=== PATIENT | female | born 1950 | race Caucasian/White ===

== ENCOUNTER 2017-01-04 05:42 | Outpatient (CLI) | payer MEDICARE, MEDICAID ==
[~2017-01-04] VITALS: Ht 167.6 cm; Wt 113.4 kg
[2017-01-04] MEDS ORDERED: LEVO100T7 PO (10:17)
[2017-01-04] MEDS ORDERED: LOSA50TA36 PO (10:17)
[2017-01-04] MEDS ORDERED: ASPI-586 PO (10:17)
[2017-01-04] MEDS ORDERED: PANT40TA3 PO (10:17)
[2017-01-04] MEDS ORDERED: DICL75TA2 PO (10:17)
[2017-01-04] MEDS ORDERED: ATOR20TA66 PO (10:17)
[2017-01-04] MEDS ORDERED: LACT1CAP62 PO (10:17)
[2017-01-04] MEDS ORDERED: CITA40TA11 PO (10:17)
== END 2017-01-04 10:34 ==
LOC: PREOP 05:42
PROVIDERS: ATTEND Surgery
DX: Z01.818 Encounter for other preprocedural examination (principal); K92.1 Melena

== ENCOUNTER 2017-01-05 08:06 | Day surgery (SDC) | payer MEDICARE, MEDICAID ==
[~2017-01-05] VITALS: Ht 167.6 cm; Wt 113.4 kg
[~2017-01-05 08:06] MED LIST: ASPI-586 PO; ATOR20TA66 PO; CITA40TA11 PO; DICL75TA2 PO; LACT1CAP62 PO; LEVO100T7 PO; LOSA50TA36 PO; PANT40TA3 PO
[2017-01-05] MEDS ORDERED: LACTATED RINGERS 1,000 ML IV STA (08:12)
[2017-01-05 08:25] VITALS: BP 151/73
[2017-01-05] MEDS ORDERED: PROPOFOL INJECTION 50 ML IV ONE (09:14)
[2017-01-05] MEDS ORDERED: LIDOCAINE PF 2% 5 ML (XYLOCAINE) VIAL ONE (09:15)
[2017-01-05] MEDS ORDERED: HURRICAINE EXT TUBE (BENZOCAINE) ONE (09:54)
[2017-01-05] MEDS ORDERED: HURRICAINE EXT TUBE (BENZOCAINE) XX ONE (10:00)
--- NOTE | 2017-01-05 10:12 | Progress Note-Post Operative ---
Post-Operative Progess Note Surgeon (s)/Double End Sewer (s) Surgeon KAL MCCRAY DO Double End Sewer: na Pre-Operative Diagnosis ruq abdominal pain, blood in stool Post-Operative Diagnosis small hiatal hernia, colon polyps Procedure & Operative Findings Date of Procedure 01/05/17 Procedure Performed/Findings egd, colonoscopy with hot bx polypectomy x 4 Anesthesia Type per motion picture director Estimated Blood Loss Estimated blood loss (mL): none Specimens/Packing Specimens Removed colon polyps x 4 KAL MCCRAY DO Jan 05, 2017 10:12
--- NOTE | 2017-01-05 10:15 | Discharge Inst-Simple/Standard ---
Discharge Inst-Standard Patient Instructions/Follow Up Plan of Care/Instructions/FU: Follow up with Dr. Torres in 2 weeks Hold aspirin for 3 days Repeat colonoscopy in 1 year Activity as Tolerated: Yes Discharge Diet: No Restrictions ANDREW CORRAL APRN Jan 05, 2017 10:15
[2017-01-05 10:20] VITALS: BP 161/72
[2017-01-05 10:50] VITALS: BP 167/83
--- NOTE | 2017-01-05 10:52 | OPERATIVE REPORT ---
DATE OF SERVICE: 01/05/2017 PREOPERATIVE DIAGNOSIS: 1. Right upper quadrant abdominal pain. 2. Blood in stool. POSTOPERATIVE DIAGNOSIS: 1. Small hiatal hernia. 2. Colon polyps. PROCEDURE: 1. EGD. 2. Colonoscopy with hot biopsy polypectomy times four. SURGEON: Kal Torres DO ANESTHESIA: Per CAR WRECKER. ESTIMATED BLOOD LOSS: None. COMPLICATIONS: None. INDICATIONS: The patient is a 66-year-old female with bright red blood per stool and right upper quadrant abdominal pain. She understands risks and benefits of procedure and wished to proceed with procedure. Consent was signed and in the chart. PROCEDURE: The patient was taken to the endoscopy suite, placed in left lateral recumbent position. Timeout was performed. Scope was inserted in mouth, down the esophagus, stomach and into the duodenum without difficulty. There were no polyps, mass or ulcerations within the duodenum. The scope was slowly retracted back into the stomach where it was further insufflated. There were no polyps, mass or ulcerations are erythematous changes present. Scope was retroflexed noting a small hiatal hernia. Scope was then returned to its normal position, slowly withdrawn back into the distal esophagus which demonstrated no polyps, masses or ulcerations or erythematous changes. Scope was slowly retracted back until completely removed, noting no other pathology. Digital rectal exam was performed and there were no palpable polyps, masses or ulcerations. Scope was inserted in the rectum and advanced all the way to the cecum with minimal difficulty. Prep was adequate. Scope was then slowly retracted back. There were no polyps, masses or ulcerations in the cecum, ascending colon. In the transverse colon at the hepatic flexure, a small polyp was present, which hot biopsy polypectomy was performed. Scope was continued slowly retracted back. In the transverse colon the second polyp was present, which hot biopsy polypectomy was performed. Scope was continued slowly retracted back and at the splenic flexure a third small polyp was present, which hot biopsy polypectomy was performed. Scope was continued slowly retracted back and a fourth polyp was in the descending colon, which hot biopsy polypectomy was performed. Scope was continuously retracted back. There were no other polyps, masses or ulcerations in the sigmoid and rectum. The scope was also retroflexed in the rectum, noting a little bit of slight hemorrhoidal disease. Scope was returned to its normal position, slowly withdrawn until completely removed. The patient tolerated procedure well without any complications. She was taken to recovery room in stable condition. RECOMMENDATIONS: The patient will follow up in office in two weeks to discuss pathology. Due to the number of polyps, would recommend repeat colonoscopy in approximately one year for reevaluation. If she has any problems prior to that, she should be reevaluated at that time. Job ID: [id number] DocumentID: [id number] Dictated Date: 01/05/2017 10:15:50 Strategic Marketing Manager Date: 01/05/2017 10:51:57 Dictated By: KAL TORRES DO
== END 2017-01-05 11:00 | disposition home or self-care (01) ==
LOC: ENDO 08:06
PROVIDERS: ATTEND Surgery
DX: K92.1 Melena (principal); D12.3 Benign neoplasm of transverse colon; D12.4 Benign neoplasm of descending colon; K44.9 Diaphragmatic hernia without obstruction or gangrene; I10 Essential (primary) hypertension; R01.1 Cardiac murmur, unspecified; M19.91 Primary osteoarthritis, unspecified site; E66.01 Morbid (severe) obesity due to excess calories; Z68.41 Body mass index [BMI] 40.0-44.9, adult; Z86.73 Personal history of transient ischemic attack (TIA), and cerebral infarction without residual deficits; Z79.899 Other long term (current) drug therapy

== ENCOUNTER → 2017-04-14 | Outpatient (CLI) | payer MEDICARE, MEDICAID ==
--- NOTE | 2017-04-14 20:03 | Diagnostic Imaging Report ---
Bilateral diagnostic mammogram with tomography. The current study was also evaluated with a Computer Aided Detection (CAD) system. INDICATION: Lump in the outer aspect of the right breast. No prior studies are available for comparison. FINDINGS: The breasts are composed of scattered fibroglandular densities. Area of lump is marked on the right MLO and true lateral views with no underlying mammographic abnormality seen. There are benign-appearing calcifications noted. IMPRESSION: No mammographic evidence of malignancy. Ultrasound evaluation pending. ACR BI-RADS Category 0: Incomplete. (Needs additional imaging evaluation). Result letter will be mailed to the patient. Note: At least 10% of breast cancer is not imaged by mammography. Dictated by: Dictated on workstation # [id number]
--- NOTE | 2017-04-15 22:11 | Diagnostic Imaging Report ---
Right breast ultrasound. INDICATION: Right breast lump. FINDINGS: The area of lump around 9 o'clock zone is scanned with no underlying abnormality seen. IMPRESSION: Negative study. Clinical followup of the palpable area is recommended. ACR BI-RADS Category 1: Negative. Dictated by: Dictated on workstation # [id number]
== END ==
LOC: RAD 13:51
PROVIDERS: ATTEND Family Medicine
DX: N63.10 Unspecified lump in the right breast, unspecified quadrant (principal)
CPT/HCPCS: 77066

== ENCOUNTER → 2017-11-17 | Outpatient (CLI) | payer MEDICARE, MEDICAID ==
[~2017-11-17] MED LIST changes: +ASPI-983 PO
== END ==
LOC: CARD 07:41
PROVIDERS: ATTEND Nurse Practitioner Family
DX: R00.2 Palpitations (principal); R07.9 Chest pain, unspecified; R06.02 Shortness of breath; I36.1 Nonrheumatic tricuspid (valve) insufficiency; Z68.41 Body mass index [BMI] 40.0-44.9, adult
CPT/HCPCS: 93225; 93226

== ENCOUNTER → 2017-12-17 | Outpatient (CLI) | payer MEDICARE, MEDICAID | LOC: CARD 07:08 | PROVIDERS: ATTEND Nurse Practitioner Family | DX: R07.9 Chest pain, unspecified (principal); R06.02 Shortness of breath; R00.2 Palpitations; I36.1 Nonrheumatic tricuspid (valve) insufficiency; Z68.41 Body mass index [BMI] 40.0-44.9, adult; Z86.73 Personal history of transient ischemic attack (TIA), and cerebral infarction without residual deficits | CPT/HCPCS: 93306 ==

== ENCOUNTER → 2019-02-15 | Outpatient (CLI) | payer MEDICARE, MEDICAID ==
[~2019-02-15] MED LIST changes: +CITA20TA9 PO; -LOSA50TA36 PO; +LOSA50TA63 PO
== END ==
LOC: CARD 12:35
PROVIDERS: ATTEND Internal Medicine Cardiovascular Disease
DX: I05.8 Other rheumatic mitral valve diseases (principal); I35.8 Other nonrheumatic aortic valve disorders; I10 Essential (primary) hypertension; E78.5 Hyperlipidemia, unspecified; Z86.79 Personal history of other diseases of the circulatory system
CPT/HCPCS: 93306

== ENCOUNTER 2019-06-14 14:57 | Observation (INO) | payer MEDICARE, MEDICAID ==
[~2019-06-14] VITALS: Ht 167.7 cm; Wt 112.8 kg
--- NOTE | 2019-06-14 15:28 | ED Abdominal Pain ---
General Chief Complaint: Abdominal/GI Problems Stated Complaint: ABD PAIN; BLACK STOOL Source of Information: Patient Exam Limitations: No Limitations History of Present Illness Date Seen by Provider: Jun 14, 2019 Time Seen by Provider: 15:26 Initial Comments This 68-year-old white female presents with a history of transverse upper ab dominal pain for the past several days. The patient noted black and tarry stools in the last 48 hours. Patient denies similar episodes in the past. She has been taking no new medications. She denies fever, chill, associated vomiting, dysuria or frequen cy. Allergies and Home Medications Allergies Coded Allergies: No Known Drug Allergies (Unverified , 01/04/17) Home Medications Aspirin 81 Mg Tablet.dr, 81 MG PO DAILY, (Reported) Atorvastatin Calcium 20 Mg Tablet, 20 MG PO DAILY, (Reported) Citalopram Hydrobromide 20 Mg Tablet, 20 MG PO HS, (Reported) Diclofenac Sodium 75 Mg Tablet.dr, 75 MG PO BID, (Reported) Lactobacillus Acidophilus 1 Each Capsule, 1 EACH PO DAILY, (Reported) Levothyroxine Sodium 100 Mcg Tablet, 100 MCG PO DAILY, (Reported) Losartan Potassium 50 Mg Tablet, 50 MG PO DAILY, (Reported) Pantoprazole Sodium 40 Mg Tablet.dr, 40 MG PO DAILY, (Reported) Patient Home Medication List Home Medication List Reviewed: Yes Review of Systems Review of Systems Constitutional: No chills, No fever; malaise, weakness EENTM: No Symptoms Reported Respiratory: Denies Cough Cardiovascular: No Symptoms Reported, Chest Pain Gastrointestinal: See HPI, Nausea, Rectal Bleeding Genitourinary: No Symptoms Reported Musculoskeletal: no symptoms reported Skin: no symptoms reported Psychiatric/Neurological: No Symptoms Reported Endocrine: No Symptoms Reported Hematologic/Lymphatic: No Symptoms Reported Past Yswiahi-Yqkria-Ebqzxf Hx Past Med/Social Hx: Reviewed Nursing Past Med/Soc Hx Patient Social History Recent Foreign Travel: No Recent Hopitalizations: No Immunizations Up To Date Date of Pneumonia Vaccine: Mar 02, 2016 Seasonal Allergies Seasonal Allergies: No Past Medical History Gallbladder, Thyroidectomy Heart Murmur, Hypertension Stroke Arthritis Physical Exam Vital Signs Vital Signs - First Documented 06/14/19 14:57 Temp 36.9 Pulse 87 Resp 16 B/P (MAP) 111/64 (80) Pulse Ox 95 O2 Delivery Room Air Capillary Refill : Height/Weight/BMI Height: 5'6.00" Weight: 266lbs. 0.0oz. [id number]; 42.9 BMI Method: General Appearance: WD/WN, no apparent distress, obese HEENT: normal ENT inspection Neck: supple, normal inspection Respiratory: lungs clear, normal breath sounds Cardiovascular: regular rate, rhythm, no murmur Gastrointestinal: normal bowel sounds, non tender, soft Rectal: heme positive stool Extremities: normal inspection Back: normal inspection Neurologic/Psychiatric: no motor/sensory deficits, alert, normal mood/affect Skin: normal color, warm/dry Progress/Results/Core Measures Results/Orders Lab Results Laboratory Tests Test 06/14/19 15:13 Range/Units White Blood Count 8.9 4.3-11.0 10^3/uL Red Blood Count 4.81 4.35-5.85 10^6/uL Hemoglobin 14.5 11.5-16.0 G/DL Hematocrit 44 35-52 % Mean Corpuscular Volume 92 80-99 FL Mean Corpuscular Hemoglobin 30 25-34 PG Mean Corpuscular Hemoglobin Concent 33 32-36 G/DL Red Cell Distribution Width 13.2 10.0-14.5 % Platelet Count 244 130-400 10^3/uL Mean Platelet Volume 12.0 H 7.4-10.4 FL Neutrophils (%) (Auto) 55 42-75 % Lymphocytes (%) (Auto) 33 12-44 % Monocytes (%) (Auto) 9 0-12 % Eosinophils (%) (Auto) 2 0-10 % Basophils (%) (Auto) 1 0-10 % Neutrophils # (Auto) 4.9 1.8-7.8 X 10^3 Lymphocytes # (Auto) 2.9 1.0-4.0 X 10^3 Monocytes # (Auto) 0.8 0.0-1.0 X 10^3 Eosinophils # (Auto) 0.2 0.0-0.3 10^3/uL Basophils # (Auto) 0.1 0.0-0.1 10^3/uL Sodium Level 141 135-145 MMOL/L Potassium Level 4.3 3.6-5.0 MMOL/L Chloride Level 103 98-107 MMOL/L Carbon Dioxide Level 23 21-32 MMOL/L Anion Gap 15 H 5-14 MMOL/L Blood Urea Nitrogen 22 H 7-18 MG/DL Creatinine 1.42 H 0.60-1.30 MG/DL Estimat Glomerular Filtration Rate 37 BUN/Creatinine Ratio 15 Glucose Level 112 H 70-105 MG/DL Calcium Level 9.2 8.5-10.1 MG/DL Corrected Calcium 9.2 8.5-10.1 MG/DL Total Bilirubin 0.3 0.1-1.0 MG/DL Aspartate Amino Transf (AST/SGOT) 17 5-34 U/L Alanine Aminotransferase (ALT/SGPT) 18 0-55 U/L Alkaline Phosphatase 87 40-136 U/L Total Protein 7.3 6.4-8.2 GM/DL Albumin 4.0 3.2-4.5 GM/DL Lipase 25 8-78 U/L My Orders Orders - MEREDITH BELLO MD Cbc With Automated Diff (06/14/19 15:24) Comprehensive Metabolic Panel (06/14/19 15:24) Lipase (06/14/19 15:24) Ct Abdomen/Pelvis Wo (06/14/19 15:24) Ns Iv 1000 Ml (Sodium Chloride 0.9%) (06/14/19 15:30) Ondansetron Injection (Zofran Injectio (06/14/19 15:30) Fentanyl Injection (Sublimaze Injection (06/14/19 15:45) Fecal Occult Bedside (06/14/19 16:29) Ns Iv 1000 Ml (Sodium Chloride 0.9%) (06/14/19 17:00) Medications Given in ED Current Medications Medications Dose Ordered Sig/Latisha Route Start Time Stop Time Status Last Admin Dose Admin Fentanyl Citrate 50 mcg ONCE ONCE IVP 06/14/19 15:45 06/14/19 15:46 DC 06/14/19 15:59 50 MCG Ondansetron HCl 4 mg ONCE ONCE IVP 06/14/19 15:30 06/14/19 15:31 DC 06/14/19 15:59 4 MG Vital Signs/I&O 06/14/19 14:57 Temp 36.9 Pulse 87 Resp 16 B/P (MAP) 111/64 (80) Pulse Ox 95 O2 Delivery Room Air Progress Progress Note : Time: 17:39 Progress Note The patient's abdominal pain was improved with IV fentanyl. Her nausea responded to IV Zofran. The patient's CT of the abdomen and pelvis demonstrated findings for a possible small bowel obstruction. The patient responded to IV fluids. Telephone call Konstantin Zamora was undertaken. She was kind enough to accept the patient in transfer for hospitalization Elbert to a medicine bed. Dr. Lopez was consulate who will see the patient as well. Departure Communication (Admissions) Time/Spoke to Admitting Phy: 17:41 Dr. Moore Time/Spoke to Consulting Phy: 17:41 Dr. Lopez Impression Primary Impression: GI bleed Qualified Codes: K92.2 - Gastrointestinal hemorrhage, unspecified Disposition: 09 ADMITTED INPATIENT Condition: Improved Admissions Decision to Admit Reason: Admit from ER (General) Decision to Admit/Date: Jun 14, 2019 Time/Decision to Admit Time: 17:42 Departure-Patient Inst. Referrals: NO,LOCAL PHYSICIAN (PCP/Family) Primary Care Physician MEREDITH BELLO MD Jun 14, 2019 15:28
[2019-06-14] MEDS ORDERED: NS IV 1000 ML 1,000 ML IV SCH ×2 (15:30→17:00)
[2019-06-14] MEDS ORDERED: ONDANSETRON 4 MG/2 ML (SDV) Z0FRAN IVP ONE (15:30)
[2019-06-14 15:34] LABS: HEMATOCRIT 44 % (35-52); HEMOGLOBIN 14.5 G/DL (11.5-16.0); MEAN CORPUSCULAR HEMOGLOBIN 30 PG (25-34); MEAN CORPUSCULAR HGB CONC 33 G/DL (32-36); MEAN CORPUSCULAR VOLUME 92 FL (80-99); PLATELET COUNT 244 10^3/uL (130-400); RED CELL DISTRIBUTION WIDTH 13.2 % (10.0-14.5); WHITE BLOOD COUNT 8.9 10^3/uL (4.3-11.0)
[2019-06-14 15:35] LABS: BASOPHILS # (AUTO) 0.1 10^3/uL (0.0-0.1); BASOPHILS % (AUTO) 1 % (0-10); EOSINOPHILS # (AUTO) 0.2 10^3/uL (0.0-0.3); EOSINOPHILS % (AUTO) 2 % (0-10); LYMPHOCYTES # (AUTO) 2.9 X 10^3 (1.0-4.0); LYMPHOCYTES % (AUTO) 33 % (12-44); MONOCYTES # (AUTO) 0.8 X 10^3 (0.0-1.0); MONOCYTES % (AUTO) 9 % (0-12); NEUTROPHILS # (AUTO) 4.9 X 10^3 (1.8-7.8); NEUTROPHILS % (AUTO) 55 % (42-75)
[2019-06-14] MEDS ORDERED: fentaNYL INJECTION 100 MCG/2 ML AMP IVP ONE (15:45)
[2019-06-14 15:54] LABS: POTASSIUM 4.3 MMOL/L (3.6-5.0)
[2019-06-14 15:55] LABS: BILIRUBIN,TOTAL 0.3 MG/DL (0.1-1.0); CALCIUM 9.2 MG/DL (8.5-10.1); CREATININE SERUM 1.42 MG/DL (0.60-1.30); TOTAL PROTEIN 7.3 GM/DL (6.4-8.2)
--- NOTE | 2019-06-14 16:05 | Diagnostic Imaging Report ---
PROCEDURE: CT abdomen and pelvis without contrast. TECHNIQUE: Multiple contiguous axial images were obtained through the abdomen and pelvis without the use of intravenous contrast. Auto Exposure Controls were utilized during the CT exam to meet ALARA standards for radiation dose reduction. INDICATION: Mid abdominal pain for one week. COMPARISON: No prior studies are available for comparison. FINDINGS: The lung bases are clear. The liver is unremarkable. Gallbladder is surgically absent. No biliary ductal dilatation is identified. Pancreas and spleen are unremarkable. No adrenal mass is detected. Left kidney contains an 18 mm low density in the lower pole, most likely a small cyst. There is a larger low density in upper right kidney measuring 6.8 cm, suggestive of a cyst. No renal calculi are detected. There is no hydronephrosis. Aorta is nonaneurysmal. There are some mildly dilated and thick-walled small bowel loops in the left abdomen. There is some adjacent inflammatory stranding present. Normal-caliber bowel loops are noted more distally in the right abdomen. The possibility of bowel obstruction cannot be excluded. The colon is decompressed. There is no free fluid or fluid collection identified. Uterus is unremarkable. Bladder is decompressed. IMPRESSION: 1. There is some skhx-ie-ihtpbebt small bowel distention in the left abdomen with associated wall thickening and adjacent inflammatory stranding. There is transition distally and possibility of at least partial small bowel obstruction cannot be entirely excluded. Small bowel study may be useful for further evaluation. There is no free air or abscess formation. 2. Bilateral renal cysts. Dictated by: Dictated on workstation # [id number]
[2019-06-14 19:23] VITALS: BP 103/66
[2019-06-14] MEDS ORDERED: CATHETER FLUSH 10 ML SYR IV PRN (19:45)
[2019-06-14] MEDS: fentaNYL INJECTION 100 MCG/2 ML AMP IV PRN (20:49)
[2019-06-14] MEDS: ONDANSETRON 4 MG/2 ML (SDV) Z0FRAN IV PRN (20:50)
[2019-06-14] MEDS: NS IV 1000 ML 1,000 ML IV SCH (20:50)
--- NOTE | 2019-06-14 21:58 | Consultation - Surgery ---
NAKULZEESHAN,MED STUDENT 06/14/19 2158: History of Present Illness History of Present Illness Patient Consulted On(mykel/time) 06/14/19 21:52 Date Seen by Provider: Jun 14, 2019 Time Seen by Provider: 21:29 History of Present Illness Surgery was consulted on this case regarding the patients abdominal pain and acute onset of melena Patient states that she has been having worsening abdominal pain that radiates into her ribs an back for about a week. She describes it has a sharp pain all across the top of her abdomen, and can get as bad as 10/10 at its worse. She states it hurts worse when she strains to have bowel movements. She believes her bowel movements have been regular, but admits to having black tarry stools for the past 3 days. Denies any blood in her stool. She has also had some vomiting. Denies blood in vomit. She thinks her last colonoscopy was within the last 5 years, but she is not sure. She has also had an EGD at the same time. Allergies and Home Medications Allergies Coded Allergies: No Known Drug Allergies (Unverified , 01/04/17) Home Medications Aspirin 81 Mg Tablet.dr, 81 MG PO DAILY, (Reported) Atorvastatin Calcium 20 Mg Tablet, 20 MG PO DAILY, (Reported) Citalopram Hydrobromide 20 Mg Tablet, 20 MG PO HS, (Reported) Diclofenac Sodium 75 Mg Tablet.dr, 75 MG PO BID, (Reported) Lactobacillus Acidophilus 1 Each Capsule, 1 EACH PO DAILY, (Reported) Levothyroxine Sodium 100 Mcg Tablet, 100 MCG PO DAILY, (Reported) Losartan Potassium 50 Mg Tablet, 50 MG PO DAILY, (Reported) Pantoprazole Sodium 40 Mg Tablet.dr, 40 MG PO DAILY, (Reported) Past Dqndckq-Jqzyho-Efiuwi Hx Patient Social History Alcohol Use: Denies Use Recreational Drug Use: No Smoking Status: Never a Smoker 2nd Hand Smoke Exposure: No Recent Foreign Travel: No Contact w/Someone Who Travel: No Recent Infectious Disease Expo: No Recent Hopitalizations: No Immunizations Up To Date Date of Pneumonia Vaccine: Mar 02, 2016 Seasonal Allergies Seasonal Allergies: No Surgeries History of Surgeries: Yes (bilat TKR) Surgeries: Gallbladder, Orthopedic (bilateral knees), Thyroidectomy Respiratory History of Respiratory Disorde: No Cardiovascular History of Cardiac Disorders: Yes Cardiac Disorders: Heart Murmur, Hypertension Neurological History of Neurological Disord: Yes Neurological Disorders: Stroke Gastrointestinal History of Gastrointestinal Di: Yes (hx tubular villous adenoma) Gastrointestinal Disorders: Gastroesophageal Reflux, Gall Bladder Disease Musculoskeletal History of Musculoskeletal Dis: Yes Musculoskeletal Disorders: Arthritis Endocrine History of Endocrine Disorders: Yes (thyroidectomy) Endocrine Disorders: Hyperthyroidism HEENT History of HEENT Disorders: No Cancer History of Cancer: No Psychosocial History of Psychiatric Problem: Yes Behavioral Health Disorders: Anxiety Integumentary History of Skin or Integumenta: No Blood Transfusions History of Blood Disorders: No Family Medical History Significant Family History: Heart Disease (Father, brother), Diabetes (Mother), Stroke (Mother) Review of Systems-General Constitutional: No chills, No dizziness, No fever, No malaise, No weight gain, No weight loss EENTM: No ear pain, No blurred vision, No double vision, No eye pain Respiratory: No cough, No short of breath, No wheezing Cardiovascular: No chest pain; edema, palpitations Gastrointestinal: abdominal pain (upper abdomen); No dysphagia, No hematemesis; heartburn, melena, nausea, vomiting Genitourinary: No dysuria, No hematuria Musculoskeletal: joint pain; No joint swelling; muscle pain Skin: No change in color, No lesions, No rash Psychiatric/Neurological: Anxiety Other Hematologic: easy bruising, denies easy bleeding Physical Exam-General Problems Physical Exam Vital Signs Vital Signs - First Documented 06/14/19 14:57 Temp 36.9 Pulse 87 Resp 16 B/P (MAP) 111/64 (80) Pulse Ox 95 O2 Delivery Room Air Capillary Refill : Less Than 3 Seconds General Appearance: WD/WN, no apparent distress Eyes: Bilateral Eye PERRL, Bilateral Eye EOMI HEENT: No scleral icterus (R), No scleral icterus (L) Neck: non-tender, supple; No lymphadenopathy (R), No lymphadenopathy (L) Respiratory: lungs clear, no respiratory distress, no accessory muscle use Cardiovascular: regular rate, rhythm, systolic murmur (faint) Peripheral Pulses: 2+ Dorsalis Pedis (R), 2+ Left Dors-Pedis (L), 2+ Radial Pulses (R), 2+ Radial Pulses (L) Gastrointestinal: normal bowel sounds, soft, tenderness (diffuse) Extremities: non-tender, pedal edema Neurologic/Psychiatric: custodian blood bank II-XII nml as tested, alert, normal mood/affect, oriented x 3 Skin: normal color, warm/dry Lymphatic: no adenopathy (cervical, axilla, groin) Data Review Labs Laboratory Tests 06/14/19 15:13: White Blood Count 8.9, Red Blood Count 4.81, Hemoglobin 14.5, Hematocrit 44, Mean Corpuscular Volume 92, Mean Corpuscular Hemoglobin 30, Mean Corpuscular Hemoglobin Concent 33, Red Cell Distribution Width 13.2, Platelet Count 244, Mean Platelet Volume 12.0H, Neutrophils (%) (Auto) 55, Lymphocytes (%) (Auto) 33, Monocytes (%) (Auto) 9, Eosinophils (%) (Auto) 2, Basophils (%) (Auto) 1, Neutrophils # (Auto) 4.9, Lymphocytes # (Auto) 2.9, Monocytes # (Auto) 0.8, Eosinophils # (Auto) 0.2, Basophils # (Auto) 0.1, Sodium Level 141, Potassium Level 4.3, Chloride Level 103, Carbon Dioxide Level 23, Anion Gap 15H, Blood Urea Nitrogen 22H, Creatinine 1.42H, Estimat Glomerular Filtration Rate 37, BUN/Creatinine Ratio 15, Glucose Level 112H, Calcium Level 9.2, Corrected Calcium 9.2, Total Bilirubin 0.3, Aspartate Amino Transf (AST/SGOT) 17, Alanine Aminotransferase (ALT/SGPT) 18, Alkaline Phosphatase 87, Total Protein 7.3, Albumin 4.0, Lipase 25 Assessment/Plan Assessment/Plan Assessment/Plan Assessment: -Abdominal pain -Melena Plan: IV fluids, Zofran for nausea, pain control EGD/colonoscopy as an outpatient to evaluate cause of melena. JESSICA LOPEZ DO 06/14/19 4984: History of Present Illness History of Present Illness Time Seen by Provider: 21:56 History of Present Illness Pt seen and examined, main complaint is abdominal pain. Pt has noted some "tarry" stools. Allergies and Home Medications Allergies Coded Allergies: No Known Drug Allergies (Unverified , 01/04/17) Home Medications Aspirin 81 Mg Tablet.dr, 81 MG PO DAILY, (Reported) Atorvastatin Calcium 20 Mg Tablet, 20 MG PO DAILY, (Reported) Citalopram Hydrobromide 20 Mg Tablet, 20 MG PO HS, (Reported) Diclofenac Sodium 75 Mg Tablet.dr, 75 MG PO BID, (Reported) Lactobacillus Acidophilus 1 Each Capsule, 1 EACH PO DAILY, (Reported) Levothyroxine Sodium 100 Mcg Tablet, 100 MCG PO DAILY, (Reported) Losartan Potassium 50 Mg Tablet, 50 MG PO DAILY, (Reported) Pantoprazole Sodium 40 Mg Tablet.dr, 40 MG PO DAILY, (Reported) Patient Home Medication List Home Medication List Reviewed: Yes Physical Exam-General Problems Physical Exam General Appearance: WD/WN, no apparent distress Respiratory: lungs clear, no respiratory distress Cardiovascular: regular rate, rhythm, systolic murmur (faint) Gastrointestinal: normal bowel sounds, soft, tenderness (diffuse) Assessment/Plan Assessment/Plan Assessment/Plan Abdominal Pain Melena Acute renal failure Pt needs IV fluids, pain control and recheck renal function. Her Hg is normal; timing of EGD/Colonoscopy would best be done as outpt. No need to keep pt in the hospital for those tests. Thank you for this consult. Supervisory-Addendum Brief Verification & Attestation Participated in pt care: history, MDM, physical Personally performed: exam, history Care discussed with: Medical Student Procedures: n/a Verification and Attestation of Medical Student E/M Service A medical student performed and documented this service in my presence. I reviewed and verified all information documented by the medical student and made modifications to such information, when appropriate. I personally performed the physical exam and medical decision making. Jessica Lopez, Jun 14, 2019,23:14 ZEESHAN MOTA,MED STUDENT Jun 14, 2019 21:58 JESSICA LOPEZ DO Jun 14, 2019 23:14
[2019-06-14 23:50] VITALS: BP 112/62
[2019-06-15] MEDS: ONDANSETRON 4 MG/2 ML (SDV) Z0FRAN IV PRN ×2 (01:36→15:39)
[2019-06-15] MEDS: fentaNYL INJECTION 100 MCG/2 ML AMP IV PRN (01:36)
[2019-06-15 04:05] VITALS: BP 86/52
[2019-06-15] MEDS: NS IV 1000 ML 1,000 ML IV SCH ×2 (05:21→15:39)
[2019-06-15 06:20] LABS: BASOPHILS % (AUTO) 1 % (0-10); EOSINOPHILS # (AUTO) 0.2 10^3/uL (0.0-0.3); EOSINOPHILS % (AUTO) 3 % (0-10); HEMATOCRIT 36 % (35-52); HEMOGLOBIN 11.2 G/DL (11.5-16.0); LYMPHOCYTES # (AUTO) 2.1 X 10^3 (1.0-4.0); LYMPHOCYTES % (AUTO) 34 % (12-44); MEAN CORPUSCULAR HEMOGLOBIN 30 PG (25-34); MEAN CORPUSCULAR HGB CONC 31 G/DL (32-36); MEAN CORPUSCULAR VOLUME 95 FL (80-99); MEAN PLATELET VOLUME 11.9 FL (7.4-10.4); MONOCYTES # (AUTO) 0.6 X 10^3 (0.0-1.0); MONOCYTES % (AUTO) 9 % (0-12); NEUTROPHILS # (AUTO) 3.2 X 10^3 (1.8-7.8); NEUTROPHILS % (AUTO) 53 % (42-75); PLATELET COUNT 172 10^3/uL (130-400); WHITE BLOOD COUNT 6.1 10^3/uL (4.3-11.0)
[2019-06-15 06:39] LABS: ALBUMIN 3.1 GM/DL (3.2-4.5); BILIRUBIN,TOTAL 0.3 MG/DL (0.1-1.0); CALCIUM 7.7 MG/DL (8.5-10.1); CREATININE SERUM 1.05 MG/DL (0.60-1.30); POTASSIUM 4.3 MMOL/L (3.6-5.0); TOTAL PROTEIN 5.4 GM/DL (6.4-8.2)
[2019-06-15 08:00] VITALS: BP 101/63
[2019-06-15] MEDS ORDERED: CITA40TA11 PO (09:10)
--- NOTE | 2019-06-15 09:10 | NUR ---
SPOKE WITH THE PATIENT ABOUT HER MEDICATIONS. SHE HAD HER BOTTLES WITH HER IN THE LOCK UP DRAWER. SHE VERIFIED HOW SHE TAKES THEM AND I COMPARED THEM WITH THE EXT MED HX. SHE RECENTLY FILLED MAXALT ACCORDING TO THE EXT MED HX HOWEVER SHE STATES SHE DOES NOT TAKE IT. SHE WAS PRESCRIBED IT FOR MIGRAINES BUT HER NEUROLOGIST SAID NOT TO TAKE IT BECAUSE SHE HAS HAD A STROKE. SHE TAKES ASPIRIN 81MG DAILY OTC.
--- NOTE | 2019-06-15 09:46 | Short Stay Summary-Hospitalist ---
History of Present Illness HPI/Chief Complaint Patient is a 68-year-old female with past medical history of hypertension and hypothyroidism who presented to the emergency department due to nausea vomiting and dark stools. She states that she started a new diet roughly 1 week ago and did well for 3 days but then after that developed nausea and vomiting. She denies any constipation. In fact 06/12 she developed dark tarry stools which prompted her to call her primary carepractitioner, Zachary May, who recommended evaluation at urgent care. From urgent care she was sent to the emergency room in [place]. She described pain across her abdomen and CT was done which revealed a partial small bowel obstruction. She reports she is no longer nauseated this morning and she is passing flatus frequently. She is actually requesting a diet and would like to go home. Source: patient Date Seen 06/15/19 Time Seen by a Provider: 09:40 Attending Physician Rosalba Moore MD PCP Benny May Referring Physician Date of Admission Jun 14, 2019 at 17:30 Home Medications & Allergies Home Medications Reviewed patient Home Medication Reconciliation performed by pharmacy medication reconciliations military administrative technician and/or nursing. Patients Allergies have been reviewed. Allergies Allergies Coded Allergies No Known Drug Allergies (Unverified01/04/17) Past Otxhcjc-Uiprsp-Yhpsxb Hx Past Med/Social Hx: Reviewed Nursing Past Med/Soc Hx Patient Social History Alcohol Use: Denies Use Recreational Drug Use: No Smoking Status: Never a Smoker 2nd Hand Smoke Exposure: No Recent Foreign Travel: No Contact w/other who traveled: No Recent Hopitalizations: No Recent Infectious Disease Expo: No Immunizations Up To Date Date of Pneumonia Vaccine: Mar 02, 2016 Date of Influenza Vaccine: Mar 15, 2019 Seasonal Allergies Seasonal Allergies: No Past Medical History Surgeries: Gallbladder, Orthopedic (bilateral knees), Thyroidectomy Cardiac: Heart Murmur, Hypertension Neurological: Stroke Gastrointestinal: Gastroesophageal Reflux, Gall Bladder Disease Musculoskeletal: Arthritis Endocrine: Hyperthyroidism Psychosocial: Anxiety History of Blood Disorders: No Family History Heart Disease (Father, brother), Diabetes (Mother), Stroke (Mother) Review of Systems Constitutional: no symptoms reported EENTM: no symptoms reported Respiratory: no symptoms reported Cardiovascular: no symptoms reported Gastrointestinal: abdominal pain; No constipation; melena, nausea, vomiting Genitourinary: no symptoms reported Musculoskeletal: no symptoms reported Skin: no symptoms reported Psychiatric/Neurological: No Symptoms Reported Physical Exam Physical Exam Vital Signs Vital Signs - First Documented 06/14/19 14:57 Temp 36.9 Pulse 87 Resp 16 B/P (MAP) 111/64 (80) Pulse Ox 95 O2 Delivery Room Air Capillary Refill : Less Than 3 SecondsLess Than 3 Seconds Height, Weight, BMI Height: 5'6.00" Weight: 266lbs. 0.0oz. 120.974803pa; 40.10 BMI Method: General Appearance: No Apparent Distress, Obese Eyes: Bilateral Eye PERRL, Bilateral Eye EOMI Neck: Supple Respiratory: Lungs Clear, No Accessory Muscle Use, No Respiratory Distress Cardiovascular: Regular Rate, Rhythm, No Murmur Gastrointestinal: Normal Bowel Sounds, Non Tender, Soft; No Distended, No Guarding, No Rebound Neurologic/Psychiatric: Alert, Oriented x3, Normal Mood/Affect Skin: Normal Color, Warm/Dry Results Results/Procedures Labs Laboratory Tests 06/14/19 15:13 06/15/19 05:35 Patient resulted labs reviewed. Imaging: Reviewed Imaging Report Imaging Date of Exam:06/14/19 CT ABDOMEN/PELVIS WO PROCEDURE: CT abdomen and pelvis without contrast. TECHNIQUE: Multiple contiguous axial images were obtained through the abdomen and pelvis without the use of intravenous contrast. Auto Exposure Controls were utilized during the CT exam to meet ALARA standards for radiation dose reduction. INDICATION: Mid abdominal pain for one week. COMPARISON: No prior studies are available for comparison. FINDINGS: The lung bases are clear. The liver is unremarkable. Gallbladder is surgically absent. No biliary ductal dilatation is identified. Pancreas and spleen are unremarkable. No adrenal mass is detected. Left kidney contains an 18 mm low density in the lower pole, most likely a small cyst. There is a larger low density in upper right kidney measuring 6.8 cm, suggestive of a cyst. No renal calculi are detected. There is no hydronephrosis. Aorta is nonaneurysmal. There are some mildly dilated and thick-walled small bowel loops in the left abdomen. There is some adjacent inflammatory stranding present. Normal-caliber bowel loops are noted more distally in the right abdomen. The possibility of bowel obstruction cannot be excluded. The colon is decompressed. There is no free fluid or fluid collection identified. Uterus is unremarkable. Bladder is decompressed. IMPRESSION: 1. There is some sict-[id number] small bowel distention in the left abdomen with associated wall thickening and adjacent inflammatory stranding. There is transition distally and possibility of at least partial small bowel obstruction cannot be entirely excluded. Small bowel study may be useful for further evaluation. There is no free air or abscess formation. 2. Bilateral renal cysts. Short Stay Diagnosis Discharge Diagnosis-Short Stay Admission Diagnosis partial SBO Final Discharge Diagnosis partial small bowel obstruction Conclusion Plan partial small bowel obstruction Melena +flatus and no longer nauseated Surgery consulted, appreciate recs Hemoglobin stable, needs outpatient colonoscopy Advance diet and if tolerates can DC home Follow up with Zachary May APRN in the next week Diagnosis/Problems Diagnosis/Problems (1) Small bowel obstruction Status: Acute (2) Hypothyroidism Status: Chronic Qualifiers: Qualified Codes: E89.0 - Postprocedural hypothyroidism (3) Essential (primary) hypertension Status: Chronic (4) HLD (hyperlipidemia) Status: Chronic Qualifiers: Qualified Codes: E78.5 - Hyperlipidemia, unspecified (5) Melena Status: Acute Clinical Quality Measures DVT/VTE Risk/Contraindication: Risk Factor Score Per Nursin RFS Level Per Nursing on Admit: 3=High Copy Copies To 1: [facility]/ROSALBA LOWERY MD Jun 15, 2019 09:45
--- NOTE | 2019-06-15 09:57 | Discharge Inst-Simple/Standard ---
Discharge Inst-Standard Patient Instructions/Follow Up Plan of Care/Instructions/FU: Discontinue taking her medications as written. Please follow-up with your primary care nurse practitioner, Zachary May, within the next week. Please follow-up with Dr. Lopez or Dr. Torres as recommended. Activity as Tolerated: Yes Discharge Diet: Soft Diet Return to The Hospital For: Worsening abdominal pain, nausea, no bowel movement of gas for >24 hours, if you feel you are getting worse. RUBENS MCKEON MD Jun 15, 2019 09:57
[2019-06-15 12:00] VITALS: BP 96/58
--- NOTE | 2019-06-15 12:21 | Progress Note - Surgery ---
SARAH ORTIZ,MED STUDENT 06/15/19 1221: Subjective Date Seen by a Provider: Jun 15, 2019 Time Seen by a Provider: 12:15 Subjective/Events-last exam Patient seen and examined. She says that she is feeling about the same as yesterday but her abdominal pain has improved. Pain is rated as a 1/10 today. She reports having post a lot of gas today but no bowel movement today. Her last bowel movement was yesterday in the ER at [facility]. Review of Systems General: No Chills, No Night Sweats; Appetite Pulmonary: No Dyspnea, No Cough Cardiovascular: No: Chest Pain, Palpitations Gastrointestinal: Abdominal Pain (diffuse ), Constipation; No: Nausea, Vomiting Genitourinary: No Dysuria, No Frequency Neurological: Numbness (in feet ) Objective Exam Vital Signs Date Time Temp Pulse Resp B/P (MAP) Pulse Ox O2 Delivery O2 Flow Rate FiO2 06/15/19 08:00 35.8 61 16 101/63 (76) 95 Room Air 06/15/19 08:00 Room Air 06/15/19 04:05 36.0 54 14 86/52 (63) 95 Room Air 06/15/19 01:36 36.4 06/14/19 23:50 36.4 64 20 112/62 (79) 99 Room Air 06/14/19 21:00 99 Room Air 06/14/19 19:23 36.0 66 22 103/66 (78) 98 Room Air 06/14/19 19:23 36.0 66 22 103/66 98 Room Air 06/14/19 18:29 36.9 68 16 109/52 (80) 18 Room Air 06/14/19 14:57 36.9 87 16 111/64 (80) 95 Room Air I & O 06/15/19 07:00 Intake Total 1320 ml Balance 1320 ml Capillary Refill : Less Than 3 SecondsLess Than 3 Seconds General Appearance: No Apparent Distress, Obese HEENT: PERRL/EOMI Neck: Non Tender, Supple Respiratory: Chest Non Tender, Lungs Clear, Normal Breath Sounds, No Accessory Muscle Use, No Respiratory Distress Cardiovascular: Regular Rate, Rhythm, Diastolic Murmur Peripheral Pulses: 2+ Dorsalis Pedis (R), 2+ Left Dors-Pedis (L), 2+ Radial Pulses (R), 2+ Radial Pulses (L) Gastrointestinal: normal bowel sounds, soft, tenderness (diffuse ) Extremity: No Calf Tenderness, No Pedal Edema Neurologic/Psychiatric: Alert, Oriented x3, Normal Mood/Affect Skin: Normal Color, Warm/Dry Results Lab Laboratory Tests 06/14/19 15:13: White Blood Count 8.9, Red Blood Count 4.81, Hemoglobin 14.5, Hematocrit 44, Mean Corpuscular Volume 92, Mean Corpuscular Hemoglobin 30, Mean Corpuscular Hemoglobin Concent 33, Red Cell Distribution Width 13.2, Platelet Count 244, Mean Platelet Volume 12.0H, Neutrophils (%) (Auto) 55, Lymphocytes (%) (Auto) 33, Monocytes (%) (Auto) 9, Eosinophils (%) (Auto) 2, Basophils (%) (Auto) 1, Neutrophils # (Auto) 4.9, Lymphocytes # (Auto) 2.9, Monocytes # (Auto) 0.8, Eosinophils # (Auto) 0.2, Basophils # (Auto) 0.1, Sodium Level 141, Potassium Level 4.3, Chloride Level 103, Carbon Dioxide Level 23, Anion Gap 15H, Blood Urea Nitrogen 22H, Creatinine 1.42H, Estimat Glomerular Filtration Rate 37, BUN/Creatinine Ratio 15, Glucose Level 112H, Calcium Level 9.2, Corrected Calcium 9.2, Total Bilirubin 0.3, Aspartate Amino Transf (AST/SGOT) 17, Alanine Aminotransferase (ALT/SGPT) 18, Alkaline Phosphatase 87, Total Protein 7.3, Albumin 4.0, Lipase 25 06/15/19 05:35: White Blood Count 6.1, Red Blood Count 3.79L, Hemoglobin 11.2#L, Hematocrit 36, Mean Corpuscular Volume 95, Mean Corpuscular Hemoglobin 30, Mean Corpuscular Hemoglobin Concent 31L, Red Cell Distribution Width 14.0, Platelet Count 172, Mean Platelet Volume 11.9H, Neutrophils (%) (Auto) 53, Lymphocytes (%) (Auto) 34, Monocytes (%) (Auto) 9, Eosinophils (%) (Auto) 3, Basophils (%) (Auto) 1, Neutrophils # (Auto) 3.2, Lymphocytes # (Auto) 2.1, Monocytes # (Auto) 0.6, Eosinophils # (Auto) 0.2, Basophils # (Auto) 0.0, Sodium Level 140, Potassium Level 4.3, Chloride Level 112H, Carbon Dioxide Level 21, Anion Gap 7, Blood Urea Nitrogen 16, Creatinine 1.05, Estimat Glomerular Filtration Rate 52, BUN/Creatinine Ratio 15, Glucose Level 89, Calcium Level 7.7L, Corrected Calcium 8.4L, Total Bilirubin 0.3, Aspartate Amino Transf (AST/SGOT) 15, Alanine Aminotransferase (ALT/SGPT) 17, Alkaline Phosphatase 62, Total Protein 5.4L, Albumin 3.1L Assessment/Plan Assessment/Plan Assessment/Plan Abdominal Pain Melena Acute renal failure Abdominal pain still present but improving, patient is passing gas and last BM was yesterday. Hgb has dropped for 14.5 to 11.2, most likely dilutional.; EGD/Colonoscopy required as f/u as an outpt. Kidney function is normal today. If patient can tolerdate solid food then patient is good to go home form a surgery stand point, with outpt f/u. Thank you for this consult. Clinical Quality Measures DVT/VTE Risk/Contraindication: Risk Factor Score Per Nursin RFS Level Per Nursing on Admit: 3=High KAL TORRES DO 06/15/192133: Subjective Subjective/Events-last exam abdominal pain improved. Passing flatus. no more dark stools. denies n/v fever sweats chills shortness of breath or chest pain. tolerating diet. wanting to go home. Objective Exam General Appearance: No Apparent Distress HEENT: PERRL/EOMI Neck: Non Tender, Supple Respiratory: Chest Non Tender, No Accessory Muscle Use, No Respiratory Distress Cardiovascular: Regular Rate, Rhythm Gastrointestinal: non tender, soft, no organomegaly; No tenderness Neurologic/Psychiatric: Alert, Oriented x3, Normal Mood/Affect Skin: Normal Color, Warm/Dry Lymphatic: No Adenopathy Assessment/Plan Assessment/Plan Assessment/Plan Abdominal Pain across middle of abdomen now improved Melena Acute renal failure ct possible partial small bowel obstruction, passing flatus and tolerating diet. if remains pain free, and tolerates diet can be arranged for outpatient endoscopy Supervisory-Addendum Brief Verification & Attestation Participated in pt care: history, MDM, physical Personally performed: exam, history, MDM, supervision of care Care discussed with: Medical Student Procedures: n/a Results interpretation: Verified all documentation Verification and Attestation of Medical Student E/M Service A medical student performed and documented this service in my presence. I reviewed and verified all information documented by the medical student and made modifications to such information, when appropriate. I personally performed the physical exam and medical decision making. Kal Torres, Jun 15, 2019,21:34 SARAH ORTIZ,MED STUDENT Jun 15, 2019 12:21 KAL TORRES DO Jun 15, 2019 21:34
[2019-06-15 15:57] VITALS: BP 125/69
--- NOTE | 2019-06-15 18:15 | NUR ---
Pt had complained of abd pain and nausea during dc home, Dr. Zamora notified and pt kept for further evaluation. After eating dinner, pt called RN to room, pt has no nausea pain or discomfort and would like to continue with dc.
--- NOTE | 2019-06-15 18:19 | NUR ---
Ok to dc home per Dr. Moore
[2019-06-15 18:30] VITALS: BP 125/69
--- NOTE | 2019-06-15 18:33 | NUR ---
SAMUEL ALVARENGA demonstrates understanding of discharge instructions and accurately returns instructions upon questioning. Copy of Post-Discharge Instructions and Medication Discharge Instructions given to pt. SAMUEL ALVARENGA is able to manage continuing needs after discharge. Patients belongings returned to pt. Skin dry and intact; no breakdown noted. Patient discharged from [facility]- on 06/15/19 at 1832. SAMUEL ALVARENGA left floor via WC, accompanied by Staff/Son.
== END 2019-06-15 18:32 | disposition home or self-care (01) ==
LOC: EDUNIT# 14:57 → ER FS 14:58 → 4TH 17:30 → INTOOBSV 17:30 → 4TH 06-15 13:17
PROVIDERS: ADMIT Family Medicine; ATTEND Family Medicine
DX: K56.609 Unspecified intestinal obstruction, unspecified as to partial versus complete obstruction (principal); K92.2 Gastrointestinal hemorrhage, unspecified; E89.0 Postprocedural hypothyroidism; I10 Essential (primary) hypertension; N17.9 Acute kidney failure, unspecified; M19.90 Unspecified osteoarthritis, unspecified site; E78.5 Hyperlipidemia, unspecified; K21.9 Gastro-esophageal reflux disease without esophagitis; F32.9 Major depressive disorder, single episode, unspecified; Z79.82 Long term (current) use of aspirin; Z90.89 Acquired absence of other organs; Z79.899 Other long term (current) drug therapy; Z86.73 Personal history of transient ischemic attack (TIA), and cerebral infarction without residual deficits; Z82.49 Family history of ischemic heart disease and other diseases of the circulatory system; Z83.3 Family history of diabetes mellitus; Z82.3 Family history of stroke
CPT/HCPCS: 36415; 74176; 80053; 82274; 83690; 85025; 96361; 96374; 96375

== ENCOUNTER 2019-07-10 05:49 | Outpatient (CLI) | payer MEDICARE, MEDICAID ==
[~2019-07-10] VITALS: Ht 167.7 cm; Wt 112.7 kg
[2019-07-10] MEDS ORDERED: PANT40TA3 PO (09:04)
== END 2019-07-10 09:14 | disposition home or self-care (01) ==
LOC: PREOP 05:49
PROVIDERS: ATTEND Surgery
DX: Z01.818 Encounter for other preprocedural examination (principal)

== ENCOUNTER → 2019-12-19 | Day surgery (SDC) | payer MEDICARE, MEDICAID ==
[~2019-12-19] VITALS: Ht 167.7 cm; Wt 114.5 kg
[~2019-12-19] MED LIST changes: +LIDOCAINE 1% INJ 20 ML 20 ML VIAL ONE
[2019-12-19 12:42] VITALS: BP 149/86
--- NOTE | 2019-12-19 12:50 | Cardiac Procedure Note-CS/ASA ---
Pre-Procedure Note Pre-Op Procedure Note H&P Reviewed The H&P was reviewed, patient examined and no changes noted. Date H&P Reviewed: Dec 19, 2019 Time H&P Reviewed: 12:50 Conscious Sedation Pre-Proced Time 12:50 ASA Score 3 For ASA 3 and 4: Consider anesthesia and medical clearance. Also, for patients with a history of failed moderate sedation consider anesthesia. Airway Lungs Heart ASA score ASA 1: a normal healthy patient ASA 2: a patient with a mild systemic disease (mid diabetes, controlled hypertension, obesity ASA 3: a patient with a severe systemic disease that limits activity (angina, COPD, prior Myocardial infarction) ASA 4: a patient with an incapacitating disease that is a constant threat to life (CHF, renal failure) ASA 5: a moribund patient not expected to survive 24 hrs. (ruptured aneurysm) ASA 6: a declared brain- patient whose organs are being harvested. For emergent operations, add the letter E after the classification Mallampati Classification Grade 2 Sedation Plan Analgesia, Amnesia, Plan communicated to team members, Discussed options with patient/fam, Discussed risks with patient/fam The patient is an appropriate candidate to undergo the planned procedure, sedation, and anesthesia. The patient immediately re-assessed prior to indication. SB WELLS MD FACP FAC CCDS Dec 19, 2019 12:50
--- OUTSIDE RECORDS SUMMARY | 2019-12-19 14:18 | XMS REPORT | Encounter Summary ---
Author Author [facility] Organization [facility] Address Unknown Phone Unavailable Care Team Providers Care Casino Floor Supervisor Name Role Phone Benny May PCP Reason for Visit * Reason Comments stroke, lacunar last office visit: 11/02/18; pt states "sharp pains in top of head. But not headache. And sharp eye pain." Encounter Details Care Team Description Date Type Department Moise Jalloh, SOURAV [address] [address] [phone] Stroke, lacunar (HCC) (Primary Dx); Tremor; Ataxia; Mild cognitive impairment 05/03/2019 Office Visit [facility] Neurol ogy [address] [facility] [address] [place] [address] Social History Date Tobacco Use Types Packs/Day Years Used Never Smoker Smokeless Tobacco: Never Used Drinks/Week oz/Week Comments Alcohol Use 0 Standard drinks or equivalent 0.0 Quit 40 yrs ago No Sex Assigned at Date Recorded Not on file Industry Job Start Date Occupation Not on file Not on file Not on file Travel End Travel History Travel Start No recent travel history available. documented as of this encounter Last Filed Vital Signs Reading Time Taken Comments Vital Sign 132/67 05/03/2019 8:32 AM CLINICAL COURIER Blood Pressure 65 05/03/2019 8:32 AM CLINICAL COURIER SpO2: 94% Pulse - - Temperature - - Respiratory Rate - - Oxygen Saturation - - Inhaled Oxygen Concentration 114.5 kg (252 lb 6.4 oz) 05/03/2019 8:32 AM CLINICAL COURIER Weight 165.1 cm (5' 5") 05/03/2019 8:32 AM CLINICAL COURIER Height 42 05/03/2019 8:32 AM CLINICAL COURIER Body Mass Index documented in this encounter Patient Instructions * Patient Instructions* Moise Jalloh NP - 05/03/2019 9:00 AM CLINICAL COURIER 1. Do not take any migraine medications in the "triptan" family (generic name e nds in "-triptan" such as rizatriptan or sumatriptan, brand names include Maxalt and Imitrex and others). These should not be taken by people with history of s troke. 2. Return in 1 year or sooner if needed. ICAL COURIER documented in this encounter Progress Notes * Moise Jalloh NP - 05/03/2019 9:00 AM CLINICAL COURIER NEUROLOGY CONSULTATION Patient Name: Pia Morales : 1950 PCP: DAMION Quezada Date of service: 05/03/2019 CHIEF COMPLAINT She returns to neurology clinic today in routine follow-up. She comes to visit alone. LAST VISIT: Last visit in neurology clinic was November 02, 2018. Plan at that visit was: Continue current medications and monitor her symptoms duff ch as tremor. HISTORY OF PRESENT ILLNESS: INTERVAL HISTORY: She perceives that her balance may be somewhat worse. "My balance is wacky." S he notes that when she turns quickly she feels off balance, may have some mild b rief spinning sensation," I stumble over my own feet if I turn." She denies any falls although she reports near falls. She denies feeling presyncopal and janet es syncope. Otherwise she reports no significant changes since her last visit. No events suspicious for stroke or TIA. Still with intermittent hand tremor wi thout significant change. And she continues to have occasional brief sharp head pains of only a few seconds in duration. "I note a migraine is in these migrai ne." However, she may have been prescribed rizatriptan for the head pains by so me provider. We discussed that people with a history of stroke should not take triptans. ROS: Review of Systems questionnaire was completed by patient and reviewed. Positive s were sweats, fatigue, sensitive to light, change in vision, ringing in ears, t rouble swallowing, racing/pounding heart, cough, short of breath with activity, abdominal swelling, constipation, urinary incontinence, neck pain, back pain, mu scle cramps, dry skin, nail changes, hair loss, dizziness, lightheadedness, trem ors, difficulty walking, confusion, depressed mood, nervous/anxious. All other items on the questionnaire were negative. The original form will be scanned in the chart separately. BP 132/67 (BP Location: Left arm, Patient position: Sitting) | Pulse 65 Comment : SpO2: 94% | Ht 1.651 m (5' 5") | Wt 114.5 kg (252 lb 6.4 oz) | BMI 42.00 kg/ m NEUROLOGIC EXAMINATION: The following aspects of the exam are notable: Possible but not definite upper visual field defect with left thigh. Over, she gives inconsistent responses her e and it sometimes seems to seem to finger in the upper visual field without dif ficulty. Mild right upper extremity action tremor with no resting or postural t remor. Her gait is abnormal but this seems to be related to orthopedic problems rather than neurologic problems. She reports having continuing problems with h er right knee despite past knee replacement surgery. She notes that the knee wi ll sometimes "catch" and I can feel this when testing for spasticity in her legs today. Not all of the abnormal gait seems due to the orthopedic problems. She does seem to have very minimal ataxia and diminished ability to tandem gait. The remainder of her exam today was unremarkable. No neck bruit heard. Heart t ones S1-S2 with no murmur. Radial pulses palpable, symmetric, and regular. Mental Status: Awake, alert, pleasant, calm, cooperative, appropriate. No abno rmality of spontaneous speech or comprehension. No aphasia or dysarthria. No si gnificant memory or cognitive deficit evident in conversing with patient. Cranial Nerves: II - Pupils equal and round bilaterally. Visual eubanks grossly full to finger counting in periphery with binocular vision. Possible but not de finite upper visual field defect with left monocular vision. No apparent visual field defect with right eye monocular vision.. III, IV, extraocular muscles are intact. No nystagmus. No STEPHANIE. VII- No significant facial asymmetry is obser marjan. No facial weakness seen with eyebrow raising, eyelid closure, and smiling/s howing teeth. VIII- Hearing intact bilaterally. XI- Shrugs shoulders and turns head without difficulty. XII- Tongue is midline without fasciculations. Motor: Normal muscle bulk throughout. No lower extremity spasticity felt on kn ee flexion and extension. No clonus at ankles. UE Power Deltoids Biceps Triceps Wrist Ext Finger Ext Finger Fl Right 5 5 5 5 5 5 Left 5 5 5 5 5 5 LE Power Hip flex Quads Hams Dorsiflex Plantarflex Right 5 5 5 5 5 Left 5 5 5 5 5 Sensation: Romberg negative. Coordination: No upper extremity dysmetria on finger-nose testing. Mild right u pper extremity action tremor without resting or postural tremor. No left upper extremity tremor today. Gait: Her gait is abnormal but this seems to be more related to orthopedic prob lems rather than neurologic problems. She reports having continuing problems wi th her right knee despite past knee replacement surgery. She notes that the kne e will sometimes "catch" and I can feel this when testing for spasticity in her legs today. Not all of the abnormal gait seems due to the orthopedic problems. She does seem to have very minimal ataxia and diminished ability to tandem gait. CURRENT MEDICATIONS aspirin 81 MG EC tablet Take 81 mg by mouth daily. atorvastatin (LIPITOR) 20 MG tablet TK 1 T PO EACH DAY citalopram (CELEXA) 40 MG tablet TAKE 1 TABLET BY MOUTH DAILY cyanocobalamin (VITAMIN B-12) 1000 MCG tablet Take 1,000 mcg by mouth daily. diclofenac (VOLTAREN) 75 MG EC tablet TK 1 T PO BID WF OR MILK ibuprofen (ADVIL,MOTRIN) 200 MG tablet Take 200 mg by mouth every 6 (six) ho urs as needed for pain. levothyroxine (SYNTHROID, LEVOTHROID) 100 MCG tablet Take 100 mcg by mouth d aily. losartan (COZAAR) 25 MG tablet Take 25 mg by mouth daily. No current facility-administered medications for this visit. ALLERGIES Allergies Allergen Reactions Adhesive Tape-Silicones Other reaction(s): Other (See Comments) Skin burn ASSESSMENT: 1. Cerebrovascular ischemic disease with history of stroke.. She had a l eft thalamic /left MCA stroke in 2013 with residuals of sensory disturbance and spasticity on the right and gait impairment. Sometime between 2013- 2017 she h ad a further left [place] radiata stroke. 2. Her stroke risk factors include hyperlipidemia (currently treated with ator vastatin) and hypertension (currently treated with losartan). She has slee p apnea which is untreated which is very mild.She is taking 81 mg aspirin johnie y and reports being adherent to it. Evaluation by cardiology showed no evidenc e of atrial fibrillation or other abnormality which might increase stroke risk. No known diagnosis of diabetes. Not a smoker. She is overweight. 3. Mild cognitive impairment. No evidence of degenerative dementia. Mi ld cognitive impairment is likely related to her cerebrovascular ischemic diseas e and her mood disorder. 4. Mood disorder with anxiety and depression. 5.. History of episodes of alteration of awareness. Initial EEG showed no epileptiform discharges. Differential diagnosis continues to include episodes of inattention, episodes of drowsiness, and other. 6.Obstructive sleep apnea. Mild in degree with overall AHI of 5.3. Untre ated. 7. Low normal vitamin B12 level (297). 8. Numbness on the plantar surface of both feet. This may be related to a mi ld peripheral neuropathy and may be complicated by the possible lumbar radiculop athy. She has no history of diabetes. At this point the symptom is not sever e or painful. She does not wish to pursue EMG or other testing at this point. 9. Migraine and migrainous visual disturbances without accompanying head pain. 10. Intermittent upper extremity tremor which is brief and probably not related to any worrisome etiology. 11. Her medical history includes left MCA / thalamicstroke in 2013 and left co lorraine radiata stroke sometime between [id number], migraine and headache and migrai nous visual disturbances without accompanying head pain, depression, hypertensio n, high cholesterol, hyperthyroidism leading to thyroidectomy so she is now func tionally hypothyroid postsurgically, osteoarthritis, GERD, insomnia, colon polyp s. PLAN 1. No changes in treatment recommended today. Continue daily aspirin 81 mg for secondary stroke prevention and continue working with PCP and cardiology to rec heck lipid and blood pressure goals (currently taking atorvastatin and losartan) . Continue citalopram 40 mg daily for mood disorder. I advised her that she sh ould not take any triptan medications for migraine/headache. 2. Return to neurology clinic in 1 year or sooner if needed. If she is clinica lly stable over the next year then she may be able to follow-up only on an as-ne eded basis after that. Return in about 1 year (around 05/03/2020) for CMB or MOCTEZUMA. . ICAL COURIER documented in this encounter Plan of Treatment Care Team Description Date Type Specialty Moise Jalloh NP [facility] [address] [address] [phone] 05/08/2020 Office Visit Neurology documented as of this encounter Visit Diagnoses Diagnosis Stroke, lacunar (HCC) Unspecified cerebral artery occlusion w ith cerebral infarction Tremor Abnormal involuntary movements Ataxia Lack of coordination Mild cognitive impairment Mild cognitive impairment, so stated documented in this encounter
--- OUTSIDE RECORDS SUMMARY | 2019-12-19 14:18 | XMS REPORT | Encounter Summary ---
Author Author [facility] Organization [facility] Address Unknown Phone Unavailable Care Team Providers Care Pasteurizer Helper Name Role Phone Lalo Benny PCP Reason for Visit * Reason Comments Other Encounter Details Care Team Description Date Type Department Katelyn Argueta MD [address] [address] [phone] Other 04/01/2019 Refill [facility] Neurol ogy [address] [address] Social History Date Tobacco Use Types Packs/Day [...] history available. documented as of this encounter Plan of Treatment Care Team Description Date Type Specialty Moise Jalloh NP [address] [address] [phone] 05/08/2020 Office Visit Neurology documented as of this encounter Visit Diagnoses Diagnosis Depression, unspecified depression type documented in this encounter
--- OUTSIDE RECORDS SUMMARY | 2019-12-19 14:18 | XMS REPORT | Encounter Summary ---
Author Author [facility] Organization [facility] Address Unknown Phone Unavailable Care Team Providers Care Receiver Stocker Name Role Phone Lalo Benny PCP Reason for Visit * Reason Comments Test results Encounter Details Care Team Description Date Type Department Moise Jalloh NP [address] [address] [phone] Stroke, lacunar (HCC) (Primary Dx); Obstructive sleep apnea syndrome; Mild cognitive impairment; Mild episode of recurrent major depressive disorder (HCC) 01/19/2018 Office Visit [facility] Neurol ogy [address] [facility] [address] [place] [address] Social History Date Tobacco Use Types Packs/Day [...] Signs Reading Time Taken Comments Vital Sign 141/85 01/19/2018 8:52 AM CDT Blood Pressure 60 01/19/2018 8:52 AM CDT Pulse - - Temperature - - Respiratory Rate - - Oxygen Saturation - - Inhaled Oxygen Concentration 120.2 kg (265 lb) 01/19/2018 8:52 AM CDT Weight 165.1 cm (5' 5") 01/19/2018 8:52 AM CDT Height 44.1 01/19/2018 8:52 AM CDT Body Mass Index documented in this encounter Patient Instructions * Patient Instructions* Moise Jalloh NP - 01/19/2018 9:00 AM CDT 1. Stop Pantoprazole. 2. Use TUMS as needed for heartburn. 3. Increase Celexa to 40 mg daily (2 of the 20 mg tablets or 1 of the 40 mg tab lets). 4. Start Vitamin B12 1,000 mcg daily. 5. Continue all efforts at stroke prevention as previously discussed (Aspirin, Atorvastatin, Losartan, for example). 6. Return to neurology clinic routinely in 3 months. Sooner if needed. Contac t us by phone as needed in meantime and follow up with primary care doctor. ER / 911 if any possible stroke or TIA. documented in this encounter Progress Notes * Moise Jalloh NP - 01/19/2018 9:00 AM CDT NEUROLOGY CONSULTATION Patient Name: Pia Morales : 1950 PCP: DAMION Quezada Date of service: 01/19/2018 CHIEF COMPLAINT "Test result follow-up." Accompanied by daughter. Her last visit in neurology clinic was December 10, 2017. Plan at that time was to obtain neuropsychological testing, await the sleep study report, obtain lab work from PCP including CBC and B12, obtain cardiology records, and continue all eff orts at stroke prevention. HISTORY OF PRESENT ILLNESS: NEURO PSYCHOLOGICAL TESTING DECEMBER 30, 2017. This showed a final diagnosis of mi ld cognitive impairment with noted bradyprhenia. This did not suggest Alzheimer disease or other neurodegenerative dementia. There was evidence of significant mood disorder. Cognitive impairment and her slowed thinking were thought to be likely related to her history of stroke and her current mood disorder. It was recommended to address treatment of mood disorder. SLEEP STUDY DECEMBER 06, 2017. This showed overall very mild obstructive sleep apnea with AHI 5.3. Her REM AHI was 17.4. Baseline oxygen saturation was about 91% with the lowest recorded about 79%. Discussed the results with patient and rip jaffe today. Previously sent a letter to patient about the results. At this poi nt she does not wish to pursue any possible CPAP or other treatment. Because th e overall sleep apnea appears very mild we will not pursue further treatment at this time based on the patient's preference and the mild degree of sleep apnea s een on the sleep study. LAB November: CBC, CMP, and vitamin B12 done. Vitamin B12 in the low end of the normal range at 297. CBC showed no significant abnormalities. Serum cre atinine was 1.02 with EGFR of 56 for mild renal insufficiency. ALT was 37 with upper limit of normal 29. NO CARDIOLOGY RECORDS: We did request the cardiology records last month but have not received them. We will re-request them today. INTERVAL HISTORY: She denies any symptoms suggestive of possible recurrent strok e or TIA. In terms of her mood disorder she does feel that her mood has worsene d since her citalopram was reduced from 40 mg to 20 mg daily. She denies any cu rrent significant stressors. Her citalopram was reduced because of possible int eraction with her pantoprazole. She denies any current symptoms of GERD. She d enies any history of ulcer or esophagitis. She has been experiencing some low b ack pain and leg cramps and mild lower extremity swelling. She has had some fee lings of numbness on the plantar surface of both feet for some time but these reza ve worsened and are now constant. She has no history of diabetes or prediabetes . Her recent fasting glucose was 99. ROS: Review of Systems questionnaire was completed by patient and reviewed. Positive s were anxiety, depression, fatigue, dentures, tinnitus, leg cramps, swollen ank les, short of breath with activity, back pain, forgetfulness, numbness, weakness of legs, vision changes. Other symptoms as discussed above. Other items on the questionnaire negative. BP (!) 141/85 | Pulse 60 | Ht 1.651 m (5' 5") | Wt 120.2 kg (265 lb) | BMI 4 4.10 kg/m NEUROLOGIC EXAMINATION: The following aspects of the exam are notable: Very mild pretibial edema bilater ally. Knee and ankle DTRs are absent bilaterally. Subjectively pin sensation f eels less sharp to her on the plantar surface of the left foot and the dorsum of the left foot. Pin sensation feels the same sharpness on the top and bottom of the right foot. She is able to discriminate properly between sharp and dull in all digits. Very mild ataxia. Vibratory sense decreased with the vibration fe lt for less than 10 seconds in both great toes. The remainder of her exam is unremarkable. Awake alert appropriate pleasant anne m cooperative and oriented. No abnormality of spontaneous speech or comprehensi on. No aphasia or dysarthria. Speech is rational, grammatical, understandable, reality based, and appropriate. No abnormal involuntary movement. Moves all e xtremities well. Ambulates independently with no assistive device. Pedal pulse s palpable. Normal temperature and color of feet. CURRENT MEDICATIONS aspirin 81 MG EC tablet Take 81 mg by mouth daily. atorvastatin (LIPITOR) 20 MG tablet TK 1 T PO EACH DAY citalopram (CELEXA) 20 mg tablet Take 1 tablet (20 mg total) by mouth daily. (Patient taking differently: Take 40 mg by mouth daily. ) diclofenac (VOLTAREN) 75 MG EC tablet TK 1 T PO BID WF OR MILK ibuprofen (ADVIL,MOTRIN) 200 MG tablet Take 200 mg by mouth every 6 (six) ho urs as needed for pain. levothyroxine (SYNTHROID, LEVOTHROID) 100 MCG tablet Take 100 mcg by mouth d aily. losartan (COZAAR) 25 MG tablet Take 25 mg by mouth daily. pantoprazole (PROTONIX) 40 MG tablet TK 1 T PO QD No current facility-administered medications for this visit. ALLERGIES Allergies Allergen Reactions Adhesive Tape-Silicones Other reaction(s): Other (See Comments) Skin burn ASSESSMENT: 1. Cerebrovascular ischemic disease with history of stroke.. She had a left thalamic /left MCA stroke in 2013 with residuals of sensory disturbance and spas ticity on the right and gait impairment. Sometime between 2013 2017 she had a f urther left [place] radiata stroke. 2. Her stroke risk factors include hyperlipidemia (currently treated with atorv astatin) and hypertension (currently treated with losartan). She has sleep ap ariel which is untreated which is very mild. She is taking 81 mg aspirin daily and reports being adherent to it. Evaluation by cardiology showed no evidence of a trial fibrillation or other abnormality which might increase stroke risk. No kn own diagnosis of diabetes. Not a smoker. She is overweight. 3. Mild cognitive impairment. No evidence of degenerative dementia. Mild co gnitive impairment is likely related to her cerebrovascular ischemic disease and her mood disorder. 4. Mood disorder with anxiety and depression. This is probably worsened in rec ent months since her citalopram dose was decreased due to potential interaction with pantoprazole. 5.. History of episodes of alteration of awareness. Initial EEG showed no epi leptiform discharges. Differential diagnosis continues to include episodes of i nattention, episodes of drowsiness, and other. 6. Obstructive sleep apnea. A mild in degree with overall AHI of 5.3. Untreat ed. 7. Low normal vitamin B12 level (297). 8. Numbness on the plantar surface of both feet. This may be related to a mild peripheral neuropathy and may be complicated by the possible lumbar radiculopat hy. She has no history of diabetes. At this point the symptom is not severe or painful. She does not wish to pursue EMG or other testing at this point. 9. Head pain. History of migraine which is now very rare. Currently she has b rief mild headaches nearly every morning upon awakening. These morning headache s might be related to sleep disorder. 10. Her medical history includes left MCA / thalamicstroke in 2013 and left cor maranda radiata stroke sometime between [id number], migraine and headache, depression , hypertension, high cholesterol, hyperthyroidism leading to thyroidectomy so sh joel is now functionally hypothyroid postsurgically, osteoarthritis, GERD, insomnia , colon polyps. PLAN 1. Increase citalopram dose back to 40 mg daily. 2. To enable increase in citalopram dose she will discontinue her pantoprazole (as there is a possible interaction between high doses of citalopram and pantopr azole).. 3. She can use Tums as needed for GERD symptoms. 4. Start vitamin B12 1000 MCG daily. 5. We will re-request the cardiology notes. She has an appointment with cardio logy in 2 days and she will request the records to be sent to us. 6. Return to neurology clinic routinely in 3 months or sooner if needed. Discu ssed that in the meantime she should contact us by phone with any concerns, foll ow-up with her PCP as appropriate, and utilize ER/911 if any episodes of possibl e stroke or TIA. 7. At this point she does not want to pursue any further testing or treatment i n regards to her foot numbness or her sleep apnea. "I am tired of doctors and t ests." We will monitor her sleep quality in the numbness and can revisit possib le interventions in the future. Return in about 3 months (around 04/21/2018). . documented in this encounter Plan of Treatment Care Team Description Date Type Specialty Moise Jalloh NP [facility] [address] [address] [phone] 05/08/2020 Office Visit Neurology documented as of this encounter Visit Diagnoses Diagnosis Stroke, lacunar (HCC) Unspecified cerebral artery occlusion w ith cerebral infarction Obstructive sleep apnea syndrome Obstructive sleep apnea (adult) (pediat jenae) Mild cognitive impairment Mild cognitive impairment, so stated Mild episode of recurrent major depress ata disorder (HCC) documented in this encounter
--- OUTSIDE RECORDS SUMMARY | 2019-12-19 14:18 | XMS REPORT | Encounter Summary ---
Author Author [facility] Organization [facility] Address Unknown Phone Unavailable Care Team Providers Care Seeing Eye Dog Trainer Name Role Phone Benny May PCP Reason for Visit * Reason Comments Medication issue Encounter Details Care Team Description Date Type Department Moise Jalloh NP [address] [facility] [address] [place], [place] [id number] Medication issue 12/22/2017 Telephone [facility] Charlie ogy [address] [facility] [address] [place], [place] [id number] Social History Date Tobacco Use Types Packs/Day [...] history available. documented as of this encounter Miscellaneous Notes * Telephone Encounter - Arash Rankin, METALLOGRAPHER - 12/24/2017 3:07 PM CDT Cassi called back. I explained that Moise had discontinued the 40mg script and sent in a 20mg instead. Also told her that the sleep study results were being m brian to her, but that they showed a very mild sleep apnea. I mentioned that it had been recommended that Pia return to the sleep lab for a CPAP titration S tudy, and that if they wanted to do that Moise could order it, otherwise they cou ld discuss it at her follow up on 01/19. Cassi said she'd talk to her mom but e xpected her to decide to wait until the appt. Cassi's number was the only one on the chart so after consulting her she requested we keep hers as the primary m obile but add her mother's as a home number secondary to Cassi's, which I did. * Telephone Encounter - Patricia Ornelas MA - 12/24/2017 2:37 PM CDT I left Cassi, patient's daughter a voicemail to return my call. st * Telephone Encounter - Moise Jalloh NP - 12/22/2017 12:08 PM CDT Please let her know that I sent a prescription for the 20 mg to [facility] and to ld them to cancel the script for 40 mg. Also let her know that I mailed her a l daisy about her sleep study results. (Sleep Study showed overall very mild slee p apnea. A return to the sleep lab for a CPAP titration study was recommended. If she wants to come to the sleep lab for a night to try CPAP, I can order the CPAP titration study. Otherwise we can discuss it further at her next appointme nt.) * Telephone Encounter - Patricia Ornelas MA - 12/22/2017 11:52 AM CDT Received a message from Pia reporting she is having a difficult time with the citalopram 40 mg taking half a tab. She reports when she cuts it in half it ta stes "terrible". She would like to know if she can have a prescription for the 20 mg. Please advise. Thanks! Zoey documented in this encounter Plan of Treatment Care Team Description Date Type Specialty Moise Jalloh NP [address] [address] [phone] 05/08/2020 Office Visit Neurology documented as of this encounter Visit Diagnoses Not on filedocumented in this encounter
--- OUTSIDE RECORDS SUMMARY | 2019-12-19 14:18 | XMS REPORT | Encounter Summary ---
Author Author [facility] Organization [facility] Address Unknown Phone Unavailable Care Team Providers Care Visual Merchandise Manager Name Role Phone Benny May PCP Reason for Visit * Reason Comments Stroke pt states "wants to discuss medication dose change" Encounter Details Care Team Description Date Type Department Moise Jalloh NP [address] [address] [phone] Stroke, lacunar (Primary Dx); Depression, unspecified depression type 04/20/2018 Office Visit [facility] Neurol ogy [address] [facility] [address] [place] [address] Social History Date Tobacco Use Types Packs/Day [...] Signs Reading Time Taken Comments Vital Sign 154/65 04/20/2018 8:55 AM BULK SUGAR HANDLER Blood Pressure 59 04/20/2018 8:55 AM BULK SUGAR HANDLER Pulse - - Temperature - - Respiratory Rate - - Oxygen Saturation - - Inhaled Oxygen Concentration 117.7 kg (259 lb 6.4 oz) 04/20/2018 8:55 AM BULK SUGAR HANDLER Weight 165.1 cm (5' 5") 04/20/2018 8:55 AM BULK SUGAR HANDLER Height 43.17 04/20/2018 8:55 AM BULK SUGAR HANDLER Body Mass Index documented in this encounter Patient Instructions * Patient Instructions* Moise Jalloh NP - 04/20/2018 9:00 AM BULK SUGAR HANDLER 1. Take Celexa (Citalopram) 40 mg daily. 2. Stop Pantoprazole (Protonix). 3. Use TUMS as needed for heartburn. 4. Return in 6 months or sooner if needed. 5. Continue Aspirin 81 mg daily. Continue Atorvastatin (Lipitor) for cholester ol and Losartan (Cozaar) for blood pressure. Continue to work with primary care and cardiology on minimizing all stroke risk factors (blood pressure and choles terol, blood sugar, etc.). SUGAR HANDLER documented in this encounter Progress Notes * Moise Jalloh NP - 04/20/2018 9:00 AM BULK SUGAR HANDLER NEUROLOGY CONSULTATION Patient Name: Pia Morales : 1950 PCP: DAMION Quezada Date of service: 04/20/2018 CHIEF COMPLAINT She returns to clinic today in routine neurologic follow-up due to her history o f stroke. Accompanied by her daughter. Last visit in neurology clinic was January 19, 2018. Plan at that time was to in crease citalopram dose to 40 mg, discontinue pantoprazole, use Tums as needed, s tart vitamin B12 supplementation, and obtain cardiology records. HISTORY OF PRESENT ILLNESS: CARDIOLOGY: We did receive some of the cardiology records including a progress n ote and a cardiac catheterization report. The progress note stated that a Li r and echocardiogram were ordered but we did not receive those results. She sta mica that in January she had an implantable loop recorder placed due to continu ing frequent palpitations along with some chest pain. She reports there is stil l no evidence of significant cardiac arrhythmia. CITALOPRAM/DEPRESSION: Unfortunately, she did not increase the citalopram from 2 0 to 40 mg after the December visit as we planned. Her mood disorder symptoms wer e so very significant on the 20 mg dose. Her primary care office contacted us a bout increasing the dose to 40 mg. We replied that we did want her dose to be a t 40 mg but that because of potential interaction between that dose and pantopra zole she should stop pantoprazole. She did return to the 40 mg dose a few weeks ago. She did not stop the pantoprazole yet. We discussed today that some sour azul do suggest the possibility of QT prolongation when higher doses of citalopra m are taken along with pantoprazole. OTHER INTERVAL HISTORY: She continues to have balance problems. Feels lighthead ed at times. She has had several near falls but no rito falls. Balance proble ms are not new. In the past she has had some tremor and coordination difficulti es with the right hand. However, recently she has had a few episodes of intermi ttent tremor of the left hand. This is only intermittent and is not present on exam today. She reports no other significant clinical changes. She specificall y denies any events worrisome for stroke or TIA. She specifically denies episod es of new numbness, weakness, aphasia, or visual change. ROS: Review of Systems questionnaire was completed by patient and reviewed. Positive s were appetite change, weight gain, chills, sweats, fatigue, eye itching, eye r edness, sensitivity to light, change in vision, ringing in ears, change in smell , voice change, drooling, leg swelling, racing/pounding heart, chest tightness, short of breath with activity, wheezing, possible snoring, trouble swallowing, d iarrhea, neck pain, back pain, joint pain, joint swelling, muscle pain, muscle c ramps, lumps, dry skin, nail changes, hair loss, memory difficulties, dizziness, headaches, lightheadedness, speech difficulty, weakness, agitation, confusion, decreased concentration, depressed mood, hallucinations, nervous/anxious, diffic ulty sleeping, cold intolerance, heat intolerance, excessive circumflex thirst, excessive hunger. Other symptoms as discussed above. Other items on the questi onnaire were negative. BP (!) 154/65 | Pulse 59 | Ht 1.651 m (5' 5") | Wt 117.7 kg (259 lb 6.4 oz) | ? No | BMI 43.17 kg/m NEUROLOGIC EXAMINATION: The following aspects of the exam are notable: No significant changes compared t o previous exam. Mild action tremor of the right arm without significant dysmet diony today. No resting or postural tremor of either arm. No left arm action keo mor. Gait is slightly spastic and slow and in part this is related to her compl aints of low back pain today. She has significant ataxia when trying to perform tandem gait but can perform tandem gait for a few steps. She has weakness of b ilateral hip flexors but testing this strength provokes her back pain so it is d ifficult to fully printed circuit board preassembler the degree of weakness. Strength is full in knee flexio n and extension and ankle dorsiflexion and plantar flexion. Mild cognitive and memory impairment evident in conversing with her today. The remainder of her exam is unremarkable. Heart tones S1-S2 with no murmur. R adial pulses palpable and regular. No neck bruit heard. Mental Status: Awake, alert, pleasant, calm, cooperative and oriented. No abno rmality of spontaneous speech or comprehension. No aphasia or dysarthria. Spee ch is rational, understandable, grammatical, and reality based. Cranial Nerves: II - Pupils equal and round bilaterally. Visual eubanks grossly full to finger counting in periphery. No apparent scotoma or visual field defec t with monocular vision. III, IV, extraocular muscles are intact. No nystagm us. No STEPHANIE.VII- No facial asymmetry or weakness is observed. VIII- Hearing intac t bilaterally. XI- Shrugs shoulders and turns head without difficulty. XII- Ton shani is midline without fasciculations. Motor: Normal muscle bulk throughout. UE Power Deltoids Biceps Triceps Wrist Ext Wrist Fl Finger Ext Finger Fl Right 5 5 5 5 5 5 5 Left 5 5 5 5 5 5 5 LE Power Hip flex Quads Hams Dorsiflex Plantarflex Right 4 5 5 5 5 Left 4 5 5 5 5 Sensation: Romberg negative CURRENT MEDICATIONS aspirin 81 MG EC tablet Take 81 mg by mouth daily. atorvastatin (LIPITOR) 20 MG tablet TK 1 T PO EACH DAY cyanocobalamin (VITAMIN B-12) 1000 MCG tablet Take [...] MG tablet TK 1 T PO QD citalopram (CELEXA) 40 MG tablet Take 1 tablet (40 mg total) by mouth daily. No current facility-administered medications for this visit. ALLERGIES Allergies Allergen Reactions Adhesive Tape-Silicones Other reaction(s): Other (See Comments) Skin burn ASSESSMENT: 1. Cerebrovascular ischemic disease with history of stroke.. She had a lef t thalamic /left MCA stroke in 2013 with residuals of sensory disturbance and sp asticity on the right and gait impairment. Sometime between 2013 2017 she had a further left [place] radiata stroke. 2. Her stroke risk factors include hyperlipidemia (currently treated with ator vastatin) and hypertension (currently treated with losartan). She has sleep apnea which is untreated which is very mild.She is taking 81 mg aspirin daily and reports being adherent to it. Evaluation by cardiology showed no evidence of atrial fibrillation or other abnormality which might increase stroke risk. No known diagnosis of diabetes. Not a smoker. She is overweight. 3. Mild cognitive impairment. No evidence of degenerative dementia. Mild c ognitive impairment is likely related to her cerebrovascular ischemic disease an d her mood disorder. 4. Mood disorder with anxiety and depression. This worsened in recent months since her citalopram dose was decreased due to potential interaction with pantop razole. 5.. History of episodes of alteration of awareness. Initial EEG showed no e pileptiform discharges. Differential diagnosis continues to include episodes o f inattention, episodes of drowsiness, and other. 6. Obstructive sleep apnea. Mild in degree with overall AHI of 5.3. Untreated . 7. Low normal vitamin B12 level (297). [...] which is now very rare. Currently she reza s brief mild headaches nearly every morning upon awakening. These morning head aches might be related to sleep disorder. 10. Her medical history includes left MCA / thalamicstroke in 2013 and left co lorraine radiata stroke sometime between 0546-6721, migraine and headache, depressio n, hypertension, high cholesterol, hyperthyroidism leading to thyroidectomy so s he is now functionally hypothyroid postsurgically, osteoarthritis, GERD, insomni a, colon polyps. PLAN 1. Continue citalopram at 40 mg dose. 2. Due to potential interaction between 40 mg dose of citalopram and pantoprazo le again instructed her to discontinue the pantoprazole in order to avoid possib le QT prolongation. She should use Tums as needed if any heartburn symptoms jack rge. Other options such as H2 anjum rather than PPI could be considered if sh joel has significant heartburn symptoms without the pantoprazole. 3. Continue all efforts at secondary stroke prevention. Discussed continuing h er aspirin and losartan and Lipitor. Discussed continuing to work with primary care and cardiology on managing her risk factors. 4. Return to clinic routinely in 6 months or sooner if needed. Return in about 6 months (around 10/18/2018) for MOCTEZUMA or CMB. I spent >50% of my time in counseling and coordination of care (total time spent minutes) . SUGAR HANDLER documented in this encounter Plan of Treatment Care Team Description Date Type Specialty Moise Jalloh NP [address] [place] [address] [phone] 05/08/2020 Office Visit Neurology documented as of this encounter Visit Diagnoses Diagnosis Stroke, lacunar (HCC) Unspecified cerebral artery occlusion w ith cerebral infarction Depression, unspecified depression type documented in this encounter
--- OUTSIDE RECORDS SUMMARY | 2019-12-19 14:18 | XMS REPORT | Encounter Summary ---
Author Author [facility] Organization [facility] Address Unknown Phone Unavailable Care Team Providers Care Developer Trading Systems Name Role Phone Lalo Benny PCP Reason for Visit * Reason Comments Other Encounter Details Care Team Description Date Type Department Moise Jalloh NP [address] [address] [phone] Other 01/01/2019 Refill [facility] Neurol ogy [address] [address] Social History Date Tobacco Use Types Packs/Day [...] Date Type Specialty Moise Jalloh NP [address] [address] [phone] 05/08/2020 Office Visit Neurology documented as of this encounter Visit Diagnoses Diagnosis Depression, unspecified depression type documented in this encounter
--- OUTSIDE RECORDS SUMMARY | 2019-12-19 14:18 | XMS REPORT | Encounter Summary ---
Author Author [facility] Organization [facility] Address Unknown Phone Unavailable Care Team Providers Care Jazz Singer Name Role Phone Lalo Benny PCP Reason for Visit * Reason Comments Other Encounter Details Care Team Description Date Type Department Moise Jalloh NP [address] [address] [phone] Other 10/03/2018 Refill [facility] Neurol ogy [address] [address] Social History Date Tobacco Use Types Packs/Day [...] Date Type Specialty Moise Jalloh NP [address] [address] [phone] 05/08/2020 Office Visit Neurology documented as of this encounter Visit Diagnoses Diagnosis Depression, unspecified depression type documented in this encounter
--- OUTSIDE RECORDS SUMMARY | 2019-12-19 14:18 | XMS REPORT | Clinical Summary ---
Author Author [facility] Organization [facility] Address Unknown Phone Unavailable Care Team Providers Care Airline Radio Operator Name Role Phone Benny May PCP Allergies Comments Active Allergy Reactions Severity Noted Date Other reaction(s): Other (See Comments) Skin burn Adhesive Tape-Silicones Medications End Date Status Medication Sig Dispensed Refills Start Date Active aspirin 81 MG EC tablet Take 81 mg by 0 mouth daily. Active ibuprofen (ADVIL,MOTRIN) Take 200 mg 0 200 MG tablet by mouth every 6 (six) hours as needed for pain. Active levothyroxine (SYNTHROID, Take 100 mcg 0 LEVOTHROID) 100 MCG by mouth tablet daily. Active losartan (COZAAR) 25 MG Take 25 mg by 0 tablet mouth daily. Active atorvastatin (LIPITOR) 20 TK 1 T PO 1 / 3/201 MG tablet EACH DAY 7 Active diclofenac (VOLTAREN) 75 TK 1 T PO BID 0 /05 /201 MG EC tablet WF OR MILK 7 Active cyanocobalamin (VITAMIN Take 1,000 0 B-12) 1000 MCG tablet mcg by mouth daily. 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 Stabbing headache 05/17/2015 Hypothyroidism, secondary 11/13/2014 Overview: IMO Update Other and unspecified complications of medical care, not elsewhere 11/13/2014 classified Hypothyroid 05/03/2014 HLD (hyperlipidemia) 05/03/2014 Stroke, lacunar 05/02/2014 HTN (hypertension) 05/02/2014 Resolved Problems Problem Noted Date Resolved Date Episode of transient neurologic symptoms 05/02/2014 05/03/2014 Overview: IMO Replacement Update Family History Medical History Relation Name Comments Cataracts Father Diabetes Father Heart attack Father Cataracts Mother Diabetes Mother Stroke Mother Relation Name Status Comments Father CHF (Age 87) Mother stroke (Age 75) Other ALS (Age 40) Social History Date Tobacco Use Types Packs/Day Years Used Never Smoker Smokeless Tobacco: Never Used Tobacco Cessation: Counseling Given: No Drinks/Week oz/Week Comments Alcohol Use 0 Standard drinks or equivalent 0.0 Quit 40 yrs ago No Sex Assigned at Date Recorded Not on file Industry Job Start Date Occupation Not on file Not on file Not on file Travel End Travel History Travel Start No recent travel history available. Last Filed Vital Signs Reading Time Taken Comments Vital Sign 132/67 05/03/2019 8:32 AM SERVICE CLEANER Blood Pressure 65 05/03/2019 8:32 AM SERVICE CLEANER SpO2: 94% Pulse 35.9 C (96.7 F) 11/13/2014 11:19 AM CDT Temperature 16 05/09/2014 7:43 AM SERVICE CLEANER Respiratory Rate 96% 05/09/2014 7:43 AM SERVICE CLEANER Oxygen Saturation - - Inhaled Oxygen Concentration 114.5 kg (252 lb 6.4 oz) 05/03/2019 8:32 AM SERVICE CLEANER Weight 165.1 cm (5' 5") 05/03/2019 8:32 AM SERVICE CLEANER Height 42 05/03/2019 8:32 AM SERVICE CLEANER Body Mass Index Plan of Treatment Care Team Description Date Type Specialty Moise Jalloh NP [address] [address] [phone] 05/08/2020 Office Visit Neurology Health Maintenance Due Date Last Done Comments Hepatitis C Screen 1950 Medicare Annual Wellness 1950 Td # 1950 Colorectal Screening via 1998 Colonoscopy Mammogram Screening 1998 Zoster Vaccine# (1 of 2) 1998 Depression Screening 2013 PHQ-9 # Osteoporosis Screening 2013 Pneumococcal Vaccine: 65+ 2013 04/10/2019 Years (2 of 2 - PPSV23) Fall Risk Assessment # 05/09/2015 05/09/2014 Influenza Vaccine (#1) 2020 04/10/2019, 03/02/2018, 03/02/2018 Results Not on filefrom Last 3 Months Insurance Type Payer Benefit Subscriber ID Effective Phone Address Plan / Dates Group Medicare MEDICARE MEDICARE xxxxxxxxxxx 2013-P [place] PART A B [place], [place] MEDICAID MANAGED CARE [place] xxxxxxxxxxx 8- [place] Present [place] MANAGED CARE [place] xxxxxxxxxxx [place] [facility] [place] 1 Pia Morales Personal/F Self [address] [place] (Home) [place] [id number] 1 Pia Morales Personal/F Self [address] [place] (Home) [place] [id number] 1 Pia Morales Behavioral Self [address] Health (Home) [place] [address] 1 Advance Directives For more information, please contact: [phone] Patient Steel Rule Inspector Explanation Type Date Recorded Advance Directives and Living Will Power of Senior Government Program Analyst Health Care Directive
--- OUTSIDE RECORDS SUMMARY | 2019-12-19 14:18 | XMS REPORT | Encounter Summary ---
Author Author [facility] Organization [facility] Address Unknown Phone Unavailable Care Team Providers Care Peer Health Promoter Name Role Phone Benny May PCP Reason for Visit * Reason Comments Other Encounter Details Care Team Description Date Type Department Moise Jalloh NP [address] [address] [phone] Other 08/09/2019 Refill [facility] Neurol ogy [address] [address] Social History Date Tobacco Use Types Packs/Day [...] Date Type Specialty Moise Jalloh NP [address] [address] [phone] 05/08/2020 Office Visit Neurology documented as of this encounter Visit Diagnoses Diagnosis Depression, unspecified depression type documented in this encounter
--- OUTSIDE RECORDS SUMMARY | 2019-12-19 14:18 | XMS REPORT | Encounter Summary ---
Author Author [facility] Organization [facility] Address Unknown Phone Unavailable Care Team Providers Care Manager Bridge Name Role Phone Benny May PCP Reason for Visit * Reason Comments STROKE, LACUNAR FOLLOW UP Encounter Details Care Team Description Date Type Department Moise Jalloh NP [address] [address] [phone] Stroke, lacunar (Primary Dx); Tremor; Ataxia 11/02/2018 Office Visit [facility] Neurol ogy [address] [facility] [address] [place] [address] Social History Date Tobacco Use Types Packs/Day [...] Signs Reading Time Taken Comments Vital Sign 128/70 11/02/2018 9:15 AM CDT Blood Pressure 57 11/02/2018 9:15 AM CDT Pulse - - Temperature - - Respiratory Rate - - Oxygen Saturation - - Inhaled Oxygen Concentration 115.2 kg (254 lb) 11/02/2018 9:15 AM CDT Weight 165.1 cm (5' 5") 11/02/2018 9:15 AM CDT Height 42.27 11/02/2018 9:15 AM CDT Body Mass Index documented in this encounter Patient Instructions * Patient Instructions* Moise Jalloh NP - 11/02/2018 9:00 AM CDT 1. Continue daily aspirin 81 mg. 2. Continue treating cholesterol and work with primary care to reach goal of LD L<70. 3. Continue to work on treating blood pressure with ideal goal for stroke preve ntion <120/80. 4. Monitor balance, tremor, other problems and let us know if any significant c hanges. 5. Return in 6 months or sooner if needed. documented in this encounter Progress Notes * Moise Jalloh NP - 11/02/2018 9:00 AM CDT NEUROLOGY CONSULTATION Patient Name: Pia Morales : 1950 PCP: DAMION Quezada Date of service: 11/02/2018 CHIEF COMPLAINT She returns to neurology clinic today in routine follow-up due to her history of stroke and other issues. Accompanied by daughter. LAST VISIT: Last visit in neurology clinic was April 20, 2018. Plan at that visit was to discontinue pantoprazole; use Tums as needed instead; and continue with her stroke risk factor modification with aspirin/losartan/Lipi tor in collaboration with her PCP and bonderizer; and return to clinic in 6 mo nths. HISTORY OF PRESENT ILLNESS: INTERVAL HISTORY: She denies any events suspicious for stroke or TIA. She is no longer taking delarosa toprazole and states she is not bothered by symptoms of GERD. She feels clumsy and continues to have problems with balance at times. She thinks perhaps her ba fawad may have gotten worse somewhat. However, she denies any falls although sh e has had near falls. She continues to have numbness on the plantar surface of the feet which is not changing. Denies any problems with bleeding he should kimberly e daily aspirin. Is exercising 3 days a week. On some days her mood still feel s "low" although she feels good mood on many days. She is having episodes of mi grainous visual disturbances without associated head pain. She did have migrain e headaches earlier in her life but having the migrainous visual disturbances wi thout the associated head pain is new for her. She reports she was seen by eye care provider who found no ophthalmologic reason for the visual disturbances and told her these were "ocular migraines." She notices intermittent hand tremor b ilaterally but worse on the right. She believes this is new for her during 2019 and she did not have complaints of tremor before. This is intermittent and epi sodes of tremor are very brief but may occur several times a week. She denies a ny family history of essential tremor or Parkinson disease or other movement dis order problems. When she has the hand tremor this is an isolated symptom which is not accompanied by any change in level of consciousness or awareness or other symptoms. She denies any episodes of loss of consciousness or change in level of awareness or amnesia. No events suspicious for seizure. Occasionally she reza s had brief episodes when she is looking at a computer screen or playing a game on her phone when she becomes somewhat disoriented to place" it seems like I am in a different house." As soon as she looks up from the screen she is properly reoriented. ROS: Review of Systems questionnaire was completed by patient and reviewed. Positive s were sweats, fatigue, change in vision, ringing in ears, trouble swallowing, l eg swelling, racing/pounding heart, cough, shortness of breath with activity, wh eezing, back pain, joint pain, muscle cramps, dry skin, hair loss, lightheadedne ss, numbness in feet, tremors, difficulty walking, confusion, nervous/anxious, d ifficulty sleeping, excessive hunger. Other items in the questionnaire were neg ative. BP 128/70 | Pulse (!) 57 | Ht 1.651 m (5' 5") | Wt 115.2 kg (254 lb) | Breas tfeeding? No | BMI 42.27 kg/m NEUROLOGIC EXAMINATION: The following aspects of the exam are notable: Minimal right upper extremity act ion tremor with no resting or postural tremor of either upper extremity and no a ction tremor of left upper extremity observed today. Romberg positive. Slightl y ataxic gait and impaired ability to tandem gait. Knee DTRs diminished bilater ally and ankle DTRs absent bilaterally. Light touch subjectively feels lessened to her on the lower extremities distally compared to the upper extremities but she still has good sharp dull discrimination in all extremities. The remainder of her exam today was unremarkable. Heart tones S1-S2 with no mur mur. Radial pulses palpable, symmetric, and regular. No bruit heard over neck. Mental Status: Awake, alert, pleasant, calm, cooperative, appropriate. No abno rmality of spontaneous speech or comprehension. No aphasia or dysarthria. No si gnificant memory or cognitive deficit evident in conversing with patient. Cranial Nerves: II - Pupils equal and round bilaterally. Visual eubanks grossly full to finger counting in periphery with binocular vision. No apparent scotoma or visual field defect with monocular vision. III, IV, extraocular muscles a re intact. No nystagmus. No STEPHANIE. VII- No significant facial asymmetry is observ ed. No facial weakness seen with eyebrow raising, eyelid closure, and smiling/sh owing teeth. VIII- Hearing intact bilaterally. XI- Shrugs shoulders and turns h ead without difficulty. XII- Tongue is midline without [...] 5 5 5 5 5 Sensation: Romberg positive. Light touch subjectively feels lessened to her on t he lower extremities distally compared to the upper extremities but she still reza s good sharp dull discrimination in all extremities. Reflexes Biceps Triceps B'radialis Knee Ankle Toes Right 2+ 2+ 2+ 1+ 0 flexor Left 2+ 2+ 2+ 1+ 0 flexor Coordination: Minimal right upper extremity action tremor with no resting or po stural tremor of either upper extremity and no action tremor of left upper extre mity observed today. Gait: Slightly ataxic gait and impaired ability to tandem gait. CURRENT MEDICATIONS aspirin [...] left co lorraine radiata stroke sometime between 0089-3930, migraine and headache and migrai nous visual disturbances without accompanying head pain, depression, hypertensio n, high cholesterol, hyperthyroidism leading to thyroidectomy so she is now func tionally hypothyroid postsurgically, osteoarthritis, GERD, insomnia, colon polyp s. PLAN 1. No changes recommended in treatment today. For secondary stroke prevention recommended that she continue daily aspirin 81 mg and continue working with PCP and cardiology to reach lipid and blood pressure goals (taking atorvastatin and losartan). Continue Citalopram 40 mg daily for mood disorder. 2. She will monitor all of her clinical symptoms such as tremor which may be a new symptom and balance which she is worried might be slightly worsening over ti me. Asked her to reach out to us and inform us if she has any significant ross es in any of her symptoms. 3. Return to clinic routinely in 6 months or sooner if needed. Return in about 6 months (around 05/04/2019). documented in this encounter Plan of Treatment Care Team Description Date Type Specialty Moise Jalloh NP [address] [address] [phone] 05/08/2020 Office Visit Neurology documented as of this encounter Visit Diagnoses Diagnosis Stroke, lacunar (HCC) Unspecified cerebral artery occlusion w ith cerebral infarction Tremor Abnormal involuntary movements Ataxia Lack of coordination documented in this encounter
--- OUTSIDE RECORDS SUMMARY | 2019-12-19 14:18 | XMS REPORT | Encounter Summary ---
Author Author [facility] Organization [facility] Address Unknown Phone Unavailable Care Team Providers Care Program Lead Name Role Phone Benny May PCP Reason for Visit * Psychiatric (Routine) Referred By Contact Referred To Contact Status Reason Specialty Diagnoses / Procedures Moise Jalloh, SOURAV [address] [address] [facility] [place] [address] [facility] [address] [place] [address] Closed Service Not Psychology / Diagnoses Available In-House Neuropsychology Chronic left arterial ischemic stroke, MCA (middle cerebral artery) Memory loss Alteration of awareness Excessive daytime sleepiness Encounter Details Care Team Description Date Type Department Mike Leon, PhD [address] [place] [address] [phone] Chronic left arterial ischemic stroke, M CA (middle cerebral artery); Memory loss; Alteration of awareness; Excessive daytime sleepiness; Complaint of memory disorder without observed objective memory deficit 12/30/2017 Initial consult [facility] [address] [facility] [address] [place], [place] [id number] Social History Date Tobacco Use Types Packs/Day [...] history available. documented as of this encounter Progress Notes * Mike Leon, PhD - 12/30/2017 9:00 AM CDT CONFIDENTIAL Patient: Pia Morales : 1950 Date(s) of Consultation: 12/30/17 Date of Report: 12/30/17 Referral Source: Moise Jalloh NP, [facility], [facility]. CONSULTANTS: Mike Leon, Ph.D., J.D., and Irma Ureña M.S., Neuropsycholo gy, [facility], [facility], [address], [place], [place] [address]. NEUROPSYCHOLOGICAL SCREENING EVALUATION Referral: This patient is seen for neuropsychological testing at the request of Moise Jalloh NP, in conjunction with her neurology evaluation, to assess cognit ata status. Tests Administered: Dementia Rating Scale-2; Reitan-Dalia Aphasia Screening Exam; Widener Naming Test; Chioma Lawtons of Living Scale; Folstein MMSE; Wech sler Memory subtests; Trailmaking Tests; Controlled Oral Word Association Test; Haynes Visual Organization Test; Lama Depression Inventory-II; MARÍA-7; PHQ-9. Background and Behavioral observation: This patient is seen for neuropsychologi anne testing at the request of Moise Jalloh NP, with concerns regarding increasin g cognitive problems during the last few years which appear to have increased no ticeably during the last year. She has a history which includes L lacunar CVA. Mrs. Morales lives by herself in an apartment in [place], [place] and is indepe ndent for her ADLs, but openly acknowledges occasional problems with her finance s ("I forget to pay one every now and then."), her medications ("I forget them s ometimes."), and disorientation while driving ("I did that about a week ago."). She describes her memory functioning generally by stating "Some days it's real good and some days I can't remember anything." Her daughter, present during the initial interview, reports that her mother has variable problems with recall of recent conversations and may repeat conversations without awareness she's doing so, and that these problems have increased during the last year. The patient a nd her daughter acknowledge that the patient has increased word-finding difficul ties in conversation during the last year and the patient's daughter reports ondina t these problems are more noticeable during the "last couple months." Mrs. James hernandez also acknowledges problems misplacing objects ("all the time") and adds, "I ca n be talking on my phone and looking for it at the same time." The patient's da cristinahter keeps track of her appointments for her and drives her mother to most of her appointments. Mrs. Morales, who does not own a vehicle, borrows her daughter' s car and will drive only short distances from her apartment, e.g., to the [employer] store. Mrs. Morales, according to her daughter's report, has become more anxious since he r CVA, more easily stressed, and very quickly tearful during the same period. I t is noted, in this regard, that this patient became tearful, to the point of robert gan, during the formal testing today, while attempting a task in which she perf ormed well. There are no prior reports of auditory, visual or olfactory halluci nations, but this patient's daughter reports that the patient related to her an account of a dream she had a few nights ago, during which the patient imagined t hat she could hear her grandfather ("She was crying and it made her pretty emoti onal."). According to the patient's daughter, this was a single, isolated, and atypical occurrence. Mrs. Morales has occasional problems with RH fine motor coordination due to the re sidual effects of her CVA, and her handwriting has become "messy" as a result of lack of fine motor control for her RH. She has mild hearing loss and does not use hearing aids and reports occasional diplopia associated with migraine headac he. She reports no problems with olfactory sensitivity. She reports two incide nts of experiencing dizziness and lightheadedness during the last week and occas ional problems with balance ("stumble a bit") which may be associated with resid ual right leg weakness. She does not use a cane or walker and has had no recent falls. Mrs. Morales arrived at the office at the scheduled appointment time, accompanied by her daughter, who drove today and participated in the initial interview, with the patient's consent. She was alert and appeared to be oriented and exhibited no conspicuous evidence of expressive or receptive speech deficits in conversat ion. Responses to questions were generally direct and appropriate, without evid ence of psychotic ideation or distorted thought processing, although she occasio lv had to defer to her daughter for responses to basic information questions. She understood and accepted the rationale for the testing without difficulty a nd was able to complete the evaluation in a single morning session. She does no t repeat herself in conversation and does not require frequent repetition of tas k instructions, but bradyphrenia is observed throughout the testing. This patie nt also becomes anxious and tearful during the testing, even while her test resp onses are consistent with lack of cognitive impairment. Medical History: Medical history includes hypertension, hyperlipidemia, R side residual hemiparesis from L lacunar CVA, hypothyroidism, migraine headaches, and depression. Recent EEG (11/18/17) was normal during wakefulness, drowsiness and Stage II sleep. Recent MRI head without contrast (11/12/17), when compared wi th prior MRI (05/14/14) shows evidence of chronic infarct involving the L thalam us and mild chronic microvascular ischemic disease. The patient's grandmother w as reportedly diagnosed with Alzheimer's disease. Mrs. Morales reports that she i s a nonsmoker and drinks no alcohol. Medication regimen includes Current Outpatient Prescriptions on File Prior to Visit Medication Sig Dispense Refill aspirin 81 MG EC tablet Take 81 mg by mouth daily. atorvastatin (LIPITOR) 20 MG tablet TK 1 T PO EACH DAY 1 citalopram (CELEXA) 20 mg tablet Take 1 tablet (20 mg total) by mouth daily. 90 tablet 3 diclofenac (VOLTAREN) 75 MG EC tablet TK 1 T PO BID WF OR MILK 0 ibuprofen (ADVIL,MOTRIN) 200 MG tablet Take 200 mg by mouth every 6 (six) ho urs as needed for pain. levothyroxine (SYNTHROID, LEVOTHROID) 100 MCG tablet Take 100 mcg by mouth d aily. losartan (COZAAR) 25 MG tablet Take 25 mg by mouth daily. pantoprazole (PROTONIX) 40 MG tablet TK 1 T PO QD 4 No current facility-administered medications on file prior to visit. Mrs. Morales administers her medication regimen independently, but acknowledges th at "I forget them sometimes." Social/Education/Vocational History: Mrs. Morales is and has two childre n. 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 When asked about leisure acti vities she states "I don't really do anything," then indicates she occasionally takes trips to a casino with friends. Test Results: (1) Total score for the Dementia Rating Scale-2 (127) is above the cutoff assoc iated with a cortically-based dementia, with performance for the Memory subtest in the low average/borderline range for this patient's age group and performance for the Response Initiation/Perseveration subtest in the mildly-impaired range for this patient's age group. (2) Aphasia Screening exam indicates no dysarthria, dyslexia, ideomotor apraxia or word-finding errors in a confrontational naming task. Writing to dictation a nd without direction are performed without difficulty and one-step oral and writ ten calculations are accurate. There are no left-right orientation errors in res ponse to oral or written commands and two-dimensional constructions are executed without orientation, distortion, intrusion or omission errors and without evide nce of intentional tremor. (3) Performance on the Widener Naming Test (58/60) indicates no impairment of wo rd-finding in a confrontational object-naming task. (4) Results of the Chioma protocol indicate this patient is functioning in the average range of general intelligence (est. QB=854), at a level which is commen surate with her educational/vocational background, with recognition vocabulary ( 42nd percentile) in the low average range and verbal abstract reasoning ability (84th percentile) in the high average range for her age group. Abstraction quoti ent, adjusted for age and level of formal education, is in the high average rang e (115). These results are not consistent with cortically-based impairment of co gnitive functions. (5) Immediate (60th percentile) and delayed (30-minute; 40th percentile) recall of semantic stimuli are in the average range for this patient's age group. Imme diate (89th percentile) and delayed (83rd percentile) recall of figural stimuli are also in the average range for this patient's age group. (6) Performance on Trails A (1st percentile) is in the severely-impaired range for this patient's age group. Performance on Trails B is in the average range (3 4th percentile) for this patient's age group. These results indicate no impairme nt of the ability to successively alternate response sets. It is also noted ondina t this patient made no errors for either Trails A or Trails B, but the slowness of her responding is the sole factor accounting for her performance on Trails A. (7) Total score for the MMSE (29/30) is in the average range for this patient's age and level of formal education ( Mean=29; SD=1.0), with no errors for the th ree recall items and one minor orientation error- the patient, who lives in [place], [place], thought she was in [place], rather than [place], [place] . (8) Performance on the Haynes Visual Organization Test (22/30) indicates mild i mpairment of the ability to integrate visually meaningful stimuli. (9) Performance for the Controlled Oral Word Association Test (FAS total=37.0) is in the average range (30th percentile) for this patient's age and education ( Mean=42.0; SD=12.1). (10) This patient's responses to the Lama Depression Inventory-II, the MARÍA-7 and the PHQ-9 indicate clinically significant depression and anxiety, to the extent warranting psychiatric consultation. Suicidal ideation is explicitly denied by this patient. Conclusions: Results of the testing are not consistent with an Alzheimer's type dementia, and measures of short-term working memory functions are in the unimpa ired range for this patient's age group. This patient does demonstrate pronounc ed bradyphrenia throughout the testing which is consistent with a subcortical ba sis for her concerns regarding cognitive impairment. It is noted, however, that assessed functions, including orientation, expressive and receptive language fu nctions, confrontational naming, verbal fluency, verbal abstract reasoning and a bility to switch response sets are in the average range for this patient's age g roup. This patient's bradyphrenia, in conjunction with the emotional lability r eported by her daughter and observed during the testing, are likely residual seq uelae of her CVA history and not suggestive of a progressive cortically-based de mentia. This patient demonstrates depression and anxiety, likely secondary to h er CVA history, to an extent which warrants psychiatric intervention. Diagnostic Impression: Complaint of memory disorder without observed objective memory deficit. ICD-10-CM R41.3 Mild cognitive impairment, primarily b radyphrenia, secondary to this patient's vascular history . ICD-10-CM G31.84. Depression, secondary to medical condi tion (CVA). ICD-10-CM F32.9. Generalized anxiety disorder, due to k nown physiological condition (CVA). ICD-10-CM F41.1 Treatment Recommendations: This patient's reported family history of Alzheimer' s disease suggests that this may be a major concern of hers, in which case couns eling to the effect that the present results do not support this diagnosis is re commended. Psychiatric consultation is recommended to address this patient's depression and anxiety, both which are likely associated with this patient's vascular history and subsequent limitations in her living circumstances. Continued periodic monitoring by neurology is recommended, including repeat test ing, after an interval of not less than six months, if concerns regarding cognit ata functioning persist. Mike Leon, Ph.D., J.D. Licensed Psychologist, [place], [place] [facility], [place] [employer] Irma Ureña, M.S. [employer] Mock Up Mechanic Time spent by provider in applicable professional components to support billing of CPT code 58620 is 280 minutes. Time spent by provider in applicable professional components to support billing of CPT code 54171 is 131 minutes. documented in this encounter Plan of Treatment Care Team Description Date Type Specialty Moise Jalloh NP [address] [address] [phone] 05/08/2020 Office Visit Neurology documented as of this encounter Visit Diagnoses Diagnosis Chronic left arterial ischemic stroke, MCA (middle cerebral artery) Transient ischemic attack (TIA), and ce rebral infarction without residual deficits Memory loss Alteration of awareness Excessive daytime sleepiness Complaint of memory disorder without ob served objective memory deficit documented in this encounter
--- OUTSIDE RECORDS SUMMARY | 2019-12-19 14:18 | XMS REPORT | Encounter Summary ---
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
--- OUTSIDE RECORDS SUMMARY | 2019-12-19 14:19 | XMS REPORT | Encounter Summary ---
Author Author [facility] Address Unknown Phone Unavailable Care Team Providers Care Events Specialist Name Role Phone CarloseneidaFavian yip PCP Reason for Visit * Reason Comments Other Encounter Details Care Team Description Date Type Department Anita Peñaloza RN ANP NO FORWARDING ADDRESSS Other 09/27/2017 Telephone [facility] ogy [address] [place] [address] Social History Date Tobacco Use Types Packs/Day [...] encounter Miscellaneous Notes * Telephone Encounter - Moise Jalloh NP - 09/28/2017 11:31 AM CDT Needs appointment for any further refills. I will route to energy scheduler. documented in this encounter Plan of Treatment Care Team Description Date Type Specialty Moise Jalloh NP [address] [facility] [address] [place] [address] [phone] 05/08/2020 Office Visit Neurology documented as of this encounter Visit Diagnoses Not on filedocumented in this encounter
--- OUTSIDE RECORDS SUMMARY | 2019-12-19 14:19 | XMS REPORT | Encounter Summary ---
Author Author [facility] Organization [facility] Address Unknown Phone Unavailable Care Team Providers Care Call Center Associate Name Role Phone Benny May PCP Reason for Referral * Diagnostic Lab (Routine) Referred By Contact Referred To Contact Status Reason Specialty Diagnoses / Procedures Moise Jalloh NP [address] [address] [facility] Radiology Closed Diagnoses Chronic left arterial ischemic stroke, MCA (middle cerebral artery) Memory loss Alteration of awareness P rocedures EEG Extended (41-60 Min) Reason for Visit * Diagnostic Lab (Routine) Referred By Contact Referred To Contact Status Reason Specialty Diagnoses / Procedures Moise Jalloh NP [address] [address] [facility] Radiology Closed Diagnoses Chronic left arterial ischemic stroke, MCA (middle cerebral artery) Memory loss Alteration of awareness P rocedures EEG Extended (41-60 Min) Encounter Details Care Team Description Date Type Department Moise Jalloh NP [address] [address] [phone] Chronic left arterial ischemic stroke, M CA (middle cerebral artery); Memory loss; Alteration of awareness 11/18/2017 [place] [address] Social History Date Tobacco Use Types Packs/Day [...] history available. documented as of this encounter Medications at Time of Discharge Start Date End Date Medication Sig Dispensed Refills aspirin 81 MG EC tablet Take 81 mg by 0 mouth daily. 10/31/2016 atorvastatin (LIPITOR) 20 TK 1 T PO 1 MG tablet EACH DAY 12/02/2016 diclofenac (VOLTAREN) 75 TK 1 T PO BID 0 MG EC tablet WF OR MILK ibuprofen (ADVIL,MOTRIN) Take 200 mg 0 200 MG tablet by mouth every 6 (six) hours as needed for pain. levothyroxine (SYNTHROID, Take 100 mcg 0 LEVOTHROID) 100 MCG by mouth tablet daily. losartan (COZAAR) 25 MG Take 25 mg by 0 tablet mouth daily. 09/28/2017 12/21/2017 citalopram (CELEXA) 40 MG TAKE 1 TABLET 90 tablet 0 tablet BY MOUTH DAILY 11/23/2016 11/02/2018 pantoprazole (PROTONIX) TK 1 T PO QD 4 40 MG tablet documented as of this encounter Procedure Notes * Christy Couch MD - 11/18/2017 5:25 PM CDT Associated Order(s): EEG EXTENDED 41-60 MIN NEURODIAGNOSTICS - EEG DATE OF STUDY: 11/18/2017 EEG #: [id number] TYPE OF EEG: Bedside TOTAL EEG RECORDING TIME: 44 min REFERRING PHYSICIAN: Moise Jalloh NP INTERPRETING PHYSICIAN: Christy Couch MD INDICATION: Memory loss MEDICATIONS: Current Outpatient Prescriptions Medication Sig Dispense Refill aspirin 81 MG EC tablet Take 81 mg by mouth daily. atorvastatin (LIPITOR) 20 MG tablet TK 1 T PO EACH DAY 1 citalopram (CELEXA) 40 MG tablet TAKE 1 TABLET BY MOUTH DAILY (Patient carrie corea differently: Taking 1/2 tablet by mouth daily.) 90 tablet 0 diclofenac (VOLTAREN) 75 MG EC tablet TK [...] PO QD 4 No current facility-administered medications for this encounter. FINDINGS: This is a multichannel digital EEG recording using the international 10-20 place ment system. Standard montages were used. In wakefulness, the background rhythm shows a 9 Hz, well-organized, symmetric ac tivity with a moderate voltage and normal anterior-posterior gradient. There is appropriate attenuation with eye opening. No focal or epileptiform abnormaliti es were recorded. Drowsiness and stage 2 sleep were recorded with normal characteristics. Hyperventilation was not performed. Intermittent photic stimulation was performed (and showed good symmetric driving response). No focal abnormalities were seen. No epileptiform abnormalities were seen. No electrographic seizures were seen. EKG channel showed no abnormalities. IMPRESSION: Normal EEG during wakefulness, drowsiness and stage II sleep. The absence of epi leptiform activity on a single EEG does not preclude the diagnosis of seizure di sorder. Clinical correlation is advised. Christy Couch MD Pager [phone] documented in this encounter Plan of Treatment Care Team Description Date Type Specialty Moise Jalloh NP [address] [address] [phone] 05/08/2020 Office Visit Neurology documented as of this encounter Procedures Comments Procedure Name Priority Date/Time Associated Diag nosis EEG EXTENDED 41-60 MIN Routine 11/18/2017 Chronic left arterial 12:23 PM CDT ischemic stroke, MCA (middle cerebral artery) Memory loss Alteration of awareness documented in this encounter Results * EEG Extended (41-60 Min) (11/18/2017 12:23 PM CDT) Specimen Narrative Performed At Christy Couch MD 11/18/2017 5:26 PM [facility] NEURODIAGNOSTICS - EEG DATE OF STUDY: 11/18/2017 EEG #: [id number] TYPE OF EEG: Bedside TOTAL EEG RECORDING TIME: 44 min REFERRING PHYSICIAN: Moise Jalloh NP INTERPRETING PHYSICIAN: Christy Luong INDICATION: Memory loss MEDICATIONS: Current Outpatient Prescriptions Medication Sig Dispense Refill aspirin 81 MG EC tablet Take 81 mg by m outh daily. atorvastatin (LIPITOR) 20 MG tablet TK 1 T PO EACH DAY 1 citalopram (CELEXA) 40 MG tablet TAKE 1 TABLET BY MOUTH DAILY (Patient taking differently: Taking 1/2 tablet by mouth daily.) 90 tablet 0 diclofenac (VOLTAREN) 75 MG EC tablet T K 1 T PO BID WF OR MILK 0 ibuprofen (ADVIL,MOTRIN) 200 MG tablet Take 200 mg by mouth every 6 (six) hours as needed for pain. levothyroxine (SYNTHROID, LEVOTHROID) 1 00 MCG tablet Take 100 mcg by mouth daily. losartan (COZAAR) 25 MG tablet Take 25 mg by mouth daily. pantoprazole (PROTONIX) 40 MG tablet TK 1 T PO QD 4 No current facility-administered medica tions for this encounter. FINDINGS: This is a multichannel digital EEG tyler rding using the international 10-20 placement system. [facility] were used. In wakefulness, the background rhythm s hows a 9 Hz, well-organized, symmetric activity with a moderate voltage and normal anterior-posterior gradient. T here is appropriate attenuation with eye opening. No foca l or epileptiform abnormalities were recorded. Drowsiness and stage 2 sleep were recor ded with normal characteristics. Hyperventilation was not performed. Intermittent photic stimulation was per formed (and showed good symmetric driving response). No focal abnormalities were seen. No epileptiform abnormalities were seen . No electrographic seizures were seen. EKG channel showed no abnormalities. IMPRESSION: Normal EEG during wakefulness, drowsine ss and stage II sleep. The absence of epileptiform activity on a s kassidy EEG does not preclude the diagnosis of seizure disor monico. Clinical correlation is advised. Christy Couch MD Pager [phone] Performing Organization Address City/State/Zipcode Ph one Number [facility] documented in this encounter Visit Diagnoses Diagnosis Chronic left arterial ischemic stroke, MCA (middle cerebral artery) Transient ischemic attack (TIA), and ce rebral infarction without residual deficits Memory loss Alteration of awareness documented in this encounter
--- OUTSIDE RECORDS SUMMARY | 2019-12-19 14:19 | XMS REPORT | Encounter Summary ---
Author Author [facility] Organization [facility] Address Unknown Phone Unavailable Care Team Providers Care Coating Operator Name Role Phone Benny May PCP Reason for Visit * Reason Comments Stroke Follow-up Encounter Details Care Team Description Date Type Department Moise Jlaloh NP [address] [id number] Cerebrovascular accident (CVA), unspecif ied mechanism (HCC) (Primary Dx); Cognitive complaints; Excessive daytime sleepiness 12/10/2017 Office Visit [facility] Neurol ogy [address] [address] Social History Date Tobacco Use Types Packs/Day [...] Signs Reading Time Taken Comments Vital Sign 163/89 12/10/2017 12:52 PM CDT Blood Pressure 78 12/10/2017 12:52 PM CDT Pulse - - Temperature - - Respiratory Rate - - Oxygen Saturation - - Inhaled Oxygen Concentration 118.8 kg (262 lb) 12/10/2017 12:52 PM CDT Weight 165.1 cm (5' 5") 12/10/2017 12:52 PM CDT Height 43.6 12/10/2017 12:52 PM CDT Body Mass Index documented in this encounter Patient Instructions * Patient Instructions* Moise Jalloh NP - 12/10/2017 12:30 PM CDT 1. We will request records from cardiology and labs from PCP. Ask cardiology t o send us their next note. 2. Neuropsychological testing. 3. 911 / ER if any sign of stroke (remember BE FAST). 4. Aspirin 81 mg every day. 5. Blood pressure control, goal below 120/80. 6. Cholesterol control, goal LDL<100. 7. Work with PCP to monitor blood sugar. 8. Healthy diet, regular exercise, weight loss. 9. Lab today (CBC, Vitamin B12). 10.. Return to neurology clinic in 4-8 weeks (after sleep study and neuropsycho logical test results available). documented in this encounter Progress Notes * Moise Jalloh NP - 12/10/2017 12:30 PM CDT NEUROLOGY CONSULTATION Patient Name: Samuel Morales : 1950 PCP: DAMION Quezada Date of service: 12/13/2017 CHIEF COMPLAINT Stroke and Follow-up She comes to the visit with her daughter. Her last visit in neurology clinic was November 03, 2017. Plan at that time was to o btain MRI of the brain, EEG, neuropsychological testing, lab work, and sleep pepe dy. Her MRI of the brain and EEG have been done and results are available. Sle ep study was just done a few days ago and results are not yet available. Lab wo rk is not available yet. Neuropsychological testing is scheduled for December 30, 2017. HISTORY OF PRESENT ILLNESS: MRI BRAIN NOVEMBER 12, 2017. The official report is below. Notably, this showed a new area of infarction in the left willingham radiata which was new compared to the previous scan of May 04, 2014. The previously present left thalamic infarct showed expected evolution. Mild chronic small vessel changes were seen. Images were reviewed in clinic today and shared with patient and daughter. No evidence of acute infarct. EEG NOVEMBER 18, 2017. This was a normal study with no epileptiform discharges seen and no other abnormalities noted. POSSIBLE NEW STROKE: When I shared with her the findings of a new stroke on the MRI she revealed that sometime in the last year she did have one day when she wa s worried about having a possible stroke. She had numbness and weakness in the right side of her body that day. She did not seek medical attention at that marco e. She did not mention this episode at her last visit in October. CARDIOLOGY: She did see a body sander since her last visit here. She reports t hat stress echo and 24-hour Holter monitor were done and apparently there was no evidence of significant heart disease. I do not have the cardiology records to review and we will try to obtain those. STROKE RISK FACTORS: She is taking aspirin 81 mg daily and reports that she is a dherent to this. She is taking Lipitor (atorvastatin) 20 mg daily for lipid man agement. I will request lab work from PCP to see what her current lipid status is. She is taking losartan 25 mg daily for hypertension. Her blood pressure in the office today was high at 163/89. She is never been a smoker. She has no d iagnosis of diabetes or prediabetes. She is overweight. Sleep study results ar joel pending. Currently unknown whether she has sleep apnea. We reviewed today si gns and symptoms of stroke and TIA using the BE FAST pneumonic. Reviewed the ne ed to call 911 for any signs or symptoms of stroke or TIA. Reviewed the need to manage stroke risk factors through daily aspirin, managing cholesterol with goal LDL less than 100, managing blood pressure with goal less than 120/80, treating sleep apnea if present, managing blood glucose, not smoking, eating a healthy diet with regular physical activity/exercise with goal of weight loss. ROS: Review of Systems questionnaire was completed by patient and reviewed. Positive s were anxiety, depression, hoarseness, dentures, ringing in ears, heart murmur, hypertension, swollen ankles, short of breath with activity, arthritis, back pa in, confusion, forgetfulness, stroke. Others are negative. BP (!) 163/89 (BP Location: Left forearm, Patient Position: Sitting, Cuff size: Large) | Pulse 78 | Ht 1.651 m (5' 5") | Wt 118.8 kg (262 lb) | Breastfeedin g? No | BMI 43.60 kg/m NEUROLOGIC EXAMINATION: She is awake alert appropriate pleasant, cooperative and oriented. No abnormali ty of spontaneous speech or comprehension. No abnormal involuntary movement. M oves all extremities well. No difficulty with spontaneous gait or balance. Amb ulates independently with no assistive device. No gross facial asymmetry. Deta iled neurologic exam was not done at today's visit. Detailed exam was done at t he last visit. At today's visit was focused on reviewing test results and discu ssing signs and symptoms of stroke and TIA in proper management of stroke risk f actors. CURRENT MEDICATIONS aspirin 81 MG EC tablet Take 81 mg by mouth daily. atorvastatin (LIPITOR) 20 MG tablet TK 1 T PO EACH DAY citalopram (CELEXA) 40 MG tablet TAKE 1 TABLET BY MOUTH DAILY (Patient carrie corea differently: Taking 1/2 tablet by mouth daily.) diclofenac (VOLTAREN) 75 MG EC tablet TK [...] Other reaction(s): Other (See Comments) Skin burn Imaging: Patient: SAMUEL MORALES Sex#: F # [id number] Lory#: [id number] Location: [facility] MRI Procedure Requested: [id number] MRI HEAD WO CONTRAST Reason for Exam: Chronic left arterial ischemic stroke, MCA (middle cerebral a rtery) Exam Ordered: 11/12/2017 1200 Exam Date/Time: 11/12/2017 1220 Begin exam date/time: 11/12/2017 1205 Reading Site: [facility] MRI head without contrast Clinical History: Chronic left arterial ischemic stroke, MCA; cognitive impairment; episodes of altered awareness; Technique: Noncontrast MR Brain: Sagittal T1, Axial T1, Axial T2, Axial FLAIR, Axial DWI, coronal T2, Axial GRE Comparison: MRI brain of 05/04/2014 Findings: Expected evolution of area of chronic infarct involving the lateral left thalamus, corresponding to area of infarct noted on previous MRI brain of 05/04/2014. Additional small area of chronic lacunar infarct involving the left posterior frontal periventricular white matter/willingham radiata which is new compared with previous MRI brain of 2013. No areas of restricted diffusion to suggest acute or recent infarct. No acute intracranial hemorrhage or extra-axial fluid collection. Patchy and confluent areas of increased FLAIR signal in the periventricular white matter compatible with mild chronic microvascular ischemic disease. Ventricles are within normal limits for size and configuration. No midline shift or mass effect. Midline structures are intact and normal in appearance. Basal cisterns are clear. Bilateral cerebellopontine angles are clear. Vascular flow voids are maintained. Globes and orbits are symmetric and unremarkable. Paranasal sinuses and mastoid air cells are clear. Impression Impression: 1. No evidence of acute infarct. No mass effect or midline shift. 2. Small area of chronic lacunar infarct involving the left posterior frontal periventricular white matter/willingham radiata, which is new compared with previous MRI brain of 05/04/14. 3. Expected evolution of small focus of chronic infarct involving the left thalamus, corresponding to findings on previous MRI brain. 4. Mild chronic microvascular ischemic disease. ASSESSMENT: 1. Stroke. She had a left thalamic /left MCA stroke in 2013 with residuals of sensory disturbance and spasticity on the right and gait impairment. Sometime b etween 2013 2017 she had a further left willingham radiata stroke. 2. Her stroke risk factors include hyperlipidemia (currently treated with atorv astatin) and hypertension (currently treated with losartan). Sleep study result s are pending to see whether she has sleep apnea. She is taking 81 mg aspirin d aily and reports being adherent to it. Evaluation by cardiology showed no evide nce of atrial fibrillation or other abnormality which might increase stroke risk . No known diagnosis of diabetes. Not a smoker. She is overweight. 3. Cognitive impairment. Apparently worsened over the last year. She performe d well on bedside cognitive testing recently but reports more significant proble ms with cognitive function in daily life. Causes of cognitive impairment could include sleep disorder, dementia, or other. Sleep study and neuropsychological testing results are still pending to better evaluate degree and because of cogni tive impairment. 4. Episodes of alteration of awareness. Initial EEG showed no epileptiform dis charges. Differential diagnosis continues to include episodes of inattention, e pisodes of drowsiness, and other. 5. Multiple signs and symptoms of sleep disorder. Sleep study results pending. Significant insomnia several days per week, excessive daytime sleepiness, snor ing, elevated BMI. 6. Head pain. History of migraine which is now very rare. Currently she has b rief mild headaches nearly every morning upon awakening. These morning headache s might be related to sleep disorder. 7. Her medical history includes left MCA / thalamicstroke in 2014 and left javier na radiata stroke sometime between [id number], migraine and headache, depression, hypertension, high cholesterol, hyperthyroidism leading to thyroidectomy so she is now functionally hypothyroid postsurgically, osteoarthritis, GERD, insomnia, colon polyps. PLAN 1. Reviewed with patient and daughter today signs and symptoms of stroke and TI A using the BE FAST pneumonic device and reviewed the need to call 911 if any si gns or symptoms of stroke or TIA occur. 2. Reviewed with patient and daughter all recommended efforts for modifying str gwen risk factors including continuing 81 mg aspirin daily, managing cholesterol with goal LDL less than 100, managing blood pressure with goal less than 120/80, trying to eat a healthy diet and do physical activity/exercise regularly with g oal of losing weight, treating sleep apnea if sleep study shows this to be prese nt, managing blood glucose, and not smoking. 3. Proceed with neuropsychological testing as scheduled on December 30, 2017. 4. Will await availability of sleep study results. 5. Will request records from cardiology and request lab results from PCP. Will also check CBC and vitamin B12 today. 6. Return to neurology clinic routinely in 4-8 weeks to review results of sleep study and neuropsychological testing. Return in about 6 weeks (around 01/21/2018) for 4-8 weeks [id number]. . documented in this encounter Plan of Treatment Care Team Description Date Type Specialty Moise Jalloh NP [address] [place] [address] [phone] 05/08/2020 Office Visit Neurology documented as of this encounter Visit Diagnoses Diagnosis Cerebrovascular accident (CVA), unspeci fied mechanism (HCC) Cognitive complaints Excessive daytime sleepiness documented in this encounter
--- OUTSIDE RECORDS SUMMARY | 2019-12-19 14:19 | XMS REPORT | Encounter Summary ---
Author Author [facility] Organization [facility] Address Unknown Phone Unavailable Care Team Providers Care Operations Research Manager Name Role Phone Favian Ball PCP Reason for Visit * Reason Comments Other Encounter Details Care Team Description Date Type Department Anita Peñaloza, RN ANP NO FORWARDING ADDRESSS Other 10/05/2016 Refill [facility] Neurol ogy [address] [place] [address] Social History Date Tobacco Use Types Packs/Day Years Used Never Smoker Drinks/Week oz/Week Comments Alcohol Use 0 Standard [...] Date Type Specialty Moise Jalloh NP [address] [facility] [address] [place] [address] [phone] 05/08/2020 Office Visit Neurology documented as of this encounter Visit Diagnoses Not on filedocumented in this encounter
--- OUTSIDE RECORDS SUMMARY | 2019-12-19 14:19 | XMS REPORT | Encounter Summary ---
Author Author [facility] Organization [facility] Address Unknown Phone Unavailable Care Team Providers Care Unloader Operator Name Role Phone Favian Ball PCP Encounter Details Care Team Description Date Type Department Anita Peñaloza RN ANP NO FORWARDING ADDRESSS 04/13/2016 Telephone [facility] ogy [address] [address] Social History Date Tobacco Use Types Packs/Day [...] encounter Miscellaneous Notes * Telephone Encounter - Graciela Hunter - 04/13/2016 10:40 AM OVERCOIL STEPPER REMINDER 10AM ALYSSA COIL STEPPER documented in this encounter Plan of Treatment Care Team Description Date Type Specialty Moise Jalloh NP [address] [facility] [address] [place] [address] [phone] 05/08/2020 Office Visit Neurology documented as of this encounter Visit Diagnoses Not on filedocumented in this encounter
--- OUTSIDE RECORDS SUMMARY | 2019-12-19 14:19 | XMS REPORT | Encounter Summary ---
Author Author [facility] Organization [facility] Address Unknown Phone Unavailable Care Team Providers Care Log Loader Name Role Phone Benny May PCP Reason for Visit * Reason Comments Other Encounter Details Care Team Description Date Type Department Anita Peñaloza RN ANP NO FORWARDING ADDRESSS Other 01/01/[address] [facility] Neurol ogy [address] [facility] [address] [place] [address] Social History Date Tobacco Use Types Packs/Day [...] Date Type Specialty Moise Jalloh NP [address] [facility] [address] [place] [address] [phone] 05/08/2020 Office Visit Neurology documented as of this encounter Visit Diagnoses Not on filedocumented in this encounter
--- OUTSIDE RECORDS SUMMARY | 2019-12-19 14:19 | XMS REPORT | Encounter Summary ---
Author Author [facility] Organization [facility] Address Unknown Phone Unavailable Care Team Providers Care Feller Buncher Operator Name Role Phone Benny May PCP Encounter Details Care Team Description Date Type Department Katelyn Agrueta MD [address] [facility] [address] [place] [address] [phone] 04/09/2016 Telephone [facility] [address] [facility] [address] [place] [address] Social History Date Tobacco Use Types Packs/Day [...] Date Type Specialty Moise Jalloh NP [address] [facility] [address] [place] [address] [phone] 05/08/2020 Office Visit Neurology documented as of this encounter Visit Diagnoses Not on filedocumented in this encounter
--- OUTSIDE RECORDS SUMMARY | 2019-12-19 14:19 | XMS REPORT | Encounter Summary ---
Author Author [facility] Organization [facility] Address Unknown Phone Unavailable Care Team Providers Care Tire Duster Name Role Phone Lalo Benny PCP Reason for Visit * Reason Comments Other Encounter Details Care Team Description Date Type Department Katelyn Argueta MD [address] [address] [phone] Other 06/08/2016 Refill [facility] Neurol [facility] [address] [facility] [address] [place] [address] Social History Date Tobacco Use Types Packs/Day [...] Date Type Specialty Moise Jalloh NP [address] [address] [phone] 05/08/2020 Office Visit Neurology documented as of this encounter Visit Diagnoses Not on filedocumented in this encounter
--- OUTSIDE RECORDS SUMMARY | 2019-12-19 14:19 | XMS REPORT | Encounter Summary ---
Author Author [facility] Organization [facility] Address Unknown Phone Unavailable Care Team Providers Care Paint Line Supervisor Name Role Phone Favian Ball PCP Reason for Visit * Reason Comments Other Encounter Details Care Team Description Date Type Department Katelyn Argueta MD [address] [address] [phone] Other 06/08/2016 Refill [facility] Neurol ogy [address] [place] [facility] [address] [place] [address] Social History Date Tobacco Use Types Packs/Day [...] Date Type Specialty Moise Jalloh NP [address] [address] [phone] 05/08/2020 Office Visit Neurology documented as of this encounter Visit Diagnoses Not on filedocumented in this encounter
--- OUTSIDE RECORDS SUMMARY | 2019-12-19 14:19 | XMS REPORT | Encounter Summary ---
Author Author [facility] Organization [facility] Address Unknown Phone Unavailable Care Team Providers Care Can Bander Operator Name Role Phone Favian Ball PCP Encounter Details Care Team Description Date Type Department Moise Jalloh NP [address] [facility] [address] [place] [address] 10/05/2017 Documentation [facility] Neurol [facility]gy [address] [facility] [address] [place], [place] [id number] Social History Date Tobacco Use Types Packs/Day [...] as of this encounter Progress Notes * Moise Jalloh NP - 10/05/2017 2:10 PM CDT [facility] about potential intera ction between Citalopram (Celexa) and Pantoprazole (Protonix). Please inform hany lopez about the possibility of a heart rhythm problem if these two medications a re taken together. Who prescribes the Pantoprazole / Protonix for her and is it possible for her to stop taking the Pantoprazole? Another option would be to d ecrease her dose of Citalopram (Celexa), which we could try to do if she feels h er depression and anxiety are under good control. Please fax the note from [facility] to whomever prescribes her Pantoprazole. documented in this encounter Plan of Treatment Care Team Description Date Type Specialty Moise Jalloh, SOURAV [address] [id number] 05/08/2020 Office Visit Neurology documented as of this encounter Visit Diagnoses Not on filedocumented in this encounter
--- OUTSIDE RECORDS SUMMARY | 2019-12-19 14:19 | XMS REPORT | Encounter Summary ---
Author Author [facility] Organization [facility] Address Unknown Phone Unavailable Care Team Providers Care Rn Geriatric Name Role Phone Favian Ball PCP Encounter Details Care Team Description Date Type Department Katelyn Argueta MD [address] [facility] [address] [place] [address] 04/10/2016 Telephone [facility] [address] [facility] [address] [place] [address] Social History Date Tobacco Use Types Packs/Day [...] encounter Miscellaneous Notes * Telephone Encounter - Michelle Chamberlain MA - 04/10/2016 10:18 AM ERMELINDA Palacio and her dtr arrived at the office on [facility] for her appt with Dr. Reggie glynn but the appt is on the [employer]. There is a later opening but that would morenita e them too late getting home for kids off the bus. They come 2 hours to this vis it so I've asked them to go to the [employer] now and will send this message to Dr. Chriss merino asking if she is willing to work them in when they get there as the next available openings with her are in August and beyond. I have told the patient and her dtr there is no guarantee they will be seen but we will try. - Alejandra 11 1116 10:20 am NSION ENVELOPE MAKER HAND documented in this encounter Plan of Treatment Care Team Description Date Type Specialty Moise Jalloh NP [address] [address] [phone] 05/08/2020 Office Visit Neurology documented as of this encounter Visit Diagnoses Not on filedocumented in this encounter
--- OUTSIDE RECORDS SUMMARY | 2019-12-19 14:19 | XMS REPORT | Encounter Summary ---
Author Author [facility] Organization [facility] Address Unknown Phone Unavailable Care Team Providers Care Plant Anatomy Teacher Name Role Phone Favian Ball PCP Encounter Details Care Team Description Date Type Department Anita Peñaloza RN ANP NO FORWARDING ADDRESSS 06/08/2016 Telephone [facility] ogy [address] [facility] [address] [place] [address] Social History Date Tobacco Use Types Packs/Day [...] encounter Miscellaneous Notes * Telephone Encounter - Natividad Gaona - 06/08/2016 2:43 PM ROBOTIC TECHNICIAN LEFT VOICE MESSAGE APPT REMINDER FOR 06/09/16 AT 1:30PLAZA LOCATION TIC TECHNICIAN documented in this encounter Plan of Treatment Care Team Description Date Type Specialty Moise Jalloh NP [address] [place] [address] [phone] 05/08/2020 Office Visit Neurology documented as of this encounter Visit Diagnoses Not on filedocumented in this encounter
--- OUTSIDE RECORDS SUMMARY | 2019-12-19 14:19 | XMS REPORT | Encounter Summary ---
Author Author [facility] Organization [facility] Address Unknown Phone Unavailable Care Team Providers Care Director Of Business Continuity Name Role Phone Favian Ball PCP Reason for Visit * Reason Comments Other Encounter Details Care Team Description Date Type Department Anita Peñaloza, RN ANP NO FORWARDING ADDRESSS Other 11/22/2016 Refill [facility] Neurol ogy [address] [facility] [address] [place] [address] Social History Date Tobacco Use Types Packs/Day [...] Date Type Specialty Moise Jalloh NP [address] [facility] [address] [place] [address] [phone] 05/08/2020 Office Visit Neurology documented as of this encounter Visit Diagnoses Diagnosis Spastic gait Abnormality of gait documented in this encounter
--- OUTSIDE RECORDS SUMMARY | 2019-12-19 14:19 | XMS REPORT | Encounter Summary ---
Author Author [facility] Organization [facility] Address Unknown Phone Unavailable Care Team Providers Care Technology Sales Consultant Name Role Phone Benny May PCP Reason for Visit * Reason Comments Other Encounter Details Care Team Description Date Type Department Moise Jalloh NP [address] [address] [phone] Other 12/21/2017 Refill [facility] Neurol ogy [address] [facility] [address] [place] [address] Social History Date Tobacco Use Types Packs/Day [...] Type Specialty Moise Jalloh NP [address] [address] [phone] 05/08/2020 Office Visit Neurology documented as of this encounter Visit Diagnoses Not on filedocumented in this encounter
--- OUTSIDE RECORDS SUMMARY | 2019-12-19 14:19 | XMS REPORT | Encounter Summary ---
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) 12/11/2016 Office Visit [facility] ogy [address] [address] Social History Date Tobacco Use Types Packs/Day [...] Signs Reading Time Taken Comments Vital Sign 172/80 12/11/2016 8:50 AM CDT Blood Pressure 56 12/11/2016 8:50 AM CDT Pulse - - Temperature - - Respiratory Rate - - Oxygen Saturation - - Inhaled Oxygen Concentration 113.4 kg (250 lb) 12/11/2016 8:49 AM CDT Weight 165.1 cm (5' 5") 12/11/2016 8:49 AM CDT Height 41.6 12/11/2016 8:49 AM CDT Body Mass Index documented in this encounter Patient Instructions * Patient Instructions* Anita Peñaloza RN ANP - 12/11/2016 9:00 AM CDT Continue: Aspirin 81 mg daily Goal blood pressure <120/80; patient currently on losartan 25 mg daily-will increase to 50 mg daily and follow up with PCP in 2 weeks. Goal LDL <70 for pre-diabetes Continue exercise program as identified by physical therapy recommendations. Fall precautions: 4 wheeled walker Discussed importance of immediate presentation to the emergency room for any further stroke like symptoms (FAST: facial droop, arm weakness, speech difficult y, and the importance of time). Continue citalopram 40 mg daily for mood stabilization Recommend group therapy or individual counseling Return in 6 months documented in this encounter Progress Notes * Anita Peñaloza RN ANP - 12/11/2016 9:00 AM CDT NEUROLOGY FOLLOW UP NOTE DATE: 12/11/2016 PATIENT NAME: Pia Morales : 1950 AGE: 66 y.o. SUBJECTIVE: INTERVAL HISTORY: Ms. Morales is a 66 y.o. right-handed female with stroke late e ffects affecting her right side. She is s/p left MCA stroke in April 2014. Sh joel was last seen in our office in May 2016. Today she presents with her daughter from [place], [place]. Pia reports complet ion of her physical therapy earlier this Spring. She benefited from Aquatic ther apy as well. She uses a Rolator walker per PT's request. She had one fall while shopping, no injury sustained however she was quite embarrassed. She has not experienced any interval stroke like symptoms. She sees her PCP on a regular basis however is unclear about her blood pressure medication and at one point in our conversation, she thought she was taking lisinopril. Her medical r ecords show losartan 25 mg daily. She continues to complain of daily headaches upon awakening. She states she is n ever headache free. She describes 2 types of headaches: daily chronic that does not interfere with daily function, type "migraine" that causes photophobia, phon ophobia. Triggers unknown. Frequency: two per 6 months. She treats with Vicodin and goes to sleep. She typically sleeps for 6-8 hours and awakens without a migr tai however does continue with the chronic daily headache. She reports her depression management is improved however will add periods of ti me where she sleeps all day. She spends a fair amount of time alone in the home. Allergies: Review of patient's allergies indicates no known allergies. CURRENT ACTIVE MEDICATIONS: Current Outpatient Prescriptions Medication Sig Dispense Refill aspirin 81 MG EC tablet Take 81 mg by mouth daily. citalopram (CELEXA) 40 MG tablet TAKE 1 TABLET BY MOUTH DAILY 90 tablet 0 HYDROcodone-acetaminophen (VICODIN) 5-500 mg per tablet Take 1 tablet by jannette th every 4 (four) hours as needed for pain. ibuprofen (ADVIL,MOTRIN) 200 MG tablet Take 200 mg by mouth every 6 (six) ho urs as needed for pain. levothyroxine (SYNTHROID, LEVOTHROID) 100 MCG tablet Take 100 mcg by mouth d aily. losartan (COZAAR) 25 MG tablet Take 25 mg by mouth daily. Atorvastatin 20 mg daily No current facility-administered medications for this visit. Review of Systems HENT: Positive for tinnitus. Respiratory: Positive for cough (daily) and shortness of breath (with activity). Bronchitis Gastrointestinal: Positive for constipation and diarrhea. IBS Musculoskeletal: Positive for myalgias (leg cramps at night). Neurological: Positive for headaches. Psychiatric/Behavioral: Positive for memory loss. The patient is nervous/anxious . All other systems reviewed and are negative. PHYSICAL EXAM: Repeat right arm BP: 174/92, HR: 60. Estimated body mass index is 37.77 kg/m as calculated from the following: Height as of 06/09/16: 1.651 m (5' 5"). Weight as of 06/09/16: 103 kg (227 lb). General Appearance: As noted below. Neurologic: Mental Status: Awake, alert and oriented x 3, giving history withou t difficulty. Very tearful at times. Will smile when appropriate. Actively parti cipating in conversation. Cranial Nerves: No dysarthria or dysphonia. No ptosis. Pupils round and reactiv e to light. Extraocular movements are intact without nystagmus. Visual eubanks ar e full. Facial sensory and motor are intact. Hearing intact to conversation. Pa late rises midline and tongue protrudes midline and moves well. Shoulder shrug e qual bilateral. HEENT: neck supple, No carotid bruit, bradycardic heart rate via apical auscula tion. Motor: normal bulk with increased tone on right side. Moving all 4 limbs. Sensory: grossly intact to light touch. Coordination: No truncal ataxia Reflexes 2+ left biceps, 3+ right biceps, absent bilateral patella. Gait: No ataxia. Good bilateral arm swing. Turns with 3 steps and no loss of bal ance. Mild intermittent shuffling noted with right foot. Outside Physical Records reviewed from 05/2016: Focused on ROM and core strength. PT recommended aquatic therapy and 4 wheel walker when fatigued. Did not feel c ane was appropriate. LAB DATA: no labs available for review. IMAGING: no new imaging studies provided. ASSESSMENT: 1) S/P Left MCA stroke with residual right sided hemisensory/spastic effects-her gait, ROM and balance have greatly improved. She will continue to follow HEP and use of rolling walker for fall precautions. I encourage her to get out of the house every day. 2) Depression with anxiety-clinically improved since resuming her medication. I expressed continued recommendations to participate in psychotherapy as well as s ocialization. 3) Essential hypertension-clinical exam today demonstrates asymptomatic hyperten nikolas. However I can not rule out the underlying effects on her chronic daily Hea daches. Her migraines are very infrequent and respond to single dose of Vicodin and sleep. The frequency is no more than 2 per 6 months. I discussed the importance of vascular risk factor control and my concern with h er hypertension. She is on a very low dose of Cozaar so I have asked that she do uble the dose to 50 mg daily and follow up in your office in 2 weeks. She did no t notice any headache benefit with the addition of Baclofen so this has been dis continued. Remainder of plan of care outlined below. All questions answered to patient and daughter's satisfaction. PLAN: Continue: Aspirin 81 mg daily Goal blood pressure <120/80; patient currently on losartan 25 mg daily-will increase to 50 mg daily and follow up with PCP in 2 weeks. Goal LDL <70 for pre-diabetes Continue exercise program as identified by physical therapy recommendations. Fall precautions: 4 wheeled walker Discussed importance of immediate presentation to the emergency room for any further stroke like symptoms (FAST: facial droop, arm weakness, speech difficult y, and the importance of time). Continue citalopram 40 mg daily for mood stabilization Recommend group therapy or individual counseling Return in 6 months More than 50% of this 35 minute appointment was spent in counseling and coordina tion of care. 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
--- OUTSIDE RECORDS SUMMARY | 2019-12-19 14:19 | XMS REPORT | Encounter Summary ---
Author Author [facility] Organization [facility] Address Unknown Phone Unavailable Care Team Providers Care Manager Hotel Name Role Phone Benny May PCP Encounter Details Care Team Description Date Type Department Moise Jalloh NP [address] [facility] [address] [place] [address] 10/06/2017 Telephone [facility] ogy [address] [facility] [address] [place] [address] Social History Date Tobacco Use Types Packs/Day [...] encounter Miscellaneous Notes * Telephone Encounter - Patricia rOnelas MA - 10/06/2017 10:10 AM CDT I spoke to Alejandrina, patient's daughter and read to her the response from Moise morales APRN MSC[facility] regarding the possible drug interaction fax we received from [facility]. They noted a potential interaction between citalopram and pantoprazole. Copy of the notification faxed to patient's PCP office. We also made a follow-u p with our nurse practitioner next month. She knows to call back if needed. * Telephone Encounter - Patricia Ornelas MA - 10/06/2017 9:17 AM CDT I left Alejandrina a vm to return my call. documented in this encounter Plan of Treatment Care Team Description Date Type Specialty Moise Jalloh NP [address] [place] [address] [phone] 05/08/2020 Office Visit Neurology documented as of this encounter Visit Diagnoses Not on filedocumented in this encounter
--- OUTSIDE RECORDS SUMMARY | 2019-12-19 14:19 | XMS REPORT | Encounter Summary ---
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 Hyperlipidemia, unspecified hyperlipidemia type * Physical Therapy (Routine) Referred By Contact Referred To Contact Status Reason Specialty Diagnoses / Procedures Anita Peñaloza RN [place] [address] Closed Specialty Services Physical Therapy Diagnoses Required 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 Hyperlipidemia, unspecified hyperlipidemia type Reason for Visit * Reason Comments Follow-up Stroke Encounter Details Care Team Description Date Type Department Anita Peñaloza RN ANP NO FORWARDING ADDRESSS 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 (HCC) (Primary Dx); Hemiparesis affecting right side as late effect of stroke (HCC); Spastic gait; Stabbing headache; Hyperlipidemia, unspecified hyperlipidemia type 06/09/2016 Office Visit [facility] Neurol ogy [address] [address] Social History Date Tobacco Use Types Packs/Day Years Used Never Smoker Tobacco Cessation: Counseling Given: No Drinks/Week oz/Week [...] Signs Reading Time Taken Comments Vital Sign 166/88 06/09/2016 1:56 PM [employer] Blood Pressure 68 06/09/2016 1:56 PM [employer] Pulse - - Temperature - - Respiratory Rate - - Oxygen Saturation - - Inhaled Oxygen Concentration 103 kg (227 lb) 06/09/2016 1:56 PM [employer] Weight 165.1 cm (5' 5") 06/09/2016 1:56 PM [employer] Height 37.77 06/09/2016 1:56 PM [employer] Body Mass Index documented in this encounter Patient Instructions * Patient Instructions* Anita Peñaloza RN ANP - 06/09/2016 2:00 PM [employer] Aspirin 81 mg daily Goal blood pressure <120/80 Goal LDL <70 for pre-diabetes Increased exercise as possible, follow low cholesterol low-fat low-sodium t Discussed importance of immediate presentation to the emergency room for any further strokelike symptoms Continue citalopram to 40 mg daily for ongoing depression post stroke Outpatient PT/OT for gait/motor/balance strengthening. Evaluation for quad ca ne Low dose Baclofen 10 mg at bedtime: start half tablet for one week then incre ase to full tablet. Sign Medical record release to PCP for most recent lipid panel/labs Return in 6 months [employer] documented in this encounter Progress Notes * Anita Peñaloza RN ANP - 06/09/2016 2:00 PM [employer] NEUROLOGY FOLLOW UP NOTE DATE: 06/09/2016 PATIENT NAME: Pia Morales : 1950 AGE: 65 y.o. SUBJECTIVE: INTERVAL HISTORY: Ms. Morales is a 65 y.o. right-handed female with stroke late e ffects affecting her right side. She is s/p left MCA stroke in April 2014. joel last saw one year ago. Today she presents with her daughter from [place], [place]. Pia reports she did not refill her medications and has been off all RX for the past 3 days. She is experiencing an increase in mood lability as evidenced with frequent tearfulness . She continues to experience post stroke depression compounded by the loss of h er and brother over the recent years. She resides in an age restricted a partment. She participates in [employer] dinners. She has previously used the [facility] [employer] for exercise however admits this has not been a recent priori ty. She has rehabilitated very well from her bilateral knee surgeries. No interval s troke like symptoms are reported. She has not been following any special diet or exercise plan. She sees her PCP on a regular basis however is unaware of what l ab tests have been completed. She does recall being told that she is pre-diabeti c. She is accompanied today by her daughter. Allergies: Review of patient's allergies indicates no [...] systems reviewed and are negative. PHYSICAL EXAM: Vitals: 06/09/16 1356 BP: 166/88 Pulse: 68 Estimated body mass index is 37.77 kg/(m^2) as calculated from the following: Height as of this encounter: 1.651 m (5' 5"). Weight as of this encounter: 103 kg (227 lb). General Appearance: As [...] and motor are intact. Hearing intact to conversation and finger rub. Palate rises midline and tongue protrudes midline and moves well. S houlder shrug equal bilateral. HEENT: neck supple, No carotid bruit, HRRR. Motor: normal bulk with increased tone on right side. Moving all 4 limbs. 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 No pr onator drift. Sensory: grossly intact to light touch. Coordination: No truncal ataxia Reflexes 2+ left biceps, 3+ right biceps, absent bilateral patella. Gait: No ataxia. Spastic gait. Antalgic gait. LAB DATA: No visits with results within 3 Month(s) from this visit. Latest known visit with results is: Hospital Outpatient Visit on 11/13/2014 Component Date Value Ref Range Status C Reactive Protein 11/13/2014 15.1* 0.0 - 10.0 mg/L Final Sed Rate 11/13/2014 17 0 - 17 mm/h Final Component Latest Ref Rng & Units 05/03/2014 CHOLESTEROL 100 - 200 mg/dL 194 HDL CHOLESTEROL 40 - 110 mg/dL 66 Non-HDL Cholesterol 0 - 130 mg/dL 128 TRIGLYCERIDES 0 - 150 mg/dL 87 LDL Cholesterol 0 - 99 mg/dL 111 (H) Cholesterol/HDL Ratio 0.0 - 4.5 2.9 HEMOGLOBIN A1C 4.0 - 5.6 % 5.3 IMAGING: no new imaging studies provided. ASSESSMENT: 1) S/P Left MCA stroke with residual right sided hemisensory/spastic effects-I d iscussed my thoughts with her gait pattern and ataxia. I would like for her to u se a quad cane. I discussed the benefits of outpatient PT/OT to assist with DME training and further gait strengthening. She is in agreement. I provided an orde r for the cane and outpt therapy. 2) Depression with anxiety-clinically this is not controlled. I discussed my con cerns with patient and daughter about her running out of her medications. We dis cussed strategies to assist Pia with RX adherence. She will plan to enroll in her local [facility]'s automatic refill program. 3) Headache-clinical exam today shows uncontrolled spasticity that I believe is triggering her headaches. I have provided low dose Baclofen to start at bedtime. I cautioned patient on side effects including risk of falls. Therefore I want h er to use the quad cane. She will monitor her headache frequency and let me know if this does not improve. 4) Hyperlipidemia-see instructions provided to patient below. PLAN: Aspirin 81 mg daily Goal blood pressure <120/80 Goal LDL <70 for pre-diabetes Increased exercise as possible, follow low cholesterol low-fat low-sodium t Discussed importance of immediate presentation to the emergency room for any further stroke like symptoms Continue citalopram to 40 mg daily for ongoing depression post stroke Outpatient PT/OT for gait/motor/balance strengthening. Evaluation for quad ca ne Low dose Baclofen 10 mg at bedtime: start half tablet for one week then incre ase to full tablet. Sign Medical record release to PCP for most recent lipid panel/labs Return in 6 months More than 50% of this 45 minute appointment was spent in counseling and coordina tion of care. Total face time: IN: 1420 OUT: 1505 [employer] documented in this encounter Plan of Treatment Care Team Description Date Type Specialty Moise Jalloh, SOURAV [address] [address] [phone] 05/08/2020 Office Visit Neurology Order Schedule Name Type Priority Associated Diag noses 1 Occurrences starting 06/09/2016 until 12/07/2016 Ambulatory referral to Outpatient Routine Depress ion due to stroke Physical Therapy Referral ([facility]) Hyperlipidemia, Unspecified Hyperlipidemia Type 1 Occurrences starting 06/09/2016 until 12/07/2016 Ambulatory referral to Outpatient Routine Depress ion due to stroke Occupational Therapy Referral ([facility]) Hyperlipidemia, unspecified hyperlipidemia type documented as of this encounter Visit Diagnoses Diagnosis Hemiparesis affecting right side as lat e effect of stroke (HCC) Spastic gait Abnormality of gait 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
--- OUTSIDE RECORDS SUMMARY | 2019-12-19 14:19 | XMS REPORT | Encounter Summary ---
Author Author [facility] Organization [facility] Address Unknown Phone Unavailable Care Team Providers Care Tile Trimmer Name Role Phone Benny May PCP Reason for Visit * Sleep Study (Elective) Referred By Contact Referred To Contact Status Reason Specialty Diagnoses / Procedures Moise Jalloh NP [address] [address] [facility] [address] [place] [address] Closed Sleep Medicine Diagnoses Excessive daytime sleepiness P rocedures Polysomnography (Diagnostic Sleep Study Only) Encounter Details Care Team Description Date Type Department Moise Jalloh NP [address] [id number] Excessive daytime sleepiness 12/06/2017 Nurse Only [facility] [address] [place], [place] [address] Social History Date Tobacco Use Types Packs/Day [...] Date Type Specialty Moise Jalloh NP [address] [address] [phone] 05/08/2020 Office Visit Neurology documented as of this encounter Procedures Comments Procedure Name Priority Date/Time Associated Diag nosis POLYSOMNOGRAPHY Routine 12/14/2017 Excessive dayt jacqui (DIAGNOSTIC SLEEP STUDY 8:30 AM CDT sleepiness ONLY) documented in this encounter Results * Polysomnography (Diagnostic Sleep Study Only) (12/14/2017 8:30 AM CDT) Narrative Performed At This result has an attachment that is n ot available. documented in this encounter Visit Diagnoses Diagnosis Excessive daytime sleepiness documented in this encounter
--- OUTSIDE RECORDS SUMMARY | 2019-12-19 14:19 | XMS REPORT | Encounter Summary ---
Author Author [facility] Organization [facility] Address Unknown Phone Unavailable Care Team Providers Care Resume Specialist Name Role Phone Lalo Benny PCP Reason for Referral * Sleep Study (Elective) Referred By Contact Referred To Contact Status Reason Specialty Diagnoses / Procedures Moise Jalloh NP [address] [address] [facility] Sleep Lab [address] [place] [address] Closed Sleep Medicine Diagnoses Excessive daytime sleepiness P rocedures Polysomnography (Diagnostic Sleep Study Only) * MRI/CAT/PET Scan (Routine) Referred By Contact Referred To Contact Status Reason Specialty Diagnoses / Procedures Moise Jalloh NP [address] [address] [facility] Mri [address] [place] [address] Closed Radiology Diagnoses Chronic left arterial ischemic stroke, MCA (middle cerebral artery) Memory loss Alteration of awareness P rocedures MRI Head wo contrast * Diagnostic Lab (Routine) Referred By Contact Referred To Contact Status Reason Specialty Diagnoses / Procedures Moise Jalloh NP [address] [address] [facility] Radiology Closed Diagnoses Chronic left arterial ischemic stroke, MCA (middle cerebral artery) Memory loss Alteration of awareness P rocedures EEG Extended (41-60 Min) * Psychiatric (Routine) Referred By Contact Referred To Contact Status Reason Specialty Diagnoses / Procedures Moise Jalloh NP [address] [address] [facility] [place] [address] [place] [address] Closed Service Not Psychology / Diagnoses Available In-House Neuropsychology Chronic left arterial ischemic stroke, MCA (middle cerebral artery) Memory loss Alteration of awareness Excessive daytime sleepiness Reason for Visit * Reason Comments hemiparesis affecting follow up right side as late effect of stroke Encounter Details Care Team Description Date Type Department Moise Jalloh NP [address] [address] [phone] Chronic left arterial ischemic stroke, M CA (middle cerebral artery) (Primary Dx); Memory loss; Alteration of awareness; Excessive daytime sleepiness 11/03/2017 Office Visit [facility] Neurol ogy [address] [place] [address] Social History Date Tobacco Use Types Packs/Day [...] Signs Reading Time Taken Comments Vital Sign 144/67 11/03/2017 1:19 PM CDT Blood Pressure 61 11/03/2017 1:19 PM CDT Pulse - - Temperature - - Respiratory Rate - - Oxygen Saturation - - Inhaled Oxygen Concentration 121.1 kg (267 lb) 11/03/2017 1:19 PM CDT Weight 165.1 cm (5' 5") 11/03/2017 1:19 PM CDT Height 44.43 11/03/2017 1:19 PM CDT Body Mass Index documented in this encounter Patient Instructions * Patient Instructions* Moise Jalloh NP - 11/03/2017 1:30 PM CDT 1. Recommend lab, MRI Brain, EEG (recording of brain electrical activity), neur opsychological testing (extended formal detailed memory and thinking testing). 2. Have cardiology send their reports to us (fax [phone]). 3. Return to neurology clinic after above testing. 4. 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 documented in this encounter Progress Notes * Moise Jalloh NP - 11/03/2017 1:30 PM CDT NEUROLOGY CONSULTATION Patient Name: Samuel Morales : 1950 PCP: DAMION Quezada Date of service: 11/03/2017 CHIEF COMPLAINT "Six-month checkup." Accompanied by her daughter. Her last visit in neurology clinic was December 11, 2016. Recommendations at that [facility] were to increase losartan dose and follow-up with PCP on blood pressure regu lation and to consider counseling/therapy. It is unclear whether she followed [facility] with either of these recommendations. HISTORY OF PRESENT ILLNESS: COGNITIVE FUNCTION: Cognitive function seems to have worsened since her last vis it in 2016. She has had some problems with memory and cognition for quite some time now but they seem to be worsening. Notably, she was having trouble [employer] ng her checking account and was overdrawing the account. She switched to having her money dispensed through a debit card rather than a checking account to avoid becoming overdrawn. The switch occurred about 6-7 months ago. She has been c ontinuing to pay her own bills but the plan now is for the daughter to help her with this or assume the bill paying responsibilities. She continues to drive oc casionally. She does report a few episodes when she became lost/disoriented whi le driving" I did not know where he was in a did not remember where was going." She denies any traffic accidents or close calls. She will occasionally "tripped over my words". However, it does not sound as if she has had any significant periods of expressive aphasia. However, she notes there are times when she naomi ot understand what other people are saying to her for brief periods. "I can hea r but I cannot understand." Patient and daughter also report that sometimes she "spaces out" or "zones out". She describes one episode when she was playing [employer] game on her phone and then stopped playing and was just staring at the phone . There have been other similar episodes. I believe there been no definite epi sodes of loss of consciousness. As far as they know she has never had a diagnos ed seizure any time in her life. She reports being independent in ADLs. She se ts up her own pillbox for the week and manages her own medication dosing. She a lways remembers to take her morning medications but occasionally forgets to take medication later in the day. She does have help with housekeeping I was [facility] ed coming to her house about 2 hours a day for 5 days a week. HISTORY OF STROKE. No clear recurrent stroke symptoms. No episodes of sudden w eakness. No episodes of unilateral numbness suggestive of stroke or TIA. Some balance problems remain. "I am clumsy." She is only had one fall so far in and denies any significant injury or head trauma with fall. She discontinued baclofen although not sure when or why. She denies any significant problems wit h cramping or spasm. Her gait today is minimally spastic on the right. She con tinues to take aspirin and atorvastatin and losartan. SLEEP: She reports significant insomnia. "2-3 times a week I do not sleep at al l. I toss and turn." She has taken sleeping pills in the past but is not takin g any currently. "I wake up almost every morning with a headache." The headach es are present only for short time after awakening and then resolved. She does snore. No reports of witnessed apneic events. She naps on some days but not al l. She will doze off if she is sitting and reading or watching television witho ut intending to take a nap. HEADACHE: She has a history of migraine earlier in life but migraines are rare n ow "I have only had what I consider a true migraine maybe once in the last 3 yea rs." She does have the relatively short lived morning headaches present on awak ening but these resolved quickly. However, within the last probably 12-18 month s she has developed a new type of head pain which is short duration sharp pain l asting for seconds occurring near the vertex but generally on the left left side . PALPITATIONS: She reports history of palpitations for probably at least 23 ye ars but worse in 2018 the never before. She went to the emergency room because of palpitations once. Apparently no significant arrhythmia or cardiac problem w as found at the ER. She is scheduled to see a bank representative and have a stress te st next week. MEDICAL HISTORY: Reviewed with patient and daughter today her comprehensive [facility] history and updated chart. Her medical history includes left MCA stroke in 2013, migraine and headache, depression, hypertension, high cholesterol, hype rthyroidism leading to thyroidectomy so she is now functionally hypothyroid post surgically, osteoarthritis, GERD, insomnia, colon polyps. ROS: Review of Systems questionnaire was completed by patient and reviewed. Positive s were anxiety, depression, fatigue, weakness, weight gain, dentures, nosebleeds , ringing in ears, heart murmur, hypertension, cough, shortness of breath with a ctivity, arthritis, back pain, confusion, forgetfulness, memory problems, numbne ss, vision changes. Others were negative. BP (!) 144/67 | Pulse 61 | Ht 1.651 m (5' 5") | Wt 121.1 kg (267 lb) | Breas tfeeding? No | BMI 44.43 kg/m NEUROLOGIC EXAMINATION: The following aspects of the exam are notable: On formal mental status testing at the bedside today she did very well, scoring 24/25 on abbreviated MMSE with orientation to place questions omitted. Serial sevens responses were "93, 86, 7 9, 62, 55." Otherwise she performed correctly. Was also able to spell WORLD ba ckwards. She did become tearful while discussing her problems and after doing t he MMSE. This is apparently a long-standing problem with anxiety often provoked by of visits to medical providers. Daughter states "she actually did better to day than usually." DTRs on the right are hyperreflexic compared to the left. B ilateral ankle DTRs are absent. Toes are downgoing. Slightly diminished hearin g in the right ear to finger rub. Oral airway is quite narrow laterally and is Freidman grade 4 mL and probably grade 3. Large neck and obese body habitus. B ilateral 44+/5 hip flexors. Minimal tremor and dysmetria of right upper extr emity. Very slightly spastic gait on the right. Unable to perform tandem gait. Cranial Nerves: Visual eubanks grossly full to finger counting in periphery. III, IV, extraocular muscles are intact. No nystagmus. No STEPHANIE.VII- No facial asym metry is observed. IX and X- Palate is symmetrical, uvula is midline. XI- Shr ugs shoulders and turns head without difficulty. XII- [...] 4 5 5 5 5 Sensation: Romberg negative. CURRENT MEDICATIONS aspirin 81 MG EC tablet [...] current facility-administered medications for this visit. ALLERGIES No Known Allergies ASSESSMENT: 1. History of left MCA stroke in 2013 with residuals of sensory disturbance and spasticity on the right and gait impairment. Vascular risk factors include hyp erlipidemia and hypertension which are being treated with Losartan and atorvasta tin. Taking 81 mg aspirin daily. 2. Cognitive impairment which has worsened over the last year. She performed w ell on bedside abbreviated MMSE testing today but in daily life she has had some significant problems managing her money and also having episodes of becoming di soriented when driving. Causes of cognitive impairment could include sleep diso rder, neurodegenerative dementia, or other. Cannot establish the cause definiti veljoshua today. 3. Episodes of alteration of awareness described as "spacing out "or "zoning ou t". Also episodes when "I can hear people talking but I do not understand what they are saying." Differential diagnosis here remains broad and includes episod es of inattention, episodes of drowsiness related to sleep disorder, TIA, and wi ll obtain EEG to evaluate further for any possibility of seizure. 4. Multiple signs and symptoms of sleep disorder. Significant insomnia several days per week, excessive daytime sleepiness, snoring. 5. Head pain. History of migraine which is now very rare. However, she has br ief mild headaches nearly every morning upon awakening. These are potentially r elated to her insomnia and possibly other sleep disorder. She has also develope d within the last probably 1218 months episodes of sudden short sharp pains n ear the vertex which are new for her. 6. Her medical history includes left MCA stroke in 2013, migraine and headach e, depression, hypertension, high cholesterol, hyperthyroidism leading to thyroi dectomy so she is now functionally hypothyroid postsurgically, osteoarthritis, G ERD, insomnia, colon polyps. PLAN 1. MRI of the brain. 2. EEG. 3. Neuropsychological testing. 4.Obtain lab work today and request recent lab work from PCPs office. 5. Sleep study. 6. Encouraged her to work with her daughter on money management. Bill paying. 7. Return to neurology clinic following above testing. Return in about 4 weeks (around 12/01/2017) for CMB or MOCTEZUMA. I spent >50% of my time in counseling and coordination of care (total time spent 60 minutes) IN 1330 OUT 1430 . ADDENDUM (11-09-2017) Prior to her appointment we had received communication nelda saucedo I believe came from the pharmacy resident of her prescription insurance which reported possible interaction between her 40 mg dose of Celexa and her pa ntoprazole. Some sources note possibility of interaction between these medicati ons in terms of cardiac arrhythmia. After receiving this communication I review ed several sources. Some of the sources noted no interaction between Celexa and pantoprazole but others did note a possible interaction. We notified patient a nd daughter and forwarded the communication to her PCP. After discussing with h er PCP her Celexa dose was reduced from 40 mg daily to 20 mg daily. This was do ne approximately 2 weeks before her visit. She feels that her mood has been sta ble on the reduced dose of Celexa. As noted above she did become anxious and te arful during today's visit but the patient and daughter report this has been com mon at health care visits and was not unusual today. documented in this encounter Plan of Treatment Care Team Description Date Type Specialty Moise Jalloh NP [address] [facility] [address] [place] [address] [phone] 05/08/2020 Office Visit Neurology Order Schedule Name Type Priority Associated Diag noses 1 Occurrences starting 11/03/2017 until 11/03/2018 CBC and Diff (manual diff Lab Routine Exce ssive daytime if necessary) sleepiness 1 Occurrences starting 11/03/2017 until 11/03/2018 Vitamin B12 Lab Routine Memory loss Excessive daytime sleepiness Order Schedule Name Type Priority Associated Diag noses 1 Occurrences starting 11/03/2017 until 05/05/2018 Amb Referral To Outpatient Routine Chronic left a rterial Neuropsychology Referral ischemic stroke, MC A (middle cerebral artery) Memory loss Alteration of awareness Excessive daytime sleepiness documented as of this encounter Results * Polysomnography (Diagnostic Sleep Study Only) (12/14/2017 8:30 AM CDT) Narrative Performed At This result has an attachment that is n ot available. * EEG Extended (41-60 Min) (11/18/2017 12:23 PM CDT) Specimen Narrative Performed At Christy Couch MD 11/18/2017 5:26 PM [facility] NEURODIAGNOSTICS - EEG DATE OF STUDY: 11/18/2017 [...] using the international 10-20 placement system. S tandard montages were used. In wakefulness, the background [...] correlation is advised. Christy Couch MD Pager [phone] Performing Organization Address City/State/Zipcode Ph one Number [facility] NEURO * MRI Head wo contrast (11/12/2017 12:20 PM CDT) Specimen Impressions Performed At Impression: CHRISTI 1. No evidence of acute infarct. No mas s effect or midline shift. 2. Small area of chronic lacunar infarc t involving the left posterior frontal periventricular white matter/co lorraine radiata, which is new compared with previous MRI brain of 05/04/14. 3. Expected evolution of small focus of chronic infarct involving the left thalamus, corresponding to finding s on previous MRI brain. 4. Mild chronic microvascular ischemi c disease. Narrative Performed At Patient: SAMUEL MORALES Sex#: F # [id number] Lory#: [id number] Location: [facility] MRI Procedure Requested: [id number] MRI HEAD WO CONTRAST Reason for Exam: Chronic left arteria l ischemic stroke, MCA (middle cerebral artery) Exam Ordered: 11/12/2017 12 00 Exam Date/Time: 11/12/2017 122 0 Begin exam date/time: 11/12/2017 120 5 Reading Site: [facility] MRI head without contrast Clinical History: Chronic left arterial ischemic stroke, MCA; cognitive impairment; episodes of altered awarene ss; Technique: Noncontrast MR Brain: Sagittal T1, Axia l T1, Axial T2, Axial FLAIR, Axial DWI, coronal T2, Axial GRE Comparison: MRI brain of 05/04/2014 Findings: Expected evolution of area of chronic i nfarct involving the lateral left thalamus, corresponding to area of infa rct noted on previous MRI brain of 05/04/2014. Additional small area of chronic lacunar infarct involving the left posterior frontal periventricu lar white matter/willingham radiata which is new compared with previous MRI brain of 2013. No areas of restricted diffusion to suggest acute o r recent infarct. No acute intracranial hemorrhage or extra-axial fluid collection. Patchy and confluent areas of increased FLAIR signal in the periventricular white matter compatible with mild chronic microvascular ischemic disease. Ventricles are within normal limits for size and configuration. No midline shift or mass effect. Midline structures are intact and normal in appearance. Basal cisterns are clear. Bilateral cer ebellopontine angles are clear. Vascular flow voids are maintained. Darlyn bes and orbits are symmetric and unremarkable. Paranasal sinuses and mas toid air cells are clear. Procedure Note Interface, Rad Results In - 11/12/2017 1:35 PM CDT Patient: SAMUEL MORALES Sex#: F # [id number] Lory#: [id number] Location: [facility] MRI Procedure Requested: [id number] MRI HEAD WO CONTRAST Reason for Exam: Chronic left arterial ischemic stroke, MCA (middle cerebral artery) Exam Ordered: 11/12/2017 1200 Exam Date/Time: 11/12/2017 1220 Begin exam date/time: 11/12/2017 1205 Reading Site: [facility] MRI head without contrast Clinical History: Chronic [...] new compared with previous MRI brain of 2014. No areas of restricted diffusion to suggest [...] sinuses and mastoid air cells are clear. IMPRESSION Impression: 1. No evidence of acute infarct. [...] brain. 4. Mild chronic microvascular ischemic disease. Performing Organization Address City/State/Zipcode Ph one Gianluca FLYNNLAM documented in this encounter Visit Diagnoses Diagnosis Chronic left arterial ischemic stroke, MCA (middle cerebral artery) Transient ischemic attack (TIA), and ce rebral infarction without residual deficits Memory loss Alteration of awareness Excessive daytime sleepiness documented in this encounter
--- OUTSIDE RECORDS SUMMARY | 2019-12-19 14:19 | XMS REPORT | Encounter Summary ---
Author Author [facility] Organization [facility] Address Unknown Phone Unavailable Care Team Providers Care Concrete Hopper Operator Name Role Phone Benny May PCP Reason for Referral * MRI/CAT/PET Scan (Routine) Referred By Contact Referred To Contact Status Reason Specialty Diagnoses / Procedures Moise Jalloh NP [address] [address] [facility] Mri [address] [place] [address] Closed Radiology Diagnoses Chronic left arterial ischemic stroke, MCA (middle cerebral artery) Memory loss Alteration of awareness P rocedures MRI Head wo contrast Reason for Visit * MRI/CAT/PET Scan (Routine) Referred By Contact Referred To Contact Status Reason Specialty Diagnoses / Procedures Moise Jalloh NP [address] [address] [facility] Mri [id number] [place] [address] Closed Radiology Diagnoses Chronic left arterial ischemic stroke, MCA (middle cerebral artery) Memory loss Alteration of awareness P rocedures MRI Head wo contrast Encounter Details Care Team Description Date Type Department Moise Jalloh NP [address] [address] [phone] Chronic left arterial ischemic stroke, M CA (middle cerebral artery); Memory loss; Alteration of awareness 11/12/2017 [facility] [address] [place] [address] Social History Date Tobacco Use Types Packs/Day [...] MG tablet documented as of this encounter Plan of Treatment Care Team Description Date Type Specialty Moise Jalloh, SOURAV [address] [address] [phone] 05/08/2020 Office Visit Neurology documented as of this encounter Procedures Comments Procedure Name Priority Date/Time Associated Diag nosis MRI HEAD WO CONTRAST Routine 11/12/2017 Chronic l eft arterial 12:20 PM CDT ischemic stroke, MCA (middle cerebral artery) Memory loss Alteration of awareness documented in this encounter Results * MRI Head wo contrast (11/12/2017 12:20 [...] SAMUEL MORALES Sex#: F # [id number] Lory#: [id number] Location: [facility] MRI Procedure Requested: [id number] MRI HEAD WO CONTRAST Reason for Exam: Chronic left arteria l ischemic stroke, MCA (middle cerebral artery) Exam Ordered: 11/12/2017 12 00 Exam Date/Time: 11/12/2017 122 0 Begin exam date/time: 11/12/2017 120 5 Reading Site: [facility] MRI head without contrast Clinical History: Chronic [...] SAMUEL MORALES Sex#: F # [id number] Lory#: [id number] Location: [facility] MRI Procedure Requested: [id number] MRI HEAD WO CONTRAST Reason for Exam: Chronic left arterial ischemic stroke, MCA (middle cerebral artery) Exam Ordered: 11/12/2017 1200 Exam Date/Time: 11/12/2017 1220 Begin exam date/time: 11/12/2017 1205 Reading Site: [facility] MRI head without contrast Clinical History: Chronic [...] Performing Organization Address City/State/Zipcode Ph one Gianluca BARRAZA documented in this encounter Visit Diagnoses Diagnosis Chronic left arterial ischemic stroke, MCA (middle cerebral artery) Transient ischemic attack (TIA), and ce rebral infarction without residual deficits Memory loss Alteration of awareness documented in this encounter
--- OUTSIDE RECORDS SUMMARY | 2019-12-19 14:19 | XMS REPORT | Encounter Summary ---
Author Author [facility] Organization [facility] Address Unknown Phone Unavailable Care Team Providers Care Rn Sane Name Role Phone Benny May PCP Encounter Details Care Team Description Date Type Department Yisel Reece DO NO FORWARDING ADDRESS 12/13/2017 Documentation [facility] [address] [facility] [address] [place] [address] Social History Date Tobacco Use Types Packs/Day [...] as of this encounter Progress Notes * Yisel Reece DO - 12/13/2017 2:16 PM CDT Billing encounter for PSG physician read documented in this encounter Plan of Treatment Care Team Description Date Type Specialty Moise Jalloh NP [address] [facility] [address] [place] [address] [phone] 05/08/2020 Office Visit Neurology documented as of this encounter Visit Diagnoses Diagnosis Sleep apnea, unspecified type documented in this encounter
--- OUTSIDE RECORDS SUMMARY | 2019-12-19 14:19 | XMS REPORT | Encounter Summary ---
Author Author [facility] Organization [facility] Address Unknown Phone Unavailable Care Team Providers Care Wharf Laborer Name Role Phone Lalo Benny PCP Reason for Visit * Reason Comments Other Encounter Details Care Team Description Date Type Department Katelyn Argueta MD [address] [address] [phone] Other 05/04/2016 Refill [facility] Neurol ogy [address] [facility] [address] [place] [address] Social History Date Tobacco Use Types Packs/Day [...] Date Type Specialty Moise Jalloh NP [address] [address] [phone] 05/08/2020 Office Visit Neurology documented as of this encounter Visit Diagnoses Not on filedocumented in this encounter
--- OUTSIDE RECORDS SUMMARY | 2019-12-19 14:20 | XMS REPORT | Encounter Summary ---
Author Author [facility] Organization [facility] Address Unknown Phone Unavailable Care Team Providers Care Press Catcher Name Role Phone Benny May PCP Encounter Details Care Team Description Date Type Department Sln, Historical 12/03/2014 PracPart Note [facility] Social History Date Tobacco Use Types Packs/Day Years Used Never Assessed Sex Assigned at Date Recorded Not on file Industry Job Start Date Occupation Not on file Not on file Not on file Travel End Travel History Travel Start No recent travel history available. documented as of this encounter Progress Notes * [facility], Historical - 12/03/2014 1:07 PM CDT . : 01:07pm .T: CHART NOTE 12/04/14 1:40pm & 3:54pm I left Cassi, patient's daughter a vm to return my call -s t cb#: [phone] or [id number] FWD TO [facility] documented in this encounter Plan of Treatment Care Team Description Date Type Specialty Moise Jalloh NP [address] [address] [phone] 05/08/2020 Office Visit Neurology documented as of this encounter Visit Diagnoses Not on filedocumented in this encounter
--- OUTSIDE RECORDS SUMMARY | 2019-12-19 14:20 | XMS REPORT | Encounter Summary ---
Author Author [facility] Organization [facility] Address Unknown Phone Unavailable Care Team Providers Care Support Staff Name Role Phone Benny May PCP Encounter Details Care Team Description Date Type Department [facility], Historical 11/13/2014 PracPart Note [facility] Social History Date Tobacco Use Types Packs/Day Years Used Never Assessed Sex Assigned at Date Recorded Not on file Industry Job Start Date Occupation Not on file Not on file Not on file Travel End Travel History Travel Start No recent travel history available. documented as of this encounter Progress Notes * [facility], Historical - 11/13/2014 10:33 AM CDT . : 10:33am .T: Past medical history PATIENT NAME: Samuel Morales DATE OF : [birth year] AGE: 64 year DATE: 11/13/14 REFERRING PHYSICIAN: Ese Henao PHARMACY: MAIL ORDER: IS THE REFERRING PHYSICIAN LISTED ABOVE YOUR PRIMARY CARE PHYSICIAN? yes IF NOT PLEASE LIST YOUR PCP NAME: ADDRESS: PHONE: FAX: REASON FOR VISIT : OTHER PHYSICIANS TO NOTIFY: PAST SURGICAL HISTORY SURGICAL YEAR OTHER HOSPITALIZATION OR INJURIES HOSPITAL OR INJURY YEAR DRUG ALLERGIES: Review of Systems Pain Average pain most days (lowest) 1 2 3 4 5 6 7 8 9 10 (highest) Where does hurt? Is the pain changing? Getting Better Staying the Same Getting Worse What do you take for the pain? 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
--- OUTSIDE RECORDS SUMMARY | 2019-12-19 14:20 | XMS REPORT | Encounter Summary ---
Author Author [facility] Organization [facility] Address Unknown Phone Unavailable Care Team Providers Care Filter Press Tender Name Role Phone PCP Unavailable Encounter Details Care Team Description Date Type Department Katelyn Argueta MD [address] [facility] [address] [place] [address] [phone] 11/13/2014 Hist-Visit [facility] Social History Date Tobacco Use Types Packs/Day Years Used Never Assessed Sex Assigned at Date Recorded Not on file Industry Job Start Date Occupation Not on file Not on file Not on file Travel End Travel History Travel Start No recent travel history available. documented as of this encounter Progress Notes * Katelyn Argueta MD - 11/13/2014 12:12 PM CDT . : 12:12pm .T: Return Patient [facility] A division of [facility] [place] [address] [place] [address] [address] [facility] [address] [place] [address] [place] [address] [place] [address] [place] [address] Phone for all locations: Fax for all locations: Stroke Center [facility] Headache Center Libia Holt D.O. Katelyn Argueta M.D. Lui Couch M.D. Lenka Huang M.D. Anita Peñaloza, MSN,RN,ANP, C mona Peterson M.D. Epilepsy Center Movement Disorder Center Neurophysiology Center Den Rodriguez M.D.,PhD. Karl English M.D. Kendrick Young M.D. Ravi Henry M.D. Patricia Ramos M..D. Joey Adams D.O. Antonio Malik M.D. Joey Lew M.D. [facility] Zackary Muller M.D. Inpatient specialist at [facility] Christy Couch M.D. . 11/13/14 Favian Ball M.D. [place], [place] RE: Pia Morales : [address] Ball: I saw your patient Pia Morales, date of 46 today [facility]. The following medication was reported to me by the patient and may assist you: Current Medications: Rx: ATORVASTATIN CALCIUM 20MG 1 Tablet once each day Rx: BABY ASPIRIN 81 MG 1 Tablet once each day Rx: CITALOPRAM HYDROBROMIDE 20mg 1 Tablet daily Rx: LEVOTHYROXINE SODIUM 100MCG 1 Tablet once each day Rx: LISINOPRIL 10 MG 1 Tablet once each day The patient's vital signs taken today in my office are as follows: Bp: 139/64, Left Arm, Pulse: 75 Temperature: 96.7 F, Height: 5'6", Weight: 241 lbs Mrs. Robles presents back in neurologic followup today. She was seen during hosp italization in April 2014 for a subacute stroke. At that point the patient reza d been having fluctuating right-sided weakness. She had markedly elevated blood pressure at the time. She was seen in emergency department and then sent home an d then returned with persistent symptoms. She was subsequently transferred to [facility] where she had evidence of a subacute left thalamic lacunar inf arct. MRA of the head that right M2 branch mild atherosclerotic disease. CTA of the neck had a right carotid stenosis less than 50%. Echocardiogram had any of 6 5% with normal valves and no cardio thrombotic source for emboli. She had elevat ed LDL 111, total cholesterol 194, triglycerides 87, HDL 66. Hemoglobin A1c was 5.3%. The patient did complete an inpatient rehabilitative stay and was dismisse d in early May 2014. She did well until July of this year when she again de veloped right-sided weakness and numbness. This lasted a couple of days and she did not seek immediate medical attention. In fact, she did not tell her family f or nearly a week. Her right hand remained clumsy since that time and she has los t functional gains that she obtained in rehabilitation. At that point she began to developed daily headaches. This is improved but is still occurring. This is m ainly a headache on her vertex which she rates 4-5/10 about one time per week. S he also has been developing sharp pains particularly in the left temporal and oc cipital region rated 6-7/10. These are sharp stab that can occur in clusters or randomly. There are no exacerbating or alleviating factors. The last episode occ urred yesterday. They occur a couple of times per week. She does have a remote h istory of migraines, none since her children have left the home. She has had a lot of stressors with her father passing away in May of this y ear. A nephew last week in his 40s from ALS. There's been a lot of anxiety as well as depression noted by family. Her family in the room described apathy s ometimes with her not getting up out of bed. She's been placed on citalopram but has not made significant improvement. She is independent in activities of daily living following her stroke other than some clumsiness of her right hand. She is able to toilet, dress, bath, and cook and eat iwithout any assistance. She is tolerating aspirin without any bleeding problems. She has not been monito ring her blood pressure. She does feel that laboratories recently drawn and that her cholesterol was doing well but is unsure of any numbers. Review of systems is positive for sweats, weakness, fatigue, wears reading glass es, cataracts removed, ringing in the ears, wears dentures, coughs everyday, osorio rtness of breath with activity, leg cramps at night, headaches as above, stroke, forgetfulness, confusion, and arthritis. The remainder is negative and is docum ented in the electronic medical record. Her family history and social history wa s reviewed. She does have a caregiver at 2 hours per day. Physical examination: In general she is a well-developed, well-nourished, very p leasant female in no acute distress. Mental status: Alert and oriented x3, speec h and language are fluent and appropriate, attention and concentration are intac t from her recent remote memory are grossly intact. Fundi: Disc not well visuali zed bilaterally. Cranial nerves: Pupils equally round and reactive to light, ext raocular movements are full without nystagmus, face symmetric, facial sensation diminished right V2 and 3 dermatones, masseter strength and function equal, hear ing intact to finger rubbing bilaterally, tongue midline, palate elevates bilate rally, shoulder shrug is equal. Motor: Strength is 5/5 throughout. There is no p ronator drift. Sensation is intact to light touch and pinprick in the arms and l egs. DTRs 2/4 biceps, brachioradialis, 0/4 knees and ankles. Plantar responses a re downgoing. Coordination: Dysmetria on finger to nose on the right. Gait: Norm al. 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 She also has post stroke associat ed depression complicated by psychosocial stressors and grieving. She will dagmar nue with aspirin daily for secondary stroke prevention. Her blood pressure was m arginally elevated today and I suggest a goal <120/80, goal LDL <100, and a goal hemoglobin A1c less than 7%. I emphasized the importance of diet and exercise although some of her exercise would be limited because of severe osteoarthritis in the knees. I suggested an aquatic program if at all possible. I stressed to the patient the importance of early presentation to the emergency room for any further strokelike symptoms her the possibility of intervention. We discussed transfer of care to a comprehensive stroke center if need be. Her depression appears to be a bit undertreated. I increased citalopram to 20 mg daily at this time and will monitor. Her headaches appear to be multi-factorial with idiopathic stabbing headaches an d a musculoskeletal headache. I also wonder if some of her headaches maybe relat ed to hypertension. I've asked her to keep a blood pressure log. This was discus sed at length with the patient and her family members present. We discussed idio pathic stabbing headaches are related to migrainous phenomenon. With her past hi story of migraines this is a consideration. I am obtaining a sedimentation rate and C-reactive protein to screen for any giant cell arteritis despite the lack o f any temporal artery enlargement or tenderness. I plan to see her back in 6 months. I appreciate the opportunity to participate in this delightful patient's care. Please do not hesitate to contact me if there are questions or concerns. # SIGNED BY Katelyn Argueta MD (CMB) 11/13/2014 05:29PM documented in this encounter Plan of Treatment Care Team Description Date Type Specialty Moise Jalloh NP [address] [address] [phone] 05/08/2020 Office Visit Neurology documented as of this encounter Visit Diagnoses Not on filedocumented in this encounter
--- OUTSIDE RECORDS SUMMARY | 2019-12-19 14:20 | XMS REPORT | Encounter Summary ---
Author Author [facility] Organization [facility] Address Unknown Phone Unavailable Care Team Providers Care Consumer Sales Representative Name Role Phone Benny May PCP Encounter Details Care Team Description Date Type Department [facility], Historical 11/13/2014 PracPart Note [facility] Social History Date Tobacco Use Types Packs/Day Years Used Never Assessed Sex Assigned at Date Recorded Not on file Industry Job Start Date Occupation Not on file Not on file Not on file Travel End Travel History Travel Start No recent travel history available. documented as of this encounter Progress Notes * [facility], Historical - 11/13/2014 10:35 AM CDT . : 10:35am .T: Family history Hypertension: yes Dyslipidemia: yes Coronary heart disease: yes Diabetes mellitus: yes Migraines: yes CVD / Stroke: yes Cancer: yes Alcoholism: no Epilepsy: no Multiple Sclerosis: no Alzheimers/Dementia: no Parkinson Disease: no Mental illness: no Other: no Other: no documented in this encounter Plan of Treatment Care Team Description Date Type Specialty Moise Jalloh NP [address] [address] [phone] 05/08/2020 Office Visit Neurology documented as of this encounter Visit Diagnoses Not on filedocumented in this encounter
--- OUTSIDE RECORDS SUMMARY | 2019-12-19 14:20 | XMS REPORT | Encounter Summary ---
Author Author [facility] Organization [facility] Address Unknown Phone Unavailable Care Team Providers Care Privacy Director Name Role Phone Benny May PCP Encounter Details Care Team Description Date Type Department Slnc, Historical 11/13/2014 Hist-Visit [facility] Social History [...] Signs Reading Time Taken Comments Vital Sign 139/64 11/13/2014 11:19 AM CDT Blood Pressure 75 11/13/2014 11:19 AM CDT Pulse 35.9 C (96.7 F) 11/13/2014 11:19 AM CDT Temperature - - Respiratory Rate - - Oxygen Saturation - - Inhaled Oxygen Concentration 109.5 kg (241 lb 6 oz) 11/13/2014 11:19 AM CDT Weight 167.6 cm (5' 6") 11/13/2014 11:19 AM CDT Height 38.96 11/13/2014 11:19 AM CDT Body Mass Index documented in this encounter Plan of Treatment Care Team Description Date Type Specialty Moise Jalloh NP [address] [address] [phone] 05/08/2020 Office Visit Neurology documented as of this encounter Visit Diagnoses Not on filedocumented in this encounter
--- OUTSIDE RECORDS SUMMARY | 2019-12-19 14:20 | XMS REPORT | Encounter Summary ---
Author Author [facility] Organization [facility] Address Unknown Phone Unavailable Care Team Providers Care Welding Machine Operator Electro Gas Name Role Phone Benny May PCP Encounter Details Care Team Description Date Type Department [facility], Historical 11/13/2014 PracPart Note [facility] Social History Date Tobacco Use Types Packs/Day Years Used Never Assessed Sex Assigned at Date Recorded Not on file Industry Job Start Date Occupation Not on file Not on file Not on file Travel End Travel History Travel Start No recent travel history available. documented as of this encounter Progress Notes * [facility], Historical - 11/13/2014 10:33 AM CDT . : 10:33am .T: Social history Marital Status: Children: daughters, age(s) 40 SON: 37 Caffeine Use: Coffee: per Tea: per Soda: per Tobacco Use: Cigarettes: How often? Di d you quit? If so, what year? Cigars: How often? Did you quit? If so, what year? Pipes: How often? Did you quit? If so, what year? Chewing Tobacco: How often? Did you qu it? If so, what year? Alcohol use: Do you drink alcohol? no If yes, how often? per Recreational/Ilicit Drugs: no Marijuana: How often? Did you quit? If so, what year? Cocaine: How often? Did you quit? If so, what year? Meth: How often? Did you quit? If so, what year? Heroin: How often? Did you quit? If so, what year? Ecstasy: How often? Did you quit? If so, what year? Other: How often? Did you quit? If so, what year? Occupation: Employment Status: Retired: no documented in this encounter Plan of Treatment Care Team Description Date Type Specialty Moise Jalloh, SOURAV [address] [address] [phone] 05/08/2020 Office Visit Neurology documented as of this encounter Visit Diagnoses Not on filedocumented in this encounter
--- OUTSIDE RECORDS SUMMARY | 2019-12-19 14:20 | XMS REPORT | Encounter Summary ---
Author Author [facility] Organization [facility] Address Unknown Phone Unavailable Care Team Providers Care Speedboat Operator Name Role Phone Favian Ball PCP Reason for Visit * Reason Comments Other Encounter Details Care Team Description Date Type Department Katelyn Argueta MD [address] [address] [phone] Other 09/05/2015 Refill [facility] Neurol ogy [address] [facility] [address] [place] [address] Social History Date Tobacco Use Types Packs/Day [...] Date Type Specialty Moise Jalloh NP [address] [address] [phone] 05/08/2020 Office Visit Neurology documented as of this encounter Visit Diagnoses Not on filedocumented in this encounter
--- OUTSIDE RECORDS SUMMARY | 2019-12-19 14:20 | XMS REPORT | Encounter Summary ---
Author Author [facility] Organization [facility] Address Unknown Phone Unavailable Care Team Providers Care Urology Physician Assistant Name Role Phone Benny May PCP Encounter Details Care Team Description Date Type Department [facility], Historical 11/14/2014 PracPart Note [facility] Social History Date Tobacco Use Types Packs/Day Years Used Never Assessed Sex Assigned at Date Recorded Not on file Industry Job Start Date Occupation Not on file Not on file Not on file Travel End Travel History Travel Start No recent travel history available. documented as of this encounter Progress Notes * [facility], Historical - 11/14/2014 2:17 PM CDT . : 02:17pm .T: chart note zetafaxed pt signed lashay to Dr Favian Ball for records retrieval. Signed lashay on file. fk documented in this encounter Plan of Treatment Care Team Description Date Type Specialty Moise Jalloh, SOURAV [address] [address] [phone] 05/08/2020 Office Visit Neurology documented as of this encounter Visit Diagnoses Not on filedocumented in this encounter
--- OUTSIDE RECORDS SUMMARY | 2019-12-19 14:20 | XMS REPORT | Encounter Summary ---
Author Author [facility] Organization [facility] Address Unknown Phone Unavailable Care Team Providers Care Alumnae Secretary Name Role Phone PCP Unavailable Encounter Details Care Team Description Date Type Department Tierra Henao, DO [address] [place] [address] Violet Coleman, DO [address] [place], [place] [id number] 05/02/2014 [facility] Neuro NBS - Encounter [address] 05/09/2014 [place], [place] [id number] Social History Date Tobacco Use Types Packs/Day Years Used Never Smoker Drinks/Week oz/Week Comments Alcohol Use No Sex Assigned at Date Recorded Not on file Industry Job Start Date Occupation Not on file Not on file Not on file Travel End Travel History Travel Start No recent travel history available. documented as of this encounter Last Filed Vital Signs Reading Time Taken Comments Vital Sign 125/52 05/09/2014 7:43 AM BLACKING MACHINE OPERATOR Blood Pressure 55 05/09/2014 7:43 AM BLACKING MACHINE OPERATOR Pulse 36.6 C (97.9 F) 05/09/2014 7:43 AM BLACKING MACHINE OPERATOR Temperature 16 05/09/2014 7:43 AM BLACKING MACHINE OPERATOR Respiratory Rate 96% 05/09/2014 7:43 AM BLACKING MACHINE OPERATOR Oxygen Saturation - - Inhaled Oxygen Concentration 81.4 kg (179 lb 7.3 oz) 05/02/2014 7:43 PM BLACKING MACHINE OPERATOR Weight 167.6 cm (5' 6") 05/02/2014 7:43 PM BLACKING MACHINE OPERATOR Height 28.96 05/02/2014 7:43 PM BLACKING MACHINE OPERATOR Body Mass Index documented in this encounter Discharge Summaries * Violet Coleman, DO - 05/07/2014 12:39 PM BLACKING MACHINE OPERATOR [facility] HOSPITALIST DISCHARGE SUMMARY PATIENT NAME: Samuel Alvaregna : 1950 PRIMARY CARE PHYSICIAN: Family Ag Stevenson DATE OF ADMISSION: 05/02/2014 DATE OF DISCHARGE: 05/09/2014 DISCHARGE DIAGNOSES: Principal Problem: Stroke, lacunar left subcortical Active Problems: HTN (hypertension) Hypothyroid HLD (hyperlipidemia) DISCHARGE MEDICATIONS: Discharge Medications New Medications Indication(s) atorvastatin 20 MG tablet Commonly known as: LIPITOR 20 mg, Oral, Nightly Medications To Continue Indication(s) aspirin 81 MG EC tablet 81 mg, Oral, Daily HYDROcodone-acetaminophen 5-500 mg per tablet Commonly known as: VICODIN 1 tablet, Oral, Every 4 hours PRN ibuprofen 200 MG tablet Commonly known as: ADVIL,MOTRIN 200 mg, Oral, Every 6 hours PRN levothyroxine 100 MCG tablet Commonly known as: SYNTHROID, LEVOTHROID 100 mcg, Oral, Daily lisinopril 10 MG tablet Commonly known as: PRINIVIL,ZESTRIL 10 mg, Oral, Daily Physical Exam: Gen: In no acute distress. Chest: Clear to auscultation bilaterally. CV: Regular rate and rhythm. Abd: Soft, positive bowel sounds, nontender, and nondistended. Ext: No edema. Neuro: 4/5 RUE and 4/5 RLE CONSULTANTS: Treatment Team: Consulting Physician: Naz Rutledge MD; Dr. Katelyn Argueta, Neurology PROCEDURES/DIAGNOSTIC STUDIES: Ct Angio Head And Perfusion P 05/02/2014 Impression: 1. Small unmatched perfusion abnormality within the left basal ganglia. No large vascular territory perfusion abnormality. 2. No CT gerald ographic evidence of arterial occlusion, significant stenosis, or aneurysmal dil atation. 3. No intracranial hemorrhage. Normal marino-white matter differentiatio n. 4. Age appropriate cerebral volume loss and mild chronic small vessel ischemi c disease. Findings discussed with Michelle with jr neuro at 9:35 p.m. on 05/02/2014. READING SITE: [facility]. ATTESTATION STATEMENT: The Staff Radiologist has personally reviewed the images and dictated, reviewed, or edited the final report. Ct Angio Neck 05/03/2014 IMPRESSION: Mild atherosclerosis of the right carotid bifurcation with less than 50% stenosis of the cervical right ICA at its origin per NASCET c riteria. Mild atherosclerosis of the left carotid bifurcation without stenosis of the cervical left ICA per NASCET criteria. The bilateral vertebral arteries are patent without stenosis. READING SITE: [facility]. ATTESTATION STATEMENT: The Staff Radiologist has personally reviewed the images and dictated , reviewed, or edited the final report. Fl Swallowing Function W Video 05/03/2014 IMPRESSION: 1. Normal video fluoroscopic swallow. 2. Please refer t o speech pathology report for further details. ATTESTATION STATEMENT: The Sta ff Radiologist has personally reviewed the images and dictated, reviewed, or kesha samia the final report. INTERPRETATION SITE: [facility]. Mra Head Wo Contrast 05/04/2014 Impression: 1. No large branch arterial high-grade stenosis or occ lusion in the head. 2. Mild irregularity of a right middle cerebral artery M2 branch which may be accentuated by motion artifact, underlying atherosclerotic d isease is not excluded. READING SITE: [facility]. ATTESTATION STATEME NT: The Staff Radiologist has personally reviewed the images and dictated, revie wed, or edited the final report. Mri Head W Wo Contrast 05/04/2014 Impression: 1. Small acute stroke in the left thalamus. No acute intracranial hemorrhage. 2. Mild chronic small vessel ischemic disease. Cri tical findings: Acute stroke findings were verbally communicated to the patient' s nurse Anjali on May 04, 2014 at 0845 hours. READING SITE: [facility]. ATTESTATION STATEMENT: The Staff Radiologist has personally reviewed the im ages and dictated, reviewed, or edited the final report. ATTESTATION STATEMENT : The Staff Radiologist has personally reviewed the images and dictated, reviewe d, or edited the final report. ECHO: 1. Normal left ventricular systolic function, with an estimated ejection fractio n of 65%. 2. No significant valvular abnormalities REASON FOR HOSPITAL ADMISSION: Ms. Samuel Alvarenga is a 63 y.o. female who was ad mitted for right-sided facial numbness and UE/LE weakness. HOSPITAL COURSE: She underwent was admitted and seen by neurology. She underwent CTA head/neck an d MRI/MRA that showed small acute stroke in the left thalamus. She also underwe nt ECHO that showed no abnormalities. She was monitored on telemetry without a ny arrhythmia. She was started on atorvastatin 20 mg daily as LDL was 111. HgA 1C was 5.3. We have recommended management of vascular risk factors to prevent future strokes. She was seen by PMR and they recommended acute inpatient rehab for continued lef t sided weakness. The patient was agreeable. DISCHARGE INSTRUCTIONS: Diet: Simply healthy Activity Level: As tolerated Follow-Up Care: PCP in 1-2 weeks. Neurology as needed. Disposition: Stable to rehab. Time: Greater than 35 minutes were spent on discharge planning. Electronically signed by: Violet Coleman 05/09/2014 10:10 AM cc: [facility] KING MACHINE OPERATOR documented in this encounter Medications at Time of Discharge Start Date End Date Medication Sig Dispensed Refills aspirin 81 MG EC tablet Take 81 mg by 0 mouth daily. ibuprofen (ADVIL,MOTRIN) Take 200 mg 0 200 MG tablet by mouth every 6 (six) hours as needed for pain. levothyroxine (SYNTHROID, Take 100 mcg 0 LEVOTHROID) 100 MCG by mouth tablet daily. 05/07/2014 05/17/2015 atorvastatin (LIPITOR) 20 Take 1 tablet 30 tablet 0 MG tablet (20 mg total) by mouth nightly. 11/03/2017 HYDROcodone-acetaminophen Take 1 tablet 0 (VICODIN) 5-500 mg per by mouth tablet every 4 (four) hours as needed for pain. 06/09/2016 lisinopril Take 10 mg by 0 (PRINIVIL,ZESTRIL) 10 MG mouth daily. tablet documented as of this encounter Progress Notes * Last Moon MSW - 05/09/2014 4:32 PM BLACKING MACHINE OPERATOR Multidisciplinary Discharge Rounds Patient name: Samuel Alvarenga, Room: [facility] Demographic hx: A 63 y/o Female admitted on 05/02/2014, Inpatient status. DX, HX, TX, tests snapshot: 63 y/o F, admit 05/02 (INPT) Active Problems: CVA (cerebral infarction) Spell of transient neurologic symptoms HTN (hypertension) 05/03 NPO pending DEISY Vasquez ataxia. R side weakness, repeat MRI today. PT/OT consult pending. Consults requested by multidisciplinary group: Baseline functioning: Independent with functional transfers;Independent with jhonny emaking;Modified independent with ADLs Current functionin' w/ RW Skin/Wounds: WDL Recent Tmo Score: 19 Respiratory: room air Recent NIH: 5 Disciplines present: ANUP, Pietro job site supervisor, Chap Barriers to discharge: patient acuity DR Anticipated Length of Stay: 4 days [facility] Discharge Date: 06-May-14 Anticipated DC disposition: SNF - [facility] (pending insurance auth) [facility]U - [facility] in [place] (Ins denied ARU) - DC today [facility] PRE-ADMISSION SCREENING FOR MENTAL ILLNESS/MENTAL RETARDATION OR RELATED CONDITION ([id number]): In pt folder for physician review and signature. KING MACHINE OPERATOR * Sandee Schilling, PT - 05/09/2014 10:17 AM BLACKING MACHINE OPERATOR [facility] , [address] [place] [address] Physical Therapy Discharge Note Subjective: Patient response to therapy: good Additional Comments: quick muscle fatigue on R side, limited by R hip and b ilat knee pain from arthritis Objective: Treatment/Interventions: Functional transfer training, LE strengthening/ROM , Endurance training, Patient/family training, Bed mobility, Equipment eval/educ ation, Gait training, Compensatory technique education, Balance, Safety training , Progressive Mobility, Modalities Current functional status: CGA with occ Drae with use of RW for txfers and gross mobility Assessment: Timeframe Timeframe ST visits Timeframe LT visits Bed Mobility Goals Bed Transfer STG Goal Status: New goal Bed Mobility STG: Modified independent Transfer Goals Transfer STG Goal Status: New goal Transfer STG: Modified independent Transfer STG - Assistive Device: Rolling walker Gait Distance/Assist Goals Gait Distance STG (ft): 150 ft Gait Distance STG Goal Status: New goal Gait Assist STG: Standby assist Gait STG - Assistive Device: Rolling walker Standing Balance Goals Standing Balance STG Goal Status: New goal Standing Balance ST-2" +rturn COG Other Goals Other Goal 1: LTG: Pt will complete all functional mobility with RW Mod I to all ow safe return home at dc Progress toward previous goals STGs: STG partially achieved Progress toward previous goals LTGs: LTG not achieved Plan: Recommendation Plan: Continued PT Patient provided with and educated in the use of the following Assistive De vices: RW Discharge to SNF Discharge date 05/09/14 Therapist signature/date/time: Sandee Schilling, PT/05/09/2014/10:17 AM Referring Practitioner Signature: Signature indicates approval with plan of care. KING MACHINE OPERATOR * Violet Coleman, DO - 05/09/2014 10:04 AM BLACKING MACHINE OPERATOR [facility] HOSPITALIST PROGRESS NOTE Assessment: Principal Problem: Stroke, lacunar left subcortical Active Problems: HTN (hypertension) Hypothyroid HLD (hyperlipidemia) Plan: D/C to SNF today. Transportation held up discharge yesterday. Continue ASA and statin Continue rehab efforts Current Diet: Low fat/cholesterol, 2 gm sodium DVT PPx: SCDs Code Status: No Order Electronically signed by Violet Coleman 05/09/2014 10:09 AM Pager #: [phone] Subjective (F/u ): CVA Patient doing well. Resting well this morning. Objective: Vital Signs: BP 125/52 | Pulse 55 | Temp(Src) 36.6 C (97.9 F) (Oral) | Resp 16 | Ht 1.676 m (5' 6") | Wt 81.4 kg (179 lb 7.3 oz) | BMI 28.98 kg/m2 | SpO2 96 % Weight: Wt Readings from Last 3 Encounters: 12/03/14 81.4 kg (179 lb 7.3 oz) Intake/Output: Intake/Output Summary (Last 24 hours) at 05/09/14 1009 Last data filed at 05/08/14 1845 Gross per 24 hour Intake 480 ml Output 0 ml Net 480 ml Physical Exam: Gen: In no acute distress. Chest: Clear to auscultation bilaterally. CV: Regular rate and rhythm. Abd: Soft, positive bowel sounds, nontender, and nondistended. Ext: No edema. Neuro: 4/5 RUE and 4/5 RLE Laboratory Data: Most Recent Result within the last 7 days Lab Units 05/03/14 0308 WBC TH/uL 7.87 HEMOGLOBIN g/dL 13.4 HEMATOCRIT % 39 PLATELET COUNT TH/uL 256 Most Recent Result within the last 7 days Lab Units 05/06/14 1139 05/06/14 0135 SODIUM MEQ/L -- 140 POTASSIUM MEQ/L 4.2 3.4* CHLORIDE MEQ/L -- 102 CARBON DIOXIDE MEQ/L -- 26 BLOOD UREA NITROGEN mg/dL -- 22 CREATININE mg/dL -- 0.9 GLUCOSE mg/dL -- 92 CALCIUM mg/dL -- 9.7 Imaging Data: Ct Angio Head And Perfusion P 05/02/2014 Impression: 1. Small unmatched perfusion abnormality within the left basal ganglia. No large vascular territory perfusion abnormality. 2. No CT gerald ographic evidence of arterial occlusion, significant stenosis, or aneurysmal dil atation. 3. No intracranial hemorrhage. Normal marino-white matter differentiatio n. 4. Age appropriate cerebral volume loss and mild chronic small vessel ischemi c disease. Findings discussed with Michelle with code neuro at 9:35 p.m. on 05/02/2014. READING SITE: [facility]. ATTESTATION STATEMENT: The Staff Radiologist has personally reviewed the images and dictated, reviewed, or edited the final report. Ct Angio Neck 05/03/2014 IMPRESSION: Mild atherosclerosis of the right carotid bifurcation with less than 50% stenosis of the cervical right ICA at its origin per NASCET c riteria. Mild atherosclerosis of the left carotid bifurcation without stenosis of the cervical left ICA per NASCET criteria. The bilateral vertebral arteries are patent without stenosis. READING SITE: [facility]. ATTESTATION STATEMENT: The Staff Radiologist has personally reviewed the images and dictated , reviewed, or edited the final report. 7 Days [facility] KING MACHINE OPERATOR * Last Moon MSW - 05/09/2014 9:45 AM BLACKING MACHINE OPERATOR Pt didn't feel safe going home for the night and going to SNF today. SW left ms nahomy for Elsa at [facility]. Adamaris with [facility] has rec'd auth, DC orders faxed. Pt sister to transport around noon. Report given to Michelle ACKERMAN. KING MACHINE OPERATOR * Yudy Reyes RD LD - 05/09/2014 9:14 AM BLACKING MACHINE OPERATOR Nutrition Length of Stay [facility] Patient: Samuel Alvarenga Age: 63 y.o. : 1950 ATTENDING PHYSICIAN: Violet Coleman, * Patient assessed for nutrition risk based on length of stay. Meds, labs, and chart reviewed. Height: 167.6 cm (5' 6") Weight: 81.4 kg (179 lb 7.3 oz) Weight Change: no new weight available BMI (Calculated): 29 Diet Order: simply healthy Food Intake: 80-100% of meals, tolerating PO diet No acute nutrition diagnosis determined at this time. Continue with current nutr ition plan. Will continue to evaluate every 5-7 days per policy. Electronically signed by Yudy Reyes MS, RD, LD 05/09/2014 9:14 AM KING MACHINE OPERATOR * Sandee Schilling, PT - 05/08/2014 3:23 PM BLACKING MACHINE OPERATOR 05/08/14 1000 Visit Info Patient/Family Reports pt with no complaints PT Received On 05/08/14 Cognition Overall Cognitive Status WFL Perception Inattention/Neglect Cues to attend to right side of body Transfers Assistive Device Rolling walker Sit to Stand Transfers Stand by assistance Stand to Sit Transfers Stand by assistance Bed to Chair Stand by assistance Gait Gait Distance (Feet) 600 Assistive Device Rolling walker Gait Level Surface Assistance Stand by Pattern (dec R step length on rare occ, R lateral dev within walker) LE Ther Ex AROM (R single leg stance, squats w/ BUE support x10) Recommendation Plan Continued PT KING MACHINE OPERATOR * Noni Robertson OTR/L - 05/08/2014 12:04 PM BLACKING MACHINE OPERATOR 05/08/14 0959 OT Initial Visit Patient/Family Reports difficulty keeping food on fork, numbness/tingling RUE & R side of mouth OT Received On 05/08/14 Precautions Fall Risk Yes Pain Assessment Pain Score 0 ADL Toilet Transfer Other (Comment) (SBA 1st half of transfer only; RW & grab bar) Cognition Overall Cognitive Status WFL Communication Communication No Limitation Bed Mobility Supine to Sit Stand by assistance;HOB elevated Transfers Assistive Device Rolling walker Sit to Stand Transfers Stand by assistance Balance Sitting Static 4 Sitting Dynamic 4 Balance Activity Sitting Surface EOB Sitting Activity static;wt shift Sitting Time 21-25 min Sitting Assistance SBA Activity Tolerance Activity Tolerance fair;+ (bothered by abdominal pain end of session) Activity Tolerance Comments pt requested toilet UE Therapeutic Exercises and Therapeutic Activity AROM 1-5;Right (shoulder) Neuromuscular Re-education Right UE (use of built-up spoon to transfer items without spilling) Equipment Theraputty (yellow - HEP, removing beans with RUE) Coordination Exercises/Activity use of built-up pencil to write name; legible si gnature Recommendation Plan Continued OT KING MACHINE OPERATOR * Violet Coleman DO - 05/08/2014 11:01 AM BLACKING MACHINE OPERATOR [facility] HOSPITALIST PROGRESS NOTE Assessment: Principal Problem: Stroke, lacunar left subcortical Active Problems: HTN (hypertension) Hypothyroid HLD (hyperlipidemia) Plan: Could not be discharge yesterday as patient no accepted by rehab. Referral t o SNF pending today. Continue ASA and statin Continue rehab efforts Current Diet: Low fat/cholesterol, 2 gm sodium DVT PPx: SCDs Code Status: No Order Electronically signed by Violet Coleman 05/08/2014 11:01 AM Pager #: [phone] Subjective (F/u ): CVA Patient doing well. Slight improvement in weakness. No pain. Objective: Vital Signs: BP 95/28 | Pulse 58 | Temp(Src) 36.8 C (98.2 F) (Oral) | Resp 1 8 | Ht 1.676 m (5' 6") | Wt 81.4 kg (179 lb 7.3 oz) | BMI 28.98 kg/m2 | SpO2 95% Weight: Wt Readings from Last 3 Encounters: 05/02/14 81.4 kg (179 lb 7.3 oz) Intake/Output: Intake/Output Summary (Last 24 hours) at 05/08/14 1101 Last data filed at 05/08/14 1008 Gross per 24 hour Intake 300 ml Output 0 ml Net 300 ml Physical Exam: Gen: In no acute distress. Chest: Clear to auscultation bilaterally. CV: Regular rate and rhythm. Abd: Soft, positive bowel sounds, nontender, and nondistended. Ext: No edema. Neuro: 4/5 RUE and 4/5 RLE Laboratory Data: Most Recent Result within the last 7 days Lab Units 05/03/14 0308 WBC TH/uL 7.87 HEMOGLOBIN g/dL 13.4 HEMATOCRIT % 39 PLATELET COUNT TH/uL 256 Most Recent Result within the last 7 days Lab Units 05/06/14 1139 05/06/14 0135 SODIUM MEQ/L -- 140 POTASSIUM MEQ/L 4.2 3.4* CHLORIDE MEQ/L -- 102 CARBON DIOXIDE MEQ/L -- 26 BLOOD UREA NITROGEN mg/dL -- 22 CREATININE mg/dL -- 0.9 GLUCOSE mg/dL -- 92 CALCIUM mg/dL -- 9.7 Imaging Data: Ct Angio Head And Perfusion P 05/02/2014 Impression: 1. Small unmatched perfusion abnormality within the left basal ganglia. No large vascular territory perfusion abnormality. 2. No CT egrald ographic evidence of arterial occlusion, significant stenosis, or aneurysmal dil atation. 3. No intracranial hemorrhage. Normal marino-white matter differentiatio n. 4. Age appropriate cerebral volume loss and mild chronic small vessel ischemi c disease. Findings discussed with Michelle with jr neuro at 9:35 p.m. on 05/02/2014. READING SITE: [facility]. ATTESTATION STATEMENT: The Staff Radiologist has personally reviewed the images and dictated, reviewed, or edited the final report. Ct Angio Neck 05/03/2014 IMPRESSION: Mild atherosclerosis of the right carotid bifurcation with less than 50% stenosis of the cervical right ICA at its origin per NASCET c riteria. Mild atherosclerosis of the left carotid bifurcation without stenosis of the cervical left ICA per NASCET criteria. The bilateral vertebral arteries are patent without stenosis. READING SITE: [facility]. ATTESTATION STATEMENT: The Staff Radiologist has personally reviewed the images and dictated , reviewed, or edited the final report. 6 Days [facility] KING MACHINE OPERATOR * Last Moon, CERTIFIED NURSE PRACTITIONER - 05/08/2014 10:19 AM BLACKING MACHINE OPERATOR Per Mesha at [facility], will not continue [id number] for ARU, awaiting insurance auth for SNF. 15:15 rec'd call from Elsa with [employer] [phone] [id number] requesting up dated clinical for [id number]. Dr. Omayra Canchola [phone]. [address] Canchola to clarify request. [facility] had initially requested, how ever, has chosen to drop request d/t pt advancement with PT/OT. Pt appropriate f or SNF. 16:[address] Canchola w/ [employer] [facility] auth [id number] provided. 17:00 DC orders faxed to [facility]. 17:15 rec'd call from Jonny at [facility], auth not posted on [employer] website , unable to accept pt w/o auth. 17:[address] Canchola/Elsa with [employer] who provide updated Auth [id number] and state Sofie will be corrections caseworker nurse following at [phone]. Website updated and auth granted. Call to Adamaris with [facility] who states Jonny has left for the day and unable to c heck auth status, can accept pt tomorrow. SW met with Pt/dtr who voice frustration with today's events. Dtr has been here all day and have [address] [facility] Dtr states she can stay with pt leatha lockett at her home and go to SNF in AM. Call to Taiwo Dubois, Care Integration mgr who is in agreement with pt going home if no lines are in place. SW left msg f or Elsa with [employer] with above plan. KING MACHINE OPERATOR * Last Moon MSW - 05/08/2014 9:00 AM BLACKING MACHINE OPERATOR Multidisciplinary Discharge Rounds Patient name: Samuel Alvarenga, Room: [facility] Demographic hx: A 63 y/o Female admitted on 05/02/2014, Inpatient status. DX, HX, TX, tests snapshot: 63 y/o F, admit 05/02 (INPT) Active Problems: CVA (cerebral infarction) Spell of transient neurologic symptoms HTN (hypertension) 05/03 NPO pending Muriel Huber, UE ataxia. R side weakness, repeat MRI today. PT/OT consult pending. Consults requested by multidisciplinary group: Baseline functioning: Independent with functional transfers;Independent with jhonny emaking;Modified independent with ADLs Current functionin' w/ RW Skin/Wounds: WDL Recent Tom Score: 19 Respiratory: room air Recent NIH: 5 Disciplines present: Nathen RN, Estelle gomez RN, CM, SW Barriers to discharge: patient acuity DR Anticipated Length of Stay: 4 days [facility] Discharge Date: 06-May-14 Anticipated DC disposition: SNF - [facility] (pending insurance auth) [facility] - [facility] in [place] (Ins denied ARU) - [place] today [facility] PRE-ADMISSION SCREENING FOR MENTAL ILLNESS/MENTAL RETARDATION OR RELATED CONDITION ([id number]): In pt folder for physician review and signature. KING MACHINE OPERATOR * Alyx Ashley - 05/07/2014 5:04 PM BLACKING MACHINE OPERATOR Patient is medically discharged. Working with social workers, patient, and physi donald for the plan for discharge. Pt no longer qualifies for inpt rehab. She does not feel comfortable going home and being alone and requests SNF transition. So cial work to fax to requested facilities. Daughter called and updated of this pl an and agrees to plan of care. Requests phone call when this is confirmed since she will be the one to pick the pt up and she lives 2hours away and works. Will pass this onto school social worker and W2 RN. Alyx Ashley KING MACHINE OPERATOR * Sandee Schilling, PT - 05/07/2014 3:46 PM BLACKING MACHINE OPERATOR 05/07/14 1000 Visit Info Patient/Family Reports pt states that she feels R side is getting better, admits to very nervous about walking without AD PT Received On 05/07/14 Cognition Overall Cognitive Status WFL Transfers Sit to Stand Transfers Stand by assistance Stand to Sit Transfers Stand by assistance Bed to Chair Min assist to left;Min assist to right Gait Gait Distance (Feet) 300x2 Assistive Device Rolling walker;None Gait Level Surface Assistance Minimal Pattern (dec R step length and clearance, improved with VC) Gait Unlevel Surface Assistance Minimal LE Ther Ex AROM 6 - 10 reps;Bilateral;Sitting LE Exercise Equipment Seated stepper # minutes 10 Seated stepper # level 2 Recommendation Plan Continued PT KING MACHINE OPERATOR * Hermila Hahn RN - 05/07/2014 3:39 PM BLACKING MACHINE OPERATOR Possible HH referral and met with pt. Upon further review of rehab needs and col laboration with the team, pt. Is likely to be DC'd to a SNF. Hermila Hahn corporate quality managerSteward/Stewardess [employer]. KING MACHINE OPERATOR * Noni Robertson OTR/L - 05/07/2014 2:38 PM BLACKING MACHINE OPERATOR 05/07/14 0949 OT Initial Visit Patient/Family Reports right hand does not always follow her commands but is get ting better OT Received On 05/07/14 Precautions Fall Risk Yes Pain Assessment Pain Score 0 ADL Grooming Supervision/Setup Grooming Type of Task Brushing Teeth;Combing/Brushing Hair;Washing, Rinsing and/ or Drying the face;Washing, Rinsing and/or Drying the hand Grooming Type of Assistance Setup of grooming supplies Lower Body Dressing Minimal Assistance Lower Body Dressing, Type of Clothing Pants;Left sock;Right sock (propped RLE on bed to don sock) Lower Body Dressing Type of Assistance Steadying assistance Cognition Overall Cognitive Status WFL Transfers Sit to Stand Transfers Min assist Stand to Sit Transfers Stand by assistance Balance Sitting Static 4 Sitting Dynamic 4 Balance Activity Sitting Surface EOB Sitting Activity static;wt shift;ADL Sitting Time 16-20 min Sitting Assistance SBA Activity Tolerance Activity Tolerance good UE Therapeutic Exercises and Therapeutic Activity AROM Bilateral;1-5;Home exercise program (comment) (scapula to wrist; cues for B coordination) Neuromuscular Re-education Left UE;Reaching;Grasping;Crossing midline;Sitting (pt able to manipulate items with incr time) Recommendation Plan Continued OT KING MACHINE OPERATOR * Last Moon MSW - 05/07/2014 11:53 AM BLACKING MACHINE OPERATOR Multidisciplinary Discharge Rounds Patient name: Samuel Alvarenga, Room: [facility] Demographic hx: A 63 y/o F admitted on 05/02/2014, Inpatient status. DX, HX, [place], tests snapshot: 63 y/o F, admit 05/02 (INPT) Active Problems: CVA (cerebral infarction) Spell of transient neurologic symptoms HTN (hypertension) 05/03 NPO pending Vid Jerow, UE ataxia. R side weakness, repeat MRI today. PT/OT consult pending. Consults requested by multidisciplinary group: Baseline functioning: Independent with functional transfers;Independent with jhonny emaking;Modified independent with ADLs Current functionin' w/ RW Skin/Wounds: WDL Recent Tom Score: 19 Respiratory: room air Recent NIH: 5 Disciplines present: Alyx RN, SW, CM, Kay RN Barriers to discharge: patient acuity DR Anticipated Length of Stay: 4 days Target Discharge Date: 06-May-14 Anticipated DC disposition: [facility] in [place] (final acceptance pending) [id number]: NA KING MACHINE OPERATOR * Last Moon MSW - 05/07/2014 11:33 AM BLACKING MACHINE OPERATOR Mesha kelin/ Kobi clinical update requested PT & doc note from weekend faxed Mesha F: [phone] SW met with pt. She states she does not feel safe and steady enough to go home. 15:30 ARU denied by [facility], SNF recommended. 15:45 SW met with pt w/ above and provided list of in-network SNFs from [facility].[address] [address] P: M: [phone] F: [phone] [address] [id number] placed in pt folder for physician review and signature. KING MACHINE OPERATOR * Damaris Rodriguez, PT - 05/06/2014 3:40 PM BLACKING MACHINE OPERATOR 05/06/14 1428 Visit Info Patient/Family Reports Patient reports she is doing fine, still having some clum siness with R hand. PT Received On 05/06/14 Precautions Fall Risk Yes Cognition Overall Cognitive Status WFL Communication Communication No Limitation Bed Mobility Supine to Sit Stand by assistance;Verbal cueing required (Max VCs for technique, pt. reports improved ease) Sit to Supine Stand by assistance;Verbal cueing required Transfers Assistive Device Rolling walker Sit to Stand Transfers Stand by assistance;Assistive Device Stand to Sit Transfers Stand by assistance;Assistive Device Gait Gait Distance (Feet) 200'x1, 100' x 1 Assistive Device Rolling walker Gait Level Surface Assistance Stand by;Verbal cueing required Pattern Decreased loki;Decreased heel strike;R Midfoot strike (R LE supination) Gait Unlevel Surface Assistance Minimal (Poor management of RW over carpet transitions) Activity Tolerance Activity Tolerance good LE Exercise Equipment Seated stepper # minutes 10 Seated stepper # level 4 *ASSESSMENT Response to Treatment Good Recommendation Plan Continued PT KING MACHINE OPERATOR * Violet Coleman DO - 05/06/2014 11:41 AM BLACKING MACHINE OPERATOR [facility] HOSPITALIST PROGRESS NOTE Assessment: Principal Problem: Stroke, lacunar left subcortical Active Problems: HTN (hypertension) Hypothyroid HLD (hyperlipidemia) Plan: Urinalysis with no infection Continue ASA and statin A1C 5.3 and BP stable Continue levothyroxine PMR rec inpatient rehab. She wants to be close to [place], [place] so social work assisting. Hopefully d/c on Wednesday Current Diet: Low fat/cholesterol, 2 gm sodium DVT PPx: SCDs Code Status: No Order Electronically signed by Violet Coleman 05/06/2014 11:41 AM Pager #: [phone] Subjective (F/u ): CVA Weakness improving. Feels depressed being away from family this morning. Decli dayton any medication assistance. Has family coming to visit later today. Objective: Vital Signs: BP 133/82 | Pulse 67 | Temp(Src) 36.6 C (97.9 F) (Oral) | Resp 18 | Ht 1.676 m (5' 6") | Wt 81.4 kg (179 lb 7.3 oz) | BMI 28.98 kg/m2 | SpO2 98 % Weight: Wt Readings from Last 3 Encounters: 05/02/14 81.4 kg (179 lb 7.3 oz) Intake/Output: Intake/Output Summary (Last 24 hours) at 05/06/14 1141 Last data filed at 05/05/14 2200 Gross per 24 hour Intake 120 ml Output 0 ml Net 120 ml Physical Exam: Gen: In no acute distress. Chest: Clear to auscultation bilaterally. CV: Regular rate and rhythm. Abd: Soft, positive bowel sounds, nontender, and nondistended. Ext: No edema. Neuro: 4/5 RUE and 4/5 RLE Laboratory Data: Most Recent Result within the last 7 days Lab Units 05/03/14 0308 WBC TH/uL 7.87 HEMOGLOBIN g/dL 13.4 HEMATOCRIT % 39 PLATELET COUNT TH/uL 256 Most Recent Result within the last 7 days Lab Units 05/06/14 0135 SODIUM MEQ/L 140 POTASSIUM MEQ/L 3.4* CHLORIDE MEQ/L 102 CARBON DIOXIDE MEQ/L 26 BLOOD UREA NITROGEN mg/dL 22 CREATININE mg/dL 0.9 GLUCOSE mg/dL 92 CALCIUM mg/dL 9.7 Imaging Data: Ct Angio Head And Perfusion P 05/02/2014 Impression: 1. Small unmatched perfusion abnormality within the left basal ganglia. No large vascular territory perfusion abnormality. 2. No CT gerald ographic evidence of arterial occlusion, significant stenosis, or aneurysmal dil atation. 3. No intracranial hemorrhage. Normal marino-white matter differentiatio n. 4. Age appropriate cerebral volume loss and mild chronic small vessel ischemi c disease. Findings discussed with Michelle with jr neuro at 9:35 p.m. on 05/02/2014. READING SITE: [facility]. ATTESTATION STATEMENT: The Staff Radiologist has personally reviewed the images and dictated, reviewed, or edited the final report. Ct Angio Neck 05/03/2014 IMPRESSION: Mild atherosclerosis of the right carotid bifurcation with less than 50% stenosis of the cervical right ICA at its origin per NASCET c riteria. Mild atherosclerosis of the left carotid bifurcation without stenosis of the cervical left ICA per NASCET criteria. The bilateral vertebral arteries are patent without stenosis. READING SITE: [facility]. ATTESTATION STATEMENT: The Staff Radiologist has personally reviewed the images and dictated , reviewed, or edited the final report. 4 Days [facility] KING MACHINE OPERATOR * Sandee Rodriguez, PT - 05/05/2014 2:33 PM BLACKING MACHINE OPERATOR 05/05/14 1320 Visit Info Patient/Family Reports Pt states she feels she is slowly getting stronger and mo re coordinated. PT Received On 05/05/14 Precautions Fall Risk Yes Transfers Sit to Stand Transfers (CGA) Stand to Sit Transfers (CGA) Gait Gait Distance (Feet) 150x2 Assistive Device Rolling walker (also without AD but with LAB ASST) Gait Level Surface Assistance Minimal;Stand by (SBA with RW, Min A for LAB ASST) Pattern Decreased loki;R Decreased step length;L Decreased step length;R Step page Gait Activity Gait Surface level surface (obstacles) Gait Activity sidestep;marching;room mobility;ladder stepping Gait Time 6-10 min Gait Assistance w/UE support;min assist Activity Tolerance Activity Tolerance fair;good LE Exercise Equipment Seated stepper # minutes 10 Seated stepper # level 2 (B UE/LEs) *ASSESSMENT Response to Treatment Fair Plan Progress Progressing toward goals Recommendation Plan Continued PT KING MACHINE OPERATOR * Violet Coleman, DO - 05/05/2014 1:37 PM BLACKING MACHINE OPERATOR [facility] HOSPITALIST PROGRESS NOTE Assessment: Principal Problem: Stroke, lacunar left subcortical Active Problems: HTN (hypertension) Hypothyroid HLD (hyperlipidemia) Plan: Repeat UA here as + leuk esterase at outside hospital (not done yesterday) Continue ASA and statin A1C 5.3 and BP stable Continue levothyroxine PMR rec inpatient rehab. She wants to be close to [place] so social work assisting. Reviewed findings of MRI/MRA with her Current Diet: Low fat/cholesterol, 2 gm sodium DVT PPx: SCDs Code Status: No Order Electronically signed by Violet Coleman 05/05/2014 1:37 PM Pager #: [phone] Subjective (F/u ): CVA Weakness improving. In better spirits today. No N/V. Objective: Vital Signs: BP 124/55 | Pulse 72 | Temp(Src) 36.8 C (98.3 F) (Oral) | Resp 18 | Ht 1.676 m (5' 6") | Wt 81.4 kg (179 lb 7.3 oz) | BMI 28.98 kg/m2 | SpO2 95 % Weight: Wt Readings from Last 3 Encounters: 05/02/14 81.4 kg (179 lb 7.3 oz) Intake/Output: Intake/Output Summary (Last 24 hours) at 05/05/14 1337 Last data filed at 05/05/14 1044 Gross per 24 hour Intake 0 ml Output 1200 ml Net -1200 ml Physical Exam: Gen: In no acute distress. Chest: Clear to auscultation bilaterally. CV: Regular rate and rhythm. Abd: Soft, positive bowel sounds, nontender, and nondistended. Ext: No edema. Neuro: / RUE and 09/02 RLE Laboratory Data: Most Recent Result within the last 7 days Lab Units 05/03/14 0308 WBC TH/uL 7.87 HEMOGLOBIN g/dL 13.4 HEMATOCRIT % 39 PLATELET COUNT TH/uL 256 Most Recent Result within the last 7 days Lab Units 05/03/14 0308 SODIUM MEQ/L 140 POTASSIUM MEQ/L 3.5 CHLORIDE MEQ/L 103 CARBON DIOXIDE MEQ/L 26 BLOOD UREA NITROGEN mg/dL 9 CREATININE mg/dL 0.7 GLUCOSE mg/dL 114* CALCIUM mg/dL 9.5 Imaging Data: Ct Angio Head And Perfusion P 05/02/2014 Impression: 1. Small unmatched perfusion abnormality within the left basal ganglia. No large vascular territory perfusion abnormality. 2. No CT gerald ographic evidence of arterial occlusion, significant stenosis, or aneurysmal dil atation. 3. No intracranial hemorrhage. Normal marino-white matter differentiatio n. 4. Age appropriate cerebral volume loss and mild chronic small vessel ischemi c disease. Findings discussed with Michelle with jr valdes at 9:35 p.m. on 05/02/2014. READING SITE: [facility]. ATTESTATION STATEMENT: The Staff Radiologist has personally reviewed the images and dictated, reviewed, or edited the final report. Ct Angio Neck 05/03/2014 IMPRESSION: Mild atherosclerosis of the right carotid bifurcation with less than 50% stenosis of the cervical right ICA at its origin per NASCET c riteria. Mild atherosclerosis of the left carotid bifurcation without stenosis of the cervical left ICA per NASCET criteria. The bilateral vertebral arteries are patent without stenosis. READING SITE: [facility]. ATTESTATION STATEMENT: The Staff Radiologist has personally reviewed the images and dictated , reviewed, or edited the final report. 3 Days [facility] KING MACHINE OPERATOR * Sanna Enrique RN - 05/05/2014 6:57 AM BLACKING MACHINE OPERATOR Epic downtime from [id number] 05/05/2014. KING MACHINE OPERATOR * Violet Coleman, DO - 05/04/2014 2:40 PM BLACKING MACHINE OPERATOR [facility] HOSPITALIST PROGRESS NOTE Assessment: Principal Problem: Stroke, lacunar left subcortical Active Problems: HTN (hypertension) Hypothyroid HLD (hyperlipidemia) Plan: Repeat UA here as + leuk esterase at outside hospital (not done yesterday) Continue ASA and statin A1C 5.3 Continue levothyroxine PMR rec inpatient rehab. She wants to be close to [place], [place]. Current Diet: Low fat/cholesterol, 2 gm sodium DVT PPx: SCDs Code Status: No Order Electronically signed by Violet Coleman 05/04/2014 2:40 PM Pager #: [phone] Subjective (F/u ): CVA Weakness improving. In better spirits today. No N/V. Objective: Vital Signs: BP 112/69 | Pulse 60 | Temp(Src) 36.9 C (98.5 F) (Oral) | Resp 16 | Ht 1.676 m (5' 6") | Wt 81.4 kg (179 lb 7.3 oz) | BMI 28.98 kg/m2 | SpO2 96 % Weight: Wt Readings from Last 3 Encounters: 05/02/14 81.4 kg (179 lb 7.3 oz) Intake/Output: Intake/Output Summary (Last 24 hours) at 05/04/14 1440 Last data filed at 05/04/14 0900 Gross per 24 hour Intake 300 ml Output 0 ml Net 300 ml Physical Exam: Gen: In no acute distress. Chest: Clear to auscultation bilaterally. CV: Regular rate and rhythm. Abd: Soft, positive bowel sounds, nontender, and nondistended. Ext: No edema. Neuro: 4/5 RUE and 4/5 RLE Laboratory Data: Most Recent Result within the last 7 days Lab Units 05/03/14 0308 WBC TH/uL 7.87 HEMOGLOBIN g/dL 13.4 HEMATOCRIT % 39 PLATELET COUNT TH/uL 256 Most Recent Result within the last 7 days Lab Units 05/03/14 0308 SODIUM MEQ/L 140 POTASSIUM MEQ/L 3.5 CHLORIDE MEQ/L 103 CARBON DIOXIDE MEQ/L 26 BLOOD UREA NITROGEN mg/dL 9 CREATININE mg/dL 0.7 GLUCOSE mg/dL 114* CALCIUM mg/dL 9.5 Imaging Data: Ct Angio Head And Perfusion P 05/02/2014 Impression: 1. Small unmatched perfusion abnormality within the left basal ganglia. No large vascular territory perfusion abnormality. 2. No CT gerald ographic evidence of arterial occlusion, significant stenosis, or aneurysmal dil atation. 3. No intracranial hemorrhage. Normal marino-white matter differentiatio n. 4. Age appropriate cerebral volume loss and mild chronic small vessel ischemi c disease. Findings discussed with Michelle with jr neuro at 9:35 p.m. on 05/02/2014. READING SITE: [facility]. ATTESTATION STATEMENT: The Staff Radiologist has personally reviewed the images and dictated, reviewed, or edited the final report. Ct Angio Neck 05/03/2014 IMPRESSION: Mild atherosclerosis of the right carotid bifurcation with less than 50% stenosis of the cervical right ICA at its origin per NASCET c riteria. Mild atherosclerosis of the left carotid bifurcation without stenosis of the cervical left ICA per NASCET criteria. The bilateral vertebral arteries are patent without stenosis. READING SITE: [facility]. ATTESTATION STATEMENT: The Staff Radiologist has personally reviewed the images and dictated , reviewed, or edited the final report. 2 Days [facility] KING MACHINE OPERATOR * Sandee Schilling, PT - 05/04/2014 2:35 PM BLACKING MACHINE OPERATOR 05/04/14 1300 Visit Info Patient/Family Reports pt with c/o R hip pain on occ but states that it is chron ic in nature PT Received On 05/04/14 Transfers Sit to Stand Transfers Min assist Stand to Sit Transfers Min assist Transfer Comments sit to stand reps with chaining mid txfer static hold x5 sec w ith Drea with cueing for equal WBing and muscle use Gait Gait Distance (Feet) 300x2 Assistive Device Rolling walker Gait Level Surface Assistance Minimal Balance Activity Standing Surface level surface Standing Activity static;wt shift;ADL Standing Assistance min assist Standing Activity Comments muscle facilitation at R lateral lumbar flexors and a bd for midline posture and weightshift LE Ther Ex AROM Bilateral;6 - 10 reps;Sitting;Standing Recommendation Plan Continued PT KING MACHINE OPERATOR * Zo Marion CCC-RETAIL ASSET PROTECTION SPECIALIST - 05/04/2014 2:08 PM BLACKING MACHINE OPERATOR 05/04/14 1408 RETAIL ASSET PROTECTION SPECIALIST Visit Info Patient/Family Reports Patient reportedly feeling much better today. RETAIL ASSET PROTECTION SPECIALIST Received On 05/04/14 Swallow Function Diet Treatment Tolerate;Thin liquid;Regular texture Oral Motor Function Other Tx Right side facial weakness has resolved. No more facial droop present and patient's speech is at her baseline. Patient did report that sensation jordan ins altered in some areas. Recommendation Recommendations Discharge from formal speech therapy. Findings/Plan reviewed With Patient KING MACHINE OPERATOR * Last Moon MSW - 05/04/2014 12:50 PM BLACKING MACHINE OPERATOR [facility] [address], [address] floor [place], [place] [phone] O: [phone] F: [phone] Mesha -- clinical faxed Fm to transport. 13:00 Call to [facility], [place] left for Mesha. 13:30 SW rec'd call from Mesha. Beds available, fax number given. 16:00 Mesha: Insurance info ARU days 1-5 copay $335/day then covered 100%. Skilled Benefits day 1-14 zero copay Day 15-21 $25/ day 22-100 $125 daily 16:15 SW reviewed above with pt Patient/family in agreement with above plan. Re ferral to [facility] for Medicaid screen to provide secondary coverage. KING MACHINE OPERATOR * Last Moon MSW - 05/04/2014 11:17 AM BLACKING MACHINE OPERATOR Multidisciplinary Discharge Rounds Patient name: Samuel Alvarenga, Room: [facility] Demographic hx: A 63 y/o F admitted on 05/02/2014, Inpatient status. DX, HX, [place], tests snapshot: 63 y/o F, admit 05/02 (INPT) Active Problems: CVA (cerebral infarction) Spell of transient neurologic symptoms HTN (hypertension) 05/03 NPO pending Vid Swollow, UE ataxia. R side weakness, repeat MRI today. PT/OT consult pending. Consults requested by multidisciplinary group: Baseline functioning: Independent with functional transfers;Independent with jhonny emaking;Modified independent with ADLs Current functionin' w/ RW Skin/Wounds: WDL Recent Tom Score: 19 Respiratory: room air Recent NIH: 5 Disciplines present: Sally ACKERMAN, Estelle gomez RN, SW, CM Barriers to discharge: patient acuity DR Anticipated Length of Stay: 4 days Target Discharge Date: 05/06/2014 Anticipated DC disposition: PMR consult pending [id number]: NA KING MACHINE OPERATOR * Millie Christian, OT - 05/04/2014 10:37 AM BLACKING MACHINE OPERATOR 05/04/14 1027 OT Initial Visit Initial OT Visit On 05/04/14 Assessed for Rehab Yes Referral Reason eval and treat Patient/Family Reports Pt doing good. She says her right hand doesn't move how s he wants it to all the time. Very cooperative and pleasant to work with OT Received On 05/04/14 Precautions Fall Risk Yes Home Living Type of Home INDEP Living Home Layout One level Stairs to enter elevator Lives With Alone Bathroom Shower/Tub Walk-in shower Bathroom Toilet Standard Bathroom Equipment Grab bars in shower Home Assistive Device Rolling walker (only uses it if her hip bothers her) Prior Function Level of [place] Modified independent with ADLs;Modified independent with f unctional transfers;Modified independent with ambulation Receives Help From Family ADL Grooming Minimal Assistance Lower Body Dressing Moderate Assistance Lower Body Dressing, Type of Clothing Left sock;Right sock Lower Body Dressing Type of Assistance Physical assistance;Steadying assistance ADL Comments Has difficulty bending over due to her hip. She said she tried to u se her right hand this morning to eat but "I made a mess everywhere". Cognition Overall Cognitive Status WFL Communication Communication No Limitation Vision - Complex Assessment Vision Intact Yes Glasses Yes;Reading Sensation Additional Comments Pt was able to localize pen touch on both her right and left hand in various dermatomes. She reports having trouble with grasping and how reza rd to hold on to things Proprioception Proprioception Intact RUE Assessment RUE Assessment WFL RUE Comments uncoordinated movement but WFL (3+/5) LUE Assessment LUE Assessment WFL LUE Comments 4-/5 Hand Function Dominant Hand/Side Right Gross Grasp Right;Impaired;Left;Functional Gross Release Right;Impaired;Left;Functional Coordination Right;Impaired Impaired Hand Coordination Serial Opposition;Finger to Nose;Rapid Alternating Transfers Sit to Stand Transfers Min assist;Stand by assistance;Verbal cueing required (CGA) Stand to Sit Transfers Min assist;Stand by assistance;Verbal cueing required (CGA) Gait Gait Level Surface Assistance Minimal;Stand by (CGA) Assistive Device Rolling walker Balance Activity Sitting Activity Comments Pt sat in bed side chair. Therapist educated simple AR OM exercises to increase her right arm strength and coordination. She moved her right arm in various UE planes and worked on moving it slowly and controlled. Co mpleted 10 times. Worked on opening/closing hand 10 times and serial opposition. Gait Activity Gait Surface level surface Gait Activity Other (comment) (ambulated up and down hallway, about 100 feet) Gait Time 0-5 min Gait Assistance min assist;SBA (CGA) Activity Tolerance Activity Tolerance good Assessment Learning Barriers None Response to Treatment Excellent Problem List Decreased IADL participation;Decreased ADL participation;Decreased A/PROM;Decreased activity tolerance;Decreased fine motor coordination/dexterity; Decreased strength;Decreased functional mobility;Impaired sensation Timeframe Timeframe STG 3-5 days Timeframe LTG 2-3 weeks Grooming Goals Grooming STG Goal Status New goal Grooming STG Setup/Supervision LB Dressing Goals LB Dressing STG Goal Status New goal LB Dressing STG Minimal Assistance LB Dressing LTG Goal Status New goal LB Dressing LTG Setup/Supervision Toilet Transfer Goals Toilet Transfer LTG Goal Status New goal Toilet Transfer LTG Setup/Supervision Strength Goals Strength STG Goal Status New goal Strength STG Left;Right;In prep for ADLs Other OT Goals Patient/Caregiver Goal to get her right hand back to normal Home Exercise Program Goal Pt will be educated and complete HEP for UE strengthe vikram and gross and fine motor coordination with right side. Plan Pt/Family involved in Plan of Care yes Treatment Interventions ADL retraining;Functional transfer training;Functional a ctivity tolerance;UE strengthening/ROM;Neuromuscular reeducation;Fine motor coor dination activities Frequency 3-5x/wk Recommendation Plan Continued OT KING MACHINE OPERATOR * Millie Christian, OT - 05/03/2014 3:26 PM BLACKING MACHINE OPERATOR 05/03/14 1525 OT Initial Visit OT Deferred On 05/03/14 Deferred comments Pt at video swallow and OOR. WIll follow up tomorrow KING MACHINE OPERATOR * Audrey Montes, MS [facility]-RETAIL ASSET PROTECTION SPECIALIST - 05/03/2014 3:14 PM BLACKING MACHINE OPERATOR 05/03/14 1500 RETAIL ASSET PROTECTION SPECIALIST Visit Info Initial RETAIL ASSET PROTECTION SPECIALIST Visit On 05/03/14 Assessed for Rehab Yes Referral Reason f/u VFSS to rule out aspiration Visit # 2 Swallow Subjective Subjective Modified Barium Swallow Study Thin Presentation - Thin Cup Oral - Thin WFL Pharyngeal - Thin WFL Penetration None Aspiration - Thin No rito aspiration appreciated [place] Presentation - [place] Cup Oral - [place] WFL Pharyngeal - [place] WFL Penetration None Aspiration - [place] No rito aspiration appreciated Pudding Presentation - Pudding Spoon Oral - Pudding WFL Pharyngeal - Pudding Delayed swallow initiation (hypersensitive gag reflex) Penetration None Aspiration - Pudding No rito aspiration appreciated Solid Presentation - Solid Spoon Oral - Solid WFL Pharyngeal - Solid WFL Penetration None Aspiration - Solid No rito aspiration appreciated Aspiration Risk Risk for Aspiration None Recommendations Diet Solids Recommendation Regular consistency Diet Liquids Recommendations No liquid consistency restrictions Compensatory Swallowing Strategies Upright as possible for all oral intake;Remai n upright for 20-30 minutes after meals Objectives Findings/Plan reviewed with Family/caregivers RETAIL ASSET PROTECTION SPECIALIST Timed Treatment Timed Minutes 30 Total Treatment Minutes 30 VFSS completed with normal swallow physiology of all textures. Hypersensitive g ag reflex observed with poor-tasting pudding bolus. Patient reported to be norm al reaction. Education provided to family and RN regarding study. No further s peech/language needs identified at this time. Please re-consult with any furthe r questions/concerns. Thank you- KING MACHINE OPERATOR * Sandee Rodriguez, PT - 05/03/2014 3:05 PM BLACKING MACHINE OPERATOR 05/03/14 1430 Visit Info Initial PT Visit On 05/03/14 Assessed for Rehab Yes Referral Reason L MCA CVA Patient/Family Reports Pt daughter states coordination is much improved, pt agre eable to work with PT. 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 Cognition Overall Cognitive Status WFL Orientation Level Oriented to person;Oriented to place;Oriented to time;Oriented to situation Bed Mobility Rolling Stand by assistance Supine to Sit Stand by assistance Transfers Assistive Device Rolling walker Sit to Stand Transfers Min assist Stand to Sit Transfers Min assist Bed to Chair Min assist to left;Assistive Device (CGA) Gait Gait Distance (Feet) 10 Assistive Device Rolling walker Gait Level Surface Assistance (CGA) Pattern Decreased loki;R Decreased step length;L Decreased step length;R Step page Activity Tolerance Activity Tolerance fair Sensation Light Touch Impaired Light Touch Area RLE;RUE Stereognosis Intact RLE Assessment RLE Assessment (grossly 4-/5) LLE Assessment LLE Assessment WFL UE Ther Ex AROM Bilateral;6 - 10 reps *ASSESSMENT Response to Treatment Fair;Tolerated well Problem List Activity tolerance;Balance;Bed mobility;Caregiver education;Gait;Pa in;Precaution education;ROM;Safety;Stairs;Transfers;Strength;Decreased gait spee d Timeframe Timeframe STG 5 visits Timeframe LTG 10 visits Bed Mobility Goals Bed Transfer STG Goal Status New goal Bed Mobility STG Modified independent Transfer Goals Transfer STG Goal Status New goal Transfer STG Modified independent Transfer STG - Assistive Device Rolling walker Gait Distance/Assist Goals Gait Distance STG (ft) 150 ft Gait Distance STG Goal Status New goal Gait Assist STG Standby assist Gait STG - Assistive Device Rolling walker Standing Balance Goals Standing Balance STG Goal Status New goal Standing Balance STG 4 Other Goals Other Goal 1 LTG: Pt will complete all functional mobility with RW Mod I to allo w safe return home at dc Plan Treatment/Interventions Functional transfer training;LE strengthening/ROM;Endura nce training;Patient/family training;Bed mobility;Equipment eval/education;Gait training;Compensatory technique education;Balance;Safety training;Progressive Mo bility;Modalities Frequency 3-5x/wk Recommendation Plan Continued PT KING MACHINE OPERATOR * Violet Coleman, DO - 05/03/2014 2:10 PM BLACKING MACHINE OPERATOR [facility] HOSPITALIST PROGRESS NOTE Assessment: Active Problems: CVA (cerebral infarction) Spell of transient neurologic symptoms HTN (hypertension) Hypothyroid HLD (hyperlipidemia) Plan: Repeat UA here as + leuk esterase at outside hospital Permissive HTN for now Continue ASA and statin Continue levothyroxin Stroke pathway and neurology following Continue PT/OT/ST ECHO reviewed and no abnormalities Current Diet: Low fat/cholesterol, 2 gm sodium DVT PPx: SCDs Code Status: No Order Electronically signed by Violet Coleman 05/03/2014 2:11 PM Pager #: [phone] Subjective (F/u ): CVA Patient still having right hemiparesis. No pelvic pain. No current N/V. Objective: Vital Signs: BP 172/80 | Pulse 73 | Temp(Src) 36.7 C (98 F) (Oral) | Resp 18 | Ht 1.676 m (5' 6") | Wt 81.4 kg (179 lb 7.3 oz) | BMI 28.98 kg/m2 | SpO2 94% Weight: Wt Readings from Last 3 Encounters: 05/02/14 81.4 kg (179 lb 7.3 oz) Intake/Output: No intake or output data in the 24 hours ending 05/03/14 1411 Physical Exam: Gen: In no acute distress. Chest: Clear to auscultation bilaterally. CV: Regular rate and rhythm. Abd: Soft, positive bowel sounds, nontender, and nondistended. Ext: No edema. Neuro: / RUE and 09/02 RLE Laboratory Data: Most Recent Result within the last 7 days Lab Units 05/03/14 0308 WBC TH/uL 7.87 HEMOGLOBIN g/dL 13.4 HEMATOCRIT % 39 PLATELET COUNT TH/uL 256 Most Recent Result within the last 7 days Lab Units 05/03/14 0308 SODIUM MEQ/L 140 POTASSIUM MEQ/L 3.5 CHLORIDE MEQ/L 103 CARBON DIOXIDE MEQ/L 26 BLOOD UREA NITROGEN mg/dL 9 CREATININE mg/dL 0.7 GLUCOSE mg/dL 114* CALCIUM mg/dL 9.5 Imaging Data: Ct Angio Head And Perfusion P 05/02/2014 Impression: 1. Small unmatched perfusion abnormality within the left basal ganglia. No large vascular territory perfusion abnormality. 2. No CT gerald ographic evidence of arterial occlusion, significant stenosis, or aneurysmal dil atation. 3. No intracranial hemorrhage. Normal marino-white matter differentiatio n. 4. Age appropriate cerebral volume loss and mild chronic small vessel ischemi c disease. Findings discussed with Michelle with jr neuro at 9:35 p.m. on 05/02/2014. READING SITE: [facility]. ATTESTATION STATEMENT: The Staff Radiologist has personally reviewed the images and dictated, reviewed, or edited the final report. Ct Angio Neck 05/03/2014 IMPRESSION: Mild atherosclerosis of the right carotid bifurcation with less than 50% stenosis of the cervical right ICA at its origin per NASCET c riteria. Mild atherosclerosis of the left carotid bifurcation without stenosis of the cervical left ICA per NASCET criteria. The bilateral vertebral arteries are patent without stenosis. READING SITE: [facility]. ATTESTATION STATEMENT: The Staff Radiologist has personally reviewed the images and dictated , reviewed, or edited the final report. 1 Days [facility] KING MACHINE OPERATOR * Last Moon MSW - 05/03/2014 12:39 PM BLACKING MACHINE OPERATOR Multidisciplinary Discharge Rounds Patient name: Sameul Alvarenga Room: [facility] Disciplines present: Ana Laura ACKERMAN, Elizabeth gomez RN, CM, SW, Chap, Rehab. Hx, current treatments & pending tests: 63 y/o F, admit 05/02 (INPT) Active Problems: CVA (cerebral infarction) Spell of transient neurologic symptoms HTN (hypertension) 05/03 NPO pending Vid Mayo, UE ataxia. R side weakness, repeat MRI today. PT/OT consult pending. Recent NIH: 5 Consults needed: Barriers to discharge: patient acuity Expected Length of Stay: ([id number]) 4 days Target DC date: 05/06/2014 Anticipated DC disposition: OTPT therapy? Baseline functioning: Current functioning: mod asst w/ nurisng Skin/wounds: recent Tom: 19 WDL Respiratory: room air Discussion of Pt mutually agreed upon goals: Support system: KING MACHINE OPERATOR * Audrey Montes MS CCC-RETAIL ASSET PROTECTION SPECIALIST - 05/03/2014 11:23 AM BLACKING MACHINE OPERATOR 05/03/14 1100 RETAIL ASSET PROTECTION SPECIALIST Visit Info Initial RETAIL ASSET PROTECTION SPECIALIST Visit On 05/03/14 Assessed for Rehab Yes Referral Reason Bedside swallow evaluation Patient/Family Reports Clears throat frequently RETAIL ASSET PROTECTION SPECIALIST Received On 05/03/14 Visit # 1 Swallow Subjective Subjective Bedside Swallow Evaluation Oral/Motor Labial ROM WFL Labial Symmetry WFL Labial Strength WFL Labial Sensation WFL Lingual ROM WFL Lingual Symmetry WFL Lingual Strength WFL Lingual Sensation WFL Facial ROM WFL Facial Symmetry Right facial droop Facial Strength WFL Facial Sensation WFL Velum WFL Mandible WFL Vocal Quality WFL Vocal Intensity Mildly decreased Apraxia None present Intelligibility Intelligible Intelligibility Rating 81%-99% Dysarthria No Consistencies Assessed Consistencies Assessed Yes Thin Presentation Cup Oral WFL Pharyngeal Throat clearing - delayed (Consistent occurence despite postural change) Puree Presentation Spoon Oral WFL Pharyngeal Throat clearing - delayed;Cough - delayed Aspiration Risk Risk for Aspiration Moderate Recommendations Recommendations Modified barium swallow study Diet Solids Recommendation No solids, see liquids Diet Liquids Recommendations No liquids Objectives Findings/Plan reviewed with Family/caregivers RETAIL ASSET PROTECTION SPECIALIST Timed Treatment Timed Minutes 15 Total Treatment Minutes 15 Failed BSE at 1115 VFSS ordered and scheduled for 1430. RN and patient/family notified. KING MACHINE OPERATOR * PozoMichelle whittington Chinedu - 05/02/2014 10:10 PM BLACKING MACHINE OPERATOR Patient was assessed for stroke. NIH 5. According to the patient she had a coupl e of episodes this am of profound weakness on the right side, lasting 3-5 minute s. She called 911 and was taken to [facility]. A stroke work up was conducted a nd the patient was taken home. Several hours later the patient experienced the same symptoms and called 911. She was taken back to [facility] and subsequently transferred to [facility]. Her weakness has not completely resolved. The decision was to do a CT angio and perfusion by Dr. Huang. The report was positive per radiolog y resident and the information was given to Dr. Huang and Dr. Reeves. KING MACHINE OPERATOR documented in this encounter H&P Notes * Tierra Henao DO - 05/02/2014 7:59 PM BLACKING MACHINE OPERATOR [facility] ROLL GRINDER OPERATOR Hospitalist - History and Physical Name: Samuel Alvarenga Gender: female Date of : 1950 Age: 63 y.o. Date/Time of Admit: 05/02/2014 7:32 PM Code Status: No Order Primary Care Provider: Family D No Current History Chief Complaint: right-sided facial numbness and UE/LE weakness History of Present illness: Ms. Samuel Alvarenga is a 63 y.o. female who presented to [place] ED with c/o right facial numbness and right UE weakness/numbness which started at 0600 when pt was getting ready. Her arm felt "limp" and right l eg. Pt states it resolved then occurred again at 6:30 am so EMS was activated an d pt went to ED. Episodes lasted approx 5 minutes. Pt did say she had associated anxiety during these episodes. On arrival BP 176/59 hr 67, afebrile, and sat 98% on RA. Pt had carotid US, CT head, and MRI head all negative for acute findings. CXR with no acute abnormalit ies. Pt was given aspirin, IVF's, and toradol x1, labetolol x1. Of note BP was as high as 217/89. Then pt sent home. Pt had to use father's walker as could not move right leg. Pt then returned to ER as around 1:30pm she again had c/o prob lems "moving and controlling her right side" and "words" as well as "right facia l droop." Lasted 5 minutes. Pt continues with profound ataxia and b/l arm drift with delayed responses. No vision changes. Pt does complain of "all over headach e." Per OSH records: OSH labs: INR 1.0, ptt 26.6, wbc 8.7, hgb 13.7, hct 41.3, plat 250. Na 139, k 3. 5, cl 104, co2 26, ca 9.2, bun 11, scr 0.93, glucose 115, tp 7.3, alb 3.6, tb 0. 5, alk , ast 20, alt 32, tsh 0.68. U/a neg for infection. Radiology: CT head: no evidence of acute IC hemm, subtle patchy low attenuation noted within the left temporal which is non specific but concerning for age inde terminate ischemia/infarction. Patchy low attenuation within the b/l periventric ular and subcortical white matter consistent with mild to moderate age indetermi yesica small vessel ischemic changes. MRI- moderate small vessel chronic ischemic microangiopathic changes; no acute a bnormalities. Carotid US on left: LICA 40-59% stenosis; may be artifact. EKG: NSR HR 75, no acute ST changes. Review of Systems: A 12 point review of systems was completed and was negative e xcept as per above. Past History Past Medical History Diagnosis Date Stroke No past surgical history on file. No family history on file. History Social History Marital Status: Spouse Name: N/A Number of Children: N/A Years of Education: N/A Occupational History Not on file. Social History Main Topics Smoking status: Not on file Smokeless tobacco: Not on file Alcohol Use: Not on file Drug Use: Not on file Sexually Active: Not on file Other Topics Concern Not on file Social History Narrative No narrative on file There is no immunization history for the selected administration types on file f or this patient. Allergies & Medications Allergies: No Known Allergies Prior to Admission medications reviewed Exam Vital Signs: Blood Pressure: BP: 158/70 mmHg Pulse: Pulse: 67 Temperature: Temp: 36.7 C (98 F) Respirations: Resp: 16 Admission Weight: Weight: 81.4 kg (179 lb 7.3 oz) O2 Saturation: SpO2: 100 % BMI: Body mass index is 28.98 kg/(m^2). Physical Exam: Gen: WD/WN, A/Ox3, tearful HEENT: NC/AT, PERRLA, EOMI, dry mucus membranes Neck: Supple, no JVD, LAD, or carotid bruits CV: RRR, no murmurs, clicks, or rub, 2+ peripheral pulses in all extremities Pulm: CTAB, no wheezes, rales, or rhonchi Abd: S/NT/ND, +BS, no HSM, no r/r/g Skin: Warm, dry, intact, no rashes Ext: No c/c/e Neuro: Cranial nerves II-XII grossly intact. B/l hand drifts. Ataxia upon sta nding. Car Supplier strength equal b/l. Strength muscle 4/5 RUE and 5/5 LUE, 5/5 UE/LE o n left. Slow to answer but no dysarthria. Diagnostics Lab Data: See above EKG: See above Imaging/Study Results: See above Assessment & Plan Assessment: 63 y.o. female who presents with: Active Problems: CVA (cerebral infarction) Spell of transient neurologic symptoms HTN (hypertension) Plan: -neurology consult -monitor BP with goal <200 for now -additional imaging per neuro- CTA head and neck; pt will go to imaging now -continue apirin daily -start tia/stroke protocol to include PT/OT/ST Current Diet: NPO DVT PPx: SCD's Code Status: No Order DPOA: son and daughter at bedside Disp: Admit patient to neuro/tele floor . Time: Spent minutes on chart review, patient interview/exam, and treatment plan formation. Electronically signed by Tierra Henao 05/02/2014 8:59 PM, Paging [phone] cc: Family D No KING MACHINE OPERATOR documented in this encounter Consult Notes * Naz Rutledge MD - 05/04/2014 11:00 AM BLACKING MACHINE OPERATOR Associated Order(s): IP CONSULT TO PHYSICAL MEDICINE AND REHABILITATION [facility] PHYSICAL MEDICINE AND REHABILITATION CONSULT 05/03/2014 Patient Identification Patient's Name: Samuel Alvarenga : 1950 Admit Date: 05/02/2014 Attending Provider: Violet Coleman, * Patient was seen and evaluated by the Physical Medicine & Rehabilitation Medicine consult service at the request of Violet Coleman, * for rehabilitation needs. Primary Care Physician: Family Luong No Admitting Diagnosis: Acute, but ill-defined, cerebrovascular disease [436] ASSESSMENT Left brain stroke Right hemiparesis Right hemiataxia Gait disturbance Dysarthria Chronic right hip/knee pain PLAN 1. PT will address functional deficits in bed mobility, transfers,and ambulation . 2. OT will continue to address ADL's and upper extremity weakness/discoordinatio n. 3. Speech therapy will evaluate dysarthria. 4. Social Work consult for discharge planning when medically appropriate. 5. DVT ppx is being addressed with SCD's.. 6. Bladder and bowel issues to address: none reported. 7. Rehabilitation Disposition: Recommend acute inpatient rehab. Patient requests facility near her home in [facility] if possible. PM&R service will continue to follow patient to advise on further rehabilitation needs as they become known. Naz Rutledge M.D. HISTORY OF PRESENT ILLNESS Samuel Alvarenga is a 63 y.o. right handed female who woke up morning of 05/02/14) to go to the bathroom. After she stood up from toilet, she felt a sudden onset o f weakness on her right side with a tingling sensation. She was able to get dres sed and took the elevator with her walker up to her fathers apartment. When she yelled for her father, her speech was slurred. She proceeded to call 911 and was taken to [facility] in [place]. She noticed her speech improved slightly upon arrival to [place]. CT head as well as MRI were negative for acute find ings. U/S carotid duplex showed 40-59% left ICA stenosis. She continued to have right sided weakness and was discharged home. She had quite a bit of difficulty getting into the apartment. Her daughter had to go get a wheelchair at the apart ment (correction facility) to get her inside. While in the apartment, she not ed she was dragging her right foot and having difficulty holding onto her walker with her right hand. At approximately 1330 she started feeling "fuzzy" in her h ead and felt lightheaded. She noted her speech became more "thick" again. She ca lled 911 and went to [place] for a second evaluation. Her blood pressure was 217/89 and was in normal sinus rhythm. She was given Labetalol and placed on a C ardene drip. She had another CT of her head and was sent for further evaluation to [facility] for waxing and waning symptoms. Patient has continued wea kness and decreased coordination of right upper extremity. Neurology consult and further work up for stroke is ongoing. 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 She lives in an artment independently and her father lives up stairs. PREMORBID & CURRENT FUNCTION Prior Level of Function: Independent with ADLs, transfers, and gait without an a ssistive device. DME at home: rolling walker (has not used recently) Current Functional Status: Min A to Mod A required for mobility and ADLs. Support System and Family Circumstances (i.e., potential caregivers): lives [place] Home Environment / Accessibility: apartment (correction); father lives in [facility] on different level. Patient cares for father. She has 2 sisters wh o live near and plan to assist her. Patient also has adult daughter. ALLERGIES No Known Allergies MEDICATIONS aspirin 81 mg Oral Daily Or aspirin 81 mg Per NG tube Daily Or aspirin 300 mg Rectal Daily atorvastatin 20 mg Oral Nightly docusate sodium 100 mg Oral BID Or docusate 100 mg Oral BID levothyroxine 100 mcg Oral Daily REVIEW OF SYSTEMS A 12 point comprehensive review of systems was negative except for: chronic righ t hip and knee pain, slurred speech, right sided weakness and decreased coordina tion. PHYSICAL EXAM Patient Vitals for the past 24 hrs: BP Temp Temp src Pulse Resp SpO2 Height Weight 05/03/14 0735 163/83 mmHg 36.6 C (97.8 F) Oral 65 20 97 % - - 05/03/14 0423 144/65 mmHg 36.7 C (98 F) Oral 67 18 94 % - - 05/03/14 0128 154/84 mmHg 36.9 C (98.5 F) Oral 69 18 95 % - - 05/03/14 0002 149/73 mmHg 36.5 C (97.7 F) Oral 71 18 98 % - - 05/02/14 2149 168/63 mmHg 36.4 C (97.6 F) Oral 67 18 100 % - - 05/02/142050 - - Oral - - - - - 05/02/14 1943 158/70 mmHg 36.7 C (98 F) Oral 67 16 100 % 1.676 m (5' 6") 81. 4 kg (179 lb 7.3 oz) General Appearance: Well developed, well nourished female in no acute distress. HEENT: Head is normocephalic, atraumatic. PERRL, EOMI. Neck is supple. Heart: Regular, rate and rhythm. Lungs: Clear to auscultation bilaterally. Abdomen: soft, non-tender to palpation, active bowel sounds. Ext: No clubbing, cyanosis or edema. Pulses: 2+ at dorsalis pedis. Neurologic examination: Alert and oriented to person, place, and time. CN II-XI I grossly intact except mildly decreased right face. MMT revealed 5/5 strength L UE/LLE; 4/5 RUE and 4+/5 RLE. Sensation is intact to light touch except decrease d right face, arm, and less so in leg. Finger to nose is dystaxic RUE only. No o bvious truncal ataxia in sitting position. Gait is deferred. DATA REVIEW (LAB) Lab Results Component Value Date WBC 7.87 05/03/2014 HGB 13.4 05/03/2014 HCT 39 05/03/2014 MCV 86 05/03/2014 PLT 256 05/03/2014 Most Recent Result within the last 7 days Lab Units 05/03/14 0308 SODIUM MEQ/L 140 POTASSIUM MEQ/L 3.5 CHLORIDE MEQ/L 103 CARBON DIOXIDE MEQ/L 26 BLOOD UREA NITROGEN mg/dL 9 CREATININE mg/dL 0.7 GLUCOSE mg/dL 114* CALCIUM mg/dL 9.5 DATA REVIEW (IMAGING) Ct Angio Head And Perfusion P 05/02/2014 Impression: 1. Small unmatched perfusion abnormality within the left basal ganglia. No large vascular territory perfusion abnormality. 2. No CT gerald ographic evidence of arterial occlusion, significant stenosis, or aneurysmal dil atation. 3. No intracranial hemorrhage. Normal marino-white matter differentiatio n. 4. Age appropriate cerebral volume loss and mild chronic small vessel ischemi c disease. Findings discussed with Michelle with jr neuro at 9:35 p.m. on 05/02/2014. READING SITE: [facility]. ATTESTATION STATEMENT: The Staff Radiologist has personally reviewed the images and dictated, reviewed, or edited the final report. Ct Angio Neck 05/02/2014 IMPRESSION: Mild atherosclerosis of the right carotid bifurcation with less than 50% stenosis of the cervical right ICA at its origin per NASCET c riteria. Mild atherosclerosis of the left carotid bifurcation without stenosis of the cervical left ICA per NASCET criteria. The bilateral vertebral arterie s are patent without stenosis. READING SITE: [facility]. ATTESTATION STATEMENT: The Staff Radiologist has personally reviewed the images and dictated , reviewed, or edited the final report. Naz Rutledge 05/03/2014 11:13 AM KING MACHINE OPERATOR * Katelyn Argueta MD - 05/03/2014 7:30 AM BLACKING MACHINE OPERATOR [facility] Neurologist Attestation: I personally interviewed and examined Ms. Samuel Alvarenga. I discussed the findin gs with nurse practitioner and reviewed the nurse practitioners note. I agree the f indings with exceptions noted. Mrs. Alvarenga is a very pleasant 63-year-old right-handed white female who was transferred from [facility] in [place] for further evaluation of stroke-like symptoms. She actually awoke yesterday feeling fine. She then noted a sudden onset of weakness on her right side associated with a tingling sensation. This improved after 5 minutes but not completely resolved. She had difficulty with her gait and was having to hold on to furniture and her walker, which she sometimes uses because of her knee. She went to visit her father and noted her speech was slurred. She was taken to the outside hospital, was found to have markedly elevated blood pressure. She was started on antihypertensive. They performed an MRI of her brain, which showed no acute lesion. Carotid Dopplers with mild stenosis in the left carotid artery and she was discharged home. She then later returned after developing worsening symptoms in the right side with increasing numbness and weakness with worsening speech. I discussed the case with the transfer team yesterday. She was not a candidate for thrombolytic therapy due to the time onset of symptoms at the time of the call over four and a half hours. She also had had persistent symptoms throughout the entire day. She was not a candidate for endovascular intervention based upon presentation symptoms sounding subcortical in nature and was subsequently transferred for further evaluation. She is not on antiplatelets. She has no known medical problems other than issues with her thyroid. She denies hypertension, dyslipidemia, diabetes mellitus or known cardiac disease or dysrhythmia. Objective findings and Assessment/Plan are as follows: Physical Exam: Vital Signs: BP 172/80 | Pulse 73 | Temp(Src) 36.7 C (98 F) (Oral) | Resp 18 | Ht 1.676 m (5' 6") | Wt 81.4 kg (179 lb 7.3 oz) | BMI 28.98 kg/m2 | SpO2 94% GENERAL: She is a well-developed, well-nourished, very pleasant female who is resting in bed comfortably in no acute distress. NECK: Supple without carotid bruits. CARDIOVASCULAR: Regular rate and rhythm without murmur. MENTAL STATUS: Alert and oriented x3, speech was slight dysarthria, no dysphasia. Attention and concentration are intact, recent and remote memory are grossly intact. Her fund of knowledge appears appropriate and she relates her history easily. FUNDI: Right disc not well visualized. CRANIAL NERVES: Pupils equally round and reactive to light, extraocular movements are full, face symmetric, facial sensation diminished to light touch in the right V1 through V3 dermatomes, masseter strength and function equal, hearing intact to finger rubbing bilaterally, tongue midline, palate elevates bilaterally, shoulder shrug is equal. MOTOR: Strength is 5-/5 right arm and leg compared to left side is 5/5. Sensation is diminished to light touch and pinprick right arm more than right leg, but both decreased compared to the left. DTRs are 1/4 biceps, brachioradialis, absent at knees and ankles. Plantar responses are downgoing. COORDINATION: There is dysmetria on ukipny-vy-ejiv and nxqm-de-goed on the right worse on the arm than the leg. Gait deferred. MRI is pending. I did review the outside films of MRI with some minimal small vessel changes and no acute diffusion abnormality at that time. CTA head and neck no large vessel occlusion, L BG perfusion deficits Echo EF 65%, valves ok, no PFO Assessment: L MCA subcortical stroke with R hemiparesis, dystaxia, and dysarthria. Vascul ar risks-HTN Dyslipidemia HTN Hypothyroidism Chronic knee pain Plan: Stroke path Aspirin 81mg daily MRI brain MRA head Telemetry VTE SCDs Rehab consult OT/PT/ST eval and treat Discussed stroke in general with patient and daughter at bedside. Answered qu estions, discussed vascular risk modification Diet and exercise, consider aquatic program with knee pathology Add statin, goal LDL < 70 Goal BP <130/80 over time Follow up with PCP for vascular risk modification Follow up with Neurology prn Thank you for this consultation Electronically signed by Katelyn Argueta 05/03/2014 4:22 PM KING MACHINE OPERATOR * Giovanna Marion RN INSTRUCTOR CREELER - 05/03/2014 7:30 AM BLACKING MACHINE OPERATOR Associated Order(s): IP CONSULT TO NEUROLOGY NEUROLOGY CONSULTATION DATE: 05/03/2014 PATIENT NAME: Samuel Alvarenga : 1950 AGE: 63 y.o. REASON FOR CONSULT: CVA CONSULT REQUESTED BY: Tierra Henao DO PCP: Family D No HISTORY OF PRESENT ILLNESS: Samuel Alvarenga is a right handed female. 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 She lives in an apartment independently in a [facility] or living facility. She states she lives there to be close to her father who li ves in an apartment upstairs from her. She intermittently uses a walker as she has a "bad knee" that she reports needs to be replaced. Her son reports she has been putting off her knee replacement due to caring for her father. She awoke at 0600 yesterday (05/02/14) to go to the bathroom and felt fine. She walked to the bathroom without any difficulty. Upon standing up from the toilet she felt a sudden onset of weakness on her right side with a tingling sensation . She stated it slightly improved after 5 minutes time but did not go away comp letely. She was able to shuffle to her walker by holding onto furniture and wal ls. She was able to get dressed and took the elevator with her walker up to her fathers apartment. She noted her father was asleep so she went and sat at the kitchen table. She got a pop and drank it at the table and noticed the numbness on her right side became worse at that time. She also noted she became lighthe aded while sitting at the table. She denied palpitations, chest pain or shortnes s of breath. She yelled for her father and notice her speech was slurred. She proceeded to call 911 and was taken to [facility] in [place]. She notice d her speech improved slightly upon arrival to [place]. CT head as well as MR I were negative for acute findings. U/S carotid duplex showed 40-59% left ICA s tenosis. She continued to have right sided weakness and was discharged home. Her daughter drove her home at approximately 11:30 or noon and she had quite a b it of difficulty getting into the apartment. Her daughter had to go get a wheel chair at the apartment (correction facility) to get her inside. While in the apartment, she noted she was dragging her right foot and having difficulty hold ing onto her walker with her right hand. At approximately 1330 she started feel ing "fuzzy" in her head and felt lightheaded. She denied palpitations, chest pa in, rapid heart rate during this time. She noted her speech became more "thick" again. She called 911 and went to [place] for a second evaluation. Her blo od pressure was 217/89 and was in normal sinus rhythm. She was given Labetalol and placed on a Cardene drip. She had another CT of her head and was sent for further evaluation to [facility]. She reports that since standing up from the toilet her symptoms never completely resolved but did seem to wax and w ane. Today, she has dystaxia in her right upper extremity and slowed alternating move ments with her right upper extremity. She reports she has had a slight headache x 24 hours and that she does have a history of migraines but this feels like a "mild" headache to her. She believes if she was able to eat something it would possibly relieve her headache. She denies palpitations, chest pain, shortness o f breath. Her blood pressures have been trending 140-160's systolic since arrival to [facility]. She has never been on an anti-hypertensive medication at home or a statin despit e stating she has high cholesterol. She does not take an Aspirin daily. REVIEW OF SYSTEMS: A 12 system review of systems was negative except for where noted in the history of present illness above. 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 She lives in an artment independently and her father lives up stairs. OUTPATIENT MEDICATIONS: Prescriptions prior to admission Medication Sig Dispense Refill aspirin 81 MG EC tablet Take 81 mg by mouth daily. HYDROcodone-acetaminophen (VICODIN) 5-500 mg per tablet Take 1 tablet by jannette th every 4 (four) hours as needed for pain. ibuprofen (ADVIL,MOTRIN) 200 MG tablet Take 200 mg by mouth every 6 (six) ho urs as needed for pain. levothyroxine (SYNTHROID, LEVOTHROID) 100 MCG tablet Take 100 mcg by mouth d bhanu. lisinopril (PRINIVIL,ZESTRIL) 10 MG tablet Take 10 mg by mouth daily. CURRENT MEDICATIONS: aspirin 81 mg Oral Daily Or aspirin 81 mg Per NG tube Daily Or aspirin 300 mg Rectal Daily docusate sodium 100 mg Oral BID Or docusate 100 mg Oral BID levothyroxine 100 mcg Oral Daily ALLERGIES: No Known Allergies EXAMINATION: Vital Signs: BP 144/65 | Pulse 67 | Temp(Src) 36.7 C (98 F) (Oral) | Resp 1 8 | Ht 1.676 m (5' 6") | Wt 81.4 kg (179 lb 7.3 oz) | BMI 28.98 kg/m2 | SpO2 94% General Appearance: Alert, cooperative, no distress Neck: Supple, symmetrical, trachea midline Lungs: Clear to auscultation bilaterally Heart: Regular rate and rhythm, S1 and S2 normal Abdomen: Soft, non-tender, bowel sounds active all four quadrants, no masses, no organomegaly Extremities: Extremities normal, no edema Pulses/Perfusion: 2+ pulses radial and dosalis pedis, warm and well perfused Skin: No rashes noted Neurologic: Awake, alert and oriented to person, place, event and time Follows commands appropriately Speech clear and fluent PERRL, VFF, EOM's intact Has no nystagmus on eye movements. Face asymmetrical with mild right facial weakness Tongue ML, palate elevates bilaterally Hearing intact to conversation and finger rub Masseter strength good and equal Shoulder shrug equal and strong Muscle bulk and tone are normal throughout. Motor 4+/5 on the right side and 5/5 on the left Sensation slightly diminished on the right side, including her face + pronator drift on the right upper extremity, slight drift right lower extre mity Slowed alternating movements on the right Orbiting noted with finger roll on the right Finger to nose and heel to garrett testing slightly dystaxic on the right upper as well as slower extremity. Normal on the left side. DTR's 2+ bilateral biceps and patellar Plantar reflex with bilateral downgoing toes. Gait deferred LABS: Most Recent Result within the last 7 days Lab Units 05/03/14 0308 WBC TH/uL 7.87 HEMOGLOBIN g/dL 13.4 HEMATOCRIT % 39 PLATELET COUNT TH/uL 256 Most Recent Result within the last 7 days Lab Units 05/03/14 0308 SODIUM MEQ/L 140 POTASSIUM MEQ/L 3.5 CHLORIDE MEQ/L 103 CARBON DIOXIDE MEQ/L 26 BLOOD UREA NITROGEN mg/dL 9 CREATININE mg/dL 0.7 CALCIUM mg/dL 9.5 PROTEIN TOTAL SERUM g/dL 7.0 ALKALINE PHOSPHATASE IU/L 78 ALANINE AMINOTRANSFERASE IU/L 29 ASPARTATE AMINOTRANSFERASE IU/L 21 Most Recent Result within the last 7 days Lab Units 05/03/14 0308 CHOLESTEROL mg/dL 194 TRIGLYCERIDES mg/dL 87 HDL CHOLESTEROL mg/dL 66 LDL CHOLESTEROL mg/dL 111* Imaging: Ct Angio Head And Perfusion P 05/02/2014 Impression: 1. Small unmatched perfusion abnormality within the left basal ganglia. No large vascular territory perfusion abnormality. 2. No CT gerald ographic evidence of arterial occlusion, significant stenosis, or aneurysmal dil atation. 3. No intracranial hemorrhage. Normal marino-white matter differentiatio n. 4. Age appropriate cerebral volume loss and mild chronic small vessel ischemi c disease. Ct Angio Neck 05/02/2014 IMPRESSION: Mild atherosclerosis of the right carotid bifurcation with less than 50% stenosis of the cervical right ICA at its origin per NASCET c riteria. Mild atherosclerosis of the left carotid bifurcation without stenosis of the cervical left ICA per NASCET criteria. Active Hospital Problems CVA (cerebral infarction) Spell of transient neurologic symptoms HTN (hypertension) Assessment: Right hemiparesis with sensory alteration likely left MCA hemisphere with isc hemic stroke. Perfusion abnormality within the let basal ganglia noted on CT an phil head and perfusion. Probable UTI, per results from [facility] Hypertension, new diagnosis Hyperlipidemia, not currently on home medication Hypothyroidism Migraines Chronic knee pain Recommendations: Echocardiogram pending Hemoglobin A1c pending ? Consider repeating MRI head due to outside images Stroke Education implemented and ongoing with the patient, including but not limited to: risk factor reduction, antiplatelet medication, statin medication, s igns and symptoms of stroke to return to the hospital for emergently. Addressed risk factor modification specific to this patient. Patient verbalized understa nding; mutually agreed upon goals. Written stroke education materials and instructions provided by Nursing Staff . Venous thromboembolism prophylaxis, SCD's in place, The Physical Medicine Rehabilitation team has been consulted and will be stacie ting the patient as indicated. Includes PT, OT and ST. For antithrombotic therapy, Aspirin was ordered on hospitalization day one an d since the patient was NPO it was ordered rectally. The patient refused the re ctal route. Discussed importance of antiplatelet with patient. Swallow testing to be done this AM. Patient verbalized understanding; mutually agreed upon danilo lam. LDL is 111. Statin medication Atorvastatin 20 mg was ordered for stroke ris k reduction and/or dyslipidemia. In addition, education with the patient and/or family regarding goal LDL<70 for patients with any vascular risk factors. Verbalized understanding, mutually agreed upon goal Marjorie Hutchins RN / [employer] student . KING MACHINE OPERATOR documented in this encounter Miscellaneous Notes * Plan of Care - Hermila Brady RN - 05/08/2014 11:21 PM BLACKING MACHINE OPERATOR Problem: Knowledge Deficit Goal: Patient/family/caregiver demonstrates understanding of disease process, tr eatment plan, medications, and discharge instructions Complete learning assessment and assess knowledge base. Outcome: Progressing Goal: Patient/Family/Caregiver sets realistic goals Outcome: Progressing Problem: Pain Goal: Patients pain/discomfort is manageable Outcome: Progressing Patient aware to ask for pain medications as needed. Problem: Skin Integrity Goal: Skin integrity is maintained or improved Assess and monitor skin integrity. Identify patients at risk for skin breakdown on admission and per policy. Collaborate with interdisciplinary team and initiat e plans and interventions as needed. Outcome: Progressing Problem: Safety Goal: Patient will be injury free during hospitalization Outcome: Progressing ssafety measures in place. Patient aware to call for assistance as needed. Call light in reach Problem: Nutrition Goal: Patients nutritional intake is adequate Outcome: Progressing Problem: Potential for Compromised Skin Integrity Goal: Nutritional status is improving Monitor and assess patient for malnutrition (ex- brittle hair, bruises, dry skin , pale skin and conjunctiva, muscle wasting, smooth red tongue, and disorientati on). Collaborate with interdisciplinary team and initiate plan and interventions as ordered. Monitor patients weight and dietary intake as ordered or per miguel icy. Utilize nutrition screening tool and intervene per policy. Determine patien ts food preferences and provide high-protein, high-caloric foods as appropria te. Outcome: Progressing Goal: Skin integrity is maintained or improved Assess and monitor skin integrity. Identify patients at risk for skin breakdown on admission and per policy. Collaborate with interdisciplinary team and initiat e plans and interventions as needed. Outcome: Progressing Problem: Urinary Incontinence Goal: Perineal skin integrity is maintained or improved Assess genitourinary system, perineal skin, labs (urinalysis), and history of in continence to include past management, aggravating, and alleviating factors. Col laborate with interdisciplinary team and initiate plans and interventions as nee ded. Outcome: Progressing Problem: Knowledge Deficit Goal: Demonstrate knowledge/skills needed to practice health behaviors Outcome: Progressing Problem: Neurological Deficit Goal: Neurological function in expected range (LOC/motor/sensory/visual/cognitiv e) Outcome: Progressing Alert x3. Moves extremities. Clear speech. Cont. To have some right facial numbn ess and right arm numbness. Goal: Patient free of signs and symptoms of increased ICP Outcome: Progressing Goal: Vital Signs remain in prescribed range Outcome: Progressing Goal: Patient will not exhibit seizure activity Outcome: Progressing Problem: Impaired Physical Mobility Goal: Mobility is maintained at optimal level for patient Outcome: Progressing Goal: Demonstrates ability to express needs and understand communication Outcome: Progressing Problem: Communication Impairment Goal: Demonstrates ability to express needs and understand communication Outcome: Progressing Problem: Risk for aspiration Goal: Patient will not aspirate Outcome: Progressing Problem: Impaired Nutrition Goal: Blood Glucose will remain within desired range Outcome: Progressing Goal: Patient/SO/caregiver demonstrates ability to maintain adequate nutritional intake Outcome: Progressing Problem: Ineffective Peripheral Tissue Perfusion related to reduction / interrup tion of venous / arterial blood flow Goal: Extremity color, movement, and sensation are maintained or improved Outcome: Progressing Goal: Patient will maintain hemostasis without hematoma or bruit Outcome: Progressing Goal: Urine output will be maintained in expected range Outcome: Progressing Problem: Risk for Falls Goal: Patient will not fall during their Inpatient stay Outcome: Progressing KING MACHINE OPERATOR * Plan of Care - Juno Cavazos RN - 05/08/2014 1:44 PM BLACKING MACHINE OPERATOR Problem: Knowledge Deficit Goal: Patient/family/caregiver demonstrates understanding of disease process, tr eatment plan, medications, and discharge instructions Complete learning assessment and assess knowledge base. Outcome: Progressing Goal: Patient/Family/Caregiver sets realistic goals Outcome: Progressing Problem: Pain Goal: Patients pain/discomfort is manageable Outcome: Progressing Problem: Skin Integrity Goal: Skin integrity is maintained or improved Assess and monitor skin integrity. Identify patients at risk for skin breakdown on admission and per policy. Collaborate with interdisciplinary team and initiat e plans and interventions as needed. Outcome: Progressing Problem: Safety Goal: Patient will be injury free during hospitalization Outcome: Progressing Problem: Nutrition Goal: Patients nutritional intake is adequate Outcome: Progressing Problem: Potential for Compromised Skin Integrity Goal: Nutritional status is improving Monitor and assess patient for malnutrition (ex- brittle hair, bruises, dry skin , pale skin and conjunctiva, muscle wasting, smooth red tongue, and disorientati on). Collaborate with interdisciplinary team and initiate plan and interventions as ordered. Monitor patients weight and dietary intake as ordered or per miguel icy. Utilize nutrition screening tool and intervene per policy. Determine patien ts food preferences and provide high-protein, high-caloric foods as appropria te. Outcome: Progressing Goal: Skin integrity is maintained or improved Assess and monitor skin integrity. Identify patients at risk for skin breakdown on admission and per policy. Collaborate with interdisciplinary team and initiat e plans and interventions as needed. Outcome: Progressing Problem: Urinary Incontinence Goal: Perineal skin integrity is maintained or improved Assess genitourinary system, perineal skin, labs (urinalysis), and history of in continence to include past management, aggravating, and alleviating factors. Col laborate with interdisciplinary team and initiate plans and interventions as nee ded. Outcome: Progressing Problem: Knowledge Deficit Goal: Demonstrate knowledge/skills needed to practice health behaviors Outcome: Progressing Problem: Neurological Deficit Goal: Neurological function in expected range (LOC/motor/sensory/visual/cognitiv e) Outcome: Progressing Goal: Patient free of signs and symptoms of increased ICP Outcome: Progressing Goal: Vital Signs remain in prescribed range Outcome: Progressing Goal: Patient will not exhibit seizure activity Outcome: Progressing Problem: Impaired Physical Mobility Goal: Mobility is maintained at optimal level for patient Outcome: Progressing Goal: Demonstrates ability to express needs and understand communication Outcome: Progressing Problem: Communication Impairment Goal: Demonstrates ability to express needs and understand communication Outcome: Progressing Problem: Risk for aspiration Goal: Patient will not aspirate Outcome: Progressing Problem: Impaired Nutrition Goal: Blood Glucose will remain within desired range Outcome: Progressing Goal: Patient/SO/caregiver demonstrates ability to maintain adequate nutritional intake Outcome: Progressing Problem: Ineffective Peripheral Tissue Perfusion related to reduction / interrup tion of venous / arterial blood flow Goal: Extremity color, movement, and sensation are maintained or improved Outcome: Progressing Goal: Patient will maintain hemostasis without hematoma or bruit Outcome: Progressing Goal: Urine output will be maintained in expected range Outcome: Progressing Problem: Risk for Falls Goal: Patient will not fall during their Inpatient stay Outcome: Progressing KING MACHINE OPERATOR * Plan of Care - Hermila Brady RN - 05/07/2014 10:38 PM BLACKING MACHINE OPERATOR Problem: Knowledge Deficit Goal: Patient/family/caregiver demonstrates understanding of disease process, tr eatment plan, medications, and discharge instructions Complete learning assessment and assess knowledge base. Outcome: Progressing Goal: Patient/Family/Caregiver sets realistic goals Outcome: Progressing Problem: Pain Goal: Patients pain/discomfort is manageable Outcome: Progressing Problem: Skin Integrity Goal: Skin integrity is maintained or improved Assess and monitor skin integrity. Identify patients at risk for skin breakdown on admission and per policy. Collaborate with interdisciplinary team and initiat e plans and interventions as needed. Outcome: Progressing Problem: Safety Goal: Patient will be injury free during hospitalization Outcome: Progressing Safety measures in place. Call light and personal items in reach. Aware to call staff for assistance as needed. Problem: Nutrition Goal: Patients nutritional intake is adequate Outcome: Progressing Problem: Potential for Compromised Skin Integrity Goal: Nutritional status is improving Monitor and assess patient for malnutrition (ex- brittle hair, bruises, dry skin , pale skin and conjunctiva, muscle wasting, smooth red tongue, and disorientati on). Collaborate with interdisciplinary team and initiate plan and interventions as ordered. Monitor patients weight and dietary intake as ordered or per miguel icy. Utilize nutrition screening tool and intervene per policy. Determine patien ts food preferences and provide high-protein, high-caloric foods as appropria te. Outcome: Progressing Goal: Skin integrity is maintained or improved Assess and monitor skin integrity. Identify patients at risk for skin breakdown on admission and per policy. Collaborate with interdisciplinary team and initiat e plans and interventions as needed. Outcome: Progressing Problem: Urinary Incontinence Goal: Perineal skin integrity is maintained or improved Assess genitourinary system, perineal skin, labs (urinalysis), and history of in continence to include past management, aggravating, and alleviating factors. Col laborate with interdisciplinary team and initiate plans and interventions as nee ded. Outcome: Progressing Problem: Knowledge Deficit Goal: Demonstrate knowledge/skills needed to practice health behaviors Outcome: Progressing Problem: Neurological Deficit Goal: Neurological function in expected range (LOC/motor/sensory/visual/cognitiv e) Outcome: Progressing Alert x3. Moves all extremities.Cont. to have right facial and right arm numbnes s. Slight right ataxia Goal: Patient free of signs and symptoms of increased ICP Outcome: Progressing Goal: Vital Signs remain in prescribed range Outcome: Progressing Goal: Patient will not exhibit seizure activity Outcome: Progressing Problem: Impaired Physical Mobility Goal: Mobility is maintained at optimal level for patient Outcome: Progressing Patient up with stand by assist uses walker Goal: Demonstrates ability to express needs and understand communication Outcome: Progressing Problem: Communication Impairment Goal: Demonstrates ability to express needs and understand communication Outcome: Progressing Problem: Risk for aspiration Goal: Patient will not aspirate Outcome: Progressing Problem: Impaired Nutrition Goal: Blood Glucose will remain within desired range Outcome: Progressing Goal: Patient/SO/caregiver demonstrates ability to maintain adequate nutritional intake Outcome: Progressing Problem: Ineffective Peripheral Tissue Perfusion related to reduction / interrup tion of venous / arterial blood flow Goal: Extremity color, movement, and sensation are maintained or improved Outcome: Progressing Goal: Patient will maintain hemostasis without hematoma or bruit Outcome: Progressing Goal: Urine output will be maintained in expected range Outcome: Progressing Problem: Risk for Falls Goal: Patient will not fall during their Inpatient stay Outcome: Progressing Safety measures in place. KING MACHINE OPERATOR * Plan of Care - Alyx Ashley - 05/07/2014 11:34 AM BLACKING MACHINE OPERATOR Problem: Knowledge Deficit Goal: Patient/family/caregiver demonstrates understanding of disease process, tr eatment plan, medications, and discharge instructions Complete learning assessment and assess knowledge base. Outcome: Progressing Goal: Patient/Family/Caregiver sets realistic goals Outcome: Progressing Problem: Pain Goal: Patients pain/discomfort is manageable Outcome: Progressing Problem: Skin Integrity Goal: Skin integrity is maintained or improved Assess and monitor skin integrity. Identify patients at risk for skin breakdown on admission and per policy. Collaborate with interdisciplinary team and initiat e plans and interventions as needed. Outcome: Progressing Problem: Safety Goal: Patient will be injury free during hospitalization Outcome: Progressing Problem: Nutrition Goal: Patients nutritional intake is adequate Outcome: Progressing Problem: Potential for Compromised Skin Integrity Goal: Nutritional status is improving Monitor and assess patient for malnutrition (ex- brittle hair, bruises, dry skin , pale skin and conjunctiva, muscle wasting, smooth red tongue, and disorientati on). Collaborate with interdisciplinary team and initiate plan and interventions as ordered. Monitor patients weight and dietary intake as ordered or per miguel icy. Utilize nutrition screening tool and intervene per policy. Determine patien ts food preferences and provide high-protein, high-caloric foods as appropria te. Outcome: Progressing Goal: Skin integrity is maintained or improved Assess and monitor skin integrity. Identify patients at risk for skin breakdown on admission and per policy. Collaborate with interdisciplinary team and initiat e plans and interventions as needed. Outcome: Progressing Problem: Knowledge Deficit Goal: Demonstrate knowledge/skills needed to practice health behaviors Outcome: Progressing Problem: Neurological Deficit Goal: Neurological function in expected range (LOC/motor/sensory/visual/cognitiv e) Outcome: Progressing Goal: Patient free of signs and symptoms of increased ICP Outcome: Progressing Goal: Vital Signs remain in prescribed range Outcome: Progressing Goal: Patient will not exhibit seizure activity Outcome: Progressing Problem: Impaired Physical Mobility Goal: Mobility is maintained at optimal level for patient Outcome: Progressing Goal: Demonstrates ability to express needs and understand communication Outcome: Progressing Problem: Communication Impairment Goal: Demonstrates ability to express needs and understand communication Outcome: Progressing Problem: Risk for aspiration Goal: Patient will not aspirate Outcome: Progressing Problem: Impaired Nutrition Goal: Blood Glucose will remain within desired range Outcome: Progressing Goal: Patient/SO/caregiver demonstrates ability to maintain adequate nutritional intake Outcome: Progressing Problem: Ineffective Peripheral Tissue Perfusion related to reduction / interrup tion of venous / arterial blood flow Goal: Extremity color, movement, and sensation are maintained or improved Outcome: Progressing Goal: Patient will maintain hemostasis without hematoma or bruit Outcome: Progressing Goal: Urine output will be maintained in expected range Outcome: Progressing Problem: Risk for Falls Goal: Patient will not fall during their Inpatient stay Outcome: Progressing KING MACHINE OPERATOR * Plan of Care - Roxann Ureña RN - 05/07/2014 4:13 AM BLACKING MACHINE OPERATOR Problem: Knowledge Deficit Goal: Demonstrate knowledge/skills needed to practice health behaviors Outcome: Progressing Problem: Neurological Deficit Goal: Neurological function in expected range (LOC/motor/sensory/visual/cognitiv e) Outcome: Progressing Goal: Patient free of signs and symptoms of increased ICP Outcome: Progressing Goal: Vital Signs remain in prescribed range Outcome: Progressing Goal: Patient will not exhibit seizure activity Outcome: Progressing Problem: Impaired Physical Mobility Goal: Mobility is maintained at optimal level for patient Outcome: Progressing Goal: Demonstrates ability to express needs and understand communication Outcome: Progressing Problem: Communication Impairment Goal: Demonstrates ability to express needs and understand communication Outcome: Progressing Problem: Risk for aspiration Goal: Patient will not aspirate Outcome: Progressing Problem: Impaired Nutrition Goal: Patient/SO/caregiver demonstrates ability to maintain adequate nutritional intake Outcome: Progressing Problem: Ineffective Peripheral Tissue Perfusion related to reduction / interrup tion of venous / arterial blood flow Goal: Extremity color, movement, and sensation are maintained or improved Outcome: Progressing Goal: Patient will maintain hemostasis without hematoma or bruit Outcome: Progressing Goal: Urine output will be maintained in expected range Outcome: Progressing Problem: Risk for Falls Goal: Patient will not fall during their Inpatient stay Outcome: Progressing KING MACHINE OPERATOR * Plan of Care - Nga Roberts RN - 05/06/2014 9:27 AM BLACKING MACHINE OPERATOR Problem: Knowledge Deficit Goal: Patient/family/caregiver demonstrates understanding of disease process, tr eatment plan, medications, and discharge instructions Complete learning assessment and assess knowledge base. Outcome: Progressing Goal: Patient/Family/Caregiver sets realistic goals Outcome: Progressing Problem: Pain Goal: Patients pain/discomfort is manageable Outcome: Progressing Problem: Skin Integrity Goal: Skin integrity is maintained or improved Assess and monitor skin integrity. Identify patients at risk for skin breakdown on admission and per policy. Collaborate with interdisciplinary team and initiat e plans and interventions as needed. Outcome: Progressing Problem: Safety Goal: Patient will be injury free during hospitalization Outcome: Progressing Problem: Nutrition Goal: Patients nutritional intake is adequate Outcome: Progressing Problem: Potential for Compromised Skin Integrity Goal: Nutritional status is improving Monitor and assess patient for malnutrition (ex- brittle hair, bruises, dry skin , pale skin and conjunctiva, muscle wasting, smooth red tongue, and disorientati on). Collaborate with interdisciplinary team and initiate plan and interventions as ordered. Monitor patients weight and dietary intake as ordered or per miguel icy. Utilize nutrition screening tool and intervene per policy. Determine patien ts food preferences and provide high-protein, high-caloric foods as appropria te. Outcome: Progressing Goal: Skin integrity is maintained or improved Assess and monitor skin integrity. Identify patients at risk for skin breakdown on admission and per policy. Collaborate with interdisciplinary team and initiat e plans and interventions as needed. Outcome: Progressing Problem: Urinary Incontinence Goal: Perineal skin integrity is maintained or improved Assess genitourinary system, perineal skin, labs (urinalysis), and history of in continence to include past management, aggravating, and alleviating factors. Col laborate with interdisciplinary team and initiate plans and interventions as nee ded. Outcome: Progressing Problem: Knowledge Deficit Goal: Demonstrate knowledge/skills needed to practice health behaviors Outcome: Progressing Problem: Neurological Deficit Goal: Neurological function in expected range (LOC/motor/sensory/visual/cognitiv e) Outcome: Progressing Goal: Patient free of signs and symptoms of increased ICP Outcome: Progressing Goal: Vital Signs remain in prescribed range Outcome: Progressing Goal: Patient will not exhibit seizure activity Outcome: Progressing Problem: Impaired Physical Mobility Goal: Mobility is maintained at optimal level for patient Outcome: Progressing Goal: Demonstrates ability to express needs and understand communication Outcome: Progressing Problem: Communication Impairment Goal: Demonstrates ability to express needs and understand communication Outcome: Progressing Problem: Risk for aspiration Goal: Patient will not aspirate Outcome: Progressing Problem: Impaired Nutrition Goal: Blood Glucose will remain within desired range Outcome: Progressing Goal: Patient/SO/caregiver demonstrates ability to maintain adequate nutritional intake Outcome: Progressing Problem: Ineffective Peripheral Tissue Perfusion related to reduction / interrup tion of venous / arterial blood flow Goal: Extremity color, movement, and sensation are maintained or improved Outcome: Progressing Goal: Patient will maintain hemostasis without hematoma or bruit Outcome: Progressing Goal: Urine output will be maintained in expected range Outcome: Progressing Problem: Risk for Falls Goal: Patient will not fall during their Inpatient stay Outcome: Progressing KING MACHINE OPERATOR * Plan of Care - Anita Parkinson RN - 05/05/2014 10:47 PM BLACKING MACHINE OPERATOR Problem: Knowledge Deficit Goal: Patient/family/caregiver demonstrates understanding of disease process, tr eatment plan, medications, and discharge instructions Complete learning assessment and assess knowledge base. Outcome: Progressing Goal: Patient/Family/Caregiver sets realistic goals Outcome: Progressing Problem: Pain Goal: Patients pain/discomfort is manageable Outcome: Progressing Problem: Skin Integrity Goal: Skin integrity is maintained or improved Assess and monitor skin integrity. Identify patients at risk for skin breakdown on admission and per policy. Collaborate with interdisciplinary team and initiat e plans and interventions as needed. Outcome: Progressing Problem: Safety Goal: Patient will be injury free during hospitalization Outcome: Progressing Problem: Nutrition Goal: Patients nutritional intake is adequate Outcome: Progressing Problem: Potential for Compromised Skin Integrity Goal: Nutritional status is improving Monitor and assess patient for malnutrition (ex- brittle hair, bruises, dry skin , pale skin and conjunctiva, muscle wasting, smooth red tongue, and disorientati on). Collaborate with interdisciplinary team and initiate plan and interventions as ordered. Monitor patients weight and dietary intake as ordered or per miguel icy. Utilize nutrition screening tool and intervene per policy. Determine patien ts food preferences and provide high-protein, high-caloric foods as appropria te. Outcome: Progressing Goal: Skin integrity is maintained or improved Assess and monitor skin integrity. Identify patients at risk for skin breakdown on admission and per policy. Collaborate with interdisciplinary team and initiat e plans and interventions as needed. Outcome: Progressing Problem: Urinary Incontinence Goal: Perineal skin integrity is maintained or improved Assess genitourinary system, perineal skin, labs (urinalysis), and history of in continence to include past management, aggravating, and alleviating factors. Col laborate with interdisciplinary team and initiate plans and interventions as nee ded. Outcome: Progressing Problem: Knowledge Deficit Goal: Demonstrate knowledge/skills needed to practice health behaviors Outcome: Progressing Problem: Neurological Deficit Goal: Neurological function in expected range (LOC/motor/sensory/visual/cognitiv e) Outcome: Progressing Goal: Patient free of signs and symptoms of increased ICP Outcome: Progressing Goal: Vital Signs remain in prescribed range Outcome: Progressing Goal: Patient will not exhibit seizure activity Outcome: Progressing Problem: Impaired Physical Mobility Goal: Mobility is maintained at optimal level for patient Outcome: Progressing Goal: Demonstrates ability to express needs and understand communication Outcome: Progressing Problem: Communication Impairment Goal: Demonstrates ability to express needs and understand communication Outcome: Progressing Problem: Risk for aspiration Goal: Patient will not aspirate Outcome: Progressing Problem: Impaired Nutrition Goal: Blood Glucose will remain within desired range Outcome: Progressing Goal: Patient/SO/caregiver demonstrates ability to maintain adequate nutritional intake Outcome: Progressing Problem: Ineffective Peripheral Tissue Perfusion related to reduction / interrup tion of venous / arterial blood flow Goal: Extremity color, movement, and sensation are maintained or improved Outcome: Progressing Goal: Patient will maintain hemostasis without hematoma or bruit Outcome: Progressing Goal: Urine output will be maintained in expected range Outcome: Progressing Problem: Risk for Falls Goal: Patient will not fall during their Inpatient stay Outcome: Progressing KING MACHINE OPERATOR * Plan of Care - Nga Roberts RN - 05/05/2014 9:31 AM BLACKING MACHINE OPERATOR Problem: Knowledge Deficit Goal: Patient/family/caregiver demonstrates understanding of disease process, tr eatment plan, medications, and discharge instructions Complete learning assessment and assess knowledge base. Outcome: Progressing Goal: Patient/Family/Caregiver sets realistic goals Outcome: Progressing Problem: Pain Goal: Patients pain/discomfort is manageable Outcome: Progressing Denies Problem: Skin Integrity Goal: Skin integrity is maintained or improved Assess and monitor skin integrity. Identify patients at risk for skin breakdown on admission and per policy. Collaborate with interdisciplinary team and initiat e plans and interventions as needed. Outcome: Progressing Problem: Safety Goal: Patient will be injury free during hospitalization Outcome: Progressing Problem: Nutrition Goal: Patients nutritional intake is adequate Outcome: Progressing Problem: Potential for Compromised Skin Integrity Goal: Nutritional status is improving Monitor and assess patient for malnutrition (ex- brittle hair, bruises, dry skin , pale skin and conjunctiva, muscle wasting, smooth red tongue, and disorientati on). Collaborate with interdisciplinary team and initiate plan and interventions as ordered. Monitor patients weight and dietary intake as ordered or per miguel icy. Utilize nutrition screening tool and intervene per policy. Determine patien ts food preferences and provide high-protein, high-caloric foods as appropria te. Outcome: Progressing Goal: Skin integrity is maintained or improved Assess and monitor skin integrity. Identify patients at risk for skin breakdown on admission and per policy. Collaborate with interdisciplinary team and initiat e plans and interventions as needed. Outcome: Progressing Problem: Urinary Incontinence Goal: Perineal skin integrity is maintained or improved Assess genitourinary system, perineal skin, labs (urinalysis), and history of in continence to include past management, aggravating, and alleviating factors. Col laborate with interdisciplinary team and initiate plans and interventions as nee ded. Outcome: Progressing Problem: Knowledge Deficit Goal: Demonstrate knowledge/skills needed to practice health behaviors Outcome: Progressing Problem: Neurological Deficit Goal: Neurological function in expected range (LOC/motor/sensory/visual/cognitiv e) Outcome: Progressing Goal: Patient free of signs and symptoms of increased ICP Outcome: Progressing Goal: Vital Signs remain in prescribed range Outcome: Progressing Goal: Patient will not exhibit seizure activity Outcome: Progressing Problem: Impaired Physical Mobility Goal: Mobility is maintained at optimal level for patient Outcome: Progressing Goal: Demonstrates ability to express needs and understand communication Outcome: Progressing Problem: Communication Impairment Goal: Demonstrates ability to express needs and understand communication Outcome: Progressing Problem: Risk for aspiration Goal: Patient will not aspirate Outcome: Progressing Problem: Impaired Nutrition Goal: Blood Glucose will remain within desired range Outcome: Progressing Goal: Patient/SO/caregiver demonstrates ability to maintain adequate nutritional intake Outcome: Progressing Problem: Ineffective Peripheral Tissue Perfusion related to reduction / interrup tion of venous / arterial blood flow Goal: Extremity color, movement, and sensation are maintained or improved Outcome: Progressing Goal: Patient will maintain hemostasis without hematoma or bruit Outcome: Progressing Goal: Urine output will be maintained in expected range Outcome: Progressing Problem: Risk for Falls Goal: Patient will not fall during their Inpatient stay Outcome: Progressing KING MACHINE OPERATOR * Plan of Melinda - Sanna Enrique RN - 05/05/2014 12:10 AM BLACKING MACHINE OPERATOR Problem: Pain Goal: Patients pain/discomfort is manageable Outcome: Progressing Patient has a headache that is intermittent. KING MACHINE OPERATOR * Plan of Sanna Concepcion RN - 05/03/2014 11:03 PM BLACKING MACHINE OPERATOR Problem: Urinary Incontinence Goal: Perineal skin integrity is maintained or improved Assess genitourinary system, perineal skin, labs (urinalysis), and history of in continence to include past management, aggravating, and alleviating factors. Col laborate with interdisciplinary team and initiate plans and interventions as nee ded. Outcome: Adequate for Discharge Patient does not have urinary incontinence KING MACHINE OPERATOR documented in this encounter Plan of Treatment Care Team Description Date Type Specialty Moise Jalloh NP [address] [address] [phone] 05/08/2020 Office Visit Neurology documented as of this encounter Procedures Comments Procedure Name Priority Date/Time Associated Diag nosis LAB SUMMARY 05/10/2014 2:26 AM BLACKING MACHINE OPERATOR POTASSIUM Timed 05/06/2014 11:39 AM BLACKING MACHINE OPERATOR BASIC METABOLIC PANEL Routine 05/06/2014 1:35 AM BLACKING MACHINE OPERATOR URINE NITRITE Routine 05/05/2014 3:40 PM BLACKING MACHINE OPERATOR URINALYSIS AND Routine 05/05/2014 MICROSCOPIC 3:40 PM BLACKING MACHINE OPERATOR MRI HEAD W WO CONTRAST Routine 05/04/2014 7:50 AM BLACKING MACHINE OPERATOR MRA HEAD WO CONTRAST Routine 05/04/2014 7:20 AM BLACKING MACHINE OPERATOR FL SWALLOWING FUNCTION W Routine 05/03/2014 VIDEO 2:58 PM BLACKING MACHINE OPERATOR ECHO COMPLETE W DOPPLER Routine 05/03/2014 AND COLOR FLOW 8:38 AM BLACKING MACHINE OPERATOR GLUCOSE POC Routine 05/03/2014 4:18 AM BLACKING MACHINE OPERATOR MAGNESIUM Routine 05/03/2014 3:08 AM BLACKING MACHINE OPERATOR LIPID PANEL Routine 05/03/2014 3:08 AM BLACKING MACHINE OPERATOR HEMOGLOBIN A1C Routine 05/03/2014 3:08 AM BLACKING MACHINE OPERATOR CREATINE KINASE Routine 05/03/2014 3:08 AM BLACKING MACHINE OPERATOR COMPREHENSIVE METABOLIC Routine 05/03/2014 PANEL 3:08 AM BLACKING MACHINE OPERATOR CBC AND DIFF (MANUAL DIFF Routine 05/03/2014 IF NECESSARY) 3:08 AM BLACKING MACHINE OPERATOR GLUCOSE POC Routine 05/03/2014 1:23 AM BLACKING MACHINE OPERATOR CT ANGIO NECK Routine 05/02/2014 9:30 PM BLACKING MACHINE OPERATOR CT ANGIO HEAD AND Routine 05/02/2014 PERFUSION P 9:30 PM BLACKING MACHINE OPERATOR OXYGEN Routine 05/02/2014 8:54 PM BLACKING MACHINE OPERATOR XR OUTSIDE IMAGES FOR Routine 05/02/2014 PACS 8:20 PM BLACKING MACHINE OPERATOR US OUTSIDE IMAGES FOR Routine 05/02/2014 PACS 8:15 PM BLACKING MACHINE OPERATOR CT OUTSIDE IMAGES FOR Routine 05/02/2014 PACS 8:10 PM BLACKING MACHINE OPERATOR CT OUTSIDE IMAGES FOR Routine 05/02/2014 PACS 8:05 PM BLACKING MACHINE OPERATOR MRI OUTSIDE IMAGES FOR Routine 05/02/2014 PACS 8:00 PM BLACKING MACHINE OPERATOR GLUCOSE POC Routine 05/02/2014 7:42 PM BLACKING MACHINE OPERATOR documented in this encounter Results * LAB SUMMARY (05/10/2014 2:26 AM BLACKING MACHINE OPERATOR) Narrative Performed At This result has an attachment that is n ot available. Ordered by an unspecified provider. * Potassium (05/06/2014 11:39 AM BLACKING MACHINE OPERATOR) Potassium 4.2 3.5 - 5.3 MEQ/L [facility] Specimen Blood - Blood Performing Organization Address City/[facility] Ph one Number [address] [address] LABORATORIES * Basic Metabolic Panel (05/06/2014 1:35 AM BLACKING MACHINE OPERATOR) Sodium 140 133 - 147 MEQ/L [facility] Potassium 3.4 (L) 3.5 - 5.3 MEQ/L [facility] Chloride 102 96 - 112 MEQ/L [facility] Carbon Dioxide 26 20 - 32 MEQ/L [facility] Anion Gap 12 5 - 17 [facility] Calcium 9.7 8.4 - 10.5 mg/dL [facility] Glucose 92 70 - 100 mg/dL [facility] Blood Urea 22 7 - 26 mg/dL [facility] Nitrogen [facility] Creatinine 0.9 0.4 - 1.1 mg/dL [facility] eGFR Female AA 75 60 - 200 [facility] Comment: REGIONAL Chronic Kidney Disease less LABORATORIES than 60 mL/min/1.73 sq.m Kidney failure less than 15 mL/min/1.73 sq.m eGFR Female 63 60 - 200 [facility] Non-AA Comment: REGIONAL Chronic Kidney Disease less LABORATORIES than 60 mL/min/1.73 sq.m Kidney failure less than 15 mL/min/1.73 sq.m Specimen Blood - Blood Performing Organization Address City/[facility] Ph one Number [address] [place] [address] LABORATORIES * Urine Nitrite (05/05/2014 3:40 PM BLACKING MACHINE OPERATOR) Nitrite Urine Negative Negative [facility] Specimen Urine - Clean Voided Urine Performing Organization Address [facility] Ph one Number [facility] [address] [place] [address] LABORATORIES * Urinalysis and Microscopic (05/05/2014 3:40 PM BLACKING MACHINE OPERATOR) Appearance, Yellow [facility] Glucose Urine Negative Negative mg/dL [facility] Bilirubin Urine Small (A) Negative [facility] Ketones Urine Trace (A) Negative mg/dL [facility] Specific >=1.030 1.001 - 1.030 [facility] [place]A [facility] Hemoglobin Negative Negative [facility] Urine [facility] PH Urine 5.5 5.0 - 8.0 [facility] Protein Urine Negative Negative mg/dL [facility] Qual [facility] Urobilinogen Negative Negative EU/dL [facility] Leukocyte Negative Negative [facility] Esterase [facility] Microscopic RBC 1 - 5 1 - 5 [facility] Microscopic WBC 1 - 5 1 - 5 [facility] Epithelial Absent Absent [facility] Cells [facility] Hyaline Cast Absent Absent [facility] Bacteria Absent Absent [facility] Specimen Urine - Clean Voided Urine Performing Organization Address [facility] one Number [facility] [address] [place] [address] LABORATORIES * MRI Head w wo contrast (05/04/2014 7:50 AM BLACKING MACHINE OPERATOR) Specimen Impressions Performed At Impression: CHRISTI 1. Small acute stroke in the left thala mus. No acute intracranial hemorrhage. 2. Mild chronic small vessel ischemic d isease. Critical findings: Acute stroke finding s were verbally communicated to the patient's nurse Anjali on May 04, 2014 at 0845 hours. READING SITE: [facility]. ATTESTATION STATEMENT: The Staff Radiologist has personally re viewed the images and dictated, reviewed, or edited the final report. ATTESTATION STATEMENT: The Staff Radiologist has personally re viewed the images and dictated, reviewed, or edited the final report. Narrative Performed At Patient: SAMUEL ALVARENGA Phone#: [facility] Rec#: [id number] Sex#: F # [id number] Lory#: [id number] Location: [id number] Procedure Requested: [id number] MRI HEAD W WO CONTRAST Reason for Exam: stroke Exam Ordered: 05/03/2014 10 23 Exam Date/Time: 05/04/2014 075 0 Check-in Date/Time: 05/04/2014 0710 MRI HEAD W WO CONTRAST May 04, 2014 08:00:03 AM Indication: STROKE. RIGHT-SIDED WEAKNES S AND NUMBNESS. Comparison: None Technique: Multiplanar multipulse seq uence imaging of the brain was performed before and after the uneventf ul IV administration of 17 ml of Omniscan intravenous contrast. Findings: Small acute stroke in the left lateral thalamus with correlating T2 FLAIR signal hyperintensity, not seen o n comparison outside brain MRI done May 02, 2014. Multiple foci of hyperintense T2/FLAIR signal are seen within the periventricular and subcortical deep wh ite matter, a nonspecific finding, however most suggestive of chr onic small vessel ischemic disease. No intra or extra-axial mass or hemorrh age is identified. No areas of abnormal enhancement. There is no midli ne shift. Symmetric prominence of the cerebral duff lci and ventricles consistent with age-related cerebral volume loss. Ventricles are otherwise of normal size, shape, and morphology. The basilar cisterns are patent. The paranasal sinuses are normal. Small amount of fluid in the left inferior mastoid air cells. Bilateral c ataract surgery. No extracalvarial soft tissue abnormality. Normal flow voids are seen in the intra cranial arterial and venous structures indicating patency. Procedure Note Interface, Rad Results In - 05/04/2014 1:13 PM BLACKING MACHINE OPERATOR Patient: SAMUEL ALVARENGA Phone#: [facility] Rec#: [id number] Sex#: F # [id number] Lory#: [id number] Location: [facility]01 Procedure Requested: [id number] MRI HEAD W WO CONTRAST Reason for Exam: stroke Exam Ordered: 05/03/2014 1023 Exam Date/Time: 05/04/2014 0750 Check-in Date/Time: 05/04/2014 0710 MRI HEAD W WO CONTRAST May 04, 2014 08:00:03 AM Indication: STROKE. RIGHT-SIDED WEAKNESS AND NUMBNESS. Comparison: None Technique: Multiplanar multipulse sequence imaging of the brain was performed before and after the uneventful IV administration of 17 ml of Omniscan intravenous contrast. Findings: Small acute stroke in the left lateral thalamus with correlating T2 FLAIR signal hyperintensity, not seen on comparison outside brain MRI done May 02, 2014. Multiple foci of hyperintense T2/FLAIR signal are seen within the periventricular and subcortical deep white matter, a nonspecific finding, however most suggestive of chronic small vessel ischemic disease. No intra or extra-axial mass or hemorrhage is identified. No areas of abnormal enhancement. There is no midline shift. Symmetric prominence of the cerebral sulci and ventricles consistent with age-related cerebral volume loss. Ventricles are otherwise of normal size, shape, and morphology. The basilar cisterns are patent. The paranasal sinuses are normal. Small amount of fluid in the left inferior mastoid air cells. Bilateral cataract surgery. No extracalvarial soft tissue abnormality. Normal flow voids are seen in the intracranial arterial and venous structures indicating patency. Impression: 1. Small acute stroke in the left thalam us. No acute intracranial hemorrhage. 2. Mild chronic small vessel ischemic di sease. Critical findings: Acute stroke findings were verbally communicated to the patient's nurse Anjali on May 04, 2014 at 0845 hours. READING SITE: [facility]. ATTESTATION STATEMENT: The Staff Radiologist has personally reviewed the images and dictated, reviewed, or edited the final report. ATTESTATION STATEMENT: The Staff Radiologist has personally reviewed the images and dictated, reviewed, or edited the final report. Performing Organization Address City/State/Zipcode Ph one Number [place] * MRA Head wo contrast (05/04/2014 7:20 AM BLACKING MACHINE OPERATOR) Specimen Impressions Performed At Impression: [place] 1. No large branch arterial high-grade stenosis or occlusion in the head. 2. Mild irregularity of a right middle cerebral artery M2 branch which may be accentuated by motion artifact, underlying atherosclerotic disease is not excluded. READING SITE: [facility]. ATTESTATION STATEMENT: The Staff Radiologist has personally re viewed the images and dictated, reviewed, or edited the final report. Narrative Performed At Patient: SAMUEL ALVARENGA Phone#: [facility] Rec#: [id number] Sex#: F # [id number] Lory#: [id number] Location: [facility]01 Procedure Requested: [id number] MRA HEAD WO CONTRAST Reason for Exam: stroke Exam Ordered: 05/03/2014 10 23 Exam Date/Time: 05/04/2014 072 0 Check-in Date/Time: 05/04/2014 0700 Magnetic Resonance Angiogram (MRA) of t he head without contrast Date May 04, 2014 07:56:16 AM Indication: STROKE. RIGHT-SIDED NUMBNES S AND WEAKNESS. Comparison: Concurrent MRI head. Technique: 3-D upqa-bs-uwctwn images of the intracranial vessels without contrast Findings: Anterior Circulation: Mild irregulari ty of a right middle cerebral artery M2 branch, underlying atheroscle rotic disease is not excluded. Otherwise, the visualized internal jara tid arteries and proximal anterior and middle cerebral arteries s how no aneurysmal dilation or significant stenosis. No middle cereb ral bifurcation, anterior communicating artery, or posterior comm unicating artery aneurysm is seen. Posterior Circulation: The visualized vertebral arteries, basilar artery, and posterior cerebral arteries show no significant stenosis or aneurysmal dilatation. No basilar tip a neurysm is seen. No arterial venous malformation is seen . MRA is not sensitive for aneurysms 4mm or less in size, for small arteriovenous malformations, or for the detection of dural fistulae. Procedure Note Interface, Rad Results In - 05/04/2014 1:14 PM BLACKING MACHINE OPERATOR Patient: SAMUEL ALVARENGA Phone#: [facility] Rec#: [id number] Sex#: F # [id number] Lory#: [id number] Location: [place] [address] Procedure Requested: [id number] MRA HEAD WO CONTRAST Reason for Exam: stroke Exam Ordered: 05/03/2014 1023 Exam Date/Time: 05/04/2014 0720 Check-in Date/Time: 05/04/2014 0700 Magnetic Resonance Angiogram (MRA) of the head without contrast Date May 04, 2014 07:56:16 AM Indication: STROKE. RIGHT-SIDED NUMBNESS AND WEAKNESS. Comparison: Concurrent MRI head. Technique: 3-D hunb-wy-twoyvr images of the intracranial vessels without contrast Findings: Anterior Circulation: Mild irregularity of a right middle cerebral artery M2 branch, underlying atherosclerotic disease is not excluded. Otherwise, the visualized internal carotid arteries and proximal anterior and middle cerebral arteries show no aneurysmal dilation or significant stenosis. No middle cerebral bifurcation, anterior communicating artery, or posterior communicating artery aneurysm is seen. Posterior Circulation: The visualized vertebral arteries, basilar artery, and posterior cerebral arteries show no significant stenosis or aneurysmal dilatation. No basilar tip aneurysm is seen. No arterial venous malformation is seen. MRA is not sensitive for aneurysms 4mm or less in size, for small arteriovenous malformations, or for the detection of dural fistulae. Impression: 1. No large branch arterial high-grade s tenosis or occlusion in the head. 2. Mild irregularity of a right middle c erebral artery M2 branch which may be accentuated by motion artifact, underlying atherosclerotic disease is not excluded. READING SITE: [facility]. ATTESTATION STATEMENT: The Staff Radiologist has personally reviewed the images and dictated, reviewed, or edited the final report. Performing Organization Address City/State/Zipcode Ph one Number [place] * FL Swallowing function w video (05/03/2014 2:58 PM BLACKING MACHINE OPERATOR) Specimen Impressions Performed At IMPRESSION: [facility] 1. Normal video fluoroscopic swallow. 2. Please refer to speech pathology rep ort for further details. ATTESTATION STATEMENT: The Staff Radiologist has personally re viewed the images and dictated, reviewed, or edited the final report. INTERPRETATION SITE: [facility]. Narrative Performed At Patient: SAMUEL ALVARENGA Phone#: Med Rec#: [id number] Sex#: F # [id number] Lory#: [id number] Location: [place] [address] Procedure Requested: [id number] FL SWALL OWING FUNCTION W VIDEO Reason for Exam: Failed bedside swall ow exam Exam Ordered: 05/03/2014 11 19 Exam Date/Time: 05/03/2014 145 8 Check-in Date/Time: 05/03/2014 1443 FL SWALLOWING FUNCTION W VIDEO May 03, 2014 03:04:50 PM Reason for exam: Failed bedside swall ow exam Comparison Study: None. Technique: Video fluoroscopic swallow ing examination was performed in conjunction with speech pathology. Vari ous barium consistencies including liquid and solid food substan azul were used to evaluate swallowing. Findings: The patient demonstrated normal AP kim sit and initiation. No significant pooling was evident in the vallecula and piriform sinuses. There was no evidence of nasopharyngeal reflux, laryngeal penetration, or rito tracheal aspiration. No cricop haryngeal abnormalities were noted. Total fluoroscopic time was 1.1 minutes . Procedure Note Interface, Rad Results In - 05/03/2014 3:30 PM BLACKING MACHINE OPERATOR Patient: SAMUEL ALVARENGA Phone#: Med Rec#: [id number] Sex#: F # [id number] Lory#: [id number] Location: [place] [address] Procedure Requested: [id number] FL SWALLOWING FUNCTION W VIDEO Reason for Exam: Failed bedside swallow exam Exam Ordered: 05/03/2014 1119 Exam Date/Time: 05/03/2014 1458 Check-in Date/Time: 05/03/2014 1443 FL SWALLOWING FUNCTION W VIDEO May 03, 2014 03:04:50 PM Reason for exam: Failed bedside swallow exam Comparison Study: None. Technique: Video fluoroscopic swallowing examination was performed in conjunction with speech pathology. Various barium consistencies including liquid and solid food substances were used to evaluate swallowing. Findings: The patient demonstrated normal AP transit and initiation. No significant pooling was evident in the vallecula and piriform sinuses. There was no evidence of nasopharyngeal reflux, laryngeal penetration, or rito tracheal aspiration. No cricopharyngeal abnormalities were noted. Total fluoroscopic time was 1.1 minutes. IMPRESSION: 1. Normal video fluoroscopic swallow. 2. Please refer to speech pathology repo rt for further details. ATTESTATION STATEMENT: The Staff Radiologist has personally reviewed the images and dictated, reviewed, or edited the final report. INTERPRETATION SITE: [facility]. Performing Organization Address City/State/Zipcode Ph one Number [place] * Echo Complete with Doppler and Color Flow (05/03/2014 8:38 AM BLACKING MACHINE OPERATOR) Specimen Narrative Performed At [facility] RAD ECHOCARDIOGRAM REPORT [facility] Name: SAMUEL ALVARENGA Date: 05/03/2014 08:01 Chart #: [id number] : 1950 Location: [facility] IP Sono: nawaf Age: 63 Gender: F Referring: TIERRA HENAO DO Room #: NB10-1 Fellow: Indication:Possible stroke/TIA Procedure: [id number] Complete Echo 2D/Col orflow/Doppler BP: 163 / 83 HR: 62 Ht: 66 Wt: 179 BSA: 1.9 2D ECHO MEASUREMENTS LV Diastolic Diameter Bas 4.2 cm 3.6-5.4 IVS Diastolic Thickness 1.2 cm 0.6-1.1 LV Systolic Diameter Base 2.5 cm 2.3-4.0 LVPW Diastolic Thickness 1 cm 0.6-1.1 LA Systolic Diameter LX 3.3 cm 2.3-3.8 Ascending Aorta Diameter 3.3 cm 2.1-3.4 WALL SEGMENT ANALYSIS: ROUTINE LVSI : 1 %FM : 100 LAD : 1 LCX : 1 RCA : 1 FINDINGS LV Ejection Fraction: 65 Normal left ventricular systolic func tion, with an estimated ejection fraction of 65%. Mild septal hypertrophy. Normal wall motion. Normal left ventricular dimensions. Normal right ventricular size and sys tolic function. Normal right and left atrial size. Mild diastolic dysfunction - normal L A pressure with mild abnormality in LV relaxation. Normal aortic valve without regurgita tion. Normal mitral valve with mild regurgi tation. Normal pulmonic valve with trivial re gurgitation. Normal tricuspid valve with trivial r egurgitation. Unable to accurately estimate pulmonary artery pressure. No pericardial effusion. IVC is responsive to inspiration emmy cating normal RA pressure. Normal ascending aorta. No intracardiac masses or thrombi. No evidence for intracardiac shunting following an intravenous injection of agitated saline. CONCLUSIONS: 1. Normal left ventricular systolic f unction, with an estimated ejection fraction of 65%. 2. No significant valvular abnormalit ies. Joey Martinez M.D. (Electronically Signed) Final Date: 03 May 2014 08: 56 Procedure Note Interface, External Ris In - 05/03/2014 8:56 AM BLACKING MACHINE OPERATOR ECHOCARDIOGRAM REPORT [facility] Name: SAMUEL ALVARENGA Date: 05/03/2014 08:01 Chart #: [id number] : 1950 Location: [facility] IP Sono: nawaf Age: 63 Gender: F Referring: TIERRA HENAO Room #: NB10-1 Fellow: Indication:Possible stroke/TIA Procedure: [id number] Complete Echo 2D/Colorflow/Doppler BP: 163 / 83 HR: 62 Ht: 66 Wt: 179 BSA: 1.9 2D ECHO MEASUREMENTS LV Diastolic Diameter Bas 4.2 cm 3.6-5.4 IVS Diastolic Thickness 1.2 cm 0.6-1.1 LV Systolic Diameter Base 2.5 cm 2.3-4.0 LVPW Diastolic Thickness 1 cm 0.6-1.1 LA Systolic Diameter LX 3.3 cm 2.3-3.8 Ascending Aorta Diameter 3.3 cm 2.1-3.4 WALL SEGMENT ANALYSIS: ROUTINE LVSI : 1 %FM : 100 LAD : 1 LCX : 1 RCA : 1 FINDINGS LV Ejection Fraction: 65 Normal left ventricular systolic function, with an estimated ejection fraction of 65%. Mild septal hypertrophy. Normal wall motion. Normal left ventricular dimensions. Normal right ventricular size and systolic function. Normal right and left atrial size. Mild diastolic dysfunction - normal LA pressure with mild abnormality in LV relaxation. Normal aortic valve without regurgitation. Normal mitral valve with mild regurgitation. Normal pulmonic valve with trivial regurgitation. Normal tricuspid valve with trivial regurgitation. Unable to accurately estimate pulmonary artery pressure. No pericardial effusion. IVC is responsive to inspiration indicating normal RA pressure. Normal ascending aorta. No intracardiac masses or thrombi. No evidence for intracardiac shunting following an intravenous injection of agitated saline. CONCLUSIONS: 1. Normal left ventricular systolic function, with an estimated ejection fraction of 65%. 2. No significant valvular abnormalities. Joey Martinez M.D. (Electronically Signed) Final Date: 03 May 2014 08:56 Performing Organization Address [facility] Ph one Number [facility] RAD [address] [place] [address] * GLUCOSE POC (05/03/2014 4:18 AM BLACKING MACHINE OPERATOR) Only the most recent of 3 results within the time period is included. [facility] Signature Glucose POC 114 (H) 70 - 100 mg/dL [facility] Specimen Blood Performing Organization Address City/[facility] Ph one Number [address] [address] LABORATORIES * Magnesium (05/03/2014 3:08 AM BLACKING MACHINE OPERATOR) Pathologist [facility] Magnesium 2.3 1.4 - 2.7 mg/dL [facility] Specimen Blood - Blood Performing Organization Address City/State/Zipcode Ph one Number RL [address] [place], [place] [address] [facility] [address] [place] [address] , [place] [phone] LABORATORIES * CBC and Diff (manual diff if necessary) (05/03/2014 3:08 AM BLACKING MACHINE OPERATOR) Pathologist [facility] WBC 7.87 4.00 - 11.00 TH/uL [facility] RBC 4.54 4.00 - 5.00 MIL/uL [facility] Hemoglobin 13.4 12.0 - 15.0 g/dL [facility] Hematocrit 39 36 - 45 % [facility] MCV 86 80 - [address] [facility] MCH 30 27 - [address] [facility] MCHC 34 32 - 36 % [facility] RDW 12.8 9.0 - 14.5 % [facility] Platelet Count 256 140 - 400 TH/uL [facility] MPV 11.5 9.4 - 12.[address] [facility] Nucleated RBCs 0 0 - 0 /100 [facility] % Neutrophils 63 45 - 78 % [facility] %Lymphocytes 29 15 - 47 % [facility] %Monocytes 6 0 - 12 % [facility] %Eosinophils 2 0 - 7 % [facility] %Basophils 1 0 - 2 % [facility] % Imm Grans 0 0 - 1 % [facility] # Granulocytes 4.95 1.70 - 6.80 TH/uL [facility] # Lymphocytes 2.27 1.00 - 3.30 TH/uL [facility] # Monocytes 0.46 0.20 - 0.90 TH/uL [facility] # Eosinophils 0.16 0.00 - 0.40 TH/uL [facility] # Basophils 0.04 0.00 - 0.10 TH/uL [facility] Specimen Blood - Blood Performing Organization Address [facility] one Number [facility] [address] [place] [address] LABORATORIES * Creatine Kinase (05/03/2014 3:08 AM BLACKING MACHINE OPERATOR) Creatine Kinase 48 IU/L [facility] Comment: REGIONAL White Female: 30 - 160 LABORATORIES IU/L Black Female: 30 - 430 IU/L White Male: 40 - 425 IU/L Black Male: 50 - 850 IU/L Specimen Blood - Blood Performing Organization Address [facility] one Number [facility] [address] [place] [address] LABORATORIES * Comprehensive Metabolic Panel (05/03/2014 3:08 AM BLACKING MACHINE OPERATOR) Sodium 140 133 - 147 MEQ/L [facility] Potassium 3.5 3.5 - 5.3 MEQ/L [facility] Chloride 103 96 - 112 MEQ/L [facility] Carbon Dioxide 26 20 - 32 MEQ/L [facility] Anion Gap 11 5 - 17 [facility] Calcium 9.5 8.4 - 10.5 mg/dL [facility] Glucose 114 (H) 70 - 100 mg/dL [facility] Protein Total 7.0 6.0 - 8.2 g/dL [facility] Serum [facility] Albumin 3.9 3.5 - 5.0 g/dL [facility] Alkaline 78 42 - 140 IU/L [facility] Phosphatase [facility] Alanine 29 13 - 69 IU/L [facility] Aminotransferas REGIONAL e LABORATORIES Aspartate 21 15 - 46 IU/L [facility] Aminotransferas [facility] e LAB[facility]IES Bilirubin Total 1.0 0.2 - 1.3 mg/dL [facility] Blood Urea 9 7 - 26 mg/dL [facility] Nitrogen [facility] Creatinine 0.7 0.4 - 1.1 mg/dL [facility] eGFR Female AA 101 60 - 200 [facility] Comment: REGIONAL Chronic Kidney Disease less LABORATORIES than 60 mL/min/1.73 sq.m Kidney failure less than 15 mL/min/1.73 sq.m eGFR Female 84 60 - 200 [facility] Non-AA Comment: REGIONAL Chronic Kidney Disease less LABORATORIES than 60 mL/min/1.73 sq.m Kidney failure less than 15 mL/min/1.73 sq.m Specimen Blood - Blood Performing Organization Address [facility] one Number [facility] [id number] LABORATORIES * Hemoglobin A1C (05/03/2014 3:08 AM BLACKING MACHINE OPERATOR) Hemoglobin A1C 5.3 4.0 - 5.6 % [facility] Comment: REGIONAL Non-diabetic 4.0 - LABORATORIES 5.6 % Prediabetes 5.7 - 6.4 % Diabetes >= 6.5 % Specimen Blood - Blood Performing Organization Address [facility] one Number [address] [address] LABORATORIES * Lipid Panel (05/03/2014 3:08 AM BLACKING MACHINE OPERATOR) Cholesterol 194 100 - 200 mg/dL [facility] HDL Cholesterol 66 40 - 110 mg/dL [facility] Non-HDL 128 0 - 130 mg/dL [facility] Cholesterol [facility] Triglycerides 87 0 - 150 mg/dL [facility] LDL Cholesterol 111 (H) 0 - 99 mg/dL [facility] Cholesterol/HDL 2.9 0.0 - 4.5 [facility] Ratio [facility]AL LABORATORIES Specimen Blood - Blood Performing Organization Address City/[facility] one Number [address] [id number] LABORATORIES * CT Angio Neck (05/02/2014 9:30 PM BLACKING MACHINE OPERATOR) Specimen Impressions Performed At IMPRESSION: [place] Mild atherosclerosis of the right carot id bifurcation with less than 50% stenosis of the cervical right ICA at i ts origin per NASCET criteria. Mild atherosclerosis of the left caroti d bifurcation without stenosis of the cervical left ICA per NASCET criter ia. The bilateral vertebral arteries are pa tent without stenosis. READING SITE: [facility]. ATTESTATION STATEMENT: The Staff Radiologist has personally re viewed the images and dictated, reviewed, or edited the final report. Narrative Performed At Patient: SAMUEL ALVARENGA Phone#: Med Rec#: [id number] Sex#: F # [id number] Lory#: [id number] Location: [place] [address] Procedure Requested: [id number] CT ANGIO NECK Reason for Exam: stroke like symptoms Exam Ordered: 05/02/2014 20 54 Exam Date/Time: 05/02/2014 213 0 Check-in Date/Time: 05/02/20142128 CT Angiogram of the Neck (with contrast ) May 02, 2014 09:33:22 PM Indication: Hemiparesis Comparison: Concurrent CTA of the hea d Technique: CT angiogram of neck was obtained with bolus injection of 75 cc of Omnipaque 350. The images were sent t o workstation and multiplanar reconstructions were obtained. These images were sent to a separate work station and 3-D volume rendering w as performed. Findings: Right ICA: There is mild atherosclerosi s of the right carotid bifurcation with less than 50% stenosis of the cervical right ICA at its origin per NASCET criteria. Right vertebral: The right vertebral or igin has no stenosis. The cervical right vertebral is normal. The intracranial right vertebral artery is normal. Right subclavian: There is no stenosis of the right subclavian seen. Left ICA: There is mild atherosclerosis of the left carotid bifurcation without stenosis of the cervical left I CA per NASCET criteria. Left vertebral: The left vertebral orig in has no stenosis. The cervical left vertebral is normal. The intracran ial left vertebral artery is normal. Left subclavian: There is no stenosis o f the left subclavian seen. No stenosis of the innominate. Both com mon carotid arteries show no stenosis. Visualized intracranial arter ies show no large artery occlusion or cerebral aneurysm Mild degenerative changes of the cervic al spine with mild disc space height loss at C5-C6 and C6-C7. The thyroid gland is atrophic or surgic ally absent. Procedure Note Interface, Rad Results In - 05/03/2014 12:26 PM BLACKING MACHINE OPERATOR Patient: SAMUEL ALVARENGA Phone#: Med Rec#: [id number] Sex#: F # [id number] Lory#: [id number] Location: [facility] E101- Procedure Requested: [id number] CT ANGIO NECK Reason for Exam: stroke like symptoms Exam Ordered: 05/02/20142053 Exam Date/Time: 05/02/20142129 Check-in Date/Time: 05/02/20142128 CT Angiogram of the Neck (with contrast) May 02, 2014 09:33:22 PM Indication: Hemiparesis Comparison: Concurrent CTA of the head Technique: CT angiogram of neck was obtained with bolus injection of 75 cc of Omnipaque 350. The images were sent to workstation and multiplanar reconstructions were obtained. These images were sent to a separate work station and 3-D volume rendering was performed. Findings: Right ICA: There is mild atherosclerosis of the right carotid bifurcation with less than 50% stenosis of the cervical right ICA at its origin per NASCET criteria. Right vertebral: The right vertebral origin has no stenosis. The cervical right vertebral is normal. The intracranial right vertebral artery is normal. Right subclavian: There is no stenosis of the right subclavian seen. Left ICA: There is mild atherosclerosis of the left carotid bifurcation without stenosis of the cervical left ICA per NASCET criteria. Left vertebral: The left vertebral origin has no stenosis. The cervical left vertebral is normal. The intracranial left vertebral artery is normal. Left subclavian: There is no stenosis of the left subclavian seen. No stenosis of the innominate. Both common carotid arteries show no stenosis. Visualized intracranial arteries show no large artery occlusion or cerebral aneurysm Mild degenerative changes of the cervical spine with mild disc space height loss at C5-C6 and C6-C7. The thyroid gland is atrophic or surgically absent. IMPRESSION: Mild atherosclerosis of the right carotid bifurcation with less than 50% stenosis of the cervical right ICA at its origin per NASCET criteria. Mild atherosclerosis of the left carotid bifurcation without stenosis of the cervical left ICA per NASCET criteria. The bilateral vertebral arteries are patent without stenosis. READING SITE: [facility]. ATTESTATION STATEMENT: The Staff Radiologist has personally reviewed the images and dictated, reviewed, or edited the final report. Performing Organization Address City/State/Zipcode Ph one Number [place] * CT Angio Head and Perfusion P (05/02/2014 9:30 PM BLACKING MACHINE OPERATOR) Specimen Impressions Performed At Impression: [facility] 1. Small unmatched perfusion abnormalit y within the left basal ganglia. No large vascular territory perfusion a bnormality. 2. No CT angiographic evidence of arter ial occlusion, significant stenosis, or aneurysmal dilatation. 3. No intracranial hemorrhage. Normal g ray-white matter differentiation. 4. Age appropriate cerebral volume loss and mild chronic small vessel ischemic disease. Findings discussed with Michelle with jr neuro at 9:35 p.m. on 05/02/2014. READING SITE: [facility]. ATTESTATION STATEMENT: The Staff Radiologist has personally re viewed the images and dictated, reviewed, or edited the final report. Narrative Performed At Patient: SAMUEL ALVARENGA Phone#: Med Rec#: [id number] Sex#: F # [id number] Lory#: [id number] Location: [place] [address] Procedure Requested: [id number] CT ANGIO HEAD AND PERFUSION P Reason for Exam: stroke symptoms Exam Ordered: 05/02/2014 20 54 Exam Date/Time: 05/02/2014 213 0 Check-in Date/Time: 05/02/20142128 CT Head (without contrast), CT Angiogra m & CT Perfusion Head (with contrast) Date: May 02, 2014 09:33:22 PM Indication: stroke symptoms. Hemiparesi s Comparison : Concurrent cervical CT ang iogram. Technique: Multiple axial tomographic i mages of the head were obtained without contrast. Axial slices for perf usion were selected and CT perfusion head was performed with bolus injection of 40 cc of Omnipaque 350. The images were sent to workstat ion and mean transit time (MTT), cerebral blood flow (CBF), and cerebral blood volume (CBV) were calculated. CT angiogram was obtained a fter IV administration of 75 ml of Omnipaque-350. These images were sen t to work station and 3-D volume rendering was performed. Noncontrast CT head findings: Mild severity ill-defined hypoattenuati ons within the periventricular deep white matter, a nonspecific findin g, however most suggestive of chronic small vessel ischemic disease. The marino-white matter junction is otherwise normal. No intra or extra-axial mass or hemorrh age is identified. There is no midline shift. Mild symmetric prominence of the ventri cles and cerebral sulci consistent with age appropriate cerebra l volume loss. The ventricles are otherwise normal in shape and morph ology. The basilar cisterns are patent. No acute osseous or soft tissue abnorma lity. The visualized paranasal sinuses are normal. The visualized po rtions of the orbits and globes are normal. The mastoid air cells are c lear. CT angiogram findings: Normal filling of both distal ICA's, as well as the proximal bilateral anterior and middle cerebral branches. The basilar and posterior cerebral arteries are normal. No nico rial occlusion is seen. No aneurysm is seen. No AV malformation se en. CT perfusion findings: Small region of asymmetric unmatched pe rfusion abnormality within left basal ganglia with elevated mean transi t time (MTT) and time to peak (TTP) with normal cerebral blood flow ( CBF) and cerebral blood volume (CBV). Procedure Note Interface, Rad Results In - 05/02/2014 10:12 PM BLACKING MACHINE OPERATOR Patient: SAMUEL ALVARENGA Phone#: Med Rec#: [id number] Sex#: F # [id number] Lory#: [id number] Location: [facility] E101-01 Procedure Requested: [id number] CT ANGIO HEAD AND PERFUSION P Reason for Exam: stroke symptoms Exam Ordered: 05/02/20142053 Exam Date/Time: 05/02/20142129 Check-in Date/Time: 05/02/20142128 CT Head (without contrast), CT Angiogram & CT Perfusion Head (with contrast) Date: May 02, 2014 09:33:22 PM Indication: stroke symptoms. Hemiparesis Comparison : Concurrent cervical CT angiogram. Technique: Multiple axial tomographic images of the head were obtained without contrast. Axial slices for perfusion were selected and CT perfusion head was performed with bolus injection of 40 cc of Omnipaque 350. The images were sent to userfoxtatio n and mean transit time (MTT), cerebral blood flow (CBF), and cerebral blood volume (CBV) were calculated. CT angiogram was obtained after IV administration of 75 ml of Omnipaque-350. These images were sent to work station and 3-D volume rendering was performed. Noncontrast CT head findings: Mild severity ill-defined hypoattenuations within the periventricular deep white matter, a nonspecific finding, however most suggestive of chronic small vessel ischemic disease. The marino-white matter junction is otherwise normal. No intra or extra-axial mass or hemorrhage is identified. There is no midline shift. Mild symmetric prominence of the ventricles and cerebral sulci consistent with age appropriate cerebral volume loss. The ventricles are otherwise normal in shape and morphology. The basilar cisterns are patent. No acute osseous or soft tissue abnormality. The visualized paranasal sinuses are normal. The visualized portions of the orbits and globes are normal. The mastoid air cells are clear. CT angiogram findings: Normal filling of both distal ICA's, as well as the proximal bilateral anterior and middle cerebral branches. The basilar and posterior cerebral arteries are normal. No arterial occlusion is seen. No aneurysm is seen. No AV malformation seen. CT perfusion findings: Small region of asymmetric unmatched perfusion abnormality within left basal ganglia with elevated mean transit time (MTT) and time to peak (TTP) with normal cerebral blood flow (C BF) and cerebral blood volume (CBV). Impression: 1. Small unmatched perfusion abnormality within the left basal ganglia. No large vascular territory perfusion abnormality. 2. No CT angiographic evidence of arteri al occlusion, significant stenosis, or aneurysmal dilatation. 3. No intracranial hemorrhage. Normal gr ay-white matter differentiation. 4. Age appropriate cerebral volume loss and mild chronic small vessel ischemic disease. Findings discussed with Michelle with jr neuro at 9:35 p.m. on 05/02/2014. READING SITE: [facility]. ATTESTATION STATEMENT: The Staff Radiologist has personally reviewed the images and dictated, reviewed, or edited the final report. Performing Organization Address City/State/Zipcode Ph one Number [place] * XR Outside images for PACS (05/02/2014 8:20 PM BLACKING MACHINE OPERATOR) Specimen Performing Organization Address City/State/Zipcode Ph one Number [place] * US Outside images for PACS (05/02/2014 8:15 PM BLACKING MACHINE OPERATOR) Specimen Performing Organization Address City/State/Zipcode Ph one Number [place] * CT Outside images for PACS (05/02/2014 8:10 PM BLACKING MACHINE OPERATOR) Only the most recent of 2 results within the time period is included. Specimen Performing Organization Address City/State/Zipcode Ph one Number [place] * MRI Outside images for PACS (05/02/2014 8:00 PM BLACKING MACHINE OPERATOR) Specimen Performing Organization Address City/State/Zipcode Ph one Number [facility] documented in this encounter Visit Diagnoses Diagnosis Stroke, lacunar (HCC) Unspecified cerebral artery occlusion w ith cerebral infarction Episode of transient neurologic symptom s HTN (hypertension) Unspecified essential hypertension Hypothyroid Unspecified hypothyroidism HLD (hyperlipidemia) Other and unspecified hyperlipidemia documented in this encounter Administered Medications Action Date Dose Rate Site Medication Order MAR Action 05/03/2014 2:35 AM BLACKING MACHINE OPERATOR 650 mg acetaminophen (TYLENOL) suppository 650 Given mg 650 mg, Rectal, Every 4 hours PRN, fever, temperature > 99.5 F (37.5 C), Starting Wed05/02/14 at 2049, Depending on patient's ability to take PO. Discus s other options with physician if unable to maintain temperature < 99.5 F (37.5 C)., 05/08/2014 6:55 PM BLACKING MACHINE OPERATOR 650 mg acetaminophen (TYLENOL) tablet 325-650 Given mg 325-650 mg, Oral, Every 4 hours PRN, fever, temperature > 99.5 F (37.5 C), Starting Wed05/02/14 at 2049, Depending on patient's ability to take PO. Discus s other options with physician if unable to maintain temperature < 99.5 F (37.5 C)., 650 mg Given 05/06/2014 8:08 AM BLACKING MACHINE OPERATOR 650 mg Given 05/04/2014 11:34 PM BLACKING MACHINE OPERATOR 05/09/2014 7:52 AM BLACKING MACHINE OPERATOR 81 mg aspirin chewable tablet 81 mg Given 81 mg, Oral, Daily, First dose on Zeynep 05/03/14 at 0900 81 mg Given 05/08/2014 8:11 AM BLACKING MACHINE OPERATOR 81 mg Given 05/07/2014 7:55 AM BLACKING MACHINE OPERATOR 05/08/2014 8:35 PM BLACKING MACHINE OPERATOR 20 mg atorvastatin (LIPITOR) tablet 20 mg Given 20 mg, Oral, Nightly, First dose on Zeynep 05/03/14 at 2100 20 mg Given 05/07/2014 8:56 PM BLACKING MACHINE OPERATOR 20 mg Given 05/06/2014 9:40 PM BLACKING MACHINE OPERATOR 05/03/2014 2:50 PM BLACKING MACHINE OPERATOR 10 mL barium (VARIBAR HONEY) thin suspension Given 10 mL 10 mL, Oral, Once in imaging, contrast, Starting Zeynep 05/03/14 at 1459, For 1 dos e 05/03/2014 2:52 PM BLACKING MACHINE OPERATOR 10 mL barium (VARIBAR) apple thin liquid 10 mL Given 10 mL, Oral, Once in imaging, contrast, Starting Wed05/03/14 at 1459, For 1 dos e 05/09/2014 7:53 AM BLACKING MACHINE OPERATOR 100 mg docusate sodium (COLACE) capsule 100 mg Given 100 mg, Oral, 2 times daily, First dose on Wed05/02/14 at 2115 100 mg Given 05/08/2014 9:00 PM BLACKING MACHINE OPERATOR 100 mg Given 05/08/2014 8:11 AM BLACKING MACHINE OPERATOR 05/04/2014 7:35 AM BLACKING MACHINE OPERATOR 17 mL gadodiamide (OMNISCAN) 10 mmol/20 mL Given (287 mg/mL) injection Soln 17 mL 17 mL, Intravenous, Once in imaging, contrast, Starting Wed05/04/14 at 0735, For 1 dose 05/09/2014 5:15 AM BLACKING MACHINE OPERATOR 1 tablet HYDROcodone-acetaminophen (NORCO) 5-325 Given mg per tablet 1 tablet 1 tablet, Oral, Every 4 hours PRN, mild pain (pain score 1-3), moderate pain (pain score 4-6), severe pain (pain score 7-10), Starting Wed05/07/14 at 2219, Do not exceed 4 GM/DAY of acetaminophen. If 65 or older do not exceed 3 GM/DAY. If chronic alcoholic d o not exceed 2 GM/DAY., 1 tablet Given 05/07/2014 10:28 PM BLACKING MACHINE OPERATOR 05/02/2014 9:30 PM BLACKING MACHINE OPERATOR 115 mL iohexol (OMNIPAQUE) 350 mg iodine/mL Given injection 115 mL 115 mL, Intravenous, Once in imaging, contrast, Starting Wed05/02/14 at 2129, For 1 dose 05/09/2014 7:28 AM BLACKING MACHINE OPERATOR 150 mcg levothyroxine (SYNTHROID, LEVOTHROID) Given tablet 150 mcg 150 mcg, Oral, Daily, First dose (after last modification) on Wed05/04/14 at 0700, Take on empty stomach, 150 mcg Given 05/08/2014 8:11 AM BLACKING MACHINE OPERATOR 150 mcg Given 05/07/2014 7:28 AM BLACKING MACHINE OPERATOR 05/06/2014 6:32 AM BLACKING MACHINE OPERATOR 40 mEq potassium chloride (KLOR-CON) CR tablet Given 20-60 mEq 20-60 mEq, Oral, As needed, for potassium replacement, Starting Wed05/03/14 at 0344, Administer 20 mEq for potassium level 3.6 to 3.9 mg/dL. Repea t potassium level in AM. Administer 40 mE q for potassium level 3.1 to 3.5 mg/dL. Repeat potassium level 4 hours after last oral dose administered. Administer 60 mEq for potassium level less than or equal to 3. (20 mEq every hour for 3 doses). Repeat potassium level 4 hours after last oral dose administered. Administer only if SCr < 2 within the previous 48 hours and urine output > 20 mL/hour. DO NOT CRUSH OR CHEW., 05/03/2014 9:40 AM BLACKING MACHINE OPERATOR 10 mL sodium chloride (NS) 0.9 % flush 10 mL Given 10 mL, Intravenous, As needed, line care, Bubble Study, Starting Zeynep 4 at 0939, Imaging documented in this encounter
--- OUTSIDE RECORDS SUMMARY | 2019-12-19 14:20 | XMS REPORT | Encounter Summary ---
Author Author [facility] Organization [facility] Address Unknown Phone Unavailable Care Team Providers Care Skiver Sock Linings Name Role Phone Lalo Benny PCP Reason for Visit * Reason Comments Other Encounter Details Care Team Description Date Type Department Katelyn Argueta MD [address] [address] [phone] Other 01/06/2016 Refill [facility] Neurol ogy [address] [place] [address] Social History Date Tobacco Use Types Packs/Day [...] Date Type Specialty Moise Jalloh NP [address] [address] [phone] 05/08/2020 Office Visit Neurology documented as of this encounter Visit Diagnoses Not on filedocumented in this encounter
--- OUTSIDE RECORDS SUMMARY | 2019-12-19 14:20 | XMS REPORT | Encounter Summary ---
Author Author [facility] Organization [facility] Address Unknown Phone Unavailable Care Team Providers Care Die Maker Name Role Phone Benny May PCP Encounter Details Care Team Description Date Type Department Katelyn Argueta MD [address] [place], [place] [id number] 12/05/2014 PracPart Note [facility] Neurol ogy [address] [place] [address] Social History Date Tobacco Use Types Packs/Day Years Used Never Assessed Sex Assigned at Date Recorded Not on file Industry Job Start Date Occupation Not on file Not on file Not on file Travel End Travel History Travel Start No recent travel history available. documented as of this encounter Progress Notes * Katelyn Argueta MD - 12/05/2014 7:46 PM CDT . :07:46PM .T:Call from patient's daughter From: Katelyn Argueta (Chriss) Originated by: Katelyn Argueta) S ent: 12/05/2014 at 07:45PM To: Tanja Ornelas () Type: CHART Priority: 3 Subject: Call from patient's daughter Original Message: From: To: CMB Subject: Call from patient's daughter Priority: 3 Date: 12/05/2014 Nurse Note: 12/05/14 Providers: : Physician Response: OK to proceed with possible surgery. She will likely need to come off of aspirin prior to surgery. If so she will be at increased risk of stroke and needs to be monitored closely going to the ER immediately for any possible stroke symptoms Thanks sandi 7-8-15 07/09/15 10:31am I spoke Cassi and relayed the above response. She knows to anne l back if needed - Reason for Call: Next Office Visit: 05/17/15 - Cassi, daughter of this 64 year old female report s by phone mom as significant left knee pain and is wanting to look into getting a total knee replacement. Cassi wants to make sure with her history of stroke that it's okay to move forward with this. Please advise. Thanks! tanja t Call this patient at work yes - dtr cell [phone] - dtr Other Contact Name and Number 11/13/14 Favian Ball M.D. [place], [place] RE: Pia Morales : [address] Ball: I saw your patient Pia Morales, date of 46 today in neurological fo [facility]. The following medication was reported to me [...] followup today. She was seen during hosp [facility]3] in April 2014 for a subacute stroke. At that point the patient reza d been having fluctuating right-sided weakness. She had markedly elevated blood pressure at the time. She was seen in emergency department and then sent home an d then returned with persistent symptoms. She was subsequently transferred to [facility] where she had evidence of a subacute [...] seek immediate medical attention. In fact, she didnot tell her family fo r nearly a week. Her right hand remained clumsy since that time and she has lost functional gains that she obtained in rehabilitation. At that point she began to developed daily headaches. This is improved but is still occurring. This is ma inly a headache on her vertex which she rates 4-5/10 about one time per week. Vonda maldonado also has been developing sharp pains particularly in the left temporal and occ ipital region rated 6-7/10. These are sharp stab that can occur in clusters or r andomly. There are no exacerbating or alleviating factors. The last episode occu rred yesterday. They occur a couple of times per week. She does have a remote hi story of migraines, none since her children have [...] me if there are questions or concerns. documented in this encounter Plan of Treatment Care Team Description Date Type Specialty Moise Jalloh NP [address] [address] [phone] 05/08/2020 Office Visit Neurology documented as of this encounter Visit Diagnoses Not on filedocumented in this encounter
--- OUTSIDE RECORDS SUMMARY | 2019-12-19 14:20 | XMS REPORT | Encounter Summary ---
Author Author [facility] Organization [facility] Address Unknown Phone Unavailable Care Team Providers Care Silver Buffer Name Role Phone PCP Unavailable Encounter Details Care Team Description Date Type Department Katelyn Argueta MD [address] [address] [phone] 11/13/2014 [facility] Hospit al Encounter [address] [place] [address] Social History Date Tobacco Use Types Packs/Day [...] daily. tablet documented as of this encounter Plan of Treatment Care Team Description Date Type Specialty Moise Jalloh NP [address] [address] [phone] 05/08/2020 Office Visit Neurology documented as of this encounter Procedures Comments Procedure Name Priority Date/Time Associated Diag nosis LAB SUMMARY 11/14/2014 7:31 AM CDT ERYTHROCYTE SEDIMENTATION Routine 11/13/2014 RATE 12:26 PM CDT C-REACTIVE PROTEIN Routine 11/13/2014 12:26 PM CDT documented in this encounter Results * LAB SUMMARY (11/14/2014 7:31 AM CDT) Narrative Performed At This result has an attachment that is n ot available. Ordered by an unspecified provider. * Erythrocyte Sedimentation Rate (11/13/2014 12:26 PM CDT) Sed Rate 17 0 - 17 mm/h [facility] Specimen Performing Organization Address [facility] one Number [address] [phone] LABORATORIES * C-Reactive Protein (11/13/2014 12:26 PM CDT) C Reactive 15.1 (H)Comment: Infection or 0.0 - 10.0 mg/L [facility] Protein Inflammation >10.0 mg/L [facility] Specimen Performing Organization Address [facility] Ph one Number [address] [phone] LABORATORIES documented in this encounter Visit Diagnoses Not on filedocumented in this encounter
--- OUTSIDE RECORDS SUMMARY | 2019-12-19 14:20 | XMS REPORT | Encounter Summary ---
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); Essential hypertension; HLD (hyperlipidemia); Stabbing headache 05/17/2015 Office Visit [facility] Neurol [facility] [address] [facility] [address] [place] [address] Social History Date Tobacco Use Types Packs/Day [...] Signs Reading Time Taken Comments Vital Sign 145/67 05/17/2015 10:27 AM GRUBBER Blood Pressure 62 05/17/2015 10:27 AM GRUBBER Pulse - - Temperature - - Respiratory Rate - - Oxygen Saturation - - Inhaled Oxygen Concentration 107 kg (236 lb) 05/17/2015 10:27 AM GRUBBER Weight 165.1 cm (5' 5") 05/17/2015 10:27 AM GRUBBER Height 39.27 05/17/2015 10:27 AM GRUBBER Body Mass Index documented in this encounter Patient Instructions * Patient Instructions* Katelyn Argueta MD - 05/17/2015 10:53 AM GRUBBER Increase citalopram to 40mg daily Continue aspirin Goal blood pressure < 120/80 Goal LDL bad cholesterol <100 Goal hemoglobin A1c <7% Diet and exercise Think FAST- F- facial droop A- Arm weakness S- speech troubles T- time, call BER documented in this encounter Progress Notes * Katelyn Argueta MD - 05/17/2015 10:59 AM GRUBBER NEUROLOGY CONSULTATION Patient Name: Pia Morales : 1950 PCP: Favian Ball MD Date of service: 05/17/2015 CHIEF COMPLAINT No chief complaint on file. HISTORY OF PRESENT ILLNESS Pia Morales is a 64 y.o., right-handed female who presents in routine neurolo gic follow-up. She had a left total knee replacement by Dr. Mullen in [place] on 2014. She did rehabilitation at a snf facility for 20 days and is now home with outpatient therapy. She is pleased with her response. She needs a right total knee replacement and is waiting to see on coverage by her [facility] before proceeding. There has been no interval stroke symptoms. She does note some occasional difficulty on the right but feels that its overall better. She is back to aspirin daily. She does note that her mood continues to be a prob sonam. Increasing doses of citalopram at last visit were helpful. She wondered abo ut possibly increasing further. She continues to zhao depression which is comp licated from the stroke and grieving the loss of her father and other family mem bers. She continues to have pain in the left vertex. This is daily. It is either sharp and brief or nagging lasting several minutes. It occurs multiple times. Overall it is unchanged. Her blood pressure has been under better control. IT was slightly elevated systo lic here today but she reports there were some difficulty getting out of the bat htub for the first time following her surgery. She has not had any recent blood work. Review of systems was negative. She was accompanied to clinic by her Daughter. REVIEW OF SYSTEMS A 12 system review of systems was negative except for where noted in the history of present illness above. 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 CURRENT MEDICATIONS atorvastatin (LIPITOR) 20 MG tablet Take 20 mg by mouth daily. citalopram (CELEXA) 20 MG tablet Take two tablets (40 mg total) by mouth gloria ly. [DISCONTINUED] citalopram (CELEXA) 20 MG tablet Take 20 mg by mouth daily. aspirin 81 MG EC tablet Take 81 mg by mouth daily. HYDROcodone-acetaminophen (VICODIN) 5-500 mg per tablet Take 1 tablet by jannette th every 4 (four) hours as needed for pain. ibuprofen (ADVIL,MOTRIN) 200 MG tablet Take 200 mg by mouth every 6 (six) ho urs as needed for pain. levothyroxine (SYNTHROID, LEVOTHROID) 100 MCG tablet Take 100 mcg by mouth d aily. lisinopril (PRINIVIL,ZESTRIL) 10 MG tablet Take 10 mg by mouth daily. [DISCONTINUED] atorvastatin (LIPITOR) 20 MG tablet Take 1 tablet (20 mg tota l) by mouth nightly. No current facility-administered medications for this visit. ALLERGIES No Known Allergies EXAMINATION Filed Vitals: 05/17/15 1027 BP: 145/67 Pulse: 62 Height: 1.651 m (5' 5") Weight: 107.049 kg (236 lb) Body mass index is 39.27 kg/(m^2). In general she is a well-developed, well-nourished, very pleasant female in no a cute distress. Mental status: Alert and oriented 3, speech and language are fl uent and appropriate, attention and concentration are intact. Recent and remote memory are grossly intact. Fundi: Disks not well visualized bilaterally. Cranial nerves: Pupils equally round and reactive to light, extraocular movements are f ull without nystagmus, face symmetric, facial sensation intact to light touch, m asseter strength and function equal, tongue midline, palate elevates bilaterally , shoulder shrug is equal. Motor: Strength is 5/5 throughout. No pronator drift. Sensation is intact to light touch throughout. DTRs: 2/4 biceps, brachioradiali s. Knees not tested. Gait: Antalgic. LABS/STUDIES REVIEWED None available IMPRESSION Ms. Morales is a 64 y.o. right-handed female with stroke late effects falling a le ft subcortical thalamic small vessel stroke with some residual mild right hemise nsory issues and ataxia. 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 She will continue with aspirin daily for secondary stroke prevention . I suggested goal blood pressure <120/80, goal LDL <100, and goal hemoglobin A1c <7%. I again discussed the importance of early presentation to the emergency room for any possible strokelike symptoms. We discussed FAST (facial droop, arm weakness, speech difficulty, and the importance of time). Hopefully she will be able to increase her overall exercise following her rehabilitation from surgery. For her post stroke depression I've increased citalopram to 40 mg daily and will monitor. She continues to have idiopathic stabbing type headaches. These are re latively static and we will monitor. I plan to see her back in 6 months, sooner if additional problems should arise i n the meantime. I appreciate the opportunity to participate in this delightful patient's care. Maggie dumont do not hesitate to contact me if there are questions or concerns. PLAN Aspirin 81 mg daily Goal blood pressure <120/80 Goal LDL <100 Increased exercise as possible, follow low cholesterol low-fat low-sodium t Discussed importance of immediate presentation to the emergency room for any further strokelike symptoms Increase citalopram to 40 mg daily for ongoing depression post stroke Follow-up: Return in about 6 months (around 11/16/2015). I spent 25 minutes with Ms. Morales, greater than 50% of which was spent in counse ling and coordination of care. 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
--- OUTSIDE RECORDS SUMMARY | 2019-12-19 14:21 | XMS REPORT | Encounter Summary ---
Author Author [facility] Organization [facility] Address Unknown Phone Unavailable Care Team Providers Care Cotton Converter Name Role Phone PCP Unavailable Encounter Details Care Team Description Date Type Department [facility] Provider, MD Alejandrina 05/03/2014 [facility] Social History Date Tobacco Use Types Packs/Day Years Used Never Assessed Sex Assigned at Date Recorded Not on file Industry Job Start Date Occupation Not on file Not on file Not on file Travel End Travel History Travel Start No recent travel history available. documented as of this encounter Plan of Treatment Care Team Description Date Type Specialty Moise Jalloh NP [address] [address] [phone] 05/08/2020 Office Visit Neurology documented as of this encounter Procedures Comments Procedure Name Priority Date/Time Associated Diag nosis ECHO EJECTION FRACTION Routine 05/03/2014 HISTORICAL 8:01 AM PRODUCT ENGINEERING MANAGER documented in this encounter Results * Echo Ejection Fraction historical (05/03/2014 8:01 AM PRODUCT ENGINEERING MANAGER) Ejection 65Comment: ECHO COMPLETE WITH PROSOLV Fraction DOPPLER AND COLOR FLOW Specimen Performing Organization Address City/State/Zipcode Ph one Number PROSOLV documented in this encounter Visit Diagnoses Not on filedocumented in this encounter
--- OUTSIDE RECORDS SUMMARY | 2019-12-19 14:21 | XMS REPORT ---
Author Author Pia GARCIA Organization [facility] Address [address] [place] [address] Care Team Providers Care Grades 7 8 Tutor Name Role Phone SASHA GARCIA Unavailable PROBLEMS Type Condition ICD9-CM Code ZHX07-QI Code Onset Dates Condition S tatus SNOMED Code Problem Cardiac murmur, previously undiagnosed R01.1 Active 58477436 Problem Localized edema R60.0 Active 1022 40006 Problem Arthropathy M12.9 Active 67343860 3 Problem Coronary artery disease invo lving [place] heart without angina pectoris, unspecified vessel or lesion type I25.10 Active 20771210 Problem Acquired hypothyroidism E03.9 Active 460431643 Problem Hyperlipemia E78.5 Active 9857324 4 Problem Hypoglycemia E16.2 Active 3899031 03 Problem Bronchitis J40 Active 12391239 Problem Other chronic pain G89.29 Active 8 4876577 Problem Anogenital lichen sclerosus L90.0 Ac tive 068015249 Problem 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 Active 079291526 Problem Migraine without aura and with status migrainosu s, not intractable G43.001 Active 365663554 Problem Body mass index (BMI) of 40.0-44.9 in adult Z68.41 Active 565150262 Problem Chronic fatigue R53.82 Active 5270 2003 Problem Low vitamin D level E55.9 Active 37593417 Problem 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 Active 937021808 Problem Non-rheumatic tricuspid valve insufficiency I36.1 Active 893630338 Problem Mood disorder F39 Active 922873 05 ALLERGIES No Information ENCOUNTERS Encounter Location Date Diagnosis [facility] [address] [facility] [id number] [address] [place] [address] September, [facility] [address] [facility] [id number] [address] [place] [address] Jul, [facility] [address] [facility] [id number] [address] [place] [address] May, [facility] [address] [id number] [address] May, Generalized abdominal pain R 10.84 [facility] [address] [facility] [id number] [address] [place] [address] 14 May, 2019 [place] [address] [facility] [id number] [address] [place] [address] Mar, [place] [address] [facility] [id number] [address] [place] [address] Mar, Encounter for Medicare annua l wellness exam Z00.00 ; Acquired hypothyroidism E03.9 ; Hyperlipemia E78.5 ; Encounter for immunization Z23 ; Body mass index (BMI) of 40.0-44.9 in adult Z68.41 ; Hemiplegia and hemiparesis following cerebral infarction affecting right dominant side I69.351 ; Coronary artery disease involving [place] heart without angina pectoris, unspecified vessel or lesion type I25.10 ; Arthropathy M12.9 and Non-rheumatic tricuspid valve insufficiency I36.1 [place] [address] [facility] [id number] [address] [place] [address] Mar, [facility] [id number] [address] Feb, Pleurisy R09.1 and Back pain M54.9 [place] [address] [facility] [id number] [address] [place] [address] Feb, [facility] [address] [id number] [address] Oct, [place] [address] [facility] [id number] [address] [place] [address] Aug, Cervical neuritis M54.12 and Body mass index (BMI) of 40.0-44.9 in adult Z68.41 [place] [address] [facility] [id number] [address] [place] [address] 15 Mar, 2018 [place] [address] [place] [id number] [address] [place] [address] 09 Mar, 2018 Medicare annual wellness vis it, subsequent Z00.00 ; Hemiplegia and hemiparesis following cerebral infarction affecting right dominant side I69.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 ; Mood disorder F39 ; Hypoglycemia E16.2 ; Acquired hypothyroidism E03.9 ; Other chronic pain G89.29 ; 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 ; Non-rheumatic tricuspid valve insufficiency I36.1 and BMI 40.0-44.9, adult Z68.41 [place] [address] [address] Mar, Cutaneous horn L85.8 and Hyp erlipemia E78.5 [place] [address] [address] Feb, [place] [address] [address] Nov, Chronic fatigue R53.82 [place] [address] [address] 14 Oct, 2017 [place] [address] [address] Oct, Low vitamin D level E55.9 [place] [address] [place] [id number] [address] [place] [address] Oct, BMI 40.0-44.9, adult Z68.41 ; Chest pain, unspecified type R07.9 ; Shortness of breath R06.02 ; Heart palpitations R00.2 ; History of CVA (cerebrovascular accident) Z86.73 ; Suspected sleep apnea R29.818 and Non- rheumatic tricuspid valve insufficiency I36.1 [place] [address] [place] [id number] [address] [place] [address] September, Low vitamin D level E55.9 [place] [address] [place] [id number] [address] [place] [address] Jul, BMI 40.0-44.9, adult Z68.41 ; 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 and Murmur R01.1 [place] [address] [address] Jul, [place] [address] [address] Jul, Low vitamin D level E55.9 [place] [address] [address] Jul, BMI 40.0-44.9, adult Z68.41 ; Acquired hypothyroidism E03.9 and Migraine without aura and with status migrainosus, not intractable G43.001 [place] [address] [address] Mar, [place] [address] [address] Mar, [place] [address] [address] Feb, Anogenital lichen sclerosus L90.0 [place] [address] [address] Feb, Well woman exam Z01.419 ; Rosa mp of right breast N63.10 and Anogenital lichen sclerosus L90.0 [place] [address] [address] Jan, Other chronic pain G89.29 [place] [address] [place] [id number] [address] [place] [address] Nov, [place] [address] [address] Nov, Other chronic pain G89.29 [place] [address] [place] [id number] [address] [place] [address] Oct, Stomach pain R10.9 [place] [address] [address] Oct, Other chronic pain G89.29 an d Edema, lower extremity R60.0 [facility] [address] [address] September, [place] [address] [address] Aug, [facility] [address] [address] Aug, Bronchitis J40 [place] [address] [address] Jul, Migraine without aura and wi th status migrainosus, not intractable G43.001 [place] [address] [address] Jul, Migraine without aura and wi th status migrainosus, not intractable G43.001 [place] [address] [address] Feb, Chronic fatigue R53.82 and A cquired hypothyroidism E03.9 [place] [address] [address] Feb, [place] [address] [address] Jan, [place] [address] [address] Dec, [place] [address] [address] Dec, Polyneuropathy G62.9 and Acq uired hypothyroidism E03.9 [place] [address] [place] [id number] [address] [place] [address] Nov, Family history of diabetes mohit ma Z83.3 [place] [address] [address] Nov, Family history of diabetes m ellitus Z83.3 and Polyneuropathy G62.9 [facility] [address] [id number] [address] [place] [address] September, Pain in right knee M25.561 a nd Other chronic pain G89.29 [facility] [address] [id number] [address] [place] [address] September, [facility] [address] [id number] [address] [place] [address] Aug, [facility] [address] [id number] [address] [place] [address] Aug, Hyperlipemia E78.5 [facility] [address] [id number] [address] [place] [address] Aug, [facility] [address] [id number] [address] [place] [address] Aug, [facility] [address] [id number] [address] [place] [address] Aug, [facility] [address] [id number] [address] [place] [address] 15 Jul, 2015 [facility] [address] [id number] [address] [place] [address] 14 Jul, 2015 Acute postoperative pain of right knee G89.18 [facility] [address] [id number] [address] [place] [address] Jul, [facility] [address] [id number] [address] [place] [address] Jul, [facility] [address] [id number] [address] [place] [address] Jul, Preop cardiovascular exam Z0 1.810 [facility] [address] [id number] [address] [place] [address] May, [facility] [address] [place] [id number] [address] [place] [address] Apr, Status post total left knee replacement Z96.652 [facility] [address] [address] Mar, [facility] [address] [place] [id number] [address] [place] [address] Mar, [facility] [address] [address] Feb, [facility] [address] [address] Feb, Encounter for annual physica l exam Z00.00 [place] [address] [address] Feb, Chronic kidney disease N18.9 and Arthritis M19.90 [place] [address] [address] Feb, [facility] [address] [address] Jan, Cough due to MARSHA inhibitor 7 86.2 [place] [address] [address] Dec, Cough due to MARSHA inhibitor 7 86.2 ; Murmur, cardiac 785.2 and Family history of CHF (congestive heart failure) V17.49 [facility] [address] [place] [id number] [address] [place] [address] Dec, [facility] [address] [place] [id number] [address] [place] [address] Dec, [facility] [address] [address] Nov, [facility] [address] [place] [id number] [address] [place] [address] Oct, [facility] [address] [address] Oct, Unspecified arthropathy, sit e unspecified 716.90 [facility] [address] [id number] [address] [place] [address], [place] [address] 16 Oct, 2014 [facility] [address] [id number] [address] [place] [address], [place] [address] 09 Oct, 2014 [facility] [address] [id number] [address] [place] [address], [place] [address] 14 Aug, 2014 [facility] [address] [id number] [address] [place] [address], [place] [address] Aug, [facility] [address] [id number] [address] [place] [address], [place] [address] 16 Jul, 2014 [facility] [address] [id number] [address] [place] [address], [place] [address] 16 Jul, 2014 [facility] [address] [id number] [address] [place] [address], [place] [address] 16 Jul, 2014 [facility] [address] [id number] [address] [place] [address], [place] [address] 16 Jul, 2014 [facility] [address] [id number] [address] [place] [address], [place] [address] 16 Jul, 2014 [facility] [address] [id number] [address] [place] [address] 16 Jul, 2014 [facility] [address] [id number] [address] [place] [address], [place] [address] Jul, [facility] [address] [id number] [address] [place] [address] Jul, [facility] [address] [id number] [address] [place] [address], [place] [address] Jul, [facility] [address] [id number] [address] [place] [address] 24 Jul, 2014 [facility] [address] [id number] [address] [place] [address] Jul, [facility] [address] [id number] [address] [place] [address], [place] [address] May, [facility] [address] [id number] [address] [place] [address], [place] [address] May, [facility] [address] [id number] [address] [place] [address], [place] [address] May, [facility] [address] [id number] [address] [place] [address], [place] [address] May, [facility] [address] [id number] [address] [place] [address], [place] [address] May, [facility] [address] [id number] [address] [place] [address], [place] [address] Mar, [facility] [address] [id number] [address] [place] [address], [place] [address] Mar, [facility] [address] [id number] [address] [place] [address], [place] [address] Feb, [facility] [address] [id number] [address] [place] [address], [place] [address] Feb, [facility] [address] [id number] [address] [place] [address], [place] [address] Dec, [facility] [address] [id number] [address] [place] [address], [place] [address] Dec, [facility] [address] [id number] [address] [place] [address] September, [facility] [address] [id number] [address] [place] [address], [place] [address] September, [facility] [address] [id number] [address] [place] [address], [place] [address] September, [facility] [address] [id number] [address] [place] [address], [place] [address] September, [facility] [address] [id number] [address] [place] [address], [place] [address] 07 Aug, 2013 [facility] [address] [id number] [address] [place] [address], [place] [address] Aug, [facility] [address] [id number] [address] [place] [address], [place] [address] Jul, [facility] [address] [id number] [address] [place] [address], [place] [address] Jul, [facility] [address] [id number] [address] [place] [address], [place] [address] Jul, [facility] [address] [id number] [address] [place] [address], [place] [address] Jul, [facility] [address] [id number] [address] [place] [address], [place] [address] Apr, [facility] [address] [id number] [address] [place] [address], [place] [address] Apr, [facility] [address] [id number] [address] [place] [address], [place] [address] Feb, [facility] [address] [id number] [address] [place] [address], [place] [address] Feb, [facility] [address] [id number] [address] [place] [address], [place] [address] Nov, [facility] [address] [id number] [address] [place] [address], [place] [address] Nov, [facility] [address] [id number] [address] [place] [address], [place] [address] Oct, [facility] [address] [id number] [address] [place] [address], [place] [address] Oct, [facility] [address] [id number] [address] [place] [address], [place] [address] Oct, [facility] [address] [id number] [address] [place] [address], [place] [address] Oct, [facility] [address] [facility] [id number] [address] [place] [address] Oct, IMMUNIZATIONS No Known Immunizations SOCIAL HISTORY Never Assessed REASON FOR VISIT PLAN OF CARE VITAL SIGNS MEDICATIONS Unknown Medications RESULTS No Results PROCEDURES Procedure Date Ordered Result Body Site COMPLETE CBC W/AUTO DIFF WBC November 08, 2012 ASSAY THYROID STIM HORMONE November 08, 2012 NATRIURETIC PEPTIDE November 08, 2012 LIPID PANEL November 08, 2012 COMPREHEN METABOLIC PANEL November 08, 2012 VENIPUNCT, ROUTINE* November 08, 2012 INSTRUCTIONS MEDICATIONS ADMINISTERED No Known Medications MEDICAL (GENERAL) HISTORY Type Description Date Medical History Arthritis-bilateral knee pain Medical History stroke Medical History depression Medical History HTN Medical History hyperlipidemia Medical History polyneuropathy Medical History anxiety Medical History heart monitor Surgical History thyroidectomy-overactive, unable to cont rol 1970s Surgical History dilatation and curettage Surgical History orthopedic surgery-right knee Surgical History cholecystectomy Surgical History stroke 04/2014 Surgical History TKA Left Knee 04/01/2015 Surgical History TKA Right Knee 07/15/15 Hospitalization History Hospitalization for surgery only
--- OUTSIDE RECORDS SUMMARY | 2019-12-19 14:21 | XMS REPORT ---
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 Name Role Phone SASHA GARCIA Unavailable PROBLEMS Type Condition ICD9-CM Code GTO86-NC Code Onset Dates Condition S tatus SNOMED Code Problem Cardiac murmur, previously undiagnosed R01.1 Active 05889663 Problem Localized edema R60.0 Active 1025 33606 Problem Arthropathy M12.9 Active 01560508 3 Problem Coronary artery disease invo lving [place] heart without angina pectoris, unspecified vessel or lesion type I25.10 Active 43344398 Problem Acquired hypothyroidism E03.9 Active 486955840 Problem Hyperlipemia E78.5 Active 8675479 4 Problem Hypoglycemia E16.2 Active 3376268 03 Problem Bronchitis J40 Active 00599206 Problem Other chronic pain G89.29 Active 8 6131148 Problem Anogenital lichen sclerosus L90.0 Ac tive 360725263 Problem 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 Active 218338687 Problem Migraine without aura and with status migrainosu s, not intractable G43.001 Active 940974130 Problem Body mass index (BMI) of 40.0-44.9 in adult Z68.41 Active 629618677 Problem Chronic fatigue R53.82 Active 5270 2003 Problem Low vitamin D level E55.9 Active 50233219 Problem 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 Active 773605356 Problem Non-rheumatic tricuspid valve insufficiency I36.1 Active 773824865 Problem Mood disorder F39 Active 894227 05 ALLERGIES No Information ENCOUNTERS Encounter Location Date Diagnosis [facility] [address] [facility] [id number] [address] [place] [address] September, [facility] [address] [facility] [id number] [address] [place] [address] Jul, [facility] [address] [facility] [id number] [address] [place] [address] May, [facility] [address] [id number] [address] May, Generalized abdominal pain R 10.84 [facility] [address] [facility] [id number] [address] [place] [address] 14 May, 2019 [place] [address] [facility] [id number] [address] [place] [address] Mar, [place] [address] [facility] [id number] [address] [place] [address] Mar, Encounter for Medicare annua l wellness exam Z00.00 ; Acquired hypothyroidism E03.9 ; Hyperlipemia E78.5 ; Encounter for immunization Z23 ; Body mass index (BMI) of 40.0-44.9 in adult Z68.41 ; Hemiplegia and hemiparesis following cerebral infarction affecting right dominant side I69.351 ; Coronary artery disease involving [place] heart without angina pectoris, unspecified vessel or lesion type I25.10 ; Arthropathy M12.9 and Non-rheumatic tricuspid valve insufficiency I36.1 [place] [address] [facility] [id number] [address] [place] [address] Mar, [facility] [address] [id number] [address] Feb, Pleurisy R09.1 and Back pain M54.9 [place] [address] [facility] [id number] [address] [place] [address] Feb, [facility] [address] [id number] [address] Oct, [place] [address] [facility] [id number] [address] [place] [address] Aug, Cervical neuritis M54.12 and Body mass index (BMI) of 40.0-44.9 in adult Z68.41 [place] [address] [facility] [id number] [address] [place] [address] 15 Mar, 2018 [place] [address] [place] [id number] [address] [place] [address] 09 Mar, 2018 Medicare annual wellness vis it, subsequent Z00.00 ; Hemiplegia and hemiparesis following cerebral infarction affecting right dominant side I69.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 ; Mood disorder F39 ; Hypoglycemia E16.2 ; Acquired hypothyroidism E03.9 ; Other chronic pain G89.29 ; 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 ; Non-rheumatic tricuspid valve insufficiency I36.1 and BMI 40.0-44.9, adult Z68.41 [place] [address] [address] Mar, Cutaneous horn L85.8 and Hyp erlipemia E78.5 [place] [address] [address] Feb, [place] [address] [address] Nov, Chronic fatigue R53.82 [place] [address] [address] 14 Oct, 2017 [place] [address] [address] Oct, Low vitamin D level E55.9 [place] [address] [place] [id number] [address] [place] [address] Oct, BMI 40.0-44.9, adult Z68.41 ; Chest pain, unspecified type R07.9 ; Shortness of breath R06.02 ; Heart palpitations R00.2 ; History of CVA (cerebrovascular accident) Z86.73 ; Suspected sleep apnea R29.818 and Non- rheumatic tricuspid valve insufficiency I36.1 [place] [address] [place] [id number] [address] [place] [address] September, Low vitamin D level E55.9 [place] [address] [place] [id number] [address] [place] [address] Jul, BMI 40.0-44.9, adult Z68.41 ; 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 and Murmur R01.1 [place] [address] [address] Jul, [place] [address] [address] Jul, Low vitamin D level E55.9 [place] [address] [address] Jul, BMI 40.0-44.9, adult Z68.41 ; Acquired hypothyroidism E03.9 and Migraine without aura and with status migrainosus, not intractable G43.001 [place] [address] [address] Mar, [place] [address] [address] Mar, [place] [address] [address] Feb, Anogenital lichen sclerosus L90.0 [place] [address] [address] Feb, Well woman exam Z01.419 ; Rosa mp of right breast N63.10 and Anogenital lichen sclerosus L90.0 [place] [address] [address] Jan, Other chronic pain G89.29 [place] [address] [place] [id number] [address] [place] [address] Nov, [place] [address] [address] Nov, Other chronic pain G89.29 [place] [address] [place] [id number] [address] [place] [address] Oct, Stomach pain R10.9 [place] [address] [address] Oct, Other chronic pain G89.29 an d Edema, lower extremity R60.0 [facility] [address] [address] September, [place] [address] [address] Aug, [facility] [address] [address] Aug, Bronchitis J40 [place] [address] [address] Jul, Migraine without aura and wi th status migrainosus, not intractable G43.001 [place] [address] [address] Jul, Migraine without aura and wi th status migrainosus, not intractable G43.001 [place] [address] [address] Feb, Chronic fatigue R53.82 and A cquired hypothyroidism E03.9 [place] [address] [address] Feb, [place] [address] [address] Jan, [place] [address] [address] Dec, [place] [address] [address] Dec, Polyneuropathy G62.9 and Acq uired hypothyroidism E03.9 [place] [address] [place] [id number] [address] [place] [address] Nov, Family history of diabetes mohit ma Z83.3 [place] [address] [address] Nov, Family history of diabetes m ellitus Z83.3 and Polyneuropathy G62.9 [facility] [address] [id number] [address] [place] [address] September, Pain in right knee M25.561 a nd Other chronic pain G89.29 [facility] [address] [id number] [address] [place] [address] September, [facility] [address] [id number] [address] [place] [address] Aug, [facility] [address] [id number] [address] [place] [address] Aug, Hyperlipemia E78.5 [facility] [address] [id number] [address] [place] [address] Aug, [facility] [address] [id number] [address] [place] [address] Aug, [facility] [address] [id number] [address] [place] [address] Aug, [facility] [address] [id number] [address] [place] [address] 15 Jul, 2015 [facility] [address] [id number] [address] [place] [address] 14 Jul, 2015 Acute postoperative pain of right knee G89.18 [facility] [address] [id number] [address] [place] [address] Jul, [facility] [address] [id number] [address] [place] [address] Jul, [facility] [address] [id number] [address] [place] [address] Jul, Preop cardiovascular exam Z0 1.810 [facility] [address] [id number] [address] [place] [address] May, [facility] [address] [place] [id number] [address] [place] [address] Apr, Status post total left knee replacement Z96.652 [facility] [address] [address] Mar, [facility] [address] [place] [id number] [address] [place] [address] Mar, [facility] [address] [address] Feb, [facility] [address] [address] Feb, Encounter for annual physica l exam Z00.00 [place] [address] [address] Feb, Chronic kidney disease N18.9 and Arthritis M19.90 [place] [address] [address] Feb, [facility] [address] [address] Jan, Cough due to MARSHA inhibitor 7 86.2 [place] [address] [address] Dec, Cough due to MARSHA inhibitor 7 86.2 ; Murmur, cardiac 785.2 and Family history of CHF (congestive heart failure) V17.49 [facility] [address] [place] [id number] [address] [place] [address] Dec, [facility] [address] [place] [id number] [address] [place] [address] Dec, [facility] [address] [address] Nov, [facility] [address] [place] [id number] [address] [place] [address] Oct, [facility] [address] [address] Oct, Unspecified arthropathy, sit e unspecified 716.90 [facility] [address] [id number] [address] [place] [address], [place] [address] 16 Oct, 2014 [facility] [address] [id number] [address] [place] [address], [place] [address] 09 Oct, 2014 [facility] [address] [id number] [address] [place] [address], [place] [address] 14 Aug, 2014 [facility] [address] [id number] [address] [place] [address], [place] [address] Aug, [facility] [address] [id number] [address] [place] [address], [place] [address] 16 Jul, 2014 [facility] [address] [id number] [address] [place] [address], [place] [address] 16 Jul, 2014 [facility] [address] [id number] [address] [place] [address], [place] [address] 16 Jul, 2014 [facility] [address] [id number] [address] [place] [address], [place] [address] 16 Jul, 2014 [facility] [address] [id number] [address] [place] [address], [place] [address] 16 Jul, 2014 [facility] [address] [id number] [address] [place] [address] 16 Jul, 2014 [facility] [address] [id number] [address] [place] [address], [place] [address] Jul, [facility] [address] [id number] [address] [place] [address] Jul, [facility] [address] [id number] [address] [place] [address], [place] [address] Jul, [facility] [address] [id number] [address] [place] [address] 24 Jul, 2014 [facility] [address] [id number] [address] [place] [address] Jul, [facility] [address] [id number] [address] [place] [address], [place] [address] May, [facility] [address] [id number] [address] [place] [address], [place] [address] May, [facility] [address] [id number] [address] [place] [address], [place] [address] May, [facility] [address] [id number] [address] [place] [address], [place] [address] May, [facility] [address] [id number] [address] [place] [address], [place] [address] May, [facility] [address] [id number] [address] [place] [address], [place] [address] Mar, [facility] [address] [id number] [address] [place] [address], [place] [address] Mar, [facility] [address] [id number] [address] [place] [address], [place] [address] Feb, [facility] [address] [id number] [address] [place] [address], [place] [address] Feb, [facility] [address] [id number] [address] [place] [address], [place] [address] Dec, [facility] [address] [id number] [address] [place] [address], [place] [address] Dec, [facility] [address] [id number] [address] [place] [address] September, [facility] [address] [id number] [address] [place] [address], [place] [address] September, [facility] [address] [id number] [address] [place] [address], [place] [address] September, [facility] [address] [id number] [address] [place] [address], [place] [address] September, [facility] [address] [id number] [address] [place] [address], [place] [address] 07 Aug, 2013 [facility] [address] [id number] [address] [place] [address], [place] [address] Aug, [facility] [address] [id number] [address] [place] [address], [place] [address] Jul, [facility] [address] [id number] [address] [place] [address], [place] [address] Jul, [facility] [address] [id number] [address] [place] [address], [place] [address] Jul, [facility] [address] [id number] [address] [place] [address], [place] [address] Jul, [facility] [address] [id number] [address] [place] [address], [place] [address] Apr, [facility] [address] [id number] [address] [place] [address], [place] [address] Apr, [facility] [address] [id number] [address] [place] [address], [place] [address] Feb, [facility] [address] [id number] [address] [place] [address], [place] [address] Feb, [facility] [address] [id number] [address] [place] [address], [place] [address] Nov, [facility] [address] [id number] [address] [place] [address], [place] [address] Nov, [facility] [address] [id number] [address] [place] [address], [place] [address] Oct, [facility] [address] [id number] [address] [place] [address], [place] [address] Oct, [facility] [address] [id number] [address] [place] [address], [place] [address] Oct, [facility] [address] [id number] [address] [place] [address], [place] [address] Oct, [facility] [address] [facility] [id number] [address] [place] [address] Oct, IMMUNIZATIONS No Known Immunizations SOCIAL HISTORY Never Assessed REASON FOR VISIT PLAN OF CARE VITAL SIGNS Height 66 in 2012-11-22 Weight 233.2 lbs 2012-11-22 Temperature 97.6 degrees Fahrenheit 2012-11-22 Heart Rate 64 bpm 2012-11-22 Respiratory Rate 18 2012-11-22 Blood pressure systolic 136 mmHg 2012-11-22 Blood pressure diastolic 80 mmHg 2012-11-22 MEDICATIONS Unknown Medications RESULTS No Results PROCEDURES No Known procedures INSTRUCTIONS MEDICATIONS ADMINISTERED No Known Medications MEDICAL [...]
--- OUTSIDE RECORDS SUMMARY | 2019-12-19 14:21 | XMS REPORT ---
Author Author Pia GARCIA Organization [facility] Address [address] [place] [address] Care Team Providers Care Car Pick Up Driver Name Role Phone SASHA GARCIA Unavailable PROBLEMS Type Condition ICD9-CM Code RMH49-ER Code Onset Dates Condition S tatus SNOMED Code Problem Cardiac murmur, previously undiagnosed R01.1 Active 63500705 Problem Localized edema R60.0 Active 1024 30006 Problem Arthropathy M12.9 Active 93305676 3 Problem Coronary artery disease invo lving [place] heart without angina pectoris, unspecified vessel or lesion type I25.10 Active 51466875 Problem Acquired hypothyroidism E03.9 Active 109920030 Problem Hyperlipemia E78.5 Active 3475628 4 Problem Hypoglycemia E16.2 Active 3036849 03 Problem Bronchitis J40 Active 89122124 Problem Other chronic pain G89.29 Active 8 5029718 Problem Anogenital lichen sclerosus L90.0 Ac tive 383236209 Problem 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 Active 354374985 Problem Migraine without aura and with status migrainosu s, not intractable G43.001 Active 600638025 Problem Body mass index (BMI) of 40.0-44.9 in adult Z68.41 Active 273438916 Problem Chronic fatigue R53.82 Active 5270 2003 Problem Low vitamin D level E55.9 Active 04172649 Problem 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 Active 445733029 Problem Non-rheumatic tricuspid valve insufficiency I36.1 Active 870531345 Problem Mood disorder F39 Active 469361 05 ALLERGIES No Information ENCOUNTERS Encounter Location Date Diagnosis [facility] [address] [facility] [id number] [address] [place] [address] September, [facility] [address] [facility] [id number] [address] [place] [address] Jul, [facility] [address] [facility] [id number] [address] [place] [address] May, [facility] [address] [id number] [address] May, Generalized abdominal pain R 10.84 [facility] [address] [facility] [id number] [address] [place] [address] 14 May, 2019 [place] [address] [facility] [id number] [address] [place] [id number] Mar, [place] [address] [facility] [id number] [address] [place] [address] Mar, Encounter for Medicare annua l wellness exam Z00.00 ; Acquired hypothyroidism E03.9 ; Hyperlipemia E78.5 ; Encounter for immunization Z23 ; Body mass index (BMI) of 40.0-44.9 in adult Z68.41 ; Hemiplegia and hemiparesis following cerebral infarction affecting right dominant side I69.351 ; Coronary artery disease involving [place] heart without angina pectoris, unspecified vessel or lesion type I25.10 ; Arthropathy M12.9 and Non-rheumatic tricuspid valve insufficiency I36.1 [place] [address] [facility] [id number] [address] [place] [address] Mar, [facility] [address] [id number] [address] Feb, Pleurisy R09.1 and Back pain M54.9 [place] [address] [facility] [id number] [address] [place] [id number] Feb, [facility] [address] [id number] [address] Oct, [place] [address] [facility] [id number] [address] [place] [address] Aug, Cervical neuritis M54.12 and Body mass index (BMI) of 40.0-44.9 in adult Z68.41 [place] [address] [facility] [id number] [address] [place] [id number] 15 Mar, 2018 [place] [address] [place] [id number] [address] [place] [address] 09 Mar, 2018 Medicare annual wellness vis it, subsequent Z00.00 ; Hemiplegia and hemiparesis following cerebral infarction affecting right dominant side I69.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 ; Mood disorder F39 ; Hypoglycemia E16.2 ; Acquired hypothyroidism E03.9 ; Other chronic pain G89.29 ; 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 ; Non-rheumatic tricuspid valve insufficiency I36.1 and BMI 40.0-44.9, adult Z68.41 [place] [address] [address] Mar, Cutaneous horn L85.8 and Hyp erlipemia E78.5 [place] [address] [address] Feb, [place] [address] [address] Nov, Chronic fatigue R53.82 [place] [address] [address] 14 Oct, 2017 [place] [address] [address] Oct, Low vitamin D level E55.9 [place] [address] [place] [id number] [address] [place] [address] Oct, BMI 40.0-44.9, adult Z68.41 ; Chest pain, unspecified type R07.9 ; Shortness of breath R06.02 ; Heart palpitations R00.2 ; History of CVA (cerebrovascular accident) Z86.73 ; Suspected sleep apnea R29.818 and Non- rheumatic tricuspid valve insufficiency I36.1 [place] [address] [place] [id number] [address] [place] [address] September, Low vitamin D level E55.9 [place] [address] [place] [id number] [address] [place] [address] Jul, BMI 40.0-44.9, adult Z68.41 ; 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 and Murmur R01.1 [place] [address] [address] Jul, [place] [address] [address] Jul, Low vitamin D level E55.9 [place] [address] [address] Jul, BMI 40.0-44.9, adult Z68.41 ; Acquired hypothyroidism E03.9 and Migraine without aura and with status migrainosus, not intractable G43.001 [place] [address] [address] Mar, [place] [address] [address] Mar, [place] [address] [address] Feb, Anogenital lichen sclerosus L90.0 [place] [address] [address] Feb, Well woman exam Z01.419 ; Rosa mp of right breast N63.10 and Anogenital lichen sclerosus L90.0 [place] [address] [address] Jan, Other chronic pain G89.29 [place] [address] [place] [id number] [address] [place] [address] Nov, [place] [address] [address] Nov, Other chronic pain G89.29 [place] [address] [place] [id number] [address] [place] [address] Oct, Stomach pain R10.9 [place] [address] [address] Oct, Other chronic pain G89.29 an d Edema, lower extremity R60.0 [facility] [address] [address] September, [place] [address] [address] Aug, [facility] [address] [address] Aug, Bronchitis J40 [place] [address] [address] Jul, Migraine without aura and wi th status migrainosus, not intractable G43.001 [place] [address] [address] Jul, Migraine without aura and wi th status migrainosus, not intractable G43.001 [place] [address] [address] Feb, Chronic fatigue R53.82 and A cquired hypothyroidism E03.9 [place] [address] [address] Feb, [place] [address] [address] Jan, [place] [address] [address] Dec, [place] [address] [address] Dec, Polyneuropathy G62.9 and Acq uired hypothyroidism E03.9 [place] [address] [place] [id number] [address] [place] [address] Nov, Family history of diabetes mohit ma Z83.3 [place] [address] [address] Nov, Family history of diabetes m ellitus Z83.3 and Polyneuropathy G62.9 [facility] [address] [id number] [address] [place] [address] September, Pain in right knee M25.561 a nd Other chronic pain G89.29 [facility] [address] [id number] [address] [place] [address] September, [facility] [address] [id number] [address] [place] [address] Aug, [facility] [address] [id number] [address] [place] [address] Aug, Hyperlipemia E78.5 [facility] [address] [id number] [address] [place] [address] Aug, [facility] [address] [id number] [address] [place] [address] Aug, [facility] [address] [id number] [address] [place] [address] Aug, [facility] [address] [id number] [address] [place] [id number] 15 Jul, 2015 [facility] [address] [id number] [address] [place] [address] 14 Jul, 2015 Acute postoperative pain of right knee G89.18 [facility] [address] [id number] [address] [place] [address] Jul, [facility] [address] [id number] [address] [place] [address] Jul, [facility] [address] [id number] [address] [place] [address] Jul, Preop cardiovascular exam Z0 1.810 [facility] [address] [id number] [address] [place] [address] May, [facility] [address] [place] [id number] [address] [place] [address] Apr, Status post total left knee replacement Z96.652 [facility] [address] [address] Mar, [facility] [address] [place] [id number] [address] [place] [address] Mar, [facility] [address] [address] Feb, [facility] [address] [address] Feb, Encounter for annual physica l exam Z00.00 [place] [address] [address] Feb, Chronic kidney disease N18.9 and Arthritis M19.90 [place] [address] [address] Feb, [facility] [address] [address] Jan, Cough due to MARSHA inhibitor 7 86.2 [place] [address] [address] Dec, Cough due to MARSHA inhibitor 7 86.2 ; Murmur, cardiac 785.2 and Family history of CHF (congestive heart failure) V17.49 [facility] [address] [place] [id number] [address] [place] [address] Dec, [facility] [address] [place] [id number] [address] [place] [address] Dec, [facility] [address] [address] Nov, [facility] [address] [place] [id number] [address] [place] [address] Oct, [facility] [address] [address] Oct, Unspecified arthropathy, sit e unspecified 716.90 [facility] [address] [id number] [address] [place] [address], [place] [address] 16 Oct, 2014 [facility] [address] [id number] [address] [place] [address], [place] [address] 09 Oct, 2014 [facility] [address] [id number] [address] [place] [address], [place] [address] 14 Aug, 2014 [facility] [address] [id number] [address] [place] [address], [place] [address] Aug, [facility] [address] [id number] [address] [place] [address], [place] [address] 16 Jul, 2014 [facility] [address] [id number] [address] [place] [address], [place] [address] 16 Jul, 2014 [facility] [address] [id number] [address] [place] [address], [place] [address] 16 Jul, 2014 [facility] [address] [id number] [address] [place] [address], [place] [address] 16 Jul, 2014 [facility] [address] [id number] [address] [place] [address], [place] [address] 16 Jul, 2014 [facility] [address] [id number] [address] [place] [address] 16 Jul, 2014 [facility] [address] [id number] [address] [place] [address], [place] [address] Jul, [facility] [address] [id number] [address] [place] [address] Jul, [facility] [address] [id number] [address] [place] [address], [place] [address] Jul, [facility] [address] [id number] [address] [place] [address] 24 Jul, 2014 [facility] [address] [id number] [address] [place] [address] Jul, [facility] [address] [id number] [address] [place] [address], [place] [address] May, [facility] [address] [id number] [address] [place] [address], [place] [address] May, [facility] [address] [id number] [address] [place] [address], [place] [address] May, [facility] [address] [id number] [address] [place] [address], [place] [address] May, [facility] [address] [id number] [address] [place] [address], [place] [address] May, [facility] [address] [id number] [address] [place] [address], [place] [address] Mar, [facility] [address] [id number] [address] [place] [address], [place] [address] Mar, [facility] [address] [id number] [address] [place] [address], [place] [address] Feb, [facility] [address] [id number] [address] [place] [address], [place] [address] Feb, [facility] [address] [id number] [address] [place] [address], [place] [address] Dec, [facility] [address] [id number] [address] [place] [address], [place] [address] Dec, [facility] [address] [id number] [address] [place] [address] September, [facility] [address] [id number] [address] [place] [address], [place] [address] September, [facility] [address] [id number] [address] [place] [address], [place] [address] September, [facility] [address] [id number] [address] [place] [address], [place] [address] September, [facility] [address] [id number] [address] [place] [address], [place] [address] 07 Aug, 2013 [facility] [address] [id number] [address] [place] [address], [place] [address] Aug, [facility] [address] [id number] [address] [place] [address], [place] [address] Jul, [facility] [address] [id number] [address] [place] [address], [place] [address] Jul, [facility] [address] [id number] [address] [place] [address], [place] [address] Jul, [facility] [address] [id number] [address] [place] [address], [place] [address] Jul, [facility] [address] [id number] [address] [place] [address], [place] [address] Apr, [facility] [address] [id number] [address] [place] [address], [place] [address] Apr, [facility] [address] [id number] [address] [place] [address], [place] [address] Feb, [facility] [address] [id number] [address] [place] [address], [place] [address] Feb, [facility] [address] [id number] [address] [place] [address], [place] [address] Nov, [facility] [address] [id number] [address] [place] [address], [place] [address] Nov, [facility] [address] [id number] [address] [place] [address], [place] [address] Oct, [facility] [address] [id number] [address] [place] [address], [place] [address] Oct, [facility] [address] [id number] [address] [place] [address], [place] [address] Oct, [facility] [address] [id number] [address] [place] [address], [place] [address] Oct, [facility] [address] [facility] [id number] [address] [place] [address] Oct, IMMUNIZATIONS No Known Immunizations SOCIAL HISTORY [...]
--- OUTSIDE RECORDS SUMMARY | 2019-12-19 14:21 | XMS REPORT ---
Author Author Pia GARCIA Organization [facility] Address [address] [place] [address] Care Team Providers Care Alcoholic Counselor Name Role Phone SASHA GARCIA Unavailable PROBLEMS Type Condition ICD9-CM Code GTB56-PP Code Onset Dates Condition S tatus SNOMED Code Problem Cardiac murmur, previously undiagnosed R01.1 Active 30727435 Problem Localized edema R60.0 Active 102 53895 Problem Arthropathy M12.9 Active 67197018 3 Problem Coronary artery disease invo lving [place] heart without angina pectoris, unspecified vessel or lesion type I25.10 Active 71468236 Problem Acquired hypothyroidism E03.9 Active 045347891 Problem Hyperlipemia E78.5 Active 7583035 4 Problem Hypoglycemia E16.2 Active 6870834 03 Problem Bronchitis J40 Active 50961682 Problem Other chronic pain G89.29 Active 8 0570346 Problem Anogenital lichen sclerosus L90.0 Ac tive 007843554 Problem 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 [id number] [place] [id number] Oct, Migraine without aura and with status mi grainosus, not intractable G43.001 [facility] [address] [facility] [id number] [address] [place] [address] 22 Oct, 2019 Migraine without aura and wi th status migrainosus, not intractable G43.001 [facility] [address] [facility] [id number] [address] [place] [id number] 08 Oct, 2019 [facility] [address] [facility] [id number] [address] [place] [address] September, Mood disorder F39 ; Frequent headaches R51 and History of stroke Z86.73 [facility] [address] [facility] [id number] [address] [place] [address] Jul, [facility] [address] [facility] [id number] [address] [place] [address] May, [facility] [address] [id number] [address] 15 May, 2019 Generalized abdominal pain R 10.84 [place] [address] [facility] [id number] [address] [place] [address] 14 May, 2019 [facility] [address] [facility] [id number] [address] [place] [phone] 11 Mar, 2019 [facility] [address] [facility] [id number] [address] [place] [address] 11 Mar, 2019 Encounter for Medicare annua l wellness exam Z00.00 ; Acquired hypothyroidism E03.9 ; Hyperlipemia E78.5 ; Encounter for immunization Z23 ; Body mass index (BMI) of 40.0-44.9 in adult Z68.41 ; Hemiplegia and hemiparesis following cerebral infarction affecting right dominant side I69.351 ; Coronary artery disease involving [place] heart without angina pectoris, unspecified vessel or lesion type I25.10 ; Arthropathy M12.9 and Non-rheumatic tricuspid valve insufficiency I36.1 [facility] [address] [facility] [id number] [address] [place] [id number] 08 Mar, 2019 [facility] [address] [id number] [place] [address] Feb, Pleurisy R09.1 and Back pain M54.9 [facility] [address] [facility] [id number] [address] [place] [id number] 17 Feb, 2019 [facility] [address] [id number] [place] [address] Oct, [facility] [address] [facility] [id number] [address] [place] [phone] Aug, Cervical neuritis M54.12 and Body mass index (BMI) of 40.0-44.9 in adult Z68.41 [place] [address] [facility] [id number] [address] [place] [address] 15 Mar, 2018 [place] [address] [address] 09 Mar, 2018 Medicare annual wellness vis it, subsequent Z00.00 ; Hemiplegia and hemiparesis following cerebral infarction affecting right dominant side I69.351 ; Mood disorder F39 ; Hypoglycemia E16.2 ; Acquired hypothyroidism E03.9 ; Other chronic pain G89.29 ; 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 ; Non-rheumatic tricuspid valve insufficiency I36.1 and BMI 40.0-44.9, adult Z68.41 [place] [address] [address] 02 Mar, 2018 Cutaneous horn L85.8 and Hyp erlipemia E78.5 [place] [address] [place] [id number] [address] [place] [address] Feb, [place] [address] [facility] [id number] [address] [place] [address] Nov, Chronic fatigue R53.82 [place] [address] [facility] [id number] [address] [place] [address] 14 Oct, 2017 [place] [address] [facility] [id number] [address] [place] [address] Oct, Low vitamin D level E55.9 [place] [address] [facility] [id number] [address] [place] [address] Oct, BMI 40.0-44.9, adult Z68.41 ; Chest pain, unspecified type R07.9 ; Shortness of breath R06.02 ; Heart palpitations R00.2 ; History of CVA (cerebrovascular accident) Z86.73 ; Suspected sleep apnea R29.818 and Non- rheumatic tricuspid valve insufficiency I36.1 [place] [address] [place] [id number] [address] [place] [address] September, Low vitamin D level E55.9 [place] [address] [facility] [id number] [address] [place] [address] 15 Jul, 2017 BMI 40.0-44.9, adult Z68.41 ; 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 and Murmur R01.1 [place] [address] [place] [id number] [place] [address] Jul, [place] [address] [place] [id number] [place] [address] Jul, Low vitamin D level E55.9 [place] [address] [place] [id number] [address] [place] [address] Jul, BMI 40.0-44.9, adult Z68.41 ; Acquired hypothyroidism E03.9 and Migraine without aura and with status migrainosus, not intractable G43.001 [place] [address] [place] [id number] [address] [place] [address] Mar, [place] [address] [place] [id number] [address] [place] [address] Mar, [place] [address] [place] [id number] [address] [place] [address] Feb, Anogenital lichen sclerosus L90.0 [place] [address] [place] [id number] [address] [place] [address] Feb, Well woman exam Z01.419 ; Rosa mp of right breast N63.10 and Anogenital lichen sclerosus L90.0 [place] [address] [place] [id number] [address] [place] [address] Jan, Other chronic pain G89.29 [facility] [address] [facility] [id number] [address] [place] [address] Nov, [facility] [address] [facility] [id number] [address] [place] [address] Nov, Other chronic pain G89.29 [facility] [address] [facility] [id number] [address] [place] [address] Oct, Stomach pain R10.9 [facility] [address] [facility] [id number] [address] [place] [address] Oct, Other chronic pain G89.29 an d Edema, lower extremity R60.0 [facility] [address] [facility] [id number] [address] [place] [address] September, [facility] [address] [facility] [id number] [address] [place] [address] Aug, [facility] [address] [facility] [id number] [address] [place] [address] Aug, Bronchitis J40 [facility] [address] [facility] [id number] [address] [place] [address] Jul, Migraine without aura and wi th status migrainosus, not intractable G43.001 [facility] [address] [facility] [id number] [address] [place] [address] Jul, Migraine without aura and wi th status migrainosus, not intractable G43.001 [facility] [address] [facility] [id number] [address] [place] [address] Feb, Chronic fatigue R53.82 and A cquired hypothyroidism E03.9 [facility] [address] [facility] [id number] [address] [place] [address] Feb, [facility] [address] [facility] [id number] [address] [place] [address] 30 Jan, 2016 [facility] [address] [id number] [address] [place] [address] Dec, [facility] [address] [id number] [address] [place] [id number] 08 Dec, 2015 Polyneuropathy G62.9 and Acq uired hypothyroidism E03.9 [facility] [address] [id number] [address] [place] [address] Nov, Family history of diabetes m ellitus Z83.3 [facility] [address] [id number] [address] [place] [address] Nov, Family history of diabetes m ellitus Z83.3 and Polyneuropathy G62.9 [facility] [address] [id number] [address] [place] [address] September, Pain in right knee M25.561 a nd Other chronic pain G89.29 [facility] [address] [id number] [address] [place] [address] September, [facility] [address] [id number] [address] [place] [address] Aug, [facility] [address] [id number] [address] [place] [phone] Aug, Hyperlipemia E78.5 [facility] [address] [id number] [address] [place] [address] Aug, [facility] [address] [id number] [address] [place] [phone] 05 Aug, 2015 [facility] [address] [id number] [address] [place] [id number] 04 Aug, 2015 [facility] [address] [facility] [id number] [address] [place] [phone] 15 Jul, 2015 [facility] [address] [id number] [address] [place] [address] 14 Jul, 2015 Acute postoperative pain of right knee G89.18 [facility] [address] [facility] [id number] [address] [place] [address] Jul, [facility] [address] [facility] [id number] [address] [place] [phone] Jul, [facility] [address] [facility] [id number] [address] [place] [address] Jul, Preop cardiovascular exam Z0 1.810 [facility] [address] [facility] [id number] [address] [place] [phone] May, [facility] [address] [facility] [id number] [address] [place] [address] Apr, Status post total left knee replacement Z96.652 [facility] [address] [facility] [id number] [address] [place] [address] Mar, [facility] [address] [address] Mar, [facility] [address] [facility] [id number] [address] [place] [address] Feb, [facility] [address] [place] [id number] [address] [place] [address] Feb, Encounter for annual physica l exam Z00.00 [facility] [address] [place] [id number] [address] [place] [address] Feb, Chronic kidney disease N18.9 and Arthritis M19.90 [facility] [address] [facility] [id number] [address] [place] [phone] Feb, [facility] [address] [facility] [id number] [address] [place] [phone] Jan, Cough due to MARSHA inhibitor 7 86.2 [facility] [address] [place] [id number] [address] [place] [phone] Dec, Cough due to MARSHA inhibitor 7 86.2 ; Murmur, cardiac 785.2 and Family history of CHF (congestive heart failure) V17.49 [facility] [address] [id number] [address] [place] [address], [place] [address] Dec, [facility] [address] [id number] [address] [place] [address], [place] [address] Dec, [facility] [address] [id number] [address] [place] [address], [place] [address] Nov, [facility] [address] [id number] [address] [place] [address], [place] [address] Oct, [facility] [address] [id number] [address] [place] [address], [place] [address] Oct, Unspecified arthropathy, sit e unspecified 716.90 [facility] [address] [id number] [address] [place] [address], [place] [address] Oct, [facility] [address] [id number] [address] [place] [phone] Oct, [facility] [address] [id number] [address] [place] [address], [place] [address] 14 Aug, 2014 [facility] [address] [id number] [address] [place] [address], [place] [address] Aug, [facility] [address] [id number] [address] [place] [address], [place] [address] 16 Jul, 2014 [facility] [address] [id number] [address] [place] [phone] 16 Jul, 2014 [facility] [address] [id number] [address] [place] [phone] 16 Jul, 2014 [facility] [address] [id number] [address] [place] [address], [place] [address] 16 Jul, 2014 [facility] [address] [id number] [address] [place] [address], [place] [address] 16 Jul, 2014 [facility] [address] [id number] [address] [place] [address], [place] [address] 16 Jul, 2014 [facility] [address] [id number] [address] [place] [address], [place] [address] Jul, [facility] [address] [id number] [address] [place] [address], [place] [address] Jul, [facility] [address] [id number] [address] [place] [address], [place] [address] Jul, [facility] [address] [id number] [address] [place] [address], [place] [address] Jul, [facility] [address] [id number] [address] [place] [address], [place] [address] Jul, [facility] [address] [id number] [address] [place] [address], [place] [address] May, [facility] [address] [id number] [address] [place] [address], [place] [address] May, [facility] [address] [id number] [address] [place] [address], [place] [address] May, [facility] [address] [id number] [address] [place] [address], [place] [address] May, [facility] [address] [id number] [address] [place] [address], [place] [address] May, [facility] [address] [id number] [address] [place] [address], [place] [address] Mar, [facility] [address] [id number] [address] [place] [address], [place] [address] Mar, [facility] [address] [id number] [address] [place] [address], [place] [address] Feb, [facility] [address] [id number] [address] [place] [address], [place] [address] Feb, [facility] [address] [id number] [address] [place] [address], [place] [address] Dec, [facility] [address] [id number] [address] [place] [address], [place] [address] Dec, [facility] [address] [id number] [address] [place] [address], [place] [address] September, [facility] [address] [id number] [address] [place] [address], [place] [address] September, [facility] [address] [id number] [address] [place] [address], [place] [address] September, [facility] [address] [id number] [address] [place] [address], [place] [address] September, [facility] [address] [id number] [address] [place] [address], [place] [address] Aug, [facility] [address] [id number] [address] [place] [address], [place] [address] Aug, [facility] [address] [id number] [address] [place] [address], [place] [address] Jul, [facility] [address] [id number] [address] [place] [address], [place] [address] Jul, [facility] [address] [id number] [address] [place] [address], [place] [address] Jul, [facility] [address] [id number] [address] [place] [address], [place] [address] Jul, [facility] [address] [id number] [address] [place] [address], [place] [address] Apr, [facility] [address] [id number] [address] [place] [address], [place] [address] Apr, [facility] [address] [id number] [address] [place] [address], [place] [address] Feb, [facility] [address] [id number] [address] [place] [address], [place] [address] Feb, [facility] [address] [id number] [address] [place] [address], [place] [address] Nov, [facility] [address] [id number] [address] [place] [address] Nov, [facility] [address] [facility] [id number] [address] [place] [phone] Oct, [facility] [address] [facility] [id number] [address] [place] [phone] Oct, [facility] [address] [facility] [id number] [address] [place] [address] Oct, [facility] [address] [facility] [id number] [address] [place] [address] Oct, [facility] [address] [facility] [id number] [address] [place] [address] Oct, IMMUNIZATIONS No Known Immunizations SOCIAL HISTORY Never Assessed REASON FOR VISIT PLAN OF CARE VITAL SIGNS Height 66 in 2012-12-21 Weight 231.4 lbs 2012-12-21 Temperature 98 degrees Fahrenheit 2012-12-21 Heart Rate 90 bpm 2012-12-21 Respiratory Rate 18 2012-12-21 Blood pressure systolic 164 mmHg 2012-12-21 Blood pressure diastolic 90 mmHg 2012-12-21 MEDICATIONS Unknown Medications RESULTS No Results PROCEDURES Procedure Date Ordered Result Body Site ASSAY THYROID STIM HORMONE December 21, 2012 VENIPUNCT, ROUTINE* December 21, 2012 INSTRUCTIONS MEDICATIONS ADMINISTERED No Known Medications [...]
--- OUTSIDE RECORDS SUMMARY | 2019-12-19 14:21 | XMS REPORT ---
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 Role Phone SASHA GARCIA Unavailable PROBLEMS Type Condition ICD9-CM Code QPT65-NX Code Onset Dates Condition S tatus SNOMED Code Problem Cardiac murmur, previously undiagnosed R01.1 Active 60474374 Problem Localized edema R60.0 Active 1020 97406 Problem Arthropathy M12.9 Active 80906056 3 Problem Coronary artery disease invo lving douglas heart without angina pectoris, unspecified vessel or lesion type I25.10 Active 91764753 Problem Acquired hypothyroidism E03.9 Active 363327360 Problem Hyperlipemia E78.5 Active 3081825 4 Problem Hypoglycemia E16.2 Active 0032462 03 Problem Bronchitis J40 Active 21308838 Problem Other chronic pain G89.29 Active 8 9651053 Problem Anogenital lichen sclerosus L90.0 Ac tive 322664920 Problem 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 Active 924428389 Problem Migraine without aura and with status migrainosu s, not intractable G43.001 Active 321988331 Problem Body mass index (BMI) of 40.0-44.9 in adult Z68.41 Active 594701416 Problem Chronic fatigue R53.82 Active 5270 2003 Problem Low vitamin D level E55.9 Active 66318454 Problem 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 Active 141935021 Problem Non-rheumatic tricuspid valve insufficiency I36.1 Active 007882990 Problem Mood disorder F39 Active 145730 05 ALLERGIES No Information ENCOUNTERS Encounter Location Date Diagnosis [facility] [address] [facility] [id number] [address] [place] [address] September, [facility] [address] [facility] [id number] [address] [place] [address] Jul, [facility] [address] [facility] [id number] [address] [place] [address] May, [facility] [address] [id number] [address] May, Generalized abdominal pain R 10.84 [facility] [address] [facility] [id number] [address] [place] [address] 14 May, 2019 [place] [address] [facility] [id number] [address] [place] [address] Mar, [place] [address] [facility] [id number] [address] [place] [address] Mar, Encounter for Medicare annua l wellness exam Z00.00 ; Acquired hypothyroidism E03.9 ; Hyperlipemia E78.5 ; Encounter for immunization Z23 ; Body mass index (BMI) of 40.0-44.9 in adult Z68.41 ; Hemiplegia and hemiparesis following cerebral infarction affecting right dominant side I69.351 ; Coronary artery disease involving douglas heart without angina pectoris, unspecified vessel or lesion type I25.10 ; Arthropathy M12.9 and Non-rheumatic tricuspid valve insufficiency I36.1 [place] [address] [facility] [id number] [address] [place] [address] Mar, [facility] [address] [id number] [place] [address] Feb, Pleurisy R09.1 and Back pain M54.9 [place] [address] [facility] [id number] [address] [place] [address] Feb, [facility] [address] [id number] [address] Oct, [place] [address] [facility] [id number] [address] [place] [address] Aug, Cervical neuritis M54.12 and Body mass index (BMI) of 40.0-44.9 in adult Z68.41 [place] [address] [facility] [id number] [address] [place] [address] 15 Mar, 2018 [place] [address] [place] [id number] [address] [place] [address] 09 Mar, 2018 Medicare annual wellness vis it, subsequent Z00.00 ; Hemiplegia and hemiparesis following cerebral infarction affecting right dominant side I69.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 ; Mood disorder F39 ; Hypoglycemia E16.2 ; Acquired hypothyroidism E03.9 ; Other chronic pain G89.29 ; 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 ; Non-rheumatic tricuspid valve insufficiency I36.1 and BMI 40.0-44.9, adult Z68.41 [place] [address] [address] Mar, Cutaneous horn L85.8 and Hyp erlipemia E78.5 [place] [address] [address] Feb, [place] [address] [address] Nov, Chronic fatigue R53.82 [place] [address] [address] 14 Oct, 2017 [place] [address] [address] Oct, Low vitamin D level E55.9 [place] [address] [place] [id number] [address] [place] [address] Oct, BMI 40.0-44.9, adult Z68.41 ; Chest pain, unspecified type R07.9 ; Shortness of breath R06.02 ; Heart palpitations R00.2 ; History of CVA (cerebrovascular accident) Z86.73 ; Suspected sleep apnea R29.818 and Non- rheumatic tricuspid valve insufficiency I36.1 [place] [address] [place] [id number] [address] [place] [address] September, Low vitamin D level E55.9 [place] [address] [place] [id number] [address] [place] [address] Jul, BMI 40.0-44.9, adult Z68.41 ; 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 and Murmur R01.1 [place] [address] [address] Jul, [place] [address] [address] Jul, Low vitamin D level E55.9 [place] [address] [address] Jul, BMI 40.0-44.9, adult Z68.41 ; Acquired hypothyroidism E03.9 and Migraine without aura and with status migrainosus, not intractable G43.001 [place] [address] [address] Mar, [place] [address] [address] Mar, [place] [address] [address] Feb, Anogenital lichen sclerosus L90.0 [place] [address] [address] Feb, Well woman exam Z01.419 ; Rosa mp of right breast N63.10 and Anogenital lichen sclerosus L90.0 [place] [address] [address] Jan, Other chronic pain G89.29 [place] [address] [place] [id number] [address] [place] [address] Nov, [place] [address] [address] Nov, Other chronic pain G89.29 [place] [address] [place] [id number] [address] [place] [address] Oct, Stomach pain R10.9 [place] [address] [address] Oct, Other chronic pain G89.29 an d Edema, lower extremity R60.0 [facility] [address] [address] September, [place] [address] [address] Aug, [facility] [address] [address] Aug, Bronchitis J40 [place] [address] [address] Jul, Migraine without aura and wi th status migrainosus, not intractable G43.001 [place] [address] [address] Jul, Migraine without aura and wi th status migrainosus, not intractable G43.001 [place] [address] [address] Feb, Chronic fatigue R53.82 and A cquired hypothyroidism E03.9 [place] [address] [address] Feb, [place] [address] [address] Jan, [place] [address] [address] Dec, [place] [address] [address] Dec, Polyneuropathy G62.9 and Acq uired hypothyroidism E03.9 [place] [address] [place] [id number] [address] [place] [address] Nov, Family history of diabetes mohit ma Z83.3 [place] [address] [address] Nov, Family history of diabetes m ellitus Z83.3 and Polyneuropathy G62.9 [facility] [address] [id number] [address] [place] [address] September, Pain in right knee M25.561 a nd Other chronic pain G89.29 [facility] [address] [id number] [address] [place] [address] September, [facility] [address] [id number] [address] [place] [address] Aug, [facility] [address] [id number] [address] [place] [address] Aug, Hyperlipemia E78.5 [facility] [address] [id number] [address] [place] [address] Aug, [facility] [address] [id number] [address] [place] [address] Aug, [facility] [address] [id number] [address] [place] [address] Aug, [facility] [address] [id number] [address] [place] [address] 15 Jul, 2015 [facility] [address] [id number] [address] [place] [address] 14 Jul, 2015 Acute postoperative pain of right knee G89.18 [facility] [address] [id number] [address] [place] [address] Jul, [facility] [address] [id number] [address] [place] [address] Jul, [facility] [address] [id number] [address] [place] [address] Jul, Preop cardiovascular exam Z0 1.810 [facility] [address] [id number] [address] [place] [address] May, [facility] [address] [place] [id number] [address] [place] [address] Apr, Status post total left knee replacement Z96.652 [facility] [address] [address] Mar, [facility] [address] [place] [id number] [address] [place] [address] Mar, [facility] [address] [address] Feb, [facility] [address] [address] Feb, Encounter for annual physica l exam Z00.00 [place] [address] [address] Feb, Chronic kidney disease N18.9 and Arthritis M19.90 [place] [address] [address] Feb, [facility] [address] [address] Jan, Cough due to MARSHA inhibitor 7 86.2 [place] [address] [address] Dec, Cough due to MARSHA inhibitor 7 86.2 ; Murmur, cardiac 785.2 and Family history of CHF (congestive heart failure) V17.49 [facility] [address] [place] [id number] [address] [place] [address] Dec, [facility] [address] [place] [id number] [address] [place] [address] Dec, [facility] [address] [address] Nov, [facility] [address] [place] [id number] [address] [place] [address] Oct, [facility] [address] [address] Oct, Unspecified arthropathy, sit e unspecified 716.90 [facility] [address] [id number] [address] [place] [address], [place] [id number] 16 Oct, 2014 [facility] [address] [id number] [address] [place] [address], [place] [id number] 09 Oct, 2014 [facility] [address] [id number] [address] [place] [address], [place] [id number] 14 Aug, 2014 [facility] [address] [id number] [address] [place] [address], [place] [id number] Aug, [facility] [address] [id number] [address] [place] [address], [place] [id number] 16 Jul, 2014 [facility] [address] [id number] [address] [place] [address], [place] [id number] 16 Jul, 2014 [facility] [address] [id number] [address] [place] [address], [place] [id number] 16 Jul, 2014 [facility] [address] [id number] [address] [place] [address], [place] [id number] 16 Jul, 2014 [facility] [address] [id number] [address] [place] [address], [place] [id number] 16 Jul, 2014 [facility] [address] [id number] [address] [place] [address] 16 Jul, 2014 [facility] [address] [id number] [address] [place] [address], [place] [id number] Jul, [facility] [address] [id number] [address] [place] [address] Jul, [facility] [address] [id number] [address] [place] [address], [place] [id number] Jul, [facility] [address] [id number] [address] [place] [id number] 24 Jul, 2014 [facility] [address] [id number] [address] [place] [address] Jul, [facility] [address] [id number] [address] [place] [address], [place] [id number] May, [facility] [address] [id number] [address] [place] [address], [place] [id number] May, [facility] [address] [id number] [address] [place] [address], [place] [id number] May, [facility] [address] [id number] [address] [place] [address], [place] [id number] May, [facility] [address] [id number] [address] [place] [address], [place] [id number] May, [facility] [address] [id number] [address] [place] [address], [place] [id number] Mar, [facility] [address] [id number] [address] [place] [address], [place] [address] Mar, [facility] [address] [id number] [address] [place] [address], [place] [id number] Feb, [facility] [address] [id number] [address] [place] [address], [place] [id number] Feb, [facility] [address] [id number] [address] [place] [address], [place] [id number] Dec, [facility] [address] [id number] [address] [place] [address], [place] [id number] Dec, [facility] [address] [id number] [address] [place] [address] September, [facility] [address] [id number] [address] [place] [address], [place] [address] September, [facility] [address] [id number] [address] [place] [address], [place] [id number] September, [facility] [address] [id number] [address] [place] [address], [place] [id number] September, [facility] [address] [id number] [address] [place] [address], [place] [id number] 07 Aug, 2013 [facility] [address] [id number] [address] [place] [address], [place] [id number] Aug, [facility] [address] [id number] [address] [place] [address], [place] [id number] Jul, [facility] [address] [id number] [address] [place] [address], [place] [address] Jul, [facility] [address] [id number] [address] [place] [address], [place] [id number] Jul, [facility] [address] [id number] [address] [place] [address], [place] [id number] Jul, [facility] [address] [id number] [address] [place] [address], [place] [id number] Apr, [facility] [address] [id number] [address] [place] [address], [place] [id number] Apr, [facility] [address] [id number] [address] [place] [address], [place] [id number] Feb, [facility] [address] [id number] [address] [place] [address], [place] [id number] Feb, [facility] [address] [id number] [address] [place] [address], [place] [id number] Nov, [facility] [address] [id number] [address] [place] [address], [place] [id number] Nov, [facility] [address] [id number] [address] [place] [address], [place] [id number] Oct, [facility] [address] [id number] [address] [place] [address], [place] [id number] Oct, [facility] [address] [id number] [address] [place] [address], [place] [id number] Oct, [facility] [address] [id number] [address] [place] [address], [place] [id number] Oct, [facility] [address] [facility] [id number] [address] [place] [address] Oct, IMMUNIZATIONS No Known Immunizations SOCIAL HISTORY [...]
--- OUTSIDE RECORDS SUMMARY | 2019-12-19 14:21 | XMS REPORT | Encounter Summary ---
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 documented as of this encounter Plan of Treatment Care Team Description Date Type Specialty Moise Jalloh NP [address] [address] [phone] 05/08/2020 Office Visit Neurology documented as of this encounter Visit Diagnoses Not on filedocumented in this encounter
--- OUTSIDE RECORDS SUMMARY | 2019-12-19 14:22 | XMS REPORT ---
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 Role Phone ROSA VELÁSQUEZ Unavailable PROBLEMS Type Condition ICD9-CM Code PDW11-OL Code Onset Dates Condition S tatus SNOMED Code Problem Cardiac murmur, previously undiagnosed R01.1 Active 15396890 Problem Localized edema R60.0 Active 1025 62851 Problem Arthropathy M12.9 Active 09611396 3 Problem Coronary artery disease invo lving [place] heart without angina pectoris, unspecified vessel or lesion type I25.10 Active 39693452 Problem Acquired hypothyroidism E03.9 Active 902538672 Problem Hyperlipemia E78.5 Active 1828682 4 Problem Hypoglycemia E16.2 Active 7171158 03 Problem Bronchitis J40 Active 86004764 Problem Other chronic pain G89.29 Active 8 4890313 Problem Anogenital lichen sclerosus L90.0 Ac tive 198233330 Problem 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 Active 011294176 Problem Migraine without aura and with status migrainosu s, not intractable G43.001 Active 570644641 Problem Body mass index (BMI) of 40.0-44.9 in adult Z68.41 Active 257464241 Problem Chronic fatigue R53.82 Active 5270 2003 Problem Low vitamin D level E55.9 Active 21508547 Problem 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 Active 799936710 Problem Non-rheumatic tricuspid valve insufficiency I36.1 Active 378218131 Problem Mood disorder F39 Active 595255 05 ALLERGIES No Information ENCOUNTERS Encounter Location Date Diagnosis [facility] [address] [facility] [id number] [address] [place] [address] Jul, [facility] [address] [facility] [id number] [address] [place] [address] May, [facility] [address] [id number] [place] [address] May, Generalized abdominal pain R 10.84 [facility] [address] [facility] [id number] [address] [place] [address] May, [facility] [address] [facility] [id number] [address] [place] [address] Mar, [facility] [address] [facility] [id number] [address] [place] [address] Mar, Encounter for Medicare annua l wellness exam Z00.00 ; Acquired hypothyroidism E03.9 ; Hyperlipemia E78.5 ; Encounter for immunization Z23 ; Body mass index (BMI) of 40.0-44.9 in adult Z68.41 ; Hemiplegia and hemiparesis following cerebral infarction affecting right dominant side I69.351 ; Coronary artery disease involving [place] heart without angina pectoris, unspecified vessel or lesion type I25.10 ; Arthropathy M12.9 and Non-rheumatic tricuspid valve insufficiency I36.1 [facility] [address] [facility] [id number] [address] [place] [address] 08 Mar, 2019 [facility] [address] [id number] [address] Feb, Pleurisy R09.1 and Back pain M54.9 [facility] [address] [facility] [id number] [address] [place] [address] Feb, [facility] [address] [id number] [address] Oct, [facility] [address] [facility] [id number] [address] [place] [address] Aug, Cervical neuritis M54.12 and Body mass index (BMI) of 40.0-44.9 in adult Z68.41 [facility] [address] 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 ; Mood disorder F39 ; Hypoglycemia E16.2 ; Acquired hypothyroidism E03.9 ; Other chronic pain G89.29 ; 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 ; Non-rheumatic tricuspid valve insufficiency I36.1 and BMI 40.0-44.9, adult Z68.41 [place] [address] [address] Mar, Cutaneous horn L85.8 and Hyp erlipemia E78.5 [place] [address] [address] Feb, [place] [address] [address] Nov, Chronic fatigue R53.82 [place] [address] [address] 14 Oct, 2017 [place] [address] [address] Oct, Low vitamin D level E55.9 [place] [address] [address] 13 Oct, 2017 BMI 40.0-44.9, adult Z68.41 ; Chest pain, unspecified type R07.9 ; Shortness of breath R06.02 ; Heart palpitations R00.2 ; History of CVA (cerebrovascular accident) Z86.73 ; Suspected sleep apnea R29.818 and Non- rheumatic tricuspid valve insufficiency I36.1 [place] [address] [address] September, Low vitamin D level E55.9 [place] [address] [address] Jul, BMI 40.0-44.9, adult Z68.41 ; 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 and Murmur R01.1 [facility] [address] [id number] [address] [place] [address] Jul, [facility] [address] [facility] [id number] [address] [place] [address] Jul, Low vitamin D level E55.9 [facility] [address] [facility] [id number] [address] [place] [address] Jul, BMI 40.0-44.9, adult Z68.41 ; Acquired hypothyroidism E03.9 and Migraine without aura and with status migrainosus, not intractable G43.001 [facility] [address] [id number] [address] [place] [address] Mar, [facility] [address] [facility] [id number] [address] [place] [address] Mar, [place] [address] [facility] [id number] [address] [place] [address] Feb, Anogenital lichen sclerosus L90.0 [facility] [address] [facility] [id number] [address] [place] [address] Feb, Well woman exam Z01.419 ; Rosa mp of right breast N63.10 and Anogenital lichen sclerosus L90.0 [facility] [address] [facility] [id number] [address] [place] [address] Jan, Other chronic pain G89.29 [facility] [address] [facility] [id number] [address] [place] [address] Nov, [facility] [address] [facility] [id number] [address] [place] [address] Nov, Other chronic pain G89.29 [place] [address] [facility] [id number] [address] [place] [address] Oct, Stomach pain R10.9 [facility] [address] [facility] [id number] [address] [place] [address] Oct, Other chronic pain G89.29 an d Edema, lower extremity R60.0 [facility] [address] [place] [id number] [address] [place] [address] September, [facility] [address] [place] [id number] [address] [place] [address] Aug, [facility] [address] [place] [id number] [address] [place] [address] Aug, Bronchitis J40 [facility] [address] [place] [id number] [address] [place] [address] Jul, Migraine without aura and wi th status migrainosus, not intractable G43.001 [facility] [address] [place] [id number] [address] [place] [address] Jul, Migraine without aura and wi th status migrainosus, not intractable G43.001 [place] [address] [place] [id number] [address] [place] [address] Feb, Chronic fatigue R53.82 and A cquired hypothyroidism E03.9 [facility] [address] [place] [id number] [address] [place] [address] Feb, [place] [address] [place] [id number] [address] [place] [address] Jan, [place] [address] [place] [id number] [address] [place] [address] Dec, [facility] [address] [place] [id number] [address] [place] [address] Dec, Polyneuropathy G62.9 and Acq uired hypothyroidism E03.9 [facility] [address] [facility] [id number] [address] [place] [address] Nov, Family history of diabetes mohit ma Z83.3 [facility] [address] [facility] [id number] [address] [place] [address] Nov, Family history of diabetes mohit ma Z83.3 and Polyneuropathy G62.9 [facility] [address] [id number] [address] [place] [address] September, Pain in right knee M25.561 a nd Other chronic pain G89.29 [facility] [address] [id number] [address] [place] [address] September, [facility] [address] [id number] [address] [place] [address] Aug, [facility] [address] [id number] [address] [place] [address] Aug, Hyperlipemia E78.5 [facility] [address] [id number] [address] [place] [address] Aug, [facility] [address] [id number] [address] [place] [address] Aug, [facility] [address] [id number] [address] [place] [address] Aug, [facility] [address] [id number] [address] [place] [address] Jul, [facility] [address] [id number] [address] [place] [address] 14 Jul, 2015 Acute postoperative pain of right knee G89.18 [facility] [address] [id number] [address] [place] [address] Jul, [facility] [address] [id number] [address] [place] [address] Jul, [facility] [address] [id number] [address] [place] [address] Jul, Preop cardiovascular exam Z0 1.810 [facility] [address] [id number] [address] [place] [address] May, [facility] [address] [id number] [address] [place] [address] Apr, Status post total left knee replacement Z96.652 [facility] [address] [facility] [id number] [address] [place] [address] Mar, [facility] [address] [facility] [id number] [address] [place] [address] Mar, [facility] [address] [facility] [id number] [address] [place] [address] Feb, [facility] [address] [facility] [id number] [address] [place] [address] Feb, Encounter for annual physica l exam Z00.00 [facility] [address] [facility] [id number] [address] [place] [address] Feb, Chronic kidney disease N18.9 and Arthritis M19.90 [place] [address] [facility] [id number] [address] [place] [address] Feb, [facility] [address] [facility] [id number] [address] [place] [address] Jan, Cough due to MARSHA inhibitor 7 86.2 [facility] [address] [facility] [id number] [address] [place] [address] Dec, Cough due to MARSHA inhibitor 7 86.2 ; Murmur, cardiac 785.2 and Family history of CHF (congestive heart failure) V17.49 [facility] [address] [facility] [id number] [address] [place] [address] Dec, [facility] [address] [facility] [id number] [address] [place] [address] Dec, [facility] [address] [facility] [id number] [address] [place] [address] Nov, [facility] [address] [facility] [id number] [address] [place] [address] Oct, [facility] [address] [facility] [id number] [address] [place] [address] Oct, Unspecified arthropathy, sit e unspecified 716.90 [facility] [address] [id number] [address] [place] [place] [address], [place] [address] 16 Oct, 2014 [facility] [address] [id number] [address] [place] [place] [address], [place] [address] 09 Oct, 2014 [facility] [address] [id number] [address] [place] [place] [address], [place] [address] 14 Aug, 2014 [facility] [address] [id number] [address] [place] [place] [address], [place] [address] 13 Aug, 2014 [facility] [address] [id number] [address] [place] [place] [address], [place] [address] 16 Jul, 2014 [facility] [address] [id number] [address] [place] [place] [address], [place] [address] 16 Jul, 2014 [facility] [address] [id number] [address] [place] [address], [place] [address] 16 Jul, 2014 [facility] [address] [id number] [address] [place] [address], [place] [address] 16 Jul, 2014 [facility] [address] [id number] [address] [place] [address], [place] [address] 16 Jul, 2014 [facility] [address] [id number] [address] [place] [address], [place] [address] 16 Jul, 2014 [facility] [address] [id number] [address] [place] [address], [place] [address] Jul, [facility] [address] [id number] [address] [place] [place] [address], [place] [address] Jul, [facility] [address] [id number] [address] [place] [place] [address], [place] [address] Jul, [facility] [address] [id number] [address] [place] [place] [address], [place] [address] 24 Jul, 2014 [facility] [address] [id number] [address] [place] [address], [place] [address] 24 Jul, 2014 [facility] [address] [id number] [address] [place] [address], [place] [address] May, [facility] [address] [id number] [address] [place] [address], [place] [address] May, [facility] [address] [id number] [address] [place] [place] [address], [place] [address] May, [facility] [address] [id number] [address] [place] [place] [address], [place] [address] May, [facility] [address] [id number] [address] [place] [address], [place] [address] May, [facility] [address] [id number] [address] [place] [place] [address], [place] [address] Mar, [facility] [address] [id number] [address] [place] [address], [place] [address] Mar, [facility] [address] [id number] [address] [place] [place] [address], [place] [address] Feb, [facility] [address] [id number] [address] [place] [place] [address], [place] [address] Feb, [facility] [address] [id number] [address] [place] [place] [address], [place] [address] Dec, [facility] [address] [id number] [address] [place] [place] [address], [place] [address] Dec, [facility] [address] [id number] [address] [place] [place] [address], [place] [address] September, [facility] [address] [id number] [address] [place] [address], [place] [address] September, [facility] [address] [id number] [address] [place] [place] [address], [place] [address] September, [facility] [address] [id number] [address] [place] [place] [address], [place] [address] September, [facility] [address] [id number] [address] [place] [address], [place] [address] Aug, [facility] [address] [id number] [address] [place] [address], [place] [address] Aug, [facility] [address] [id number] [address] [place] [address], [place] [address] Jul, [facility] [address] [id number] [address] [place] [address], [place] [address] Jul, [facility] [address] [id number] [address] [place] [place] [address], [place] [address] Jul, [facility] [address] [id number] [address] [place] [address], [place] [address] Jul, [facility] [address] [id number] [address] [place] [address], [place] [address] Apr, [facility] [address] [id number] [address] [place] [address], [place] [address] Apr, [facility] [address] [id number] [address] [place] [address], [place] [address] Feb, [facility] [address] [id number] [address] [place] [address], [place] [address] Feb, [facility] [address] [id number] [address] [place] [address], [place] [address] Nov, [facility] [address] [id number] [address] [place] [address], [place] [address] Nov, [facility] [address] [id number] [address] [place] [address], [place] [address] Oct, [facility] [address] [id number] [address] [place] [address], [place] [address] Oct, [facility] [address] [id number] [address] [place] [address], [place] [address] Oct, [facility] [address] [id number] [address] [place] [address], [place] [address] Oct, [facility] [address] [id number] [address] [place] [address], [place] [address] Oct, IMMUNIZATIONS No Known Immunizations SOCIAL HISTORY Never Assessed REASON FOR VISIT PLAN OF CARE VITAL SIGNS Height 66 in 2014-07-24 Weight 222 lbs 2014-07-24 Temperature 97.3 degrees Fahrenheit 2014-07-24 Heart Rate 80 bpm 2014-07-24 Respiratory Rate 18 2014-07-24 Blood pressure systolic 90 mmHg 2014-07-24 Blood pressure diastolic 58 mmHg 2014-07-24 MEDICATIONS Unknown Medications RESULTS No Results PROCEDURES [...]
--- OUTSIDE RECORDS SUMMARY | 2019-12-19 14:22 | XMS REPORT ---
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 Name Role Phone SASHA GARCIA Unavailable PROBLEMS Type Condition ICD9-CM Code ALA58-QA Code Onset Dates Condition S tatus SNOMED Code Problem Cardiac murmur, previously undiagnosed R01.1 Active 74757396 Problem Localized edema R60.0 Active 1024 32646 Problem Arthropathy M12.9 Active 79445488 3 Problem Coronary artery disease invo lving [place] heart without angina pectoris, unspecified vessel or lesion type I25.10 Active 40087369 Problem Acquired hypothyroidism E03.9 Active 589891916 Problem Hyperlipemia E78.5 Active 3547142 4 Problem Hypoglycemia E16.2 Active 4123142 03 Problem Bronchitis J40 Active 15117089 Problem Other chronic pain G89.29 Active 8 0600510 Problem Anogenital lichen sclerosus L90.0 Ac tive 016520366 Problem 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 Active 383251855 Problem Migraine without aura and with status migrainosu s, not intractable G43.001 Active 239623514 Problem Body mass index (BMI) of 40.0-44.9 in adult Z68.41 Active 322583773 Problem Chronic fatigue R53.82 Active 5270 2003 Problem Low vitamin D level E55.9 Active 13665049 Problem 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 Active 026743752 Problem Non-rheumatic tricuspid valve insufficiency I36.1 Active 250488848 Problem Mood disorder F39 Active 636902 05 ALLERGIES No Information ENCOUNTERS Encounter Location Date Diagnosis [facility] [address] [id number] [place] [address] May, [address] [place] [address] May, Generalized abdominal pain R 10.84 [place] [id number] [place] [address] 14 May, 2019 [place] [address] [address] Mar, [place] [id number] [place] [address] Mar, Encounter for Medicare annual wellness e xam Z00.00 ; Acquired hypothyroidism E03.9 ; Hyperlipemia E78.5 ; Encounter for immunization Z23 ; Body mass index (BMI) of 40.0-44.9 in adult Z68.41 ; Hemiplegia and hemiparesis following cerebral infarction affecting right dominant side I69.351 ; Coronary artery disease involving [place] heart without angina pectoris, unspecified vessel or lesion type I25.10 ; Arthropathy M12.9 and Non-rheumatic tricuspid valve insufficiency I36.1 [place] [address] [address] 08 Mar, 2019 [facility] [address] [facility] [address] [place] [address] 17 Feb, 2019 Pleurisy R09.1 and Back pain M54.9 [place] [address] [address] 17 Feb, 2019 [facility] [address] [place] [address] Oct, [place] [address] [address] Aug, Cervical neuritis M54.12 and Body mass i ndex (BMI) of 40.0-44.9 in adult Z68.41 [place] [address] [address] Mar, [place] [address] [address] 09 Mar, 2018 Medicare annual wellness visit, subseque nt Z00.00 ; Hemiplegia and hemiparesis following cerebral infarction affecting right dominant side 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 ; Mood disorder F39 ; Hypoglycemia E16.2 ; Acquired hypothyroidism E03.9 ; Other chronic pain G89.29 ; 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 ; Non-rheumatic tricuspid valve insufficiency I36.1 and BMI 40.0-44.9, adult Z68.41 [place] [address] [address] Mar, Cutaneous horn L85.8 and Hyperlipemia E7 8.5 [place] [address] [address] Feb, [place] [address] [address] Nov, Chronic fatigue R53.[address] [address] Oct, [place] [address] [address] Oct, Low vitamin D level E55.9 [place] [address] [address] Oct, BMI 40.0-44.9, adult Z68.41 ; Chest pain , unspecified type R07.9 ; Shortness of breath R06.02 ; Heart palpitations R00.2 ; History of CVA (cerebrovascular accident) Z86.73 ; Suspected sleep apnea R29.818 and Non- rheumatic tricuspid valve insufficiency I36.[address] [address] September, Low vitamin D level E55.9 [place] [address] [address] Jul, BMI 40.0-44.9, adult Z68.41 ; Ventricula r premature depolarization I49.3 and Murmur R01.1 [place] [address] [address] Jul, [address] [address] Jul, Low vitamin D level E55.9 [place] [address] [address] Jul, BMI 40.0-44.9, adult Z68.41 ; Acquired h ypothyroidism E03.9 and Migraine without aura and with status migrainosus, not intractable G43.001 [place] [address] [address] Mar, [place] [address] [address] Mar, [place] [address] [address] Feb, Anogenital lichen sclerosus L90.0 [place] [address] [address] Feb, Well woman exam Z01.419 ; Lump of right breast N63.10 and Anogenital lichen sclerosus L90.0 [place] [address] [address] Jan, Other chronic pain G89.29 [place] [address] [address] Nov, [place] [address] [address] Nov, Other chronic pain G89.29 [place] [address] [address] Oct, Stomach pain R10.9 [place] [address] [address] Oct, Other chronic pain G89.29 and Edema, low er extremity R60.0 [place] [address] [address] September, [place] [address] [address] Aug, [place] [address] [address] Aug, Bronchitis J40 [place] [address] [address] Jul, Migraine without aura and with status mi grainosus, not intractable G43.001 [facility] [address] [address] Jul, Migraine without aura and with status mi grainosus, not intractable G43.001 [place] [address] [address] Feb, Chronic fatigue R53.82 and Acquired hypo thyroidism E03.9 [place] [address] [address] Feb, [place] [address] [address] Jan, [place] [address] [address] Dec, [place] [address] [address] Dec, Polyneuropathy G62.9 and Acquired hypoth yroidism E03.9 [place] [address] [address] Nov, Family history of diabetes mellitus Z83. 3 [place] [address] [address] Nov, Family history of diabetes mellitus Z83. 3 and Polyneuropathy G62.9 [place] [address] [address] September, Pain in right knee M25.561 and Other chr onic pain G89.29 [place] [address] [address] September, [place] [address] [address] Aug, [place] [address] [address] Aug, Hyperlipemia E78.5 [facility] [address] [id number] [place] [address] Aug, [facility] [address] [address] Aug, [facility] [address] [address] Aug, [facility] [address] [address] 15 Jul, 2015 [facility] [address] [address] 14 Jul, 2015 Acute postoperative pain of right knee G 89.18 [facility] [address] [address] 10 Jul, 2015 [facility] [address] [address] 04 Jul, 2015 [facility] [address] [address] Jul, Preop cardiovascular exam Z01.810 [facility] [address] [address] May, [facility] [address] [address] Apr, Status post total left knee replacement Z96.652 [facility] [address] [address] Mar, [facility] [address] [address] Mar, [facility] [address] [address] Feb, [facility] [address] [address] Feb, Encounter for annual physical exam Z00.0 0 [facility] [address] [address] Feb, Chronic kidney disease N18.9 and Arthrit is M19.90 [facility] [address] [address] Feb, [facility] [address] [address] Jan, Cough due to MARSHA inhibitor 786.2 [facility] [address] [address] Dec, Cough due to MARSHA inhibitor 786.2 ; Murmu r, cardiac 785.2 and Family history of CHF (congestive heart failure) V17.49 [facility] [address] [address] Dec, [facility] [address] [address] Dec, [facility] [address] [address] Nov, [facility] [address] [address] Oct, [facility] [address] [address] Oct, Unspecified arthropathy, site unspecifie d 716.90 [facility] [address] [address] Oct, [facility] [address] [address] Oct, [facility] [address] [address] Aug, [facility] [address] [address] Aug, [facility] [address] [address] Jul, [facility] [address] [address] Jul, [facility] [address] [id number] [place] [address] 16 Jul, 2014 [facility] [address] [id number] [place] [address] 16 Jul, 2014 [facility] [address] [id number] [place] [address] 16 Jul, 2014 [facility] [address] [id number] [place] [address] 16 Jul, 2014 [facility] [address] [facility] [id number] [place] [address] Jul, [facility] [address] [id number] [place] [address] Jul, [facility] [address] [id number] [place] [address] Jul, [facility] [address] [id number] [place] [address] Jul, [facility] [address] [id number] [place] [address] Jul, [facility] [address] [id number] [place] [address] May, [facility] [address] [id number] [place] [address] May, [facility] [address] [id number] [place] [address] May, [facility] [address] [id number] [place] [address] May, [facility] [address] [id number] [place] [address] May, [facility] [address] [id number] [place] [address] Mar, [facility] [address] [id number] [place] [address] Mar, [facility] [address] [id number] [place] [address] Feb, [facility] [address] [id number] [place] [address] Feb, [facility] [address] [id number] [place] [address] Dec, [facility] [address] [id number] [place] [address] Dec, [facility] [address] [id number] [place] [address] September, [facility] [address] [id number] [place] [address] September, [facility] [address] [id number] [place] [address] September, [facility] [address] [id number] [place] [address] September, [facility] [address] [id number] [place] [address] Aug, [facility] [address] [id number] [place] [address] Aug, [facility] [address] [id number] [place] [address] Jul, [facility] [address] [id number] [place] [address] Jul, [facility] [address] [id number] [place] [address] Jul, [facility] [address] [id number] [place] [address] Jul, [facility] [id number] [place] [address] Apr, [facility] [address] [id number] [place] [address] Apr, [facility] [address] [id number] [place] [address] Feb, [facility] [address] [id number] [place] [address] Feb, [facility] [address] [id number] [place] [address] Nov, [facility] [address] [id number] [place] [address] Nov, [facility] [id number] [place] [address] Oct, [facility] [id number] [place] [address] Oct, [facility] [id number] [place] [address] Oct, [facility] [address] [id number] [place] [address] Oct, [facility] [address] [id number] [place] [address] Oct, IMMUNIZATIONS No Known Immunizations SOCIAL HISTORY [...]
--- OUTSIDE RECORDS SUMMARY | 2019-12-19 14:22 | XMS REPORT ---
Author Author Pia VELÁSQUEZ Organization [facility] Address [address] [place] [address] Care Team Providers Care Patient Support Representative Name Role Phone ROSA VELÁSQUEZ Unavailable PROBLEMS Type Condition ICD9-CM Code CKU90-HY Code Onset Dates Condition S tatus SNOMED Code Problem Cardiac murmur, previously undiagnosed R01.1 Active 80870274 Problem Localized edema R60.0 Active 1025 20405 Problem Arthropathy M12.9 Active 36279021 3 Problem Coronary artery disease invo lving ely shoshone heart without angina pectoris, unspecified vessel or lesion type I25.10 Active 86987313 Problem Acquired hypothyroidism E03.9 Active 912097348 Problem Hyperlipemia E78.5 Active 0286881 4 Problem Hypoglycemia E16.2 Active 7175632 03 Problem Bronchitis J40 Active 59095423 Problem Other chronic pain G89.29 Active 8 7614047 Problem Anogenital lichen sclerosus L90.0 Ac tive 721378701 Problem 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 Active 295512035 Problem Migraine without aura and with status migrainosu s, not intractable G43.001 Active 599746434 Problem Body mass index (BMI) of 40.0-44.9 in adult Z68.41 Active 043024885 Problem Chronic fatigue R53.82 Active 5270 2003 Problem Low vitamin D level E55.9 Active 55469785 Problem 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 Active 777202220 Problem Non-rheumatic tricuspid valve insufficiency I36.1 Active 624054066 Problem Mood disorder F39 Active 635809 05 ALLERGIES No Information ENCOUNTERS Encounter Location Date Diagnosis [facility] [address] [id number] [address] [place] [address] September, [facility] [address] [id number] [address] [place] [address] Jul, [facility] [address] [id number] [address] [place] [address] May, [facility] [address] [id number] [address] May, Generalized abdominal pain R 10.84 [facility] [address] [id number] [address] [place] [address] May, [facility] [address] [id number] [address] [place] [address] Mar, [place] [address] [id number] [address] [place] [address] Mar, Encounter for Medicare annua l wellness exam Z00.00 ; Acquired hypothyroidism E03.9 ; Hyperlipemia E78.5 ; Encounter for immunization Z23 ; Body mass index (BMI) of 40.0-44.9 in adult Z68.41 ; Hemiplegia and hemiparesis following cerebral infarction affecting right dominant side I69.351 ; Coronary artery disease involving ely shoshone heart without angina pectoris, unspecified vessel or lesion type I25.10 ; Arthropathy M12.9 and Non-rheumatic tricuspid valve insufficiency I36.1 [place] [address] [id number] [address] [place] [address] Mar, [facility] [address] [id number] [address] Feb, Pleurisy R09.1 and Back pain M54.9 [facility] [address] [id number] [address] [place] [address] Feb, 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 ; Mood disorder F39 ; Hypoglycemia E16.2 ; Acquired hypothyroidism E03.9 ; Other chronic pain G89.29 ; 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 ; Non-rheumatic tricuspid valve insufficiency I36.1 and BMI 40.0-44.9, adult Z68.41 [place] [address] [address] 02 Mar, 2018 Cutaneous horn L85.8 and Hyp erlipemia E78.5 [place] [address] [address] Feb, [place] [address] [address] Nov, Chronic fatigue R53.82 [place] [address] [address] 14 Oct, 2017 [place] [address] [address] Oct, Low vitamin D level E55.9 [place] [address] [address] Oct, BMI 40.0-44.9, adult Z68.41 ; Chest pain, unspecified type R07.9 ; Shortness of breath R06.02 ; Heart palpitations R00.2 ; History of CVA (cerebrovascular accident) Z86.73 ; Suspected sleep apnea R29.818 and Non- rheumatic tricuspid valve insufficiency I36.1 [place] [address] [address] September, Low vitamin D level E55.9 [place] [address] [address] Jul, BMI 40.0-44.9, adult Z68.41 ; 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 and Murmur R01.1 [place] [address] [address] Jul, [place] [address] [address] Jul, Low vitamin D level E55.9 [place] [address] [address] Jul, BMI 40.0-44.9, adult Z68.41 ; Acquired hypothyroidism E03.9 and Migraine without aura and with status migrainosus, not intractable G43.001 [place] [address] [address] Mar, [place] [address] [address] Mar, [place] [address] [address] Feb, Anogenital lichen sclerosus L90.0 [place] [address] [address] Feb, Well woman exam Z01.419 ; Rosa mp of right breast N63.10 and Anogenital lichen sclerosus L90.0 [place] [address] [address] Jan, Other chronic pain G89.29 [place] [address] [place] [id number] [address] [place] [address] Nov, [place] [address] [address] Nov, Other chronic pain G89.29 [place] [address] [place] [id number] [address] [place] [address] Oct, Stomach pain R10.9 [place] [address] [place] [id number] [address] [place] [address] Oct, Other chronic pain G89.29 an d Edema, lower extremity R60.0 [place] [address] [place] [id number] [address] [place] [address] September, [place] [address] [place] [id number] [address] [place] [address] Aug, [place] [address] [place] [id number] [address] [place] [address] Aug, Bronchitis J40 [place] [address] [address] Jul, Migraine without aura and wi th status migrainosus, not intractable G43.001 [place] [address] [place] [id number] [address] [place] [address] Jul, Migraine without aura and wi th status migrainosus, not intractable G43.001 [place] [address] [place] [id number] [address] [place] [address] Feb, Chronic fatigue R53.82 and A cquired hypothyroidism E03.9 [place] [address] [place] [id number] [address] [place] [address] Feb, [place] [address] [place] [id number] [address] [place] [address] Jan, [place] [address] [place] [address] Dec, [place] [address] [place] [id number] [address] [place] [address] Dec, Polyneuropathy G62.9 and Acq uired hypothyroidism E03.9 [place] [address] [facility] [id number] [address] [place] [address] Nov, Family history of diabetes mohit anil Z83.3 [place] [address] [place] [id number] [place] [address] Nov, Family history of diabetes m ellitus Z83.3 and Polyneuropathy G62.9 [facility] [address] [id number] [address] [place] [address] September, Pain in right knee M25.561 a nd Other chronic pain G89.29 [facility] [address] [id number] [address] [place] [address] September, [facility] [address] [id number] [address] [place] [address] Aug, [facility] [address] [id number] [address] [place] [address] Aug, Hyperlipemia E78.5 [facility] [address] [id number] [address] [place] [address] Aug, [facility] [address] [id number] [address] [place] [address] Aug, [facility] [address] [id number] [address] [place] [address] Aug, [facility] [address] [id number] [address] [place] [address] Jul, [facility] [address] [id number] [address] [place] [address] 14 Jul, 2015 Acute postoperative pain of right knee G89.18 [facility] [address] [id number] [address] [place] [address] Jul, [facility] [address] [id number] [address] [place] [address] Jul, [facility] [address] [id number] [address] [place] [address] Jul, Preop cardiovascular exam Z0 1.810 [facility] [address] [id number] [address] [place] [address] May, [facility] [address] [place] [id number] [address] [place] [address] Apr, Status post total left knee replacement Z96.652 [facility] [address] [place] [id number] [address] [place] [address] Mar, [facility] [address] [place] [id number] [address] [place] [address] Mar, [facility] [address] [place] [id number] [address] [place] [address] Feb, [facility] [address] [place] [id number] [address] [place] [address] Feb, Encounter for annual physica l exam Z00.00 [facility] [address] [place] [address] Feb, Chronic kidney disease N18.9 and Arthritis M19.90 [facility] [address] [place] [id number] [address] [place] [address] Feb, [facility] [address] [place] [address] Jan, Cough due to MARSHA inhibitor 7 86.2 [facility] [address] [place] [id number] [address] [place] [address] Dec, Cough due to MARSHA inhibitor 7 86.2 ; Murmur, cardiac 785.2 and Family history of CHF (congestive heart failure) V17.49 [facility] [address] [place] [id number] [address] [place] [address] Dec, [facility] [address] [place] [id number] [address] [place] [address] Dec, [facility] [address] [place] [address] Nov, [facility] [address] [place] [id number] [address] [place] [address] Oct, [facility] [address] [place] [id number] [address] [place] [address] 19 Oct, 2014 Unspecified arthropathy, sit e unspecified 716.90 [facility] [address] [id number] [address] [place] [address], [place] [address] 16 Oct, 2014 [facility] [address] [id number] [address] [place] [address] 09 Oct, 2014 [facility] [address] [id number] [address] [place] [address], [place] [address] 14 Aug, 2014 [facility] [address] [id number] [address] [place] [address], [place] [address] 13 Aug, 2014 [facility] [address] [id number] [address] [place] [address], [place] [address] 16 Jul, 2014 [facility] [address] [id number] [address] [place] [address] 16 Jul, 2014 [facility] [address] [id number] [address] [place] [address], [place] [address] 16 Jul, 2014 [facility] [address] [id number] [address] [place] [address], [place] [address] 16 Jul, 2014 [facility] [address] [id number] [address] [place] [address] 16 Jul, 2014 [facility] [address] [id number] [address] [place] [address] 16 Jul, 2014 [facility] [address] [id number] [address] [place] [address] Jul, [facility] [address] [id number] [address] [place] [id number] Jul, [facility] [address] [id number] [address] [place] [address] Jul, [facility] [address] [id number] [address] [place] [address] 24 Jul, 2014 [facility] [address] [id number] [address] [place] [address] Jul, [facility] [address] [id number] [address] [place] [address], [place] [address] May, [facility] [address] [id number] [address] [place] [address], [place] [address] May, [facility] [address] [id number] [address] [place] [address], [place] [address] May, [facility] [address] [id number] [address] [place] [address], [place] [address] May, [facility] [address] [id number] [address] [place] [address], [place] [address] May, [facility] [address] [id number] [address] [place] [address], [place] [address] Mar, [facility] [address] [id number] [address] [place] [address], [place] [address] Mar, [facility] [address] [id number] [address] [place] [address], [place] [address] Feb, [facility] [address] [id number] [address] [place] [address], [place] [address] Feb, [facility] [address] [id number] [address] [place] [address], [place] [address] Dec, [facility] [address] [id number] [address] [place] [address], [place] [address] Dec, [facility] [address] [id number] [address] [place] [address], [place] [address] September, [facility] [address] [id number] [address] [place] [address], [place] [address] September, [facility] [address] [id number] [address] [place] [address], [place] [address] September, [facility] [address] [id number] [address] [place] [address], [place] [address] September, [facility] [address] [id number] [address] [place] [address], [place] [address] 07 Aug, 2013 [facility] [address] [id number] [address] [place] [address], [place] [address] Aug, [facility] [address] [id number] [address] [place] [address], [place] [address] Jul, [facility] [address] [id number] [address] [place] [address], [place] [address] Jul, [facility] [address] [id number] [address] [place] [address], [place] [address] Jul, [facility] [address] [id number] [address] [place] [address], [place] [address] Jul, [facility] [address] [id number] [address] [place] [address], [place] [address] Apr, [facility] [address] [id number] [address] [place] [address], [place] [address] Apr, [facility] [address] [id number] [address] [place] [address], [place] [address] Feb, [facility] [address] [id number] [address] [place] [address], [place] [address] Feb, [facility] [address] [id number] [address] [place] [address], [place] [address] Nov, [facility] [address] [id number] [address] [place] [address], [place] [address] Nov, [facility] [address] [id number] [address] [place] [address], [place] [address] Oct, [facility] [address] [id number] [address] [place] [address], [place] [address] Oct, [facility] [address] [id number] [address] [place] [address], [place] [address] Oct, [facility] [address] [id number] [address] [place] [address], [place] [address] Oct, [facility] [address] [id number] [address] [place] [address] Oct, IMMUNIZATIONS No Known Immunizations SOCIAL HISTORY [...]
--- OUTSIDE RECORDS SUMMARY | 2019-12-19 14:25 | XMS REPORT | Continuity of Care Document ---
Author Organization Unknown Address Unknown Phone Unavailable Allergies Active Description Code Type Severity Reaction Onset Reported/Identified Relationship to Patient Clinical Status Yes No Known Drug Allergies [id number] Drug Allergy Unknown N/A 01/04/2017 Medications There is no data. Problems Date Dx Coded Attending Type Code Diagnosis Diagnosed By 11/07/2012 244.9 HYPO THYROIDISM 11/07/2012 782.3 EDEMA 11/07/2012 785.2 MURM URS, UNDIAGNOSED CARDIAC 11/07/2012 244.9 HYPO THYROIDISM 11/07/2012 782.3 EDEMA 11/07/2012 785.2 MURM URS, UNDIAGNOSED CARDIAC 11/07/2012 244.9 HYPO THYROIDISM 11/07/2012 782.3 EDEMA 11/07/2012 785.2 MURM URS, UNDIAGNOSED CARDIAC 11/07/2012 JOSE SANTANA SASHA T 24 4.9 HYPOTHYROIDISM 11/07/2012 JOSE SANTANA SASHA T 78 2.3 EDEMA 11/07/2012 JOSE SANTANA SASHA T 78 5.2 MURMURS, UNDIAGNOSED CARDIAC 11/07/2012 JOSE SANTANA SASHA T 24 4.9 HYPOTHYROIDISM 11/07/2012 JOSE SANTANA SASHA T 78 2.3 EDEMA 11/07/2012 JOSE SANTANA SASHA T 78 5.2 MURMURS, UNDIAGNOSED CARDIAC 11/07/2012 JOSE SANTANA SASHA T 24 4.9 HYPOTHYROIDISM 11/07/2012 JOSE SANTANA SASHA T 78 2.3 EDEMA 11/07/2012 JOSE SANTANA SASHA T 78 5.2 MURMURS, UNDIAGNOSED CARDIAC 11/07/2012 KLINE DO, EUGENIO K 244.9 HYPOTHYROIDISM 11/07/2012 KLINE DO, EUGENIO K 782.3 EDEMA 11/07/2012 KLINE DO, EUGENIO K 785.2 MURMURS, UNDIAGNOSED CARDIAC 11/07/2012 KLINE DO, EUGENIO K 244.9 HYPOTHYROIDISM 11/07/2012 KLINE DO, EUGENIO K 782.3 EDEMA 11/07/2012 KLINE DO, EUGENIO K 785.2 MURMURS, UNDIAGNOSED CARDIAC 11/07/2012 DIDIER OAKLEY, ROSA 244.9 HYPOTHYROIDISM 11/07/2012 DIDIER OAKLEY, ROSA 782.3 EDEMA 11/07/2012 DIDIER OAKLEY, ROSA 785.2 MURMURS, UNDIAGNOSED CARDIAC 11/07/2012 DIDIER OAKLEY, ROSA 244.9 HYPOTHYROIDISM 11/07/2012 DIDIER OAKLEY, ROSA 782.3 EDEMA 11/07/2012 DIDIER OAKLEY, ROSA 785.2 MURMURS, UNDIAGNOSED CARDIAC 11/07/2012 DIDIER OAKLEY, ROSA 244.9 HYPOTHYROIDISM 11/07/2012 DIDIER OAKLEY, ROSA 782.3 EDEMA 11/07/2012 DIDIER OAKLEY, ROSA 785.2 MURMURS, UNDIAGNOSED CARDIAC 01/05/2014 EUGENIO KLINE DO K 251.2 HYPOGLYCEMIA 01/05/2014 EUGENIO KLINE DO 726.90 TENDONITIS 01/05/2014 EUGENIO KLINE DO K 251.2 HYPOGLYCEMIA 01/05/2014 EUGENIO KLINE DO K 726.90 TENDONITIS 01/05/2014 ROSA VELÁSQUEZ MD 251.2 HYPOGLYCEMIA 01/05/2014 ROSA VELÁSQUEZ MD 726.9 0 TENDONITIS 01/05/2014 ROSA VELÁSQUEZ MD 251.2 HYPOGLYCEMIA 01/05/2014 ROSA VELÁSQUEZ MD 726.9 0 TENDONITIS 01/05/2014 ROSA VELÁSQUEZ MD 251.2 HYPOGLYCEMIA 01/05/2014 ROSA VELÁSQUEZ MD 726.9 0 TENDONITIS 04/09/2014 EUGENIO KLINE DO 716.90 ARTHRITIS/ ARTHROPATHY, UNSPECIFIED 04/09/2014 ROSA VELÁSQUEZ MD 716.9 0 ARTHRITIS/ ARTHROPATHY, UNSPECIFIED 04/09/2014 ROSA VELÁSQUEZ MD 716.9 0 ARTHRITIS/ ARTHROPATHY, UNSPECIFIED 04/09/2014 ROSA VELÁSQUEZ MD 716.9 0 ARTHRITIS/ ARTHROPATHY, UNSPECIFIED 06/08/2014 ROSA VELÁSQUEZ MD 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-DEFINED CEREBROVASCULAR DISEASE 06/08/2014 ROSA VELÁSQUEZ MD 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-DEFINED CEREBROVASCULAR DISEASE 06/08/2014 ROSA VELÁSQUEZ MD 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-DEFINED CEREBROVASCULAR DISEASE 09/18/2014 ROSA VELÁSQUEZ MD 437.8 OTHER ILL-DEFINED CEREBROVASCULAR DISEASE 09/21/2014 ROSA VELÁSQUEZ MD F Ot 436 09/21/2014 DIDIER OAKLEY, ROSA Jacobs Ot 436 10/19/2014 DIDIER OAKLEY, ROSA Jacobs Ot 436 10/19/2014 DIDIER OAKLEY, ROSA Jacobs Ot 436 02/25/2015 DIDIER OAKLEY, ROSA Jacobs Ot 436 03/21/2015 JOSE SASHA Starla CLINICAL TRIAL ASSOCIATE Ot 785.2 03/21/2015 SASHA GARCIA CLINICAL TRIAL ASSOCIATE Ot V17.49 03/28/2015 SASHA GARCIA CLINICAL TRIAL ASSOCIATE Ot 785.2 03/28/2015 SASHA GARCIA CLINICAL TRIAL ASSOCIATE Ot V17.49 01/01/2017 DIDIER OAKLEY, ROSA Jacobs Ot 436 CVA 01/01/2017 SASHA GARCIA CLINICAL TRIAL ASSOCIATE Ot 785.2 CARDIAC MURMURS NEC 01/01/2017 SASHA GARCIA CLINICAL TRIAL ASSOCIATE Ot V17.49 FAMILY HISTORY OF OTHER CARDIOVASCULAR D 01/04/2017 KAL MCCRAY DO Ot K92. 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 01 MORBID (SEVERE) OBESITY DUE TO EXCESS CA 01/05/2017 KAL MCCRAY DO Ot I10 ESSENTIAL (PRIMARY) HYPERTENSION 01/05/2017 KAL MCCRAY DO Ot K44. 9 DIAPHRAGMATIC HERNIA WITHOUT OBSTRUCTION 01/05/2017 KAL MCCRAY DO Ot K92. 1 MELENA 01/05/2017 KAL MCCRAY DO Ot M19. 91 PRIMARY OSTEOARTHRITIS, UNSPECIFIED SITE 01/05/2017 KAL MCCRAY DO Ot R01. 1 CARDIAC MURMUR, UNSPECIFIED 01/05/2017 AKL MCCRAY DO Ot Z68. 41 BODY MASS INDEX (BMI) 40.0-44.9, ADULT 01/05/2017 KAL MCCRAY DO Ot Z79.899 OTHER 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 (CURRENT) DRUG THERAPY 01/05/2017 KAL MCCRAY DO Ot Z86. 73 PRSNL HX OF TIA (TIA), AND CEREB INFRC W 01/10/2017 KAL MCCRAY DO, Ot K92. 1 MELENA 01/10/2017 MCCRAY KAL DAVIS Ot Z01.818 ENCOUNTER FOR OTHER PREPROCEDURAL EXAMIN 03/29/2017 RICHARD OAKLEY, REE Rabago Ot N63.10 UNSPECIFIED LUMP IN THE RIGHT BREAST, UN 04/05/2017 REE RAMOS MD Ot N63.10 UNSPECIFIED LUMP IN THE RIGHT BREAST, UN 04/08/2017 REE RAMOS MD Ot N63.10 UNSPECIFIED LUMP IN THE RIGHT BREAST, UN 04/12/2017 REE RAMOS MD Ot N63.10 UNSPECIFIED LUMP IN THE RIGHT BREAST, UN 04/20/2017 REE RAMOS MD Ot N63.10 UNSPECIFIED LUMP IN THE RIGHT BREAST, UN 05/04/2017 REE RAMOS MD Ot N63.10 UNSPECIFIED LUMP IN THE RIGHT BREAST, UN 05/21/2017 REE RAMOS MD Ot N63.10 UNSPECIFIED LUMP IN THE RIGHT BREAST, UN 11/12/2017 ZEESHAN CAMPO CLINICAL TRIAL ASSOCIATE Ot R00.2 PALPITATIONS 11/17/2017 DIDIER OAKLEY, ROSA Jacobs Ot 436 CVA 11/17/2017 SASHA GARCIA Ot 785.2 CARDIAC MURMURS NEC 11/17/2017 SASHA GARCIA CLINICAL TRIAL ASSOCIATE Ot V17.49 FAMILY HISTORY OF OTHER CARDIOVASCULAR D 11/17/2017 RICHARD OAKLEY, REE Rabago Ot N63.10 UNSPECIFIED LUMP IN THE RIGHT BREAST, UN 11/18/2017 ZEESHAN CAMPO L CLINICAL TRIAL ASSOCIATE Ot I36.1 NONRHEUMATIC TRICUSPID (VALVE) INSUFFICI 11/18/2017 PAULMAZEESHAN L CLINICAL TRIAL ASSOCIATE Ot R00.2 PALPITATIONS 11/18/2017 ALBER ZEESHAN L CLINICAL TRIAL ASSOCIATE Ot R06.02 SHORTNESS OF BREATH 11/18/2017 ALBER ZEESHAN L CLINICAL TRIAL ASSOCIATE Ot R07.9 CHEST PAIN, UNSPECIFIED 11/18/2017 MARIA C CAMPOHER L CLINICAL TRIAL ASSOCIATE Ot Z68.41 BODY MASS INDEX (BMI) 40.0-44.9, ADULT 11/18/2017 ZEESHAN CAMPO L CLINICAL TRIAL ASSOCIATE Ot I36.1 NONRHEUMATIC TRICUSPID (VALVE) INSUFFICI 11/18/2017 ZEESHAN CAMPO L CLINICAL TRIAL ASSOCIATE Ot R00.2 PALPITATIONS 11/18/2017 BAIMA, ZEESHAN L CLINICAL TRIAL ASSOCIATE Ot R06.02 SHORTNESS OF BREATH 11/18/2017 BAIZEESHAN SOLORIO CLINICAL TRIAL ASSOCIATE Ot R07.9 CHEST PAIN, UNSPECIFIED 11/18/2017 ZEESHAN CAMPO CLINICAL TRIAL ASSOCIATE Ot Z68.41 BODY MASS INDEX (BMI) 40.0-44.9, ADULT 11/23/2017 RUSSELL OAKLEY FACC, ALI FACP CCDS Ot E03.9 HYPOTHYROIDISM, UNSPECIFIED 11/23/2017 RUSSELL OAKLEY FACC, ALI FACP CCDS Ot E78.5 HYPERLIPIDEMIA, UNSPECIFIED 11/23/2017 RUSSELL OAKLEY FACC, ALI FACP CCDS Ot I10 ESSENTIAL (PRIMARY) HYPERTENSION 11/23/2017 RUSSELL OAKLEY FACC, ALI FACP CCDS Ot I36.1 NONRHEUMATIC TRICUSPID (VALVE) INSUFFICI 11/23/2017 RUSSELL OAKLEY FACC, SB FACP CCDS Ot R00.2 PALPITATIONS 11/23/2017 RUSSELL OAKLEY FACC, ALI FACP CCDS Ot R06.02 SHORTNESS OF BREATH 11/23/2017 RUSSELL OAKLEY FACC, ALI FACP CCDS Ot R07.89 OTHER CHEST PAIN 11/23/2017 RUSSELL OAKLEY FACC, ALI FACP CCDS Ot Z68.41 BODY MASS INDEX (BMI) 40.0-44.9, ADULT 11/23/2017 RUSSELL OAKLEY FACC, ALI FACP CCDS Ot Z79.82 FDC (CURRENT) USE OF ASPIRIN 11/23/2017 RUSSELL OAKLEY FACC, ALI FACP CCDS Ot Z79.899 OTHER 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 (CURRENT) DRUG THERAPY 11/23/2017 RUSSELL OAKLEY FACC, ALI FACP CCDS Ot Z86.73 PRSNL HX OF TIA (TIA), AND CEREB INFRC W 11/25/2017 RUSSELL OAKLEY FACC, ALI FACP CCDS Ot E03.9 HYPOTHYROIDISM, UNSPECIFIED 11/25/2017 RUSSELL OAKLEY FACC, ALI FACP CCDS Ot E78.5 HYPERLIPIDEMIA, UNSPECIFIED 11/25/2017 RUSSELL OAKLEY FACC, ALI FACP CCDS Ot I10 ESSENTIAL (PRIMARY) HYPERTENSION 11/25/2017 RUSSELL OAKLEY FACC, ALI FACP CCDS Ot I36.1 NONRHEUMATIC TRICUSPID (VALVE) INSUFFICI 11/25/2017 RUSSELL OAKLEY [facility], ALI FACP CCDS Ot R00.2 PALPITATIONS 11/25/2017 RUSSELL WELLS, ALI FACP CCDS Ot R06.02 SHORTNESS OF BREATH 11/25/2017 RUSSELL OAKLEY [facility], ALI FACP CCDS Ot R07.89 OTHER CHEST PAIN 11/25/2017 RUSSELL WELLS, ALI FACP CCDS Ot Z68.41 BODY MASS INDEX (BMI) 40.0-44.9, ADULT 11/25/2017 RUSSELL OAKLEY [facility], ALI FACP CCDS Ot Z79.82 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 OF ASPIRIN 11/25/2017 RUSSELL OAKLEY [facility], ALI FACP CCDS Ot Z79.899 OTHER FDC (CURRENT) DRUG THERAPY 11/25/2017 RUSSELL WELLS, ALI FACP CCDS Ot Z86.73 PRSNL HX OF TIA (TIA), AND CEREB INFRC W 12/07/2017 ALBER, ZEESHAN L CLINICAL TRIAL ASSOCIATE Ot I36.1 NONRHEUMATIC TRICUSPID (VALVE) INSUFFICI 12/07/2017 BAIMA, ZEESHAN L CLINICAL TRIAL ASSOCIATE Ot R00.2 PALPITATIONS 12/07/2017 BAIMA, ZEESHAN L CLINICAL TRIAL ASSOCIATE Ot R06.02 SHORTNESS OF BREATH 12/07/2017 BAIMA, ZEESHAN L CLINICAL TRIAL ASSOCIATE Ot R07.9 CHEST PAIN, UNSPECIFIED 12/07/2017 BAIMA, ZEESHAN L CLINICAL TRIAL ASSOCIATE Ot Z68.41 BODY MASS INDEX (BMI) 40.0-44.9, ADULT 12/15/2017 BAIMA, ZEESHAN L CLINICAL TRIAL ASSOCIATE Ot I36.1 NONRHEUMATIC TRICUSPID (VALVE) INSUFFICI 12/15/2017 BAIMA, ZEESHAN L CLINICAL TRIAL ASSOCIATE Ot R00.2 PALPITATIONS 12/15/2017 BAIMA, ZEESHAN L CLINICAL TRIAL ASSOCIATE Ot R06.02 SHORTNESS OF BREATH 12/15/2017 BAIMA, ZEESHAN L CLINICAL TRIAL ASSOCIATE Ot R07.9 CHEST PAIN, UNSPECIFIED 12/15/2017 BAIMA, ZEESHAN L CLINICAL TRIAL ASSOCIATE Ot Z68.41 BODY MASS INDEX (BMI) 40.0-44.9, ADULT 12/17/2017 ROSA VELÁSQUEZ MD Ot 436 CVA 12/17/2017 SASHA GARCIA Ot 785.2 CARDIAC MURMURS NEC 12/17/2017 SASHA GARCIAP Ot V17.49 FAMILY HISTORY OF OTHER CARDIOVASCULAR D 12/17/2017 RICHARD OAKLEY, REE Rabago Ot N63.10 UNSPECIFIED LUMP IN THE RIGHT BREAST, UN 12/17/2017 BAIMA, ZEESHAN L CLINICAL TRIAL ASSOCIATE Ot I36.1 NONRHEUMATIC TRICUSPID (VALVE) INSUFFICI 12/17/2017 BAIMA, ZEESHAN L CLINICAL TRIAL ASSOCIATE Ot R00.2 PALPITATIONS 12/17/2017 BAIMA, ZEESHAN L CLINICAL TRIAL ASSOCIATE Ot R06.02 SHORTNESS OF BREATH 12/17/2017 BAIMA, ZEESHAN L CLINICAL TRIAL ASSOCIATE Ot R07.9 CHEST PAIN, UNSPECIFIED 12/17/2017 BAIMA, ZEESHAN L CLINICAL TRIAL ASSOCIATE Ot Z68.41 BODY MASS INDEX (BMI) 40.0-44.9, ADULT 12/20/2017 BAIMA, ZEESHAN L CLINICAL TRIAL ASSOCIATE Ot I36.1 NONRHEUMATIC TRICUSPID (VALVE) INSUFFICI 12/20/2017 BAIMA, ZEESHAN L CLINICAL TRIAL ASSOCIATE Ot R00.2 PALPITATIONS 12/20/2017 BAIMA, ZEESHAN L CLINICAL TRIAL ASSOCIATE Ot R06.02 SHORTNESS OF BREATH 12/20/2017 BAIMA, ZEESHAN L CLINICAL TRIAL ASSOCIATE Ot R07.9 CHEST PAIN, UNSPECIFIED 12/20/2017 BAIMA, ZEESHAN L CLINICAL TRIAL ASSOCIATE Ot Z68.41 BODY MASS INDEX (BMI) 40.0-44.9, ADULT 12/20/2017 BAIMA, ZEESHAN L CLINICAL TRIAL ASSOCIATE Ot Z86.73 PRSNL HX OF TIA (TIA), AND CEREB INFRC W 01/18/2018 KAL MCCRAY DO Ot Z01.818 ENCOUNTER FOR OTHER PREPROCEDURAL EXAMIN 01/21/2018 KAL MCCRAY DO Ot Z01.818 ENCOUNTER FOR OTHER PREPROCEDURAL EXAMIN 01/25/2018 KAL MCCRAY DO Ot E66. 01 MORBID (SEVERE) OBESITY DUE TO EXCESS CA 01/25/2018 KAL MCCRAY DO Ot I10 ESSENTIAL (PRIMARY) HYPERTENSION 01/25/2018 KAL MCCRAY DO Ot I69.351 HEMIPLGA FOLLOWING CEREBRAL INFRC AFF RI 01/25/2018 KAL MCCRAY DO Ot K21. 9 GASTRO-ESOPHAGEAL REFLUX DISEASE WITHOUT 01/25/2018 KAL MCCRAY DO Ot Z09 ENCNTR FOR F/U EXAM AFT TRTMT FOR COND O 01/25/2018 KAL MCCRAY DO Ot Z68. 41 BODY MASS INDEX (BMI) 40.0-44.9, ADULT 01/25/2018 KAL MCCRAY DO Ot Z79. 82 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 OF ASPIRIN 01/25/2018 KAL MCCRAY DO Ot Z86.010 PERSONAL HISTORY OF COLONIC POLYPS 01/27/2018 KAL MCCRAY DO Ot E66. 01 MORBID (SEVERE) OBESITY DUE TO EXCESS CA 01/27/2018 KAL MCCRAY DO Ot I10 ESSENTIAL (PRIMARY) HYPERTENSION 01/27/2018 KAL MCCRAY DO Ot I69.351 HEMIPLGA FOLLOWING CEREBRAL INFRC AFF RI 01/27/2018 KAL MCCRAY DO Ot K21. 9 GASTRO-ESOPHAGEAL REFLUX DISEASE WITHOUT 01/27/2018 KAL MCCRAY DO Ot Z09 ENCNTR FOR F/U EXAM AFT TRTMT FOR COND O 01/27/2018 KAL MCCRAY DO Ot Z68. 41 BODY MASS INDEX (BMI) 40.0-44.9, ADULT 01/27/2018 KAL MCCRAY DO Ot Z79. 82 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 OF ASPIRIN 01/27/2018 KAL MCCRAY DO Ot Z86.010 PERSONAL HISTORY OF COLONIC POLYPS 01/27/2018 RUSSELL OAKLEY FACC, SB FACP CCDS Ot E66.01 MORBID (SEVERE) OBESITY DUE TO EXCESS CA 01/27/2018 RUSSELL OAKLEY FACC, SB FACP CCDS Ot G47.33 OBSTRUCTIVE SLEEP APNEA (ADULT) (PEDIATR 01/27/2018 RUSSELL OAKLEY FACC, SB FACP CCDS Ot I10 ESSENTIAL (PRIMARY) HYPERTENSION 01/27/2018 RUSSELL OAKLEY FACC, SB FACP CCDS Ot R00.2 PALPITATIONS 01/27/2018 RUSSELL OAKLEY FACC, SB FACP CCDS Ot Z68.41 BODY MASS INDEX (BMI) 40.0-44.9, ADULT 01/27/2018 RUSSELL OAKLEY FACC, ALI FACP CCDS Ot Z79.82 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 OF ASPIRIN 01/27/2018 RUSSELL OAKLEY FACC, SB FACP CCDS Ot Z86.73 PRSNL HX OF TIA (TIA), AND CEREB INFRC W 02/01/2018 KAL MCCRAY DO Ot E66. 01 MORBID (SEVERE) OBESITY DUE TO EXCESS CA 02/01/2018 KAL MCCRAY DO Ot I10 ESSENTIAL (PRIMARY) HYPERTENSION 02/01/2018 KAL MCCRAY DO Ot I69.351 HEMIPLGA FOLLOWING CEREBRAL INFRC AFF RI 02/01/2018 KAL MCCRAY DO Ot K21. 9 GASTRO-ESOPHAGEAL REFLUX DISEASE WITHOUT 02/01/2018 KAL MCCRAY DO Ot Z09 ENCNTR FOR F/U EXAM AFT TRTMT FOR COND O 02/01/2018 KAL MCCRAY DO Ot Z68. 41 BODY MASS INDEX (BMI) 40.0-44.9, ADULT 02/01/2018 KAL MCCRAY DO Ot Z79. 82 FDC (CURRENT) USE OF ASPIRIN 02/01/2018 KAL MCCRAY DO Ot Z86.010 PERSONAL HISTORY OF COLONIC POLYPS 02/09/2018 RUSSELL OAKLEY FACC, SB WELLSP CCDS Ot E66.01 MORBID (SEVERE) OBESITY DUE TO EXCESS CA 02/09/2018 RUSSELL OAKLEY FACC, BS FACP CCDS Ot G47.33 OBSTRUCTIVE SLEEP APNEA (ADULT) (PEDIATR 02/09/2018 RUSSELL OAKLEY FACC, SB FACP CCDS Ot I10 ESSENTIAL (PRIMARY) HYPERTENSION 02/09/2018 RUSSELL OAKLEY FACC, SB FACP CCDS Ot R00.2 PALPITATIONS 02/09/2018 RUSSELL OAKLEY FACC, SB FACP CCDS Ot Z68.41 BODY MASS INDEX (BMI) 40.0-44.9, ADULT 02/09/2018 RUSSELL OAKLEY FACC, SB FACP CCDS Ot Z79.82 FDC (CURRENT) USE OF ASPIRIN 02/09/2018 RUSSELL OAKLEY FACC, ALI FACP CCDS Ot Z86.73 PRSNL HX OF TIA (TIA), AND CEREB INFRC W 02/18/2018 RUSSELL OAKLEY FACC, SB FACP CCDS Ot E66.01 MORBID (SEVERE) OBESITY DUE TO EXCESS CA 02/18/2018 RUSSELL OAKLEY FACC, ALI FACP CCDS Ot G47.33 OBSTRUCTIVE SLEEP APNEA (ADULT) (PEDIATR 02/18/2018 RUSSELL OAKLEY FACC, SB FACP CCDS Ot I10 ESSENTIAL (PRIMARY) HYPERTENSION 02/18/2018 RUSSELL OAKLEY FACC, ALI FACP CCDS Ot R00.2 PALPITATIONS 02/18/2018 RUSSELL OAKLEY [facility], ALI FACP CCDS Ot Z68.41 BODY MASS INDEX (BMI) 40.0-44.9, ADULT 02/18/2018 RUSSELL OAKLEY FAC, ALI FACP CCDS Ot Z79.82 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 OF ASPIRIN 02/18/2018 RUSSELL OAKLEY [facility], ALI FACP CCDS Ot Z86.73 PRSNL HX OF TIA (TIA), AND CEREB INFRC W 02/23/2018 RUSSELL OAKLEY [facility], ALI FACP CCDS Ot E66.01 MORBID (SEVERE) OBESITY DUE TO EXCESS CA 02/23/2018 RUSSELL O[facility], ALI FACP CCDS Ot G47.33 OBSTRUCTIVE SLEEP APNEA (ADULT) (PEDIATR 02/23/2018 [facility]USSELL [facility], ALI FACP CCDS Ot I10 ESSENTIAL (PRIMARY) HYPERTENSION 02/23/2018 RUSSELL OAKLEY [facility], ALI FACP CCDS Ot R00.2 PALPITATIONS 02/23/2018 RUSSELL OAKLEY [facility], ALI FACP CCDS Ot Z68.41 BODY MASS INDEX (BMI) 40.0-44.9, ADULT 02/23/2018 RUSSELL OAKLEY [facility], ALI FACP CCDS Ot Z79.82 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 OF ASPIRIN 02/23/2018 RUSSELL OAKLEY [facility], ALI FACP CCDS Ot Z86.73 PRSNL HX OF TIA (TIA), AND CEREB INFRC W 02/15/2019 DIDIER OAKLEY, ROSA Jacobs Ot 436 CVA 02/15/2019 SASHA GARCIA CLINICAL TRIAL ASSOCIATE Ot 785.2 CARDIAC MURMURS NEC 02/15/2019 SASHA GARCIA CLINICAL TRIAL ASSOCIATE Ot V17.49 FAMILY HISTORY OF OTHER CARDIOVASCULAR D 02/15/2019 RICHARD OAKLEY, REE Rabago Ot N63.10 UNSPECIFIED LUMP IN THE RIGHT BREAST, UN 02/15/2019 ZEESHAN CAMPO CLINICAL TRIAL ASSOCIATE Ot I36.1 NONRHEUMATIC TRICUSPID (VALVE) INSUFFICI 02/15/2019 ZEESHAN CAMPO CLINICAL TRIAL ASSOCIATE Ot R00.2 PALPITATIONS 02/15/2019 ZEESHAN CAMPO CLINICAL TRIAL ASSOCIATE Ot R06.02 SHORTNESS OF BREATH 02/15/2019 ZEESHAN CAMPO CLINICAL TRIAL ASSOCIATE Ot R07.9 CHEST PAIN, UNSPECIFIED 02/15/2019 BAIZEESHAN SOLORIO CLINICAL TRIAL ASSOCIATE Ot Z68.41 BODY MASS INDEX (BMI) 40.0-44.9, ADULT 02/15/2019 ZEESHAN CAMPO CLINICAL TRIAL ASSOCIATE Ot Z86.73 PRSNL HX OF TIA (TIA), AND CEREB INFRC W 02/15/2019 ZEESHAN CAMPO CLINICAL TRIAL ASSOCIATE Ot I36.1 NONRHEUMATIC TRICUSPID (VALVE) INSUFFICI 02/15/2019 PAULZEESHAN SOLORIO CLINICAL TRIAL ASSOCIATE Ot R00.2 PALPITATIONS 02/15/2019 BAIMAZEESHAN CLINICAL TRIAL ASSOCIATE Ot R06.02 SHORTNESS OF BREATH 02/15/2019 BAIZEESHAN SOLORIO CLINICAL TRIAL ASSOCIATE Ot R07.9 CHEST PAIN, UNSPECIFIED 02/15/2019 ZEESHAN CAMPO CLINICAL TRIAL ASSOCIATE Ot Z68.41 BODY MASS INDEX (BMI) 40.0-44.9, ADULT 02/15/2019 RUSSELL OAKLEY FACC, SB FACP CCDS Ot E66.01 MORBID (SEVERE) OBESITY DUE TO EXCESS CA 02/15/2019 RUSSELL OAKLEY FACC, SB FACP CCDS Ot G47.33 OBSTRUCTIVE SLEEP APNEA (ADULT) (PEDIATR 02/15/2019 RUSSELL OAKLEY FACC, SB FACP CCDS Ot I10 ESSENTIAL (PRIMARY) HYPERTENSION 02/15/2019 RUSSELL OAKLEY FACC, SB FACP CCDS Ot R00.2 PALPITATIONS 02/15/2019 RUSSELL OAKLEY FACC, ALI FACP CCDS Ot Z68.41 BODY MASS INDEX (BMI) 40.0-44.9, ADULT 02/15/2019 RUSSELL OAKLEY FACC, SB FACP CCDS Ot Z79.82 FDC (CURRENT) USE OF ASPIRIN 02/15/2019 RUSSELL OAKLEY FACC, ALI FACP CCDS Ot Z86.73 PRSNL HX OF TIA (TIA), AND CEREB INFRC W 02/17/2019 SB WELLS MD, FACC FACP CCDS Ot E78.5 HYPERLIPIDEMIA, UNSPECIFIED 02/17/2019 RUSSELL OAKLEY FACC, ALI FACP CCDS Ot 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 02/17/2019 RUSSELL OAKLEY FACC, ALI FACP CCDS Ot I10 ESSENTIAL (PRIMARY) HYPERTENSION 02/17/2019 RUSSELL OAKLEY FACC, ALI FACP CCDS Ot I35.8 OTHER NONRHEUMATIC AORTIC VALVE DISORDER 02/17/2019 RUSSELL OAKLEY FACC, ALI FACP CCDS Ot Z86.79 PERSONAL HISTORY OF OTHER DISEASES OF 03/10/2019 RUSSELL OAKLEY FACC, ALI FACP CCDS Ot E78.5 HYPERLIPIDEMIA, UNSPECIFIED 03/10/2019 RUSSELL OAKLEY FACC, ALI FACP CCDS Ot 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 03/10/2019 RUSSELL OAKLEY FACC, ALI FACP CCDS Ot I10 ESSENTIAL (PRIMARY) HYPERTENSION 03/10/2019 RUSSELL OAKLEY FACC, ALI FACP CCDS Ot I35.8 OTHER NONRHEUMATIC AORTIC VALVE DISORDER 03/10/2019 RUSSELL OAKLEY FACC, ALI FACP CCDS Ot Z86.79 PERSONAL HISTORY OF OTHER DISEASES OF 03/17/2019 RUSSELL OAKLEY FACC, ALI FACP CCDS Ot E78.5 HYPERLIPIDEMIA, UNSPECIFIED 03/17/2019 RUSSELL OAKLEY FACC, ALI FACP CCDS Ot 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 03/17/2019 RUSSELL OAKLEY FACGarrick, ALI FACP CCDS Ot I10 ESSENTIAL (PRIMARY) HYPERTENSION 03/17/2019 RUSSELL OAKLEY [facility], ALI FACP CCDS Ot I35.8 OTHER NONRHEUMATIC AORTIC VALVE DISORDER 03/17/2019 RUSSELL OAKLEY [facility], ALI FACP CCDS Ot Z86.79 PERSONAL HISTORY OF OTHER DISEASES OF 06/14/2019 DIDIER OAKLEY, ROSA Jacobs Ot 436 CVA 06/14/2019 SASHA GARCIA CLINICAL TRIAL ASSOCIATE Ot 785.2 CARDIAC MURMURS NEC 06/14/2019 SASHA GARCIA CLINICAL TRIAL ASSOCIATE Ot V17.49 FAMILY HISTORY OF OTHER CARDIOVASCULAR D 06/14/2019 RICHARD OAKLEY, REE Rabago Ot N63.10 UNSPECIFIED LUMP IN THE RIGHT BREAST, UN 06/14/2019 BAIMAMARIA CZEESHAN L CLINICAL TRIAL ASSOCIATE Ot I36.1 NONRHEUMATIC TRICUSPID (VALVE) INSUFFICI 06/14/2019 BAIMA, ZEESHAN L CLINICAL TRIAL ASSOCIATE Ot R00.2 PALPITATIONS 06/14/2019 BAIMA, ZEESHAN L CLINICAL TRIAL ASSOCIATE Ot R06.02 SHORTNESS OF BREATH 06/14/2019 BAIMA, ZEESHAN L CLINICAL TRIAL ASSOCIATE Ot R07.9 CHEST PAIN, UNSPECIFIED 06/14/2019 BAIMA, ZEESHAN L CLINICAL TRIAL ASSOCIATE Ot Z68.41 BODY MASS INDEX (BMI) 40.0-44.9, ADULT 06/14/2019 BAIMA, ZEESHAN L CLINICAL TRIAL ASSOCIATE Ot Z86.73 PRSNL HX OF TIA (TIA), AND CEREB INFRC W 06/14/2019 BAIMA, ZEESHAN L CLINICAL TRIAL ASSOCIATE Ot I36.1 NONRHEUMATIC TRICUSPID (VALVE) INSUFFICI 06/14/2019 BAIMA, ZEESHAN L CLINICAL TRIAL ASSOCIATE Ot R00.2 PALPITATIONS 06/14/2019 BAIMA, ZEESHAN L CLINICAL TRIAL ASSOCIATE Ot R06.02 SHORTNESS OF BREATH 06/14/2019 BAIMA, ZEESHAN L CLINICAL TRIAL ASSOCIATE Ot R07.9 CHEST PAIN, UNSPECIFIED 06/14/2019 BAIMA, ZEESHAN L CLINICAL TRIAL ASSOCIATE Ot Z68.41 BODY MASS INDEX (BMI) 40.0-44.9, ADULT 06/14/2019 RUSSELL OAKLEY FACC, SB FACP CCDS Ot E66.01 MORBID (SEVERE) OBESITY DUE TO EXCESS CA 06/14/2019 RUSSELL OAKLEY FACC, ALI FACP CCDS Ot G47.33 OBSTRUCTIVE SLEEP APNEA (ADULT) (PEDIATR 06/14/2019 RUSSELL OAKLEY FACC, ALI FACP CCDS Ot I10 ESSENTIAL (PRIMARY) HYPERTENSION 06/14/2019 RUSSELL OAKLEY FACC, ALI FACP CCDS Ot R00.2 PALPITATIONS 06/14/2019 RUSSELL OAKLEY FACC, ALI FACP CCDS Ot Z68.41 BODY MASS INDEX (BMI) 40.0-44.9, ADULT 06/14/2019 RUSSELL OAKLEY FACC, ALI FACP CCDS Ot Z79.82 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 OF ASPIRIN 06/14/2019 RUSSELL OAKLEY FACC, ALI FACP CCDS Ot Z86.73 PRSNL HX OF TIA (TIA), AND CEREB INFRC W 06/14/2019 RUSSELL OAKLEY FACC, SB FACP CCDS Ot E78.5 HYPERLIPIDEMIA, UNSPECIFIED 06/14/2019 RUSSELL OAKLEY FACC, ALI FACP CCDS Ot 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 06/14/2019 RUSSELL OAKLEY FACC, ALI FACP CCDS Ot I10 ESSENTIAL (PRIMARY) HYPERTENSION 06/14/2019 RUSSELL OAKLEY FACC, ALI FACP CCDS Ot I35.8 OTHER NONRHEUMATIC AORTIC VALVE DISORDER 06/14/2019 RUSSELL OAKLEY FACC, ALI FACP CCDS Ot Z86.79 PERSONAL HISTORY OF OTHER DISEASES OF 06/14/2019 DIDIER OAKLEY, ROSA Jacobs Ot 436 CVA 06/14/2019 SASHA GARCIA CLINICAL TRIAL ASSOCIATE Ot 785.2 CARDIAC MURMURS NEC 06/14/2019 SASHA GARCIA CLINICAL TRIAL ASSOCIATE Ot V17.49 FAMILY HISTORY OF OTHER CARDIOVASCULAR D 06/14/2019 RICHARD OAKLEY, REE Rabago Ot N63.10 UNSPECIFIED LUMP IN THE RIGHT BREAST, UN 06/14/2019 BAIMA, ZEESHAN L CLINICAL TRIAL ASSOCIATE Ot I36.1 NONRHEUMATIC TRICUSPID (VALVE) INSUFFICI 06/14/2019 BAIMA, ZEESHAN L CLINICAL TRIAL ASSOCIATE Ot R00.2 PALPITATIONS 06/14/2019 BAIMA, ZEESHAN L CLINICAL TRIAL ASSOCIATE Ot R06.02 SHORTNESS OF BREATH 06/14/2019 BAIMA, ZEESHAN L CLINICAL TRIAL ASSOCIATE Ot R07.9 CHEST PAIN, UNSPECIFIED 06/14/2019 BAIMA, ZEESHAN L CLINICAL TRIAL ASSOCIATE Ot Z68.41 BODY MASS INDEX (BMI) 40.0-44.9, ADULT 06/14/2019 BAIMA, ZEESHAN L CLINICAL TRIAL ASSOCIATE Ot Z86.73 PRSNL HX OF TIA (TIA), AND CEREB INFRC W 06/14/2019 BAIMA, ZEESHAN L CLINICAL TRIAL ASSOCIATE Ot I36.1 NONRHEUMATIC TRICUSPID (VALVE) INSUFFICI 06/14/2019 BAIMA, ZEESHAN L CLINICAL TRIAL ASSOCIATE Ot R00.2 PALPITATIONS 06/14/2019 BAIMA, ZEESHAN L CLINICAL TRIAL ASSOCIATE Ot R06.02 SHORTNESS OF BREATH 06/14/2019 BAIMA, ZEESHAN L CLINICAL TRIAL ASSOCIATE Ot R07.9 CHEST PAIN, UNSPECIFIED 06/14/2019 BAIMA, ZEESHAN L CLINICAL TRIAL ASSOCIATE Ot Z68.41 BODY MASS INDEX (BMI) 40.0-44.9, ADULT 06/14/2019 RUSSELL OKALEY FACC, SB FACP CCDS Ot E66.01 MORBID (SEVERE) OBESITY DUE TO EXCESS CA 06/14/2019 RUSSELL OAKLEY FACC, SB FACP CCDS Ot G47.33 OBSTRUCTIVE SLEEP APNEA (ADULT) (PEDIATR 06/14/2019 RUSSELL OAKLEY FACC, ALI FACP CCDS Ot I10 ESSENTIAL (PRIMARY) HYPERTENSION 06/14/2019 RUSSELL OAKLEY FACC, SB FACP CCDS Ot R00.2 PALPITATIONS 06/14/2019 RUSSELL OAKLEY FACC, ALI FACP CCDS Ot Z68.41 BODY MASS INDEX (BMI) 40.0-44.9, ADULT 06/14/2019 RUSSELL OAKLEY [facility], ALI FACP CCDS Ot Z79.82 FDC (CURRENT) USE OF ASPIRIN 06/14/2019 RUSSELL OAKLEY [facility], ALI FACP CCDS Ot Z86.73 PRSNL HX OF TIA (TIA), AND CEREB INFRC W 06/14/2019 RUSSELL OAKLEY [facility], ALI FACP CCDS Ot E78.5 HYPERLIPIDEMIA, UNSPECIFIED 06/14/2019 RUSSELL OAKLEY [facility], ALI FACP CCDS Ot 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 06/14/2019 [facility] [facility], ALI FACP CCDS Ot I10 ESSENTIAL (PRIMARY) HYPERTENSION 06/14/2019 [facility], ALI FACP CCDS Ot I35.8 OTHER NONRHEUMATIC AORTIC VALVE DISORDER 06/14/2019 [facility], ALI FACP CCDS Ot Z86.79 PERSONAL HISTORY OF OTHER DISEASES OF TH 06/14/2019 DIDIER [facility], ROSA Jacobs Ot 436 CVA 06/14/2019 SASHA GARCIA CLINICAL TRIAL ASSOCIATE Ot 785.2 CARDIAC MURMURS NEC 06/14/2019 SASHA GARCIA CLINICAL TRIAL ASSOCIATE Ot V17.49 FAMILY HISTORY OF OTHER CARDIOVASCULAR D 06/14/2019 RICHARD OAKLEY, REE Rabago Ot N63.10 UNSPECIFIED LUMP IN THE RIGHT BREAST, UN 06/14/2019 BAIMA, ZEESHAN L CLINICAL TRIAL ASSOCIATE Ot I36.1 NONRHEUMATIC TRICUSPID (VALVE) INSUFFICI 06/14/2019 BAIMA, ZEESHAN L CLINICAL TRIAL ASSOCIATE Ot R00.2 PALPITATIONS 06/14/2019 BAIMA, ZEESHAN L CLINICAL TRIAL ASSOCIATE Ot R06.02 SHORTNESS OF BREATH 06/14/2019 BAIMA, ZEESHAN L CLINICAL TRIAL ASSOCIATE Ot R07.9 CHEST PAIN, UNSPECIFIED 06/14/2019 BAIMA, ZEESHAN L CLINICAL TRIAL ASSOCIATE Ot Z68.41 BODY MASS INDEX (BMI) 40.0-44.9, ADULT 06/14/2019 BAIMA, ZEESHAN L CLINICAL TRIAL ASSOCIATE Ot Z86.73 PRSNL HX OF TIA (TIA), AND CEREB INFRC W 06/14/2019 BAIMA, ZEESHAN L CLINICAL TRIAL ASSOCIATE Ot I36.1 NONRHEUMATIC TRICUSPID (VALVE) INSUFFICI 06/14/2019 BAIMA, ZEESHAN L CLINICAL TRIAL ASSOCIATE Ot R00.2 PALPITATIONS 06/14/2019 BAIMA, ZEESHAN L CLINICAL TRIAL ASSOCIATE Ot R06.02 SHORTNESS OF BREATH 06/14/2019 BAIMA, ZEESHAN L CLINICAL TRIAL ASSOCIATE Ot R07.9 CHEST PAIN, UNSPECIFIED 06/14/2019 BAIMA, ZEESHAN L CLINICAL TRIAL ASSOCIATE Ot Z68.41 BODY MASS INDEX (BMI) 40.0-44.9, ADULT 06/14/2019 [facility], ALI FACP CCDS Ot E66.01 MORBID (SEVERE) OBESITY DUE TO EXCESS CA 06/14/2019 [facility], ALI FACP CCDS Ot G47.33 OBSTRUCTIVE SLEEP APNEA (ADULT) (PEDIATR 06/14/2019 [facility], ALI FACP CCDS Ot I10 ESSENTIAL (PRIMARY) HYPERTENSION 06/14/2019 [facility], ALI FACP CCDS Ot R00.2 PALPITATIONS 06/14/2019 [facility], ALI FACP CCDS Ot Z68.41 BODY MASS INDEX (BMI) 40.0-44.9, ADULT 06/14/2019 [facility], ALI FACP CCDS Ot Z79.82 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 OF ASPIRIN 06/14/2019 [facility], ALI FACP CCDS Ot Z86.73 PRSNL HX OF TIA (TIA), AND CEREB INFRC W 06/14/2019 [facility], ALI FACP CCDS Ot E78.5 HYPERLIPIDEMIA, UNSPECIFIED 06/14/2019 [facility], ALI FACP CCDS Ot 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 5 HYPERLIPIDEMIA, UNSPECIFIED 06/15/2019 LINDA O[facility], RUBENS Branham Ot E89. 0 POSTPROCEDURAL HYPOTHYROIDISM 06/15/2019 LINDA OAK[facility], RUBENS Branham Ot F32. 9 MAJOR DEPRESSIVE DISORDER, SINGLE EPISOD 06/15/2019 RUBENS MCKEON MD, Ot I10 ESSENTIAL (PRIMARY) HYPERTENSION 06/15/2019 RUBENS MCKEON MD, Ot K21. 9 GASTRO-ESOPHAGEAL REFLUX DISEASE WITHOUT 06/15/2019 RUBENS MCKEON MD, Ot K56.609 UNSP INTESTNL OBST, UNSP TO PARTIAL V 06/15/2019 RUBENS MCKEON MD, Ot K92. 2 GASTROINTESTINAL HEMORRHAGE, UNSPECIFIED 06/15/2019 RUBENS MCKEON MD, Ot M19. 90 UNSPECIFIED OSTEOARTHRITIS, UNSPECIFIED 06/15/2019 RUBENS MCKEON MD, Ot N17. 9 ACUTE KIDNEY FAILURE, UNSPECIFIED 06/15/2019 RUBENS MCKEON MD, Ot Z79. 82 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 OF ASPIRIN 06/15/2019 RUBENS MCKEON MD, Ot Z79.899 OTHER 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 (CURRENT) DRUG THERAPY 06/15/2019 RUBENS MCKEON MD, Ot Z82. 3 FAMILY HISTORY OF STROKE 06/15/2019 RUBENS MCKEON MD, Ot Z82. 49 FAMILY HX OF ISCHEM HEART DIS AND OTH DI 06/15/2019 RUBENS MCKEON MD, Ot Z83. 3 FAMILY HISTORY OF DIABETES MELLITUS 06/15/2019 RUBENS MCKEON MD, Ot Z86. 73 PRSNL HX OF TIA (TIA), AND CEREB INFRC W 06/15/2019 RUBENS MCKEON MD, Ot Z90. 89 ACQUIRED ABSENCE OF OTHER ORGANS 07/10/2019 DIDIER [facility], ROSA Jacobs Ot 436 CVA 07/10/2019 SASHA GARCIA Ot 785.2 CARDIAC MURMURS NEC 07/10/2019 SASHA GARCIA CLINICAL TRIAL ASSOCIATE Ot V17.49 FAMILY HISTORY OF OTHER CARDIOVASCULAR D 07/10/2019 RICHARD OAKLEY, REE Rabago Ot N63.10 UNSPECIFIED LUMP IN THE RIGHT BREAST, UN 07/10/2019 BAIOSMIN ZEESHAN L CLINICAL TRIAL ASSOCIATE Ot I36.1 NONRHEUMATIC TRICUSPID (VALVE) INSUFFICI 07/10/2019 BAIMA, ZEESHAN L CLINICAL TRIAL ASSOCIATE Ot R00.2 PALPITATIONS 07/10/2019 BAIMA, ZEESHAN L CLINICAL TRIAL ASSOCIATE Ot R06.02 SHORTNESS OF BREATH 07/10/2019 BAIMA, ZEESHAN L CLINICAL TRIAL ASSOCIATE Ot R07.9 CHEST PAIN, UNSPECIFIED 07/10/2019 BAIMA, ZEESHAN L CLINICAL TRIAL ASSOCIATE Ot Z68.41 BODY MASS INDEX (BMI) 40.0-44.9, ADULT 07/10/2019 BAIMA, ZEESHAN L CLINICAL TRIAL ASSOCIATE Ot Z86.73 PRSNL HX OF TIA (TIA), AND CEREB INFRC W 07/10/2019 BAIMA, ZEESHAN L CLINICAL TRIAL ASSOCIATE Ot I36.1 NONRHEUMATIC TRICUSPID (VALVE) INSUFFICI 07/10/2019 BAIMA, ZEESHAN L CLINICAL TRIAL ASSOCIATE Ot R00.2 PALPITATIONS 07/10/2019 BAIMA, ZEESHAN L CLINICAL TRIAL ASSOCIATE Ot R06.02 SHORTNESS OF BREATH 07/10/2019 BAIMA, ZEESHAN L CLINICAL TRIAL ASSOCIATE Ot R07.9 CHEST PAIN, UNSPECIFIED 07/10/2019 BAIMA, ZEESHAN L CLINICAL TRIAL ASSOCIATE Ot Z68.41 BODY MASS INDEX (BMI) 40.0-44.9, ADULT 07/10/2019 [facility], ALI FACP CCDS Ot E66.01 MORBID (SEVERE) OBESITY DUE TO EXCESS CA 07/10/2019 [facility], SB FACP CCDS Ot G47.33 OBSTRUCTIVE SLEEP APNEA (ADULT) (PEDIATR 07/10/2019 [facility], ALI FACP CCDS Ot I10 ESSENTIAL (PRIMARY) HYPERTENSION 07/10/2019 [facility], SB FACP CCDS Ot R00.2 PALPITATIONS 07/10/2019 [facility], ALI FACP CCDS Ot Z68.41 BODY MASS INDEX (BMI) 40.0-44.9, ADULT 07/10/2019 [facility], ALI FACP CCDS Ot Z79.82 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 OF ASPIRIN 07/10/2019 [facility], ALI FACP CCDS Ot Z86.73 PRSNL HX OF TIA (TIA), AND CEREB INFRC W 07/10/2019 [facility] F[facility], ALI FACP CCDS Ot E78.5 HYPERLIPIDEMIA, UNSPECIFIED 07/10/2019 [facility], ALI FACP CCDS Ot 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 07/10/2019 [facility], ALI FACP CCDS Ot I10 ESSENTIAL (PRIMARY) HYPERTENSION 07/10/2019 [facility], ALI FACP CCDS Ot I35.8 OTHER NONRHEUMATIC AORTIC VALVE DISORDER 07/10/2019 [facility] F[facility], SB FACP CCDS Ot Z86.79 PERSONAL HISTORY OF OTHER DISEASES OF TH 07/10/2019 DIDIER OAKLEY, ROSA Jacobs Ot 436 CVA 07/10/2019 SASHA GARCIA CLINICAL TRIAL ASSOCIATE Ot 785.2 CARDIAC MURMURS NEC 07/10/2019 SASHA GARCIA CLINICAL TRIAL ASSOCIATE Ot V17.49 FAMILY HISTORY OF OTHER CARDIOVASCULAR D 07/10/2019 RICHARD OAKLEY, REE Rabago Ot N63.10 UNSPECIFIED LUMP IN THE RIGHT BREAST, UN 07/10/2019 BAIMA, ZEESHAN L CLINICAL TRIAL ASSOCIATE Ot I36.1 NONRHEUMATIC TRICUSPID (VALVE) INSUFFICI 07/10/2019 BAIMA, ZEESHAN L CLINICAL TRIAL ASSOCIATE Ot R00.2 PALPITATIONS 07/10/2019 BAIMA, ZEESHAN L CLINICAL TRIAL ASSOCIATE Ot R06.02 SHORTNESS OF BREATH 07/10/2019 BAIMA, ZEESHAN L CLINICAL TRIAL ASSOCIATE Ot R07.9 CHEST PAIN, UNSPECIFIED 07/10/2019 BAIMA, ZEESHAN L CLINICAL TRIAL ASSOCIATE Ot Z68.41 BODY MASS INDEX (BMI) 40.0-44.9, ADULT 07/10/2019 BAIMA, ZEESHAN L CLINICAL TRIAL ASSOCIATE Ot Z86.73 PRSNL HX OF TIA (TIA), AND CEREB INFRC W 07/10/2019 BAIMA, ZEESHAN L CLINICAL TRIAL ASSOCIATE Ot I36.1 NONRHEUMATIC TRICUSPID (VALVE) INSUFFICI 07/10/2019 BAIMA, ZEESHAN L CLINICAL TRIAL ASSOCIATE Ot R00.2 PALPITATIONS 07/10/2019 BAIMA, ZEESHAN L CLINICAL TRIAL ASSOCIATE Ot R06.02 SHORTNESS OF BREATH 07/10/2019 BAIMA, ZEESHAN L CLINICAL TRIAL ASSOCIATE Ot R07.9 CHEST PAIN, UNSPECIFIED 07/10/2019 BAIMA, ZEESHAN L CLINICAL TRIAL ASSOCIATE Ot Z68.41 BODY MASS INDEX (BMI) 40.0-44.9, ADULT 07/10/2019 [facility] FACC, SB FACP CCDS Ot E66.01 MORBID (SEVERE) OBESITY DUE TO EXCESS CA 07/10/2019 [facility] FACC, SB FACP CCDS Ot G47.33 OBSTRUCTIVE SLEEP APNEA (ADULT) (PEDIATR 07/10/2019 [facility] FACC, SB WELLSP CCDS Ot I10 ESSENTIAL (PRIMARY) HYPERTENSION 07/10/2019 [facility] FACC, ALI FACP CCDS Ot R00.2 PALPITATIONS 07/10/2019 [facility], ALI FACP CCDS Ot Z68.41 BODY MASS INDEX (BMI) 40.0-44.9, ADULT 07/10/2019 [facility], ALI FACP CCDS Ot Z79.82 FDC (CURRENT) USE OF ASPIRIN 07/10/2019 [facility], ALI FACP CCDS Ot Z86.73 PRSNL HX OF TIA (TIA), AND CEREB INFRC W 07/10/2019 [facility], ALI FACP CCDS Ot E78.5 HYPERLIPIDEMIA, UNSPECIFIED 07/10/2019 [facility], ALI FACP CCDS Ot 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 07/10/2019 [facility], ALI FACP CCDS Ot I10 ESSENTIAL (PRIMARY) HYPERTENSION 07/10/2019 [facility], ALI FACP CCDS Ot I35.8 OTHER NONRHEUMATIC AORTIC VALVE DISORDER 07/10/2019 [facility], ALI FACP CCDS Ot Z86.79 PERSONAL HISTORY OF OTHER DISEASES OF 07/10/2019 KAL MCCRAY DO Ot Z01.818 ENCOUNTER FOR OTHER PREPROCEDURAL EXAMIN 07/11/2019 DIDIER OAKLEY, ROSA Jacobs Ot 436 CVA 07/11/2019 SASHA GARCIA CLINICAL TRIAL ASSOCIATE Ot 785.2 CARDIAC MURMURS NEC 07/11/2019 SASHA GARCIA CLINICAL TRIAL ASSOCIATE Ot V17.49 FAMILY HISTORY OF OTHER CARDIOVASCULAR D 07/11/2019 RICHARD OAKLEY, REE Rabago Ot N63.10 UNSPECIFIED LUMP IN THE RIGHT BREAST, UN 07/11/2019 BAIMA, ZEESHAN L CLINICAL TRIAL ASSOCIATE Ot I36.1 NONRHEUMATIC TRICUSPID (VALVE) INSUFFICI 07/11/2019 BAIMA, ZEESHAN L CLINICAL TRIAL ASSOCIATE Ot R00.2 PALPITATIONS 07/11/2019 BAIMA, ZEESHAN L CLINICAL TRIAL ASSOCIATE Ot R06.02 SHORTNESS OF BREATH 07/11/2019 BAIMA, ZEESHAN L CLINICAL TRIAL ASSOCIATE Ot R07.9 CHEST PAIN, UNSPECIFIED 07/11/2019 BAIMA, ZEESHAN L CLINICAL TRIAL ASSOCIATE Ot Z68.41 BODY MASS INDEX (BMI) 40.0-44.9, ADULT 07/11/2019 BAIMA, ZEESHAN L CLINICAL TRIAL ASSOCIATE Ot Z86.73 PRSNL HX OF TIA (TIA), AND CEREB INFRC W 07/11/2019 BAIMA, ZEESHAN L CLINICAL TRIAL ASSOCIATE Ot I36.1 NONRHEUMATIC TRICUSPID (VALVE) INSUFFICI 07/11/2019 BAIMA, ZEESHAN L CLINICAL TRIAL ASSOCIATE Ot R00.2 PALPITATIONS 07/11/2019 BAIMA, ZEESHAN L CLINICAL TRIAL ASSOCIATE Ot R06.02 SHORTNESS OF BREATH 07/11/2019 BAIMA, ZEESHAN L CLINICAL TRIAL ASSOCIATE Ot R07.9 CHEST PAIN, UNSPECIFIED 07/11/2019 BAIMA, ZEESHAN L CLINICAL TRIAL ASSOCIATE Ot Z68.41 BODY MASS INDEX (BMI) 40.0-44.9, ADULT 07/11/2019 [facility] FACC, ALI FACP CCDS Ot E66.01 MORBID (SEVERE) OBESITY DUE TO EXCESS CA 07/11/2019 [facility] FACC, ALI FACP CCDS Ot G47.33 OBSTRUCTIVE SLEEP APNEA (ADULT) (PEDIATR 07/11/2019 [facility] FACC, ALI FACP CCDS Ot I10 ESSENTIAL (PRIMARY) HYPERTENSION 07/11/2019 [facility] FACC, ALI FACP CCDS Ot R00.2 PALPITATIONS 07/11/2019 [facility] FACC, ALI FACP CCDS Ot Z68.41 BODY MASS INDEX (BMI) 40.0-44.9, ADULT 07/11/2019 [facility] FACC, ALI FACP CCDS Ot Z79.82 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 OF ASPIRIN 07/11/2019 [facility] FACC, ALI FACP CCDS Ot Z86.73 PRSNL HX OF TIA (TIA), AND CEREB INFRC W 07/11/2019 [facility] FACC, ALI FACP CCDS Ot E78.5 HYPERLIPIDEMIA, UNSPECIFIED 07/11/2019 [facility] FACC, ALI FACP CCDS Ot 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 07/11/2019 [facility] FACC, ALI FACP CCDS Ot I10 ESSENTIAL (PRIMARY) HYPERTENSION 07/11/2019 [facility] FACC, ALI FACP CCDS Ot I35.8 OTHER NONRHEUMATIC AORTIC VALVE DISORDER 07/11/2019 [facility] FACC, ALI FACP CCDS Ot Z86.79 PERSONAL HISTORY OF OTHER DISEASES OF TH 07/11/2019 KAL MCCRAY DO Ot 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 01 MORBID (SEVERE) OBESITY DUE TO EXCESS CA 07/11/2019 MCCRAY KAL DAVIS Ot E78. 5 HYPERLIPIDEMIA, UNSPECIFIED 07/11/2019 [facility] ESSENTIAL (PRIMARY) HYPERTENSION 07/11/2019 MCCRAY KAL DAVIS Ot K21. 9 GASTRO-ESOPHAGEAL REFLUX DISEASE WITHOUT 07/11/2019 MCCRAY KAL DAVIS Ot K31. 89 OTHER DISEASES OF STOMACH AND DUODENUM 07/11/2019 [facility] K44. 9 DIAPHRAGMATIC HERNIA WITHOUT OBSTRUCTION 07/11/2019 [facility] Ot K92. 1 MELENA 07/11/2019 [facility] Ot Z68. 41 BODY MASS INDEX (BMI) 40.0-44.9, ADULT 07/11/2019 MCCRAY DOKAL Ot Z79.899 OTHER FDC (CURRENT) DRUG THERAPY 07/11/2019 [facility] Z90. 89 ACQUIRED ABSENCE OF OTHER ORGANS 07/12/2019 [facility] Z01.818 ENCOUNTER FOR OTHER PREPROCEDURAL EXAMIN Procedures Code Description [place] [address] ROUT INE VENIPUNCTURE 11/08/2012 00654 CBC 11/08/2012 79981 CMP 11/08/2012 91104 LIPI D PANEL 11/08/20124742112 GF R CALC (RESULT ONLY) 11/08/2012 45135 BNP 11/08/2012 65717 TSH 11/08/2012 33009 ROUT INE VENIPUNCTURE 08/28/2013 00310 TSH 08/28/2013 15733 ROUT INE VENIPUNCTURE 10/05/2013 12145 TSH 10/05/2013 Physical P hysical Therapy 09/18/2014 93246 MRI BRAIN W/O CONTRAST 09/19/2014 Results Test Result Range CBC With Differential/Platelet - 6 17:49 WBC 8.3 x10E3/uL 3.4-10.8 RBC 4.41 x10E6/uL 3.77-5.28 Hemoglobin 13.1 g/dL 11.1-15.9 Hematocrit 39.2 % 34.0-46.6 MCV 89 fL 79-97 MCH 29.7 pg 26.6-33.0 MCHC 33.4 g/dL 31.5-35.7 RDW 13.6 % 12.3-15.4 Platelets 267 x10E3/uL 150-379 Neutrophils 59 % Lymphs 29 % Monocytes 6 % Eos 4 % Basos 1 % Neutrophils (Absolute) 5.1 x10E3/uL 1.4- 7.0 Lymphs (Absolute) 2.4 x10E3/uL 0.7-3.1 Monocytes(Absolute) 0.5 x10E3/uL 0.1-0.9 Eos (Absolute) 0.3 x10E3/uL 0.0-0.4 Baso (Absolute) 0.0 x10E3/uL 0.0-0.2 Immature Granulocytes 1 % Immature Grans (Abs) 0.0 x10E3/uL 0.0-0. 1 Comp. Metabolic Panel (14) - 03/30/16 17 :49 Glucose, Serum 105 mg/dL 65-99 BUN 15 mg/dL 8-27 Creatinine, Serum 1.02 mg/dL 0.57-1.00 eGFR If NonAfricn Am 57 mL/min/1.73 >59 eGFR If Africn Am 66 mL/min/1.73 >59 BUN/Creatinine Ratio 15 11-26 Sodium, Serum 141 mmol/L 136-144 Potassium, Serum 4.0 mmol/L 3.5-5.2 Chloride, Serum 97 mmol/L 97-106 Carbon Dioxide, Total 26 mmol/L 18-29 Calcium, Serum 8.9 mg/dL 8.7-10.3 Protein, Total, Serum 7.1 g/dL 6.0-8.5 Albumin, Serum 4.4 g/dL 3.6-4.8 Globulin, Total 2.7 g/dL 1.5-4.5 A/G Ratio 1.6 1.1-2.5 Bilirubin, Total 0.5 mg/dL 0.0-1.2 Alkaline Phosphatase, S 122 IU/L 39-117 AST (SGOT) 24 IU/L 0-40 ALT (SGPT) 19 IU/L 0-32 TSH - 03/30/16 17:49 TSH 2.990 uIU/mL 0.450-4.500 Pap Lb, rfx HPV ASCU - 03/26/17 10:43 DIAGNOSIS: Comment Specimen adequacy: Comment Clinician provided ICD10: Comment Performed by: Comment . . Note: Comment . Comment CULTURE, GENITAL - 03/26/17 10:43 Genital Culture, Routine Final report N RG Result 1 NRG PDF Report - 03/26/17 10:43 PDF Report1 LCLS NRG Genital Culture, Routine - 03/26/17 10:4 3 Genital Culture, Routine Note TSH - 07/29/17 11:58 TSH 4.34 mIU/L 0.40-4.50 VITAMIN D, 25-H - 07/29/17 11:58 VITAMIN D,25-OH,TOTAL,IA 14 ng/mL 30-10 0 VITAMIN B12 - 07/29/17 11:58 VITAMIN B12 377 pg/mL 200-1100 VITAMIN D, 25-H - 11/10/17 11:35 VITAMIN D,25-OH,TOTAL,IA 28 ng/mL 30-10 0 Automated blood complete blood count (he mogram) panel - 11/23/17 07:31 Blood leukocytes automated count (number/volume) 7.0 10*3/uL 4.3-11.0 Blood erythrocytes automated count (number/volume) 4.38 10*6/uL 4.35-5.85 Venous blood hemoglobin measurement (mass/volume) 13.6 g/dL 11.5-16.0 Blood hematocrit (volume fraction) 40 % 35-52 Automated erythrocyte mean corpuscular volume 92 [ foz_us] 80-99 Automated erythrocyte mean corpuscular h emoglobin (mass per erythrocyte) 31 pg 25-34 Automated erythrocyte mean corpuscular h emoglobin concentration measurement (mass/volume) 34 g/dL 32-36 Automated erythrocyte distribution width ratio 13. 3 % 10.0- 14.5 Automated blood platelet count (count/volume) 212 10*3/uL 130-400 Automated blood platelet mean volume measurement 11.4 [foz_us] 7.4-10.4 PT panel in platelet poor plasma by coag ulation assay - 11/23/17 07:31 Prothrombin time (PT) in platelet poor plasma by coagu lation assay 12.9 s 12.2-14.7 INR in platelet poor plasma or blood by coagulation as say 1.0 0.8-1.4 Activated partial thromboplastin time (a PTT) in platelet poor plasma bycoagulation assay - 11/23/17 07:31 Activated partial thromboplastin time (a PTT) in platelet poor plasma bycoagulation assay 29 s 24-35 Comprehensive metabolic panel - 11/23/17 07:31 Serum or plasma sodium measurement (moles/volume) 141 mmol/L 135-145 Serum or plasma potassium measurement (moles/volume) 3.8 mmol/L 3.6-5.0 Serum or plasma chloride measurement (moles/volume) 106 mmol/L 98-107 Carbon dioxide 24 mmol/L 21-32 Serum or plasma anion gap determination (moles/volume) 11 mmol/L 5-14 Serum or plasma urea nitrogen measurement (mass/volume ) 19 mg/dL 7-18 Serum or plasma creatinine measurement (mass/volume) 1.23 mg/dL 0.60-1.30 Serum or plasma urea nitrogen/creatinine mass ratio 15 NRG Serum or plasma creatinine measurement w ith calculation of estimated glomerular filtration rate 43 NRG Serum or plasma glucose measurement (mass/volume) 109 mg/dL 70-105 Serum or plasma calcium measurement (mass/volume) 9.5 mg/dL 8.5-10.1 Serum or plasma total bilirubin measurement (mass/volu me) 0.8 mg/dL 0.1-1.0 Serum or plasma alkaline phosphatase fercho surement (enzymatic activity/volume) 83 U/L 40-136 Serum or plasma aspartate aminotransfera se measurement (enzymatic activity/volume) 26 U/L 5-34 Serum or plasma alanine aminotransferase measurement (enzymatic activity/volume) 41 U/L 0-55 Serum or plasma protein measurement (mass/volume) 7.1 g/dL 6.4-8.2 Serum or plasma albumin measurement (mass/volume) 4.0 g/dL 3.2-4.5 Lipid 1996 panel - 11/23/17 07:31 Serum or plasma triglyceride measurement (mass/volume) 157 mg/dL <150 Serum or plasma cholesterol measurement (mass/volume) 188 mg/dL < 200 Serum or plasma cholesterol in HDL measurement (mass/v olume) 47 mg/dL 40-60 Cholesterol in LDL [mass/volume] in serum or plasma by direct assay 112 mg/dL 1-129 Serum or plasma cholesterol in VLDL measurement (mass/ volume) 31 mg/dL 5-40 Methicillin resistant Staphylococcus aur eus (MRSA) screening culture - 11/23/17 07:31 Methicillin resistant Staphylococcus aureus (MRSA) scr eening culture NEG NRG CMP - 12/17/17 09:09 GLUCOSE 99 mg/dL 65-99 UREA NITROGEN (BUN) 15 mg/dL 7-25 CREATININE 1.02 mg/dL 0.50-0.99 eGFR NON-AFR. HONDURAN 56 mL/min/1.73m2 > OR = 60 eGFR 65 mL/min/1.73m2 > OR = 60 BUN/CREATININE RATIO 15 (calc) 6-22 SODIUM 142 mmol/L 135-146 POTASSIUM 3.7 mmol/L 3.5-5.3 CHLORIDE 105 mmol/L 98-110 CARBON DIOXIDE 30 mmol/L 20-31 CALCIUM 8.9 mg/dL 8.6-10.4 PROTEIN, TOTAL 6.6 g/dL 6.1-8.1 ALBUMIN 3.7 g/dL 3.6-5.1 GLOBULIN 2.9 g/dL (calc) 1.9-3.7 ALBUMIN/GLOBULIN RATIO 1.3 (calc) 1.0-2. 5 BILIRUBIN, TOTAL 0.5 mg/dL 0.2-1.2 ALKALINE PHOSPHATASE 89 U/L 33-130 AST 28 U/L 10-35 ALT 37 U/L 6-29 VITAMIN B12 - 12/17/17 09:09 VITAMIN B12 297 pg/mL 200-1100 TSH - 04/08/18 09:37 TSH 2.35 mIU/L 0.40-4.50 LIPID PANEL - 04/10/19 08:43 CHOLESTEROL, TOTAL 184 mg/dL <200 HDL CHOLESTEROL 54 mg/dL >50 TRIGLYCERIDES 174 mg/dL <150 LDL-CHOLESTEROL 101 mg/dL (calc) NRG CHOL/HDLC RATIO 3.4 (calc) <5.0 NON HDL CHOLESTEROL 130 mg/dL (calc) <13 0 Complete blood count (CBC) with automate d white blood cell (WBC) differential - 06/14/19 15:13 Blood leukocytes automated count (number/volume) 8.9 10*3/uL 4.3-11.0 Blood erythrocytes automated count (number/volume) 4.81 10*6/uL 4.35-5.85 Venous blood hemoglobin measurement (mass/volume) 14.5 g/dL 11.5-16.0 Blood hematocrit (volume fraction) 44 % 35-52 Automated erythrocyte mean corpuscular volume 92 [ foz_us] 80-99 Automated erythrocyte mean corpuscular h emoglobin (mass per erythrocyte) 30 pg 25-34 Automated erythrocyte mean corpuscular h emoglobin concentration measurement (mass/volume) 33 g/dL 32-36 Automated erythrocyte distribution width ratio 13. 2 % 10.0- 14.5 Automated blood platelet count (count/volume) 244 10*3/uL 130-400 Automated blood platelet mean volume measurement 12.0 [foz_us] 7.4-10.4 Automated blood neutrophils/100 leukocytes 55 % 42-75 Automated blood lymphocytes/100 leukocytes 33 % 12-44 Blood monocytes/100 leukocytes 9 % 0-12 Automated blood eosinophils/100 leukocytes 2 % 0-10 Automated blood basophils/100 leukocytes 1 % 0-10 Blood neutrophils automated count (number/volume) 4.9 10*3 1.8-7.8 Blood lymphocytes automated count (number/volume) 2.9 10*3 1.0-4.0 Blood monocytes automated count (number/volume) 0. 8 10*3 0.0-1.0 Automated eosinophil count 0.2 10*3/uL 0 .0-0.3 Automated blood basophil count (count/volume) 0.1 10*3/uL 0.0-0.1 Comprehensive metabolic panel - 06/14/19 15:13 Serum or plasma sodium measurement (moles/volume) 141 mmol/L 135-145 Serum or plasma potassium measurement (moles/volume) 4.3 mmol/L 3.6-5.0 Serum or plasma chloride measurement (moles/volume) 103 mmol/L 98-107 Carbon dioxide 23 mmol/L 21-32 Serum or plasma anion gap determination (moles/volume) 15 mmol/L 5-14 Serum or plasma urea nitrogen measurement (mass/volume ) 22 mg/dL 7-18 Serum or plasma creatinine measurement (mass/volume) 1.42 mg/dL 0.60-1.30 Serum or plasma urea nitrogen/creatinine mass ratio 15 NRG Serum or plasma creatinine measurement w ith calculation of estimated glomerular filtration rate 37 NRG Serum or plasma glucose measurement (mass/volume) 112 mg/dL 70-105 Serum or plasma calcium measurement (mass/volume) 9.2 mg/dL 8.5-10.1 Serum or plasma total bilirubin measurement (mass/volu me) 0.3 mg/dL 0.1-1.0 Serum or plasma alkaline phosphatase fercho surement (enzymatic activity/volume) 87 U/L 40-136 Serum or plasma aspartate aminotransfera se measurement (enzymatic activity/volume) 17 U/L 5-34 Serum or plasma alanine aminotransferase measurement (enzymatic activity/volume) 18 U/L 0-55 Serum or plasma protein measurement (mass/volume) 7.3 g/dL 6.4-8.2 Serum or plasma albumin measurement (mass/volume) 4.0 g/dL 3.2-4.5 CALCIUM CORRECTED 9.2 mg/dL 8.5-10.1 Lipase - 06/14/19 15:13 Lipase 25 U/L 8-78 Complete blood count (CBC) with automate d white blood cell (WBC) differential - 06/15/19 05:35 Blood leukocytes automated count (number/volume) 6.1 10*3/uL 4.3-11.0 Blood erythrocytes automated count (number/volume) 3.79 10*6/uL 4.35-5.85 Venous blood hemoglobin measurement (mass/volume) 11.2 g/dL 11.5-16.0 Blood hematocrit (volume fraction) 36 % 35-52 Automated erythrocyte mean corpuscular volume 95 [ foz_us] 80-99 Automated erythrocyte mean corpuscular h emoglobin (mass per erythrocyte) 30 pg 25-34 Automated erythrocyte mean corpuscular h emoglobin concentration measurement (mass/volume) 31 g/dL 32-36 Automated erythrocyte distribution width ratio 14. 0 % 10.0- 14.5 Automated blood platelet count (count/volume) 172 10*3/uL 130-400 Automated blood platelet mean volume measurement 11.9 [foz_us] 7.4-10.4 Automated blood neutrophils/100 leukocytes 53 % 42-75 Automated blood lymphocytes/100 leukocytes 34 % 12-44 Blood monocytes/100 leukocytes 9 % 0-12 Automated blood eosinophils/100 leukocytes 3 % 0-10 Automated blood basophils/100 leukocytes 1 % 0-10 Blood neutrophils automated count (number/volume) 3.2 10*3 1.8-7.8 Blood lymphocytes automated count (number/volume) 2.1 10*3 1.0-4.0 Blood monocytes automated count (number/volume) 0. 6 10*3 0.0-1.0 Automated eosinophil count 0.2 10*3/uL 0 .0-0.3 Automated blood basophil count (count/volume) 0.0 10*3/uL 0.0-0.1 Comprehensive metabolic panel - 06/15/19 05:35 Serum or plasma sodium measurement (moles/volume) 140 mmol/L 135-145 Serum or plasma potassium measurement (moles/volume) 4.3 mmol/L 3.6-5.0 Serum or plasma chloride measurement (moles/volume) 112 mmol/L 98-107 Carbon dioxide 21 mmol/L 21-32 Serum or plasma anion gap determination (moles/volume) 7 mmol/L 5-14 Serum or plasma urea nitrogen measurement (mass/volume ) 16 mg/dL 7-18 Serum or plasma creatinine measurement (mass/volume) 1.05 mg/dL 0.60-1.30 Serum or plasma urea nitrogen/creatinine mass ratio 15 NRG Serum or plasma creatinine measurement w ith calculation of estimated glomerular filtration rate 52 NRG Serum or plasma glucose measurement (mass/volume) 89 mg/dL 70-105 Serum or plasma calcium measurement (mass/volume) 7.7 mg/dL 8.5-10.1 Serum or plasma total bilirubin measurement (mass/volu me) 0.3 mg/dL 0.1-1.0 Serum or plasma alkaline phosphatase fercho surement (enzymatic activity/volume) 62 U/L 40-136 Serum or plasma aspartate aminotransfera se measurement (enzymatic activity/volume) 15 U/L 5-34 Serum or plasma alanine aminotransferase measurement (enzymatic activity/volume) 17 U/L 0-55 Serum or plasma protein measurement (mass/volume) 5.4 g/dL 6.4-8.2 Serum or plasma albumin measurement (mass/volume) 3.1 g/dL 3.2-4.5 CALCIUM CORRECTED 8.4 mg/dL 8.5-10.1 Encounters ACCT No. Visit Date/Time Discharge Status Pt. Type Provider Facility Loc./Unit Complaint [id number] 09/18/2014 08:52:00 09/18/2014 23:59: 59 CLS Outpatient ROSA VELÁSQUEZ MD [id number] 07/31/2014 12:02:00 07/31/2014 23:59: 59 CLS Outpatient ROSA VELÁSQUEZ MD [id number] 06/08/2014 14:04:00 06/08/2014 23:59: 59 CLS Outpatient ROSA VELÁSQUEZ MD [id number] 04/09/2014 09:15:00 04/09/2014 23:59: 59 CLS Outpatient EUGENIO KLINE DO [id number] 01/05/2014 14:53:00 01/05/2014 23:59: 59 CLS Outpatient EUGENIO KLINE DO [id number] 10/05/2013 10:00:00 10/05/2013 23:59: 59 CLS Outpatient JOSE SASHA SANTANA [id number] 08/28/2013 10:04:00 08/28/2013 23:59: 59 CLS Outpatient SASHA GARCIA APRN [id number] 12/21/2012 11:03:00 12/21/2012 23:59: 59 CLS Outpatient SASHA GARCIA APRN [id number] 11/22/2012 16:40:00 Document Registration [id number] 11/08/2012 08:47:00 Document Registration [id number] 11/07/2012 15:24:00 Document Registration [id number] 03/31/2016 08:05:00 Document Registration [id number] 07/11/2019 13:40:00 020 17:45:00 DIS Outpatient KAL MCCRAY DO [facility] ENDO MELENA/EPIGASTRIC ABD P AIN [id number] 07/10/2019 05:49:00 09:14:00 DIS Outpatient KAL MCCRAY DO [facility] PREOP COLONOSCOPY/EGD [id number] 06/14/2019 17:30:00 020 18:32:00 DIS Inpatient RUBENS MCKEON MD [facility] 4TH GI BLEED AND POSS SBD [id number] 02/15/2019 12:35:00 019 23:59:59 CLS Outpatient RUSSELL OAKLEY FACC, SB LINDSEY CC DS [facility] CARD HTN [id number] 01/25/2018 10:37:00 018 23:59:59 CLS Outpatient SB WELLS MD, FACC, FACP CC DS [facility] CATH PALPITATIONS,OBESITY,KARINA [id number] 01/25/2018 08:07:00 018 10:30:00 DIS Outpatient KAL MCCRAY DO [facility] ENDO SCREENING/HX TUBULAR LLOUS ADENOMA [id number] 01/18/2018 05:39:00 018 12:37:00 DIS Outpatient KAL MCCRAY DO [facility] PREOP COLONOSCOPY [id number] 12/17/2017 07:08:00 018 23:59:59 CLS Outpatient ZEESHAN CAMPO [facility] CARD CHEST PAIN,SOB, HEART PALPITATIONS [id number] 11/23/2017 07:08:00 018 13:34:00 DIS Outpatient RUSSELL OAKLEY FACC, SB LINDSEY CC DS [facility] CATH STABLE ANGINA,SOB,PALPITATIONS,HTN [id number] 11/17/2017 07:41:00 018 23:59:59 CLS Outpatient ZEESHAN CAMPO [facility] CARD CHEST PAIN,SOB, HEART PALPITATIONS [id number] 04/14/2017 13:51:00 017 23:59:59 CLS Outpatient RICHARD OAKLEY, REE Rabago [facility] RAD LUMP OF RIGHT BREAST [id number] 01/05/2017 08:06:00 017 11:00:00 DIS Outpatient KAL MCCRAY DO [facility] ENDO BLOOD IN STOOL [id number] 01/04/2017 05:42:00 017 10:34:00 DIS Outpatient KAL MCCRAY DO [facility] PREOP COLONOSCOPY [id number] 02/25/2015 12:27:00 015 23:59:59 CLS Outpatient SASHA GARCIA [facility] CARD MURMUR [id number] 09/19/2014 17:12:00 015 23:59:59 CLS Outpatient ROSA VELÁSQUEZ MD [facility] RAD RECENT CVA [id number] 12/19/2019 13:00:00 P EN Preadmit RUSSELL OAKLEY FACCSB FACP CCDS [facility] CATH PALPITATIONS [id number] 12/18/2019 14:00:00 P EN Preadmit SASHA GARCIA CLINICAL TRIAL ASSOCIATE [facility] RAD MIGRAINE. [id number] 03/31/2017 11:08:00 Document Registration [id number] 10/25/2019 11:00:00 10/25/2019 23:59:5 9 CLS Outpatient SASHA GARCIA APRN [facility] [id number] 04/10/2019 08:00:00 Document Registration [id number] 04/08/2018 09:00:00 Document Registration [id number] 12/17/2017 08:40:00 Document Registration [id number] 11/10/2017 11:20:00 Document Registration [id number] 07/29/2017 11:20:00 Document Registration [id number] 03/26/2017 09:00:00 Document Registration [id number] 03/29/2017 13:05:00 Document Registration
--- NOTE | 2019-12-19 16:29 | OPERATIVE REPORT ---
DATE OF SERVICE: 12/19/2019 PREOPERATIVE DIAGNOSIS: Implantable loop recorder in place. POSTOPERATIVE DIAGNOSIS: Implantable loop recorder removed. INDICATIONS FOR PROCEDURE: The patient is a 69-year-old lady who has an implantable loop recorder in place since 10/2017 for evaluation of palpitations. No arrhythmia has been seen other than occasional premature atrial and ventricular contractions. She has requested that the implantable loop recorder be removed and this was done today after having obtained an informed consent. DESCRIPTION OF PROCEDURE: [facility] The left prepectoral area, the site of implantable loop recorder implantation, was prepared and draped in the usual sterile fashion. Lidocaine 1% was used for local anesthesia. A small incision was made on top of the site of implantation and the device was removed without difficulty. The wound was closed with Dermabond and Steri-Strips. She tolerated the procedure well. Job ID: [id number] DocumentID: [id number] Dictated Date: 12/19/2019 13:24:21 Showplace Manager Date: 12/19/2019 16:28:17 Dictated By: SB WELLS MD, MA, FACP, FACC, MTDD
== END | disposition home or self-care (01) ==
LOC: CATH 12:10
PROVIDERS: ATTEND Internal Medicine Cardiovascular Disease
DX: R00.2 Palpitations (principal); R06.02 Shortness of breath; I10 Essential (primary) hypertension; E78.5 Hyperlipidemia, unspecified; G47.33 Obstructive sleep apnea (adult) (pediatric); Z79.82 Long term (current) use of aspirin; Z79.890 Hormone replacement therapy; Z79.899 Other long term (current) drug therapy; Z86.73 Personal history of transient ischemic attack (TIA), and cerebral infarction without residual deficits; Z96.653 Presence of artificial knee joint, bilateral
CPT/HCPCS: 33286

== ENCOUNTER → 2019-12-22 | Outpatient (CLI) | payer MEDICARE, MEDICAID ==
[~2019-12-22] MED LIST changes: -LIDOCAINE 1% INJ 20 ML 20 ML VIAL ONE
--- NOTE | 2019-12-22 13:42 | Diagnostic Imaging Report ---
CLINICAL INDICATION: Patient states she has been getting sharp pains in her head. History of stroke. EXAM: MRI of the brain performed without IV contrast. Sequences include axial DWI, ADC map, axial T2, axial FLAIR, axial T1, axial gradient echo, and sagittal T1. COMPARISON: MRI of the brain performed without contrast dated 09/19/2014. FINDINGS: There is no evidence of acute cerebral infarct, intracranial hemorrhage, or gross mass effect. The brain parenchymal volume appears appropriate for patient's age. There is interval progression of focal, patchy, and confluent areas of high T2 signal white matter changes involving both cerebral hemispheres, periventricular regions, and zackery, likely related to chronic small vessel ischemic disease and leukoaraiosis. Stable small chronic infarct involving the left thalamus. There is normal marino-white matter distinction. There is no significant midline shift or herniation. The [place] vascular structures show no gross abnormality as visualized. The pituitary gland, sella, and suprasellar regions are unremarkable as visualized. There is no evidence of hydrocephalus. The basal cisterns are unremarkable. The skull, extracranial soft tissue, and orbits are unremarkable. There is a small mucus retention cyst involving right maxillary sinus. There is small amount of fluid in the left mastoid air cells. IMPRESSION: 1: There is no evidence of acute intracranial process. 2: There is progression of chronic small vessel ischemic disease and leukoaraiosis. 3: Stable small chronic infarct involving the left thalamus. 4: Mild right maxillary sinus disease and small amount of fluid in the left mastoid air cells. Dictated by: Dictated on workstation # [id number]
== END ==
LOC: RAD 12:49
PROVIDERS: ATTEND Nurse Practitioner Community Health
DX: I67.82 Cerebral ischemia (principal); G43.001 Migraine without aura, not intractable, with status migrainosus; I67.81 Acute cerebrovascular insufficiency; I63.9 Cerebral infarction, unspecified; J32.0 Chronic maxillary sinusitis; H74.8X2 Other specified disorders of left middle ear and mastoid; Z86.73 Personal history of transient ischemic attack (TIA), and cerebral infarction without residual deficits
CPT/HCPCS: 70551

== ENCOUNTER 2020-11-06 08:35 | Emergency (ER) | payer MEDICARE, MEDICAID ==
[~2020-11-06] VITALS: Ht 165 cm; Wt 113.0 kg
[~2020-11-06 08:35] MED LIST changes: +ASPI-1238 PO; -ASPI-983 PO; -PANT40TA3 PO; +PANT40TA52 PO
[2020-11-06] MEDS ORDERED: NS IV 1000 ML 1,000 ML IV STA (08:53)
[2020-11-06] MEDS ORDERED: ONDANSETRON 4 MG/2 ML (SDV) Z0FRAN IVP STA (08:53)
[2020-11-06] MEDS ORDERED: KETOROLAC 30 MG/ML VIAL IVP STA (08:53)
[2020-11-06] MEDS ORDERED: PANTOPRAZOLE 40 MG (PROTONIX) VIAL IV STA (08:53)
[2020-11-06 08:57] LABS: BILIRUBIN,URINE NEGATIVE (NEGATIVE); CLARITY,URINE SLT CLOUDY; COLOR,URINE PALE YELLOW; GLUCOSE, URINE (UA) NEGATIVE (NEGATIVE); KETONES,URINE NEGATIVE (NEGATIVE); LEUKOCYTE ESTERASE ,URINE 3+ (NEGATIVE); NITRITE,URINE NEGATIVE (NEGATIVE); PH,URINE 7.5 (5-9); PROTEIN,URINE TRACE (NEGATIVE)
[2020-11-06 08:58] LABS: BACTERIA,URINE FEW /HPF
--- NOTE | 2020-11-06 08:58 | ED GI ---
General Chief Complaint: Abdominal/GI Problems Stated Complaint: ABD PAIN Source of Information: Patient History of Present Illness Date Seen by Provider: Nov 06, 2020 Time Seen by Provider: 08:37 Initial Comments 70 yo female presenting with complaint of pain in abdomen, nausea with dry heaves, decreased BM, subjective fever with chills, and painful urination. Her symptoms initially started on October 29. She was having pain with urination and frequency all night. last night. She felt like she had a fever and was having chills but does not have thermometer to take her doctor. She has been having nausea with dry heaves. She has not taken any of her medications this morning. She states that she had contacted her regular provider when her symptoms started and was told that it was likely a stomach bug. However 9 days later she continu es to have problems and symptoms. She felt like things got worse again overnight. Since she is not improving and was having worsening symptoms she came to the emergency department. She has had chest pressure for a while now and a cough and is to see Cardiology on November 13 about it. She denies seeing any blood in her urine or stool. She has had a cholecystectomy but denies other surgeries on her abdomen. She has not taken anything at home for her symptoms. Timing/Duration: Constant (constant aching pain in abdomen that is sharp and intensified with walking and movement. Present since October 29) Severity/Quality: Aching, Sharp Location: Generalized Abdomen Activities at Onset: None Associated Symptoms: No Back Pain; Chest Pain (pressure); No Diaphoresis; Fever/Chills, Fatigue; No Headache, No Heartburn; Nausea/Vomiting (nausea and dry heaves); No Rash, No Shortness of Air, No Swelling/Mass in Abdomen, No Syncope; Weakness Allergies and Home Medications Allergies Coded Allergies: No Known Drug Allergies (Unverified , 01/04/17) Home Medications Aspirin 81 Mg Tablet.dr, 81 MG PO DAILY, (Reported) Atorvastatin Calcium 20 Mg Tablet, 20 MG PO HS, (Reported) Cephalexin 500 Mg Capsule, 500 MG PO TID Prescribed by: AMAURY ABERNATHY on 11/06/20 1206 Citalopram Hydrobromide 40 Mg Tablet, 40 MG PO DAILY, (Reported) Diclofenac Sodium 75 Mg Tablet.dr, 75 MG PO BID, (Reported) Dicyclomine HCl 10 Mg Capsule, 10 MG PO QID PRN for abdominal pain/cramping Prescribed by: AMAURY Bertrand ENYART on 11/06/20 1206 Levothyroxine Sodium 100 Mcg Tablet, 100 MCG PO DAILY, (Reported) Losartan Potassium 50 Mg Tablet, 50 MG PO DAILY, (Reported) Ondansetron 4 Mg Tab.rapdis, 4 MG PO Q6H PRN for NAUSEA/VOMITING Prescribed by: AMAURY Bertrand ENYART on 11/06/20 1206 Pantoprazole Sodium 40 Mg Tablet.dr, 40 MG PO DAILY, (Reported) Patient Home Medication List Home Medication List Reviewed: Yes Review of Systems Review of Systems Constitutional: chills; No diaphoresis; fever (subjective), malaise, weakness EENTM: No Symptoms Reported Respiratory: Cough; Denies Stridor, Denies Wheezing Cardiovascular: Chest Pain (long standing chest pressure that she is to see Cardiology November 13 about.) Gastrointestinal: See HPI Genitourinary: Burning, Frequency Musculoskeletal: no symptoms reported Skin: No rash Psychiatric/Neurological: Anxiety; Denies Headache Hematologic/Lymphatic: Denies Blood Clots Past Cxmchqy-Wqbxpi-Kjnpsl Hx Past Med/Social Hx: Reviewed Nursing Past Med/Soc Hx Patient Social History 2nd Hand Smoke Exposure: No Recent Hopitalizations: No Immunizations Up To Date Date of Pneumonia Vaccine: Mar 02, 2016 Date of Influenza Vaccine: Mar 15, 2019 Seasonal Allergies Seasonal Allergies: No Past Medical History Surgeries: Yes (bilat TKR, loop recorder) Gallbladder, Orthopedic, Thyroidectomy Respiratory: No Cardiac: Yes Heart Murmur, Hypertension Neurological: Yes Stroke Genitourinary: No Gastrointestinal: Yes (hx tubular villous adenoma, melena) Gastroesophageal Reflux Musculoskeletal: Yes Arthritis Endocrine: Yes (thyroidectomy) Hyperthyroidism HEENT: No Cancer: No Psychosocial: Yes Anxiety Integumentary: No Blood Disorders: No Family Medical History Heart Disease, Diabetes, Stroke Physical Exam Vital Signs Vital Signs - First Documented 11/06/20 11/06/20 08:50 09:26 Temp 36.3 Pulse 92 Resp 18 B/P (MAP) 181/89 (119) Pulse Ox 95 O2 Delivery Room Air O2 Flow Rate 2.00 Capillary Refill : Height/Weight/BMI Height: 5'6.00" Weight: 266lbs. 0.0oz. [id number]; 40.07 BMI Method: General Appearance: mild distress, obese HEENT: pharynx normal Neck: non-tender, full range of motion, supple, normal inspection Respiratory: chest non-tender, lungs clear, no respiratory distress, no accessory muscle use, decreased breath sounds Cardiovascular: normal peripheral pulses, regular rate, rhythm, systolic murmur (/) Gastrointestinal: soft, no pulsatile mass, abnormal bowel sounds (hypoactive); No distended, No guarding, No rebound; tenderness (mild diffuse) Rectal: deferred Extremities: normal range of motion, non-tender, normal capillary refill Neurologic/Psychiatric: geriatrics physician II-XII nml as tested, alert, oriented x 3 Skin: normal color, warm/dry Images 1 - diffuse abdominal pain. Aches while laying down but sharp and stabbing with moving around. Focused Exam Lactate Level 11/06/20 08:52: Lactic Acid Level 2.07*H 11/06/20 11:25: Lactic Acid Level 1.15 Lactic Acid Level Laboratory Tests Test 11/06/20 08:52 11/06/20 11:25 Lactic Acid Level 2.07 MMOL/L (0.50-2.00) *H 1.15 MMOL/L (0.50-2.00) Progress/Results/Core Measures Results/Orders Lab Results Laboratory Tests Test 11/06/20 08:40 11/06/20 08:52 11/06/20 11:25 Range/Units Urine Color PALE YELLOW Urine Clarity SLT CLOUDY Urine pH 7.5 5-9 Urine Specific Benton 1.015 L 1.016-1.022 Urine Protein TRACE H NEGATIVE Urine Glucose (UA) NEGATIVE NEGATIVE Urine Ketones NEGATIVE NEGATIVE Urine Nitrite NEGATIVE NEGATIVE Urine Bilirubin NEGATIVE NEGATIVE Urine Urobilinogen 0.2 < = 1.0 MG/DL Urine Leukocyte Esterase 3+ H NEGATIVE Urine RBC (Auto) 1+ H NEGATIVE Urine RBC NONE /HPF Urine WBC 10-25 H /HPF Urine Squamous Epithelial Cells 2-5 /HPF Urine Crystals NONE /LPF Urine Bacteria FEW H /HPF Urine Casts NONE /LPF Urine Mucus NEGATIVE /LPF Urine Culture Indicated YES White Blood Count 14.3 H 4.3-11.0 10^3/uL Red Blood Count 4.49 4.35-5.85 10^6/uL Hemoglobin 13.4 11.5-16.0 G/DL Hematocrit 40 35-52 % Mean Corpuscular Volume 90 80-99 FL Mean Corpuscular Hemoglobin 30 25-34 PG Mean Corpuscular Hemoglobin Concent 33 32-36 G/DL Red Cell Distribution Width 14.1 10.0-14.5 % Platelet Count 262 130-400 10^3/uL Mean Platelet Volume 11.0 H 7.4-10.4 FL Immature Granulocyte % (Auto) 0 % Neutrophils (%) (Auto) 73 42-75 % Lymphocytes (%) (Auto) 20 12-44 % Monocytes (%) (Auto) 5 0-12 % Eosinophils (%) (Auto) 2 0-10 % Basophils (%) (Auto) 0 0-10 % Neutrophils # (Auto) 10.4 H 1.8-7.8 X 10^3 Lymphocytes # (Auto) 2.9 1.0-4.0 X 10^3 Monocytes # (Auto) 0.7 0.0-1.0 X 10^3 Eosinophils # (Auto) 0.2 0.0-0.3 10^3/uL Basophils # (Auto) 0.1 0.0-0.1 10^3/uL Immature Granulocyte # (Auto) 0.1 0.0-0.1 10^3/uL Neutrophils % (Manual) 76 % Lymphocytes % (Manual) 12 % Monocytes % (Manual) 7 % Eosinophils % (Manual) 3 % Basophils % (Manual) 0 % Band Neutrophils 2 % Prothrombin Time 12.5 12.2-14.7 SEC INR Comment 0.9 0.8-1.4 Activated Partial Thromboplast Time 28 24-35 SEC Sodium Level 143 135-145 MMOL/L Potassium Level 3.0 L 3.6-5.0 MMOL/L Chloride Level 103 98-107 MMOL/L Carbon Dioxide Level 28 21-32 MMOL/L Anion Gap 12 5-14 MMOL/L Blood Urea Nitrogen 7 7-18 MG/DL Creatinine 0.94 0.60-1.30 MG/DL Estimat Glomerular Filtration Rate 59 BUN/Creatinine Ratio 7 Glucose Level 148 H 70-105 MG/DL Lactic Acid Level 2.07 *H 1.15 0.50-2.00 MMOL/L Calcium Level 9.0 8.5-10.1 MG/DL Corrected Calcium 9.1 8.5-10.1 MG/DL Total Bilirubin 0.8 0.1-1.0 MG/DL Aspartate Amino Transf (AST/SGOT) 31 5-34 U/L Alanine Aminotransferase (ALT/SGPT) 34 0-55 U/L Alkaline Phosphatase 130 40-136 U/L Troponin I < 0.30 <0.30 NG/ML Pro-B-Type Natriuretic Peptide 620.6 H <75.0 PG/ML Total Protein 7.3 6.4-8.2 GM/DL Albumin 3.9 3.2-4.5 GM/DL Lipase 15 8-78 U/L My Orders Orders - AMAURY ABERNATHY MD Comprehensive Metabolic Panel (11/06/20 08:41) Lipase (11/06/20 08:41) Ua Culture If Indicated (11/06/20 08:41) Ed Iv/Invasive Line Start (11/06/20 08:41) Cbc With Automated Diff (11/06/20 08:41) Lactic Acid Analyzer (11/06/20 08:41) Protime With Inr (11/06/20 08:52) Partial Thromboplastin Time (11/06/20 08:52) Ondansetron Injection (Zofran Injectio (11/06/20 08:53) Ns Iv 1000 Ml (Sodium Chloride 0.9%) (11/06/20 08:53) Ketorolac Injection (Toradol Injection) (11/06/20 08:53) Pantoprazole Injection (Protonix Injecti (11/06/20 08:53) Urine Culture (11/06/20 08:40) Manual Differential (11/06/20 08:52) O2 (11/06/20 09:16) Ct Chest/Abdomen/Pelvis W (11/06/20 09:16) Troponin I Fs (11/06/20 09:18) Probnp Fs (11/06/20 09:18) Ekg Tracing (11/06/20 09:18) Ceftriaxone For Iv Use (Rocephin For I (11/06/20 09:50) Iohexol Injection (Omnipaque 350 Mg/Ml 1 (11/06/20 10:00) Received Contrast (Hold Metformin- Contr (11/06/20 10:00) Sodium Chloride Flush (Catheter Flush Sy (11/06/20 10:00) Ns (Ivpb) (Sodium Chloride 0.9% Ivpb Bag (11/06/20 10:00) Lactic Acid Analyzer (11/06/20 11:27) Medications Given in ED Current Medications Medications Dose Ordered Sig/Latisha Route Start Time Stop Time Status Last Admin Dose Admin Iohexol 100 ml ONCE ONCE IV 11/06/20 10:00 11/06/20 10:01 DC 11/06/20 10:01 100 ML Sodium Chloride 10 ml NEEDED PRN IV 11/06/20 10:00 11/06/20 12:18 DC 11/06/20 10:01 10 ML Sodium Chloride 100 ml ONCE ONCE IV 11/06/20 10:00 11/06/20 10:01 DC 11/06/20 10:01 80 ML Vital Signs/I&O 11/06/20 11/06/20 11/06/20 08:50 09:26 12:13 Temp 36.3 36.3 Pulse 92 76 Resp 18 16 B/P (MAP) 181/89 (119) 142/72 Pulse Ox 95 98 95 O2 Delivery Room Air Nasal Cannula Room Air O2 Flow Rate 2.00 Progress Progress Note #1: Progress Note Check lab with urine and a lactic acid. Give IV fluids for hydration, Toradol 15 mg IV for pain, Zofran 4 mg for nausea, Protonix 40 mg IV for abdominal pain gastritis. Anticipate CT scan of the abdomen pelvis to evaluate her abdominal pain with subjective fever chills for over 9 days. Differential diagnosis includes diverticulitis, colitis, UTI, pyelonephritis, appendicitis, ischemic bowel, gastritis, gastroenteritis, abdominal mass Progress Note #2: Progress Note Her oxygen saturations dropped into the 80s and was still showing a good waveform prior to any medication. Placed on supplemental O2 and immediately him up to 97-100% on 2 L. She had been having complaints of chest pressure and cough will add on cardiac enzymes, EKG, CT of the chest with contrast. That way the IV contrast load that she gets will be a one-time dose for her chest abdomen and pelvis. This will help to further evaluate her chest pressure and shortness of breath with hypoxia. Urinalysis did demonstrate leukocyte esterase with bacteria and signs of UTI. CBC was showing elevated white blood cell count with a left shift. Her electronic medical record did not show any prior microbiology for urine so no previous urine cultures were available. With no known drug allergies will just be treating with ceftriaxone from here. Patient reports after treatment her nausea is better and is less she is laying in the bed she is not having any pain. Progress Note #3: Progress Note Lactic acid came back at 2.07. This could be slightly elevated due to her urine infection. Continue to await chemistry panel and CT scan. She has IV fluids infusing. The electrocardiogram shows sinus rhythm with a right bundle branch block but no acute ST elevation. Advised pt that if she felt she needed something more for pain to let us know and I can add on a narcotic pain medicine. Progress Note #4: Progress Note Chemistry panel is back and shows mild hypokalemia with a potassium of 3.0. Her troponin is negative at less than 0.3. Her BUN, creatinine, LFTs were normal. She has mild elevation of her glucose of 145. Will see how she does after the CT scan. Rocephin was ordered for her urinary tract infection. Progress Note #5: Progress Note CT scan shows atelectasis in lungs but no infiltrate. Mild gas dilation of small and large bowel compared to previous exam but no signs of bowel obstruction or ileus. No appendicitis. On room air her oxygen is 95-98% so the initial lower O2 may have been from it not picking up well for her pulse ox or related to the atelectasis and not breat matthew deep enough. Pt feels better and wants to try antibiotics and medicine at home rather than be admitted. Continue Cephalexin after the Rocephin here to treat her UTI. Zofran prn for n/v. Dicyclomine prn for abdominal cramping/pain. Counseled on follow up and return precautions. Initial ECG Impression Date: Nov 06, 2020 Initial ECG Impression Time: 09:18 Initial ECG Rate: 80 Initial ECG Rhythm: Normal Sinus Initial ECG Comparisson: No Previous ECG Available Comment Sinus rhythm with a heart rate of 80 bpm. Right bundle branch block.. MT interval 185 ms. QT interval 421 ms QTc interval [address] elevation. No prior tracing for comparison. Diagnostic Imaging Diagonstic Imaging: CT Plain Films/CT/US/NM/MRI: chest, abdomen, pelvis Comments [facility] [place], [place] NAME: SAMUEL ALVARENGA [facility] REC#: [id number] PT STATUS: REG ER : 1950 PHYSICIAN: AMAURY ABERNATHY MD ADMIT DATE: 11/06/20/ER FS Draft Date of Exam:11/06/20 CT CHEST/ABDOMEN/PELVIS W PROCEDURE: CT chest, abdomen, and pelvis with contrast. TECHNIQUE: Multiple contiguous axial images were obtained through the chest, abdomen, and pelvis after the administration of intravenous contrast. Auto Exposure Controls were utilized during the CT exam to meet ALARA standards for radiation dose reduction. INDICATION: Diffuse abdominal pain. There are no prior CT chest examinations available for comparison. FINDINGS: The CT abdomen/pelvis exam of 06/14/2019 noted [id number] small bowel distention in the left mid abdomen with associated wall thickening. This appearance does raise a question of partial small bowel obstruction. On the hooker off film of this exam, there does appear to somewhat greater distention of both the large and small bowel by gas than on the prior study. However, the partial obstruction suggested on the prior study is no longer evident. There is no acute abnormality of the abdomen or pelvis noted otherwise. There is no pelvic mass or free fluid collection evident. There are few diverticula in the sigmoid and descending colon but there is no sign of acute diverticulitis. The urinary bladder and uterus are grossly unremarkable. The appendix was not particularly well visualized and there are no indirect signs of acute appendicitis. As noted on the prior exam, there is a large cyst associated with the right kidney. The cyst measures 6.8 cm and adverse changed when compared to the prior study. Much smaller cysts are also seen arising from both kidneys. There is also some irregularity of the posterior cortex of the superior pole of the left kidney. This may be a sequela of prior episodes of pyelonephritis. The liver, spleen, pancreas, adrenals, aorta and inferior vena cava show no sign of an acute abnormality. As noted on the prior study, the gallbladder is surgically absent. The stomach is not well-distended and difficult to assess. The images through the thorax do show mild dependent atelectasis in each lung bases. The lungs are otherwise generally clear and well aerated. The heart is enlarged and there are coronary artery calcifications evident. The aorta is not abnormally dilated and there is no sign of dissection. There is no defect within the pulmonary arteries to indicate a pulmonary embolus. There is no mediastinal or hilar adenopathy. The thyroid gland was not visualized. There is no obvious breast mass. The bone windows show no fracture or acute abnormality. As noted on the prior study, there is degenerative disc and bony disease at L4-L5. IMPRESSION: 1. There is somewhat greater distention of both large and small bowel by gas than noted on the prior exam. However, there is no evidence for recurrent small bowel obstruction. There is no acute abnormality of the abdomen or pelvis identified. 2. There is mild dependent atelectasis in both lung bases. There is no acute cardiopulmonary abnormality appreciated otherwise. 3. The heart is enlarged and there are coronary artery calcifications evident. 4. The large cyst associated with the right kidney seen previously is again evident and no different. Dictated on workstation # [id number] Dict: 11/06/20 1030 Trans: 11/06/20 1045 [id number] Interpreted by: EDVIN VENEGAS MD Electronically signed by: Departure Impression Primary Impression: Acute cystitis without hematuria Additional Impressions: Nausea Abdominal pain, diffuse Cough in adult Disposition: 01 HOME, SELF-CARE Condition: Stable Departure-Patient Inst. Decision time for Depature: 12:03 Referrals: KIM FOFANA APRN (PCP) Primary Care Physician [facility]/CHRISTOPHE (Family) Primary Care Physician Patient Instructions: Urinary Tract Infection, Adult ED, Nausea and Vomiting, Adult ED, Cough, Adult ED, Abdominal Pain, Adult ED Add. Discharge Instructions: stay well hydrated and get plenty of rest. Follow up with clinic if not improving with antibiotic. If worsening return to ER or be seen sooner. Take full course of antibiotics to treat infection. Use Zofran for nausea. Bentyl (Dicyclomine) for abdominal pain/cramping and it will help some with nausea as well. May still take Acetaminophen for pain if needed. All discharge instructions reviewed with patient and/or family. Voiced understanding. Scripts Ondansetron (Ondansetron Odt) 4 Mg Tab.rapdis 4 MG PO Q6H PRN for NAUSEA/VOMITING for 4 Days, #16 TAB 0 Refills Prov: AMAURY ABERNATHY MD 11/06/20 Dicyclomine HCl (Dicyclomine HCl) 10 Mg Capsule 10 MG PO QID PRN for abdominal pain/cramping for 5 Days, #20 CAP 0 Refills Prov: AMAURY ABERNATHY MD 11/06/20 Cephalexin (Cephalexin) 500 Mg Capsule 500 MG PO TID for UTI for 10 Days, #30 CAP 0 Refills Prov: AMAURY ABERNATHY MD 11/06/20 AMAURY ABERNATHY MD Nov 06, 2020 08:58
[2020-11-06 09:04] LABS: EOSINOPHILS % (AUTO) 2 % (0-10); HEMATOCRIT 40 % (35-52); HEMOGLOBIN 13.4 G/DL (11.5-16.0); LYMPHOCYTES % (AUTO) 20 % (12-44); MEAN CORPUSCULAR HEMOGLOBIN 30 PG (25-34); MEAN CORPUSCULAR HGB CONC 33 G/DL (32-36); MEAN CORPUSCULAR VOLUME 90 FL (80-99); MONOCYTES % (AUTO) 5 % (0-12); NEUTROPHILS % (AUTO) 73 % (42-75); PLATELET COUNT 262 10^3/uL (130-400); WHITE BLOOD COUNT 14.3 10^3/uL (4.3-11.0)
[2020-11-06 09:05] LABS: BASOPHILS # (AUTO) 0.1 10^3/uL (0.0-0.1); BASOPHILS % (AUTO) 0 % (0-10); EOSINOPHILS # (AUTO) 0.2 10^3/uL (0.0-0.3); LYMPHOCYTES # (AUTO) 2.9 X 10^3 (1.0-4.0); MONOCYTES # (AUTO) 0.7 X 10^3 (0.0-1.0); NEUTROPHILS # (AUTO) 10.4 X 10^3 (1.8-7.8)
[2020-11-06 09:26] LABS: INR 0.9 (0.8-1.4); PROTHROMBIN TIME PATIENT 12.5 SEC (12.2-14.7)
[2020-11-06] MEDS ORDERED: cefTRIAXone 1,000 MG in WATER (STERILE) FOR INJECTION 10 ML IV STA (09:50)
[2020-11-06 09:51] LABS: BILIRUBIN,TOTAL 0.8 MG/DL (0.1-1.0); CREATININE SERUM 0.94 MG/DL (0.60-1.30)
[2020-11-06 09:52] LABS: ALBUMIN 3.9 GM/DL (3.2-4.5); TOTAL PROTEIN 7.3 GM/DL (6.4-8.2)
[2020-11-06] MEDS ORDERED: IOHEXOL 350 MG/ML 100 ML (OMNIPAQUE 350) VIAL IV ONE (10:00)
[2020-11-06] MEDS ORDERED: HOLD METFORMIN - RECEIVED CONTRAST 20 ML VIAL IV SCH (10:00)
[2020-11-06] MEDS ORDERED: NS 100 ML (IVPB) BAG IV ONE (10:00)
[2020-11-06] MEDS ORDERED: CATHETER FLUSH 10 ML SYR IV PRN (10:00)
[2020-11-06 10:03] LABS: BAND NEUTROPHILS 2 %; BASOPHILS % (MANUAL) 0 %; EOSINOPHILS % (MANUAL) 3 %; LYMPHOCYTES % (MANUAL) 12 %; MONOCYTES % (MANUAL) 7 %; NEUTROPHILS % (MANUAL) 76 %
--- NOTE | 2020-11-06 10:45 | Diagnostic Imaging Report ---
PROCEDURE: CT chest, abdomen, and pelvis with contrast. TECHNIQUE: Multiple contiguous axial images were obtained through the chest, abdomen, and pelvis after the administration of intravenous contrast. Auto Exposure Controls were utilized during the CT exam to meet ALARA standards for radiation dose reduction. INDICATION: Diffuse abdominal pain. There are no prior CT chest examinations available for comparison. FINDINGS: The CT abdomen/pelvis exam of 06/14/2019 noted [id number] small bowel distention in the left mid abdomen with associated wall thickening. This appearance does raise a question of partial small bowel obstruction. On the cost and risk analysis manager film of this exam, there does appear to somewhat greater distention of both the large and small bowel by gas than on the prior study. However, the partial obstruction suggested on the prior study is no longer evident. There is no acute abnormality of the abdomen or pelvis noted otherwise. There is no pelvic mass or free fluid collection evident. There are few diverticula in the sigmoid and descending colon but there is no sign of acute diverticulitis. The urinary bladder and uterus are grossly unremarkable. The appendix was not particularly well visualized and there are no indirect signs of acute appendicitis. As noted on the prior exam, there is a large cyst associated with the right kidney. The cyst measures 6.8 cm and adverse changed when compared to the prior study. Much smaller cysts are also seen arising from both kidneys. There is also some irregularity of the posterior cortex of the superior pole of the left kidney. This may be a sequela of prior episodes of pyelonephritis. The liver, spleen, pancreas, adrenals, aorta and inferior vena cava show no sign of an acute abnormality. As noted on the prior study, the gallbladder is surgically absent. The stomach is not well-distended and difficult to assess. The images through the thorax do show mild dependent atelectasis in each lung bases. The lungs are otherwise generally clear and well aerated. The heart is enlarged and there are coronary artery calcifications evident. The aorta is not abnormally dilated and there is no sign of dissection. There is no defect within the pulmonary arteries to indicate a pulmonary embolus. There is no mediastinal or hilar adenopathy. The thyroid gland was not visualized. There is no obvious breast mass. The bone windows show no fracture or acute abnormality. As noted on the prior study, there is degenerative disc and bony disease at L4-L5. IMPRESSION: 1. There is somewhat greater distention of both large and small bowel by gas than noted on the prior exam. However, there is no evidence for recurrent small bowel obstruction. There is no acute abnormality of the abdomen or pelvis identified. 2. There is mild dependent atelectasis in both lung bases. There is no acute cardiopulmonary abnormality appreciated otherwise. 3. The heart is enlarged and there are coronary artery calcifications evident. 4. The large cyst associated with the right kidney seen previously is again evident and no different. Dictated by: Dictated on workstation # [id number]
[2020-11-06] MEDS ORDERED: ONDA4TAB11 PO (12:06)
[2020-11-06] MEDS ORDERED: DICY10CA12 PO (12:06)
[2020-11-06] MEDS ORDERED: CEPH500C PO (12:06)
[2020-11-06 12:13] VITALS: BP 142/72
== END 2020-11-06 12:08 | disposition home or self-care (01) ==
LOC: EDUNIT# 08:35 → ER FS 08:37
DX: N30.90 Cystitis, unspecified without hematuria (principal); R11.0 Nausea; R10.84 Generalized abdominal pain; R05 Cough; E66.9 Obesity, unspecified; I10 Essential (primary) hypertension; K21.9 Gastro-esophageal reflux disease without esophagitis; E05.90 Thyrotoxicosis, unspecified without thyrotoxic crisis or storm; F41.9 Anxiety disorder, unspecified; Z68.41 Body mass index [BMI] 40.0-44.9, adult; Z86.73 Personal history of transient ischemic attack (TIA), and cerebral infarction without residual deficits; Z79.82 Long term (current) use of aspirin; Z79.899 Other long term (current) drug therapy
CPT/HCPCS: 36415; 71260; 74177; 80053; 81000; 83605; 83690; 83880; 84484; 85007; 85027; 85610; 85730; 87088; 93005; 96374; 96375

== ENCOUNTER → 2020-11-19 | Outpatient (CLI) | payer MEDICARE, MEDICAID ==
[~2020-11-19] MED LIST changes: +CEPH500C PO; +DICY10CA12 PO; +ONDA4TAB11 PO
== END ==
LOC: CARD 14:45
PROVIDERS: ATTEND Internal Medicine Cardiovascular Disease
DX: I51.7 Cardiomegaly (principal); I35.8 Other nonrheumatic aortic valve disorders
CPT/HCPCS: 93225; 93226; 93306

== ENCOUNTER → 2020-12-31 | Outpatient (CLI) | payer MEDICARE, MEDICAID ==
[~2020-12-31] MED LIST changes: +REGADENOSON 0.4 MG/5 ML SYR (LEXISCAN) IV ONE
[2020-12-31 10:51] VITALS: BP 173/83
== END ==
LOC: CARD 08:15
PROVIDERS: ATTEND Internal Medicine Cardiovascular Disease
DX: R07.89 Other chest pain (principal)
CPT/HCPCS: 78452; 93017; A9502

== ENCOUNTER 2021-12-10 19:47 | Outpatient (CLI) | payer MEDICARE, MEDICAID ==
[~2021-12-10 19:47] MED LIST changes: -CITA40TA11 PO; +CITA40TA13 PO; -REGADENOSON 0.4 MG/5 ML SYR (LEXISCAN) IV ONE
== END 2021-12-11 06:25 | disposition home or self-care (01) ==
LOC: SLEEP 19:47
PROVIDERS: ATTEND Otolaryngology Otolaryngology/Facial Plastic Surgery
DX: G47.33 Obstructive sleep apnea (adult) (pediatric) (principal); G47.10 Hypersomnia, unspecified
CPT/HCPCS: 95810

== ENCOUNTER 2022-05-27 20:17 | Outpatient (CLI) | payer MEDICARE, MEDICAID | END 2022-05-28 06:22 | disposition home or self-care (01) | LOC: SLEEP 20:17 | PROVIDERS: ATTEND Otolaryngology Otolaryngology/Facial Plastic Surgery | DX: G47.33 Obstructive sleep apnea (adult) (pediatric) (principal); G47.36 Sleep related hypoventilation in conditions classified elsewhere | CPT/HCPCS: 95811 ==

== ENCOUNTER → 2022-12-29 | Outpatient (CLI) | payer MEDICARE, MEDICAID | LOC: CARDFS 13:42 | PROVIDERS: ATTEND Nurse Practitioner Family | DX: R06.09 Other forms of dyspnea (principal); R07.89 Other chest pain | CPT/HCPCS: 93306 ==

== ENCOUNTER → 2023-01-05 | Outpatient (CLI) | payer MEDICARE, MEDICAID ==
[~2023-01-05] MED LIST changes: +CATHETER FLUSH 10 ML SYR IVP PRN; +REGADENOSON 0.4 MG/5 ML SYR (LEXISCAN) IV ONE
[2023-01-05 09:37] VITALS: BP 157/109
--- NOTE | 2023-01-05 21:51 | STRESS TEST ---
DATE OF SERVICE: 01/05/2023 RESTING AND POST REGADENOSON TECHNETIUM-99M TETROFOSMIN SPECT CT IMAGING ORDERING PHYSICIAN: Violet Murdock APRN. PRIMARY PHYSICIAN: [facility]. CLINICAL DIAGNOSIS: Chest discomfort. Baseline images were carried out after injection of 10.64 mCi of technetium-99m tetrofosmin. This was followed by 0.4 mg regadenoson and 32.6 mCi of technetium-99m tetrofosmin for stress imaging. The electrocardiogram showed sinus rhythm and right bundle branch block. The electrocardiogram did not change significantly with regadenoson infusion. The patient tolerated the procedure well. Review of images at rest and following stress does not indicate any significant perfusion defects consistent with myocardial ischemia or infarction. Gated images show normal global systolic function with normal regional wall motion. Left ventricular ejection fraction is calculated to be 83%. Left ventricular end-diastolic volume is 30 mL, TID is absent (1.03). CONCLUSIONS: 1. No evidence of myocardial ischemia or infarction on this study. 2. Normal to hyperdynamic left ventricular systolic function with a calculated ejection fraction 83%. 3. No wall motion abnormalities seen on this study. Job ID: [id number] DocumentID: [id number] Dictated Date: 01/05/2023 19:16:39 Inseamer Date: 01/05/2023 21:50:00 Dictated By: SB WELLS MD; OSMIN; FACP; FACC;
== END ==
LOC: CARD 07:57
PROVIDERS: ATTEND Nurse Practitioner Family
DX: R07.89 Other chest pain (principal)
CPT/HCPCS: 78452; 93017

== ENCOUNTER 2023-02-03 16:14 | Emergency (ER) | payer MEDICARE, MEDICAID ==
[~2023-02-03 16:14] MED LIST changes: -CATHETER FLUSH 10 ML SYR IVP PRN; +DICY-11 PO; -DICY10CA12 PO; -REGADENOSON 0.4 MG/5 ML SYR (LEXISCAN) IV ONE
--- NOTE | 2023-02-03 16:26 | ED General ---
General Chief Complaint: COVID19 Suspect/Confirmed Stated Complaint: GEN WEAKNESS Source of Information: Patient, EMS Exam Limitations: No Limitations History of Present Illness Date Seen by Provider: Feb 03, 2023 Time Seen by Provider: 16:16 Initial Comments 72-year-old female presents via EMS to the emergency department today for gen erally feeling unwell, fatigue, cough. Symptoms started over the weekend and have persisted. Over the weekend however she was having nausea and vomiting. She is no longer vomiting but is feeling nauseous anytime she tries to eat something. She denies any current nausea. No fevers or chills but she does have generalized weakness. No chest pain abdominal pain or changes in bowel or bladder habits. All other systems reviewed and negative except documented per HPI. Voice recognition software was used to help create this chart Allergies and Home Medications Allergies Coded Allergies: No Known Drug Allergies (Unverified , 01/04/17) Patient Home Medication List Home Medication List Reviewed: Yes Aspirin (Aspirin EC) 81 Mg Tablet., 81 MG PO DAILY, (Reported) Entered as Reported by: SIGRID HARRIS on 11/23/17 0739 Atorvastatin Calcium (Atorvastatin Calcium) 20 Mg Tablet, 20 MG PO HS, (Reported) Entered as Reported by: FLORINA AKHTAR on 01/04/17 1017 Cephalexin (Cephalexin) 500 Mg Capsule, 500 MG PO TID Prescribed by: AMAURY ABERNATHY on 11/06/20 1206 Citalopram Hydrobromide (Citalopram HBr) 40 Mg Tablet, 40 MG PO DAILY, (Reported) Entered as Reported by: BUBBA RICHEY on 06/15/19 0910 Diclofenac Sodium (Diclofenac Sodium) 75 Mg Tablet., 75 MG PO BID, (Reported) Entered as Reported by: SIGRID HARRIS on 11/23/17 0739 Dicyclomine HCl (Dicyclomine HCl) 10 Mg Capsule, 10 MG PO QID PRN for abdominal pain/cramping Prescribed by: AMAURY ABERNATHY on 11/06/20 1206 Levothyroxine Sodium (Levothyroxine Sodium) 100 Mcg Tablet, 100 MCG PO DAILY, (Reported) Entered as Reported by: FLORINA AKHTAR on 01/04/17 1017 Losartan Potassium (Losartan Potassium) 50 Mg Tablet, 50 MG PO DAILY, (Reported) Entered as Reported by: FLORINA AKHTAR on 01/04/17 1017 Ondansetron (Ondansetron Odt) 4 Mg Tab.rapdis, 4 MG PO Q6H PRN for NAUSEA/VOMITING Prescribed by: AMAURY ABERNATHY on 11/06/20 1206 Pantoprazole Sodium (Pantoprazole Sodium) 40 Mg Tablet.dr, 40 MG PO DAILY, (Reported) Entered as Reported by: FLORINA AKHTAR on 07/10/19 0904 Review of Systems Review of Systems Constitutional: see HPI Past Dkggate-Wmtdsf-Mgawwu Hx Patient Social History Tobacco Use?: No Use of E-Cig and/or Vaping dev: No Substance use?: No Alcohol Use?: No Seasonal Allergies Seasonal Allergies: No Past Medical History Surgeries: Yes (bilat TKR, loop recorder) Gallbladder, Joint Replacement, Orthopedic, Thyroidectomy Respiratory: No Cardiac: Yes Heart Murmur, Hypertension Neurological: Yes ("SHARP HEAD PAINS") Stroke Genitourinary: No Gastrointestinal: Yes (hx tubular villous adenoma) Gastroesophageal Reflux Musculoskeletal: Yes Arthritis Endocrine: Yes (thyroidectomy) Hyperthyroidism HEENT: No Cancer: No Psychosocial: Yes Anxiety Integumentary: No Blood Disorders: No Family Medical History Heart Disease, Diabetes, Stroke Physical Exam Vital Signs Vital Signs - First Documented 02/03/23 16:20 Temp 36.7 Pulse 73 Resp 16 B/P (MAP) 124/50 (74) Pulse Ox 97 O2 Delivery Room Air Capillary Refill : Height, Weight, BMI Height: 5'6.00" Weight: 266lbs. 0.0oz. 120.963724ze; 41.00 BMI Method: General Appearance: No Apparent Distress, WD/WN Eyes: Bilateral Eye Normal Inspection, Bilateral Eye PERRL, Bilateral Eye EOMI HEENT: Normal ENT Inspection, Pharynx Normal Neck: Full Range of Motion, Normal Inspection, Non Tender, Supple Respiratory: Chest Non Tender, Lungs Clear, Normal Breath Sounds, No Accessory Muscle Use, No Respiratory Distress Cardiovascular: Regular Rate, Rhythm, No Murmur, Normal Peripheral Pulses Gastrointestinal: Normal Bowel Sounds, Non Tender, Soft Extremity: Normal Capillary Refill, Normal Inspection, Non Tender, No Calf Tenderness Neurologic/Psychiatric: Alert, Oriented x3, No Motor/Sensory Deficits, Normal Mood/Affect Skin: Normal Color, Warm/Dry Progress/Results/Core Measures Suspected Sepsis SIRS Temperature: Pulse: Respiratory Rate: Laboratory Tests 02/03/23 16:20: White Blood Count 7.2 Blood Pressure / Mean: Laboratory Tests 02/03/23 16:20: Creatinine 1.50H, Platelet Count 224 Results/Orders Lab Results Laboratory Tests Test 02/03/23 16:20 Range/Units White Blood Count 7.2 4.3-11.0 10^3/uL Red Blood Count 4.75 3.80-5.11 10^6/uL Hemoglobin 14.0 11.5-16.0 g/dL Hematocrit 43 35-52 % Mean Corpuscular Volume 91 80-99 fL Mean Corpuscular Hemoglobin 30 25-34 pg Mean Corpuscular Hemoglobin Concent 33 32-36 g/dL Red Cell Distribution Width 13.9 10.0-14.5 % Platelet Count 224 130-400 10^3/uL Mean Platelet Volume 10.3 9.0-12.2 fL Immature Granulocyte % (Auto) 0 % Neutrophils (%) (Auto) 52 42-75 % Lymphocytes (%) (Auto) 37 12-44 % Monocytes (%) (Auto) 7 0-12 % Eosinophils (%) (Auto) 3 0-10 % Basophils (%) (Auto) 1 0-10 % Neutrophils # (Auto) 3.7 1.8-7.8 10^3/uL Lymphocytes # (Auto) 2.7 1.0-4.0 10^3/uL Monocytes # (Auto) 0.5 0.0-1.0 10^3/uL Eosinophils # (Auto) 0.2 0.0-0.3 10^3/uL Basophils # (Auto) 0.0 0.0-0.1 10^3/uL Immature Granulocyte # (Auto) 0.0 0.0-0.1 10^3/uL Sodium Level 139 135-145 MMOL/L Potassium Level 3.7 3.6-5.0 MMOL/L Chloride Level 103 98-107 MMOL/L Carbon Dioxide Level 24 21-32 MMOL/L Anion Gap 12 5-14 MMOL/L Blood Urea Nitrogen 22 H 7-18 MG/DL Creatinine 1.50 H 0.60-1.30 MG/DL Estimat Glomerular Filtration Rate 36 BUN/Creatinine Ratio 15 Glucose Level 136 H 70-105 MG/DL Calcium Level 9.6 8.5-10.1 MG/DL My Orders Orders - ALEJANDRA MONTANO DO Cbc With Automated Diff (02/03/23 16:24) Basic Metabolic Panel (02/03/23 16:24) Chest 1 View Ap/Pa Only (02/03/23 16:24) Covid 19 Inhouse Test (02/03/23 16:24) Vital Signs/I&O 02/03/23 16:20 Temp 36.7 Pulse 73 Resp 16 B/P (MAP) 124/50 (74) Pulse Ox 97 O2 Delivery Room Air Capillary Refill : Departure Communication (Admissions) Patient is hemodynamically stable, neurovascular and sensory intact. Her vital signs are normal including normal oxygen saturation. She is in no respiratory distress. Chest x-ray is clear. Labs are reassuring. Positive for COVID. Discharged in stable condition with Paxlovid and supportive care. Impression Primary Impression: COVID-19 Disposition: 01 HOME, SELF-CARE Condition: Stable Departure-Patient Inst. Referrals: TOÑO ORTIZ APRN (PCP) Primary Care Physician [facility]CHRISTOPHE (Family) Primary Care Physician Patient Instructions: COVID-19 ED Add. Discharge Instructions: Increase your fluids at home, rest. Use ibuprofen and Tylenol as needed for pain, fevers and body aches. Take Paxlovid as prescribed until it is gone to decrease risk of hospitalization. Please note this will treat your symptoms you are still likely to feel unwell for the duration of your illness. Return to the emergency department for any severe shortness of breath. Follow-up with her primary doctor for any nonemergent needs. All discharge instructions reviewed with patient and/or family. Voiced understanding. Scripts Nirmatrelvir/Ritonavir (Paxlovid 300-100 mg Pack (Eua)) 300 Mg (150 Mg X 2)-100 Mg Tab.ds.pk 1 EACH PO BID for 5 Days, #1 PKG Prov: DELLA MONTANOREZA Mccann DO 02/03/23 ALEJANDRA MONTANO DO Feb 03, 2023 16:26
[2023-02-03 16:31] LABS: BASOPHILS % (AUTO) 1 % (0-10); EOSINOPHILS # (AUTO) 0.2 10^3/uL (0.0-0.3); EOSINOPHILS % (AUTO) 3 % (0-10); HEMATOCRIT 43 % (35-52); LYMPHOCYTES # (AUTO) 2.7 10^3/uL (1.0-4.0); LYMPHOCYTES % (AUTO) 37 % (12-44); MEAN CORPUSCULAR HEMOGLOBIN 30 pg (25-34); MEAN CORPUSCULAR HGB CONC 33 g/dL (32-36); MEAN CORPUSCULAR VOLUME 91 fL (80-99); MEAN PLATELET VOLUME 10.3 fL (9.0-12.2); MONOCYTES # (AUTO) 0.5 10^3/uL (0.0-1.0); MONOCYTES % (AUTO) 7 % (0-12); NEUTROPHILS # (AUTO) 3.7 10^3/uL (1.8-7.8); NEUTROPHILS % (AUTO) 52 % (42-75); PLATELET COUNT 224 10^3/uL (130-400); WHITE BLOOD COUNT 7.2 10^3/uL (4.3-11.0)
--- NOTE | 2023-02-03 16:43 | Diagnostic Imaging Report ---
CHEST 1 VIEW AP/PA ONLY Indication: Cough and dyspnea Comparison: None available. Findings: No focal airspace disease in the visualized lungs. No pleural effusion or pneumothorax. Cardiac silhouette is enlarged. Impression: 1. No acute cardiopulmonary process by portable radiography. Dictated by: Dictated on workstation # [id number]
[2023-02-03 16:54] LABS: POTASSIUM 3.7 MMOL/L (3.6-5.0)
[2023-02-03 16:55] LABS: CALCIUM 9.6 MG/DL (8.5-10.1); CREATININE SERUM 1.5 MG/DL (0.60-1.30)
[2023-02-03] MEDS ORDERED: NIRM1TAB PO (17:02)
[2023-02-03 17:06] VITALS: BP 124/50
== END 2023-02-03 17:06 | disposition home or self-care (01) ==
LOC: EDUNIT# 16:14 → ER FS 16:15
DX: U07.1 COVID-19 (principal); R05.9 Cough, unspecified; R53.83 Other fatigue; R11.2 Nausea with vomiting, unspecified; R53.1 Weakness
CPT/HCPCS: 36415; 71045; 80048; 85025; 87636